=== PATIENT | female | born 2000 | race Caucasian/White ===

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

== ENCOUNTER → 2020-02-17 | Outpatient (CLI) | payer OTHER ==
--- NOTE | 2020-02-24 09:24 | REP ---
INDICATION: NAUSEA COMPARISON: None. TECHNIQUE: Real time Doppler interrogation of the celiac and superior mesenteric arteries using curved array transducer. FINDINGS: Ultrasound examination demonstrates normal arterial wave forms and velocities to the celiac axis and superior mesenteric artery on both inspiration and expiration without significant change to suggest celiac artery compression syndrome or median arcuate ligament syndrome. Visible angulation changes on inspiration and expiration to the celiac axis and superior mesenteric artery are noted but without associated velocity changes are of uncertain true significance. VELOCITY EVALUATION Aorta: 176 cm/sec. Celiac axis (inspiration) 126 cm/sec with angulation of 65 degrees Celiac axis (expiration) 186 cm/sec with angulation of 90 degrees Superior mesenteric artery (inspiration): 99 degree angulation Superior mesenteric artery (expiration): 120 degree angulation. IMPRESSION: Changes of both velocities and angulation to the celiac axis and superior mesenteric artery are within the indeterminate range for diagnosis of celiac artery compression syndrome or median arcuate ligament syndrome. <Electronically signed by Danial Cohn > 02/24/20 [id number]
== END ==
LOC: M RAD 09:07
PROVIDERS: ATTEND Internal Medicine Gastroenterology
DX: R11.0 Nausea (principal)

== ENCOUNTER → 2020-05-22 | Outpatient (CLI) | payer OTHER ==
[2020-05-22 15:45] LABS: HEMATOCRIT 40.4 % (36.0-47.0); HEMOGLOBIN 13.2 g/dl (12.0-15.5); MEAN CORPUSCULAR HEMOGLOBIN 28.6 pg (27.0-33.0); MEAN CORPUSCULAR HGB CONC 32.7 g/dl (32.0-36.5); MEAN CORPUSCULAR VOLUME 87.6 fl (80.0-96.0); PLATELET COUNT, AUTOMATED 200 10^3/uL (150-450); RED BLOOD COUNT 4.61 10^6/uL (4.00-5.40); WHITE BLOOD COUNT 5.4 10^3/uL (4.0-10.0)
[2020-05-22 16:20] LABS: ERYTHROCYTE SEDIMENTATION RATE 16 mm/hr (0-20)
[2020-05-22 16:22] LABS: C REACTIVE PROTEIN QUANTITATIV < 0.30 MG/DL (0.00-0.30); FERRITIN 37 NG/ML (8-252); IRON (FE) 78 UG/DL (50-170); PERCENT SATURATION 21.2 % (13.2-45.0); TOTAL IRON BINDING CAPACITY 368 UG/DL (250-450)
[2020-05-22 17:29] LABS: ATYPICAL LYMPH 7 % (0-5); BASOPHILS 1 % (0-1); LYMPHOCYTES 42 % (16-44); MONOCYTES 2 % (0-5); NEUTROPHILS 47 % (28-66); PLATELET ESTIMATE NORMAL (NORMAL)
== END ==
LOC: M LAB 15:21
PROVIDERS: ATTEND Internal Medicine Gastroenterology
DX: K90.0 Celiac disease (principal); K59.00 Constipation, unspecified

== ENCOUNTER → 2020-12-08 | Outpatient (CLI) | payer OTHER ==
[~2020-12-08] MED LIST changes: +FAMO20TA PO; +LEXA1TAB PO; +META28.32 PO; +POLY1POW38 PO; +SENN-80 PO
== END ==
LOC: M LABSMTC 09:19
PROVIDERS: ATTEND Anesthesiology
DX: Z01.812 Encounter for preprocedural laboratory examination (principal); Z20.822 Contact with and (suspected) exposure to COVID-19

== ENCOUNTER 2020-12-13 11:20 | Day surgery (SDC) | payer OTHER ==
[~2020-12-13] VITALS: Ht 162.6 cm; Wt 53.3 kg
[~2020-12-13 11:20] MED LIST changes: +LIDOCAINE 2% 100MG/5ML SDV (FOR ANES.) As Ordered ONE; +NS 1,000 ML IV ONE; +propofoL 200 MG/20 ML VIAL As Ordered ONE
--- OUTSIDE RECORDS SUMMARY | 2020-12-13 11:26 | CCD | Continuity of Care Document ---
Author Diamante Tidwell M.D. Organization Unknown Address [address], [address] [place] [address] Phone [phone] Care Team Providers Care Hop Grower Name Role Phone Trevin Garibay D.O. AUTM [phone] Jose De Jesus Montero M.D. AUTM [phone] Problems Description No Information Available Social History Type Date Description Comments Sex Unknown ETOH Use Denies alcohol use Tobacco Use Start: Unknown Non Smoker Allergies and adverse reactions Active Allergies Criticality Reaction | Severity Comments Date NKDA Unable to assess criticality 12/09/2018 Gluten Unable to assess criticality 11/21/2020 Lactose Unable to assess criticality 11/21/2020 Medications Active Medications SIG Qnty Indications Ordering Provide r Date Ondansetron 4mg Tablets Dispers Take One Tablet By Mouth Two To Three Times A Day For Nausea as Needed 30tabs Chaka Castellon M.D. 09/05/2020 Senna 8.6mg Tablets Take Two Tablets By Mouth Every Day AT Bedtime 60tabs K90.0 Chaka Castellon M.D. 05/22/2020 Dicyclomine HCL 20mg Tablets Take 1 Tablet By Mouth 2-3 Times Daily AT Least 15 Minutes Before Meals 90tabs Chaka Castellon M.D. 03/07/2020 Famotidine 20mg Tablets Take One Tablet By Mouth Every Day AT Bedtime (And If Tolerating Switch To Two Times A Day After 2 Weeks) 60tabs R11.0 Chaka Castellon M.D. 2019 Miralax 17GM/Scoop Powder 17 gram per dose, mixed with 8 oz water/fluid and to be taken 1 -2 times a day. ( can hold or decrease dose if having diarrhea) 238gm Chaka graham M.D. 10/27/2019 Lexapro 10mg Tablets 1t/d Unknown Promethazine HCL 25mg Tablets 1t/prn Unknown Immunizations Description No Information Available Vital Signs Date Vital Result Comment 11/21/2020 12:11pm BP Systolic 106 mmHg BP Diastolic 60 mmHg Height 64 inches 5'4" Weight 125.00 lb BMI (Body Mass Index) 21.5 kg/m2 [place] Body Weight 120 lb Weight 56.700 kg BSA (Body Surface Area) 1.60 m2 05/22/2020 2:05pm BP Systolic 112 mmHg BP Diastolic 60 mmHg Height 64 inches 5'4" Weight 157.00 lb BMI (Body Mass Index) 26.9 kg/m2 [place] Body Weight 120 lb Weight 71.215 kg Weight Percentile 86th Height Percentile 45 % BSA (Body Surface Area) 1.77 m2 Results Description No Information Available Procedures Date Code Description Status 08/23/2020 06081 Office/Outpatient Established Lo w MDM 20-29 Min Completed Medical Devices Description No Information Available Encounters Type Date Location Provider Dx Diagnosis Office Visit 08/23/2020 9:50a [facility] Chaka Castellon M.D. K90.0 Celiac disease K62.5 Hemorrhage of anus and rectu m R11.0 Nausea R10.10 Upper abdominal pain, unspec ified Assessments Date Code Description Provider 08/23/2020 K90.0 Celiac disease Chaka Guidry ala, M.D. 08/23/2020 K62.5 Hemorrhage of anus and rectum Miguel Ángel Castellon M.D. 08/23/2020 R11.0 Nausea Chaka Guidry ala, M.D. 08/23/2020 R10.10 Upper abdominal pain, unspecifie d Chaka Castellon M.D. Plan of Treatment No Information Available Functional Status Description No Information Available Mental Status Description No Information Available Referrals Description No Information Available
--- OUTSIDE RECORDS SUMMARY | 2020-12-13 11:26 | CCD | Continuity of Care Document ---
Author Author Diamante RUDD MD Organization Unknown Address [address] [place] [address] Phone [phone] Care Team Providers Care Cro Name Role Phone [facility] Behavioral Health AUTM [phone] [facility] AUTM Sahra Rios PA-C AUTM [phone] [facility] AUTM [phone] [facility] Gastroenterology AUTM [phone] [facility] AUTM Laverne Rudd MD AUTM [phone] Problems Active Problems Provider Date Acne CHAMP Campbell Onset: 11/01/2015 Adjustment disorder with anxious mood Georgie Groves M.D. On set: 08/18/2016 Hypermetropia Onset: Social History Type Date Description Comments Sex Unknown ETOH Use Denies alcohol use Tobacco Use Start: Unknown Patient has never smoked Recreational Drug Use Denies Drug Use Exercise Type/Frequency Exercises sporadically Tattoo/Piercing Pierced ears Tattoo/Piercing Pierced lower lip Seat Belt/Car Seat Always uses seat belt SEAN: 05/16/2018 Estimated Date of Delivery Based on Final SEAN Allergies, Adverse Reactions, Alerts Active Allergies Criticality Reaction | Severity Comments Date Gluten Unable to assess criticality Nausea and Vomiting, Urticaria, stomach spasms, mood changes 11/01/2015 Lactose (Intolerance) Unable to assess criticality Nausea and Vomit ing 11/01/2015 Lactose Unable to assess criticality 08/11/2013 Seasonal Unable to assess criticality 11/01/2015 Inactive Allergies NKDA Unable to assess criticality 11/01/2015 Medications Active Medications SIG Qnty Indications Ordering Provide r Date Lexapro 10mg Tablets 1 by mouth every day 30tabs F43.22 Ahsan Mendez MD 10/18/2020 Ondansetron 4mg Tablets Dispers take 1 tablet by mouth up to 3 times a day as needed for nausea/vomiting Unknown Dicyclomine HCL 20mg Tablets Take 1 Tablet By Mouth 2 3 Times Daily AT Least 15 Minutes Before Meals Unknown Promethazine HCL 25mg Suppository as needed 12units Unknown Famotidine 20mg Tablets Take One Tablet By Mouth Every Day AT Bedtime And If Tolerating Switch To Two T Unknown Senna 8.6mg Tablets Take Two Tablets By Mouth Every Day AT Bedtime Unknown Immunizations CPT Code Status Date Vaccine Lot # [id number] Given 03/31/2018 Tdap (Boostrix/Adacel) Vacci ne [id number] Given 11/02/2017 [facility] Influenza (>35 months) P .F. Vaccine [id number] 43876 Given 11/07/2016 [facility] Meningococcal Conjugate Vaccine (Menveo) [id number] 00110 Given 11/07/2016 [facility] Influenza (>35 months) P .F. Vaccine [id number] Given 12/03/2015 [facility] Influenza (>35 months) P .F. Vaccine [id number] 25577 Given 11/14/2014 Influenza (>35 months) P.F. Vaccine 31882 Given 12/13/2013 Influenza Virus Vaccine Split Virus Use For Individual 3Yr Older U-Flu Given 02/20/2012 Influenza,Unspecified 40026 Given 09/12/2011 Meningococcal (Menactra/Menv eo) Vaccine [id number] Given 09/12/2011 Tdap (Boostrix/[place]) [place] [address] Given 01/13/2011 Influenza Virus Vaccine Split Virus Use For Individual 3Yr Older Vital Signs Date Vital Result Comment 10/18/2020 1:53pm BP Systolic 110 mmHg BP Diastolic 70 mmHg Heart Rate 86 /min Body Temperature 95.9 F Respiratory Rate 16 /min O2 % BldC Oximetry 99 % Weight 133.12 lb Weight 60.386 kg Height 64 inches 5'4" BMI (Body Mass Index) 22.8 kg/m2 BSA (Body Surface Area) 1.65 m2 03/04/2019 10:20am BP Systolic 110 mmHg BP Diastolic 60 mmHg Heart Rate 110 /min Body Temperature 98.5 F Respiratory Rate 16 /min O2 % BldC Oximetry 99 % Weight 147.00 lb Weight 66.679 kg Weight Percentile 81st Height 64 inches 5'4" Height Percentile 46 % BMI (Body Mass Index) 25.2 kg/m2 Body Mass Index Percentile 82 % BSA (Body Surface Area) 1.72 m2 Results Test Acquired Date Facility Test Result H/L Range Note Sedimentation Rate 10/18/2020 [facility] Sed Rate 6 mm/hr 0 - 20 Sed Rate Reenter 6 Laboratory test finding 10/18/2020 [facility] TSH Highly Sensitive 0.34 uIU/mL Low 0.47 - 5.01 CRP (High Sensitivity) 0.60 mg/L Low 1.00 - 3.00 1 Laboratory test finding 10/18/2020 [facility] Consuelo Ifa Negative 2 Ra Quant <10 IU/mL 0 - 14 Laboratory test finding 10/13/2020 [facility] Lactic Acid (Lactate) 1.4 mmol/L 0.2 - 2.2 CBC W/Automated Diff 10/13/2020 [facility] CBC W/Automated Diff (SEE NOTE) 3 WBC 6.1 10^3/uL 4.2 - 11.0 RBC 4.50 10^6/uL 4.20 - 5.40 Hemoglobin 13.0 g/dL 12.0 - 16.0 Hematocrit 38.1 % 37.0 - 47.0 MCV 84.7 fL 81.0 - 101 MCH 28.9 pg 27.0 - 34.0 MCHC 34.1 g/dL 31.0 - 36.0 RDW 13.1 % 11.5 - 14.5 Platelets 193 10^3/uL 150 - 450 MPV 12.0 fL High 7.4 - 10.4 Neut 56.2 % 37.0 - 80.0 Lymph 34.3 % 25.0 - 40.0 [place] 6.4 % 3.0 - 8.0 Eos 2.4 % 0.0 - 7.0 Baso 0.5 % 0.0 - 2.5 %Ig 0.2 % High 0.0 - 0.0 %NRBC 0.0 % 0.0 - 0.0 #Neut 3.45 10^3/uL 2.00 - 6.90 #Lymph 2.10 10^3/uL 0.60 - 3.40 #[place] 0.39 10^3/uL 0.00 - 0.90 #Eos 0.15 10^3/uL 0.00 - 0.70 #Baso 0.03 10^3/uL 0.00 - 0.20 #Ig 0.01 10^3/uL 0.00 - 0.10 #NRBC 0.00 10^3/uL 0.00 - 0.00 Manual Diff NOT INDICATED RBC Morph NOT INDICATED Comprehensive Met[facility] 10/13/2020 [facility] Metabo (SEE NOTE) 4 Sodium 140 mEq/L 134 - 153 Potassium 3.8 mEq/L 3.6 - 5.0 Chloride 107 mEq/L 98 - 107 Co2 21 mEq/L Low 22 - 30 Glucose 99 mg/dL 70 - 99 BUN 17 mg/dL 7 - 21 Creatinine 0.7 mg/dL 0.7 - 1.5 BUN/Creat 24 8 - 27 Total Protein 6.7 g/dL 6.3 - 8.2 Albumin 4.6 g/dL 3.9 - 5.0 Globulin 2.1 GM/DL Low 2.4 - 3.2 A/G Ratio 2.2 High 0.8 - 2.0 Calcium 9.7 mg/dL 8.4 - 10.2 Total Bili <0.7 mg/dL 0.2 - 1.3 Alkaline Phos 83 U/L 38 - 126 Sgot/Ast 17 U/L 5 - 40 SGPT/Alt 14 U/L 7 - 56 Anion Gap 12.0 mmol/L 8.0 - 16.0 Age 20 yrs Non-Aa GFR >60 mL/min Afr Amer GFR >60 mL/min 5 Laboratory test finding 10/13/2020 [facility] l Lipase Serum 154 U/L High 13 - 60 HCG Urine Qual 10/13/2020 [facility] HCG Urine Qual NEGATIVE Normal: Negative HCG Urine QL Reenter NEGATIVE Normal: Negative 6 Urinalysis 10/13/2020 [facility] Urinalysis (SEE NOTE) 7 Source R Color yellow Normal: Yellow Clarity clear Normal: Clear Spec Pierre 1.015 1.001 - 1.030 pH 6 5 - 9 Glucose NORM Normal: Negative Bilirubin NEG Normal: Negative Ketone NEG Normal: Negative Protein NEG Normal: Negative Nitrite NEG Normal: Negative Blood NEG Normal: Negative Leuk Est NEG Normal: Negative Urobilinogen NOR less than 1.0 mg/dL Microscopic Not Indicate Urinalysis 10/06/2020 [facility] Urinalysis (SEE NOTE) 8, 9 Source R Color yellow Normal: Yellow Clarity hazy Normal: Clear Spec Pierre 1.020 1.001 - 1.030 pH 6 5 - 9 Glucose NORM Normal: Negative Bilirubin NEG Normal: Negative Ketone 15 Abnormal Normal: Negative Protein NEG Normal: Negative Nitrite NEG Normal: Negative Blood NEG Normal: Negative Leuk Est NEG Normal: Negative Urobilinogen NOR less than 1.0 mg/dL Microscopic Not Indicate Comprehensive Metabolic Panel 09/18/2020 [facility] Metabo (SEE NOTE) 10 Sodium 139 mEq/L 134 - 153 Potassium 4.1 mEq/L 3.6 - 5.0 Chloride 108 mEq/L High 98 - 107 Co2 21 mEq/L Low 22 - 30 Glucose 94 mg/dL 70 - 99 BUN 23 mg/dL High 7 - 21 Creatinine 0.8 mg/dL 0.7 - 1.5 BUN/Creat 29 High 8 - 27 Total Protein 6.7 g/dL 6.3 - 8.2 Albumin 4.6 g/dL 3.9 - 5.0 Globulin 2.1 GM/DL Low 2.4 - 3.2 A/G Ratio 2.2 High 0.8 - 2.0 Calcium 9.5 mg/dL 8.4 - 10.2 Total Bili <0.7 mg/dL 0.2 - 1.3 Alkaline Phos 88 U/L 38 - 126 Sgot/Ast 16 U/L 5 - 40 SGPT/Alt 12 U/L 7 - 56 Anion Gap 10.0 mmol/L 8.0 - 16.0 Age 20 yrs Non-Aa GFR >60 mL/min Afr Amer GFR >60 mL/min 11 Cuture Urine 09/18/2020 [facility] Culture Urine (SEE NOTE) 12 Laboratory test finding 09/18/2020 [facility] l Lipase Serum 17 U/L 13 - 60 Urinalysis 09/18/2020 [facility] Urinalysis (SEE NOTE) 13 Source R Color yellow Normal: Yellow Clarity hazy Normal: Clear Spec Pierre 1.010 1.001 - 1.030 pH 5 5 - 9 Glucose NORM Normal: Negative Bilirubin NEG Normal: Negative Ketone 15 Abnormal Normal: Negative Protein NEG Normal: Negative Nitrite NEG Normal: Negative Blood NEG Normal: Negative Leuk Est 25 Normal: Negative Urobilinogen NOR less than 1.0 mg/dL Microscopic See Below WBC 3 - 5 Normal: None Seen RBC 1 - 3 Normal: None Seen Epithelial MODERATE Abnormal Normal: None Seen Bacteria Trace Normal: None Seen Mucous Trace Normal: None Seen HCG Serum Qual 09/18/2020 [facility] HCG Serum Qual NEGATIVE Normal: Negative HCG Serum QL Reenter NEGATIVE Normal: Negative 14 Laboratory test finding 09/18/2020 [facility] l Lactic Acid (Lactate) 1.1 mmol/L 0.2 - 2.2 CBC W/Automated Diff 09/18/2020 [facility] CBC W/Automated Diff (SEE NOTE) 15 WBC 6.0 10^3/uL 4.2 - 11.0 RBC 4.54 10^6/uL 4.20 - 5.40 Hemoglobin 12.9 g/dL 12.0 - 16.0 Hematocrit 38.2 % 37.0 - 47.0 MCV 84.1 fL 81.0 - 101 MCH 28.4 pg 27.0 - 34.0 MCHC 33.8 g/dL 31.0 - 36.0 RDW 13.2 % 11.5 - 14.5 Platelets 225 10^3/uL 150 - 450 MPV 12.0 fL High 7.4 - 10.4 Neut 63.0 % 37.0 - 80.0 Lymph 27.8 % 25.0 - 40.0 [place] 6.8 % 3.0 - 8.0 Eos 1.0 % 0.0 - 7.0 Baso 1.2 % 0.0 - 2.5 %Ig 0.2 % High 0.0 - 0.0 %NRBC 0.0 % 0.0 - 0.0 #Neut 3.79 10^3/uL 2.00 - 6.90 #Lymph 1.67 10^3/uL 0.60 - 3.40 #[place] 0.41 10^3/uL 0.00 - 0.90 #Eos 0.06 10^3/uL 0.00 - 0.70 #Baso 0.07 10^3/uL 0.00 - 0.20 #Ig 0.01 10^3/uL 0.00 - 0.10 #NRBC 0.00 10^3/uL 0.00 - 0.00 Manual Diff NOT INDICATED RBC Morph NOT INDICATED Urinalysis 07/10/2020 [facility] Urinalysis (SEE NOTE) 16 Source Clean Catch Color yellow Normal: Yellow Clarity clear Normal: Clear Spec Pierre 1.010 1.001 - 1.030 pH 7 5 - 9 Glucose NORM Normal: Negative Bilirubin NEG Normal: Negative Ketone NEG Normal: Negative Protein NEG Normal: Negative Nitrite NEG Normal: Negative Blood NEG Normal: Negative Leuk Est 25 Normal: Negative Urobilinogen NOR less than 1.0 mg/dL Microscopic See Below WBC 1 - 3 Normal: None Seen RBC None Seen Normal: None Seen Epithelial FEW Normal: None Seen Bacteria 1+ SMALL Normal: None Seen Mucous Trace Normal: None Seen CBC W/Automated Diff 07/09/2020 [facility] CBC W/Automated Diff (SEE NOTE) 17 WBC 7.3 10^3/uL 4.2 - 11.0 RBC 4.63 10^6/uL 4.20 - 5.40 Hemoglobin 13.4 g/dL 12.0 - 16.0 Hematocrit 38.5 % 37.0 - 47.0 MCV 83.2 fL 81.0 - 101 MCH 28.9 pg 27.0 - 34.0 MCHC 34.8 g/dL 31.0 - 36.0 RDW 12.5 % 11.5 - 14.5 Platelets 216 10^3/uL 150 - 450 MPV 11.7 fL High 7.4 - 10.4 Neut 61.2 % 37.0 - 80.0 Lymph 30.2 % 25.0 - 40.0 [place] 6.3 % 3.0 - 8.0 Eos 1.4 % 0.0 - 7.0 Baso 0.8 % 0.0 - 2.5 %Ig 0.1 % High 0.0 - 0.0 %NRBC 0.0 % 0.0 - 0.0 #Neut 4.43 10^3/uL 2.00 - 6.90 #Lymph 2.19 10^3/uL 0.60 - 3.40 #[place] 0.46 10^3/uL 0.00 - 0.90 #Eos 0.10 10^3/uL 0.00 - 0.70 #Baso 0.06 10^3/uL 0.00 - 0.20 #Ig 0.01 10^3/uL 0.00 - 0.10 #NRBC 0.00 10^3/uL 0.00 - 0.00 Manual Diff NOT INDICATED RBC Morph NOT INDICATED HCG Serum Qual 07/09/2020 [facility] HCG Serum Qual NEGATIVE Normal: Negative HCG Serum QL Reenter NEGATIVE Normal: Negative 18 Laboratory test finding 07/09/2020 [facility] Lipase Serum 16 U/L 13 - 60 Comprehensive Metabolic Panel 07/09/2020 [facility] Comprehensive Metabo (SEE NOTE) 19 Sodium 140 mEq/L 134 - 153 Potassium 3.7 mEq/L 3.6 - 5.0 Chloride 107 mEq/L 98 - 107 Co2 21 mEq/L Low 22 - 30 Glucose 92 mg/dL 70 - 99 BUN 19 mg/dL 7 - 21 Creatinine 0.7 mg/dL 0.7 - 1.5 BUN/Creat 27 8 - 27 Total Protein 7.0 g/dL 6.3 - 8.2 Albumin 4.7 g/dL 3.9 - 5.0 Globulin 2.3 GM/DL Low 2.4 - 3.2 A/G Ratio 2.0 0.8 - 2.0 Calcium 10.0 mg/dL 8.4 - 10.2 Total Bili <0.7 mg/dL 0.2 - 1.3 Alkaline Phos 94 U/L 38 - 126 Sgot/Ast 17 U/L 5 - 40 SGPT/Alt 13 U/L 7 - 56 Anion Gap 12.0 mmol/L 8.0 - 16.0 Age 19 yrs Non-Aa GFR >60 mL/min Afr Amer GFR >60 mL/min 20 Total Iron Binding Capacit 05/22/2020 [facility] Iron (Fe) 78 g/dL Normal 50-170 Total Iron Binding Capacity 368 g/dL Normal 250-450 Percent Saturation 21.2 % Normal 13.2-45.0 Laboratory test finding 05/22/2020 [facility] Ferritin 37 NG/ML Normal 8-252 C Reactive Protein Quantitativ < 0.30 mg/dL Normal 0.00-0.30 CBC With Differential 05/22/2020 [facility] White Blood Count 5.4 10 Normal 4.0-10.0 Red Blood Count 4.61 10 Normal 4.00-5.40 Hemoglobin 13.2 g/dL Normal 12.0-15.5 Hematocrit 40.4 % Normal 36.0-47.0 Mean Corpuscular Volume 87.6 fl Normal 80.0-96.0 Mean Corpuscular Hemoglobin 28.6 pg Normal 27.0-33.0 Mean Corpuscular HGB Conc 32.7 g/dL Normal 32.0-36.5 Red Cell Distribution Width 11.9 % Normal 11.5-14.5 Platelet Count, Automated 200 10 Normal 150-450 Nucleated Red Blood Cell % 0.0 % Normal 0-0 Differential 05/22/2020 [facility] Neutrophils 47 % Normal 28-66 Bands 1 % Normal < 11 Lymphocytes 42 % Normal 16-44 Monocytes 2 % Normal 0-5 Basophils 1 % Normal 0-1 Atypical Lymph 7 % High 0-5 Laboratory test finding 05/22/2020 [facility] Platelet Estimate NORMAL Normal Normal Erythrocyte Sedimentation Rate 16 mm/hr Normal 0-20 HCG Urine Qual 05/12/2020 [facility] HCG Urine Qual NEGATIVE Normal: Negative HCG Urine QL Reenter NEGATIVE Normal: Negative 21 Urinalysis 05/12/2020 [facility] Urinalysis (SEE NOTE) 22 Source R Color yellow Normal: Yellow Clarity clear Normal: Clear Spec Pierre 1.020 1.001 - 1.030 pH 6 5 - 9 Glucose NORM Normal: Negative Bilirubin NEG Normal: Negative Ketone NEG Normal: Negative Protein NEG Normal: Negative Nitrite NEG Normal: Negative Blood NEG Normal: Negative Leuk Est NEG Normal: Negative Urobilinogen NOR less than 1.0 mg/dL Microscopic Not Indicate 1 CDC/AHS HS-CRP CUT-OFF: RELATIVE RISK: <1.0 mg/L Low 1.0 - 3.0 mg/L A verage >3.0 mg/L High Optimally, the average of HS-CRP results repeated two weeks apart should be used for risk assessment. 2 Negative <1:80 Borderline 1:80 Positive >1:80 ICAP nomenclature: AC-0 For more information about Hep-2 cell patterns use ANApatterns.org, the official website for the International Consensus on Antinuclear Antibody (CONSUELO) Patterns (ICAP). 3 COMPLETE BLOOD COUNT 4 COMPREHENSIVE METABOLIC PANE L 5 Male GFR Interprentation 20-49 yrs >60 mL/min Normal 50-59 yrs >56 mL/min Normal 60-69 yrs >49 mL/min Normal 70-79yrs >42 mL/min Normal 80 and above >35 mL/min Normal Female GFR Interpretation 20-39 yrs >60 mL/min Normal 40-49 yrs >58 mL/min Normal 50-59 yrs >51 mL/min Normal 60-69 yrs >45 mL/min Normal 70-79 yrs >39 mL/min Normal 80 and above >32 mL/min Normal 6 { KIT LOT # [id number] ) { KIT EXP DATE 02.08.22 ) { PROCEDURAL CONTROL VALID ) 7 URINALYSIS 8 SOURCE: Clean Catch 9 URINALYSIS 10 COMPREHENSIVE METABOLIC PANE L 11 Male GFR Interprentation 20-49 yrs >60 mL/min Normal 50-59 yrs >56 mL/min Normal 60-69 yrs >49 mL/min Normal 70-79yrs >42 mL/min Normal 80 and above >35 mL/min Normal Female GFR Interpretation 20-39 yrs >60 mL/min Normal 40-49 yrs >58 mL/min Normal 50-59 yrs >51 mL/min Normal 60-69 yrs >45 mL/min Normal 70-79 yrs >39 mL/min Normal 80 and above >32 mL/min Normal 12 _CULTURE URINE_ ^$[id number] ^^[id number] $$261561 ^^721911 $$[id number] $$446988 $$883297 $$935323 $$402950 $$205772 $$823554 $$626193 $$359644 $$649553 $$581028 $$439928 $$464522 $$860364 $$880285 $$890151 $$982969 $$974197 $$438190 $$485553 $$248295 $$945151 $$342274 ^^809744 $$602927 $$929800 $$[id number] -- Continued on next page -- Patient: CARON Harris Order: [id number] Page 2 Culture: CULTURE URINE Status: Final -- Continued on next page -- Patient: CARON Harris Order: [id number] Page 2 Culture: CULTURE URINE Status: Prelim $$[id number] $$[id number] REPORTED DATE/TIME: 09/21/2020 15:06 Culture: CULTURE URINE Status: Final Isolate 1 Escherichia coli Flag: A . . . . . . .1 2,000 Colonies/mL Cefazolin <=4 ug/mL Cefazolin with an STAN <=16 predicts susceptibility to the oral agents cefaclor, cefdinir, cefpodoxime, cefprozil, cefuroxime, cephalexin, and loracarbef when used for therapy of uncomplicated urinary tract infections due to E. coli, Klebsiella pneumoniae, and Proteus mirabilis. Previous result entered on 09/20/2020 04:15 ET Gram negative rods Urine Culture,Comprehensive: P1 Escherichia coli Flag: A Patient: CARON LEMUS R Order: [id number] Page 3 Culture: CULTURE URINE Status: Final ISOLATE 1 Escherichia coli Isolate 1 Antibiotic STAN Int Units ug/mL Amoxicillin/Clavulanic Acid S S . . . . . .20-8 Ampicillin S S . . . . . .28-1 Cefepime S S . . . . . .6644-9 Ceftriaxone S S . . . . . .141-2 Cefuroxime S S . . . . . .145-3 Ciprofloxacin S S . . . . . .185-9 Ertapenem S S . . . . . .53693-0 Gentamicin S S . . . . . .267-5 Imipenem S S . . . . . .279-0 Levofloxacin S S . . . . . .43409-0 Meropenem S S . . . . . .6652-2 Nitrofurantoin S S . . . . . .363-2 Piperacillin/Tazobactam S S . . . . . .412-7 Tetracycline S S . . . . . .496-0 Tobramycin S S . . . . . .508-2 Trimethoprim/Sulfa S S . . . . . .516-5 P1 Test performed by: [facility] #: [id number] [address] [place] [address] [id number] [facility] [id number] [employer] : Yeyo Goins MD NPI #: Fudger : 09/20/[id number].SENT REF 09/21/20.2108.XMT.SENT REF 13 URINALYSIS 14 { KIT LOT # [id number] ) { KIT EXP DATE 02.08.22 ) { PROCEDURAL CONTROL VALID ) 15 COMPLETE BLOOD COUNT 16 URINALYSIS 17 COMPLETE BLOOD COUNT 18 { KIT LOT # [id number] ) { KIT EXP DATE 12.09.21 ) { PROCEDURAL CONTROL VALID ) 19 COMPREHENSIVE METABOLIC PANE L 20 Male GFR Interprentation 20-49 yrs >60 mL/min Normal 50-59 yrs >56 mL/min Normal 60-69 yrs >49 mL/min Normal 70-79yrs >42 mL/min Normal 80 and above >35 mL/min Normal Female GFR Interpretation 20-39 yrs >60 mL/min Normal 40-49 yrs >58 mL/min Normal 50-59 yrs >51 mL/min Normal 60-69 yrs >45 mL/min Normal 70-79 yrs >39 mL/min Normal 80 and above >32 mL/min Normal 21 { KIT LOT # [id number] ) { KIT EXP DATE 11-08-21 ) { PROCEDURAL CONTROL VALID ) 22 URINALYSIS Procedures Description No Information Available Medical Devices Description No Information Available Encounters Description No Information Available Assessments Date Code Description Provider 10/18/2020 R10.9 Unspecified abdominal pain Laverne Rudd MD 10/18/2020 R21 Rash and other nonspecific skin eruption Laverne Rudd MD 10/18/2020 F43.22 Adjustment disorder with anxiety Laverne Rudd MD Plan of Treatment Future Appointment(s):* 11/20/2020 3:00 pm - Laverne Rudd MD at [facility] 06/02/2018 - Derek Yune M.D.* Z39.2 Encounter for routine follow-up * All * New Medication:* Mirena (52 MG) 20 mcg/24HR - intrauterine device for 5 yrs * Follow up:* f/u when IUD is available. Functional Status Description No Information Available Mental Status Description No Information Available Referrals Description No Information Available
--- OUTSIDE RECORDS SUMMARY | 2020-12-13 11:26 | CCD | Continuity of Care Document ---
Author Author Diamante RUDD MD Organization Unknown Address [address] [place] [address] Phone [phone] Care Team Providers Care Stock Dealer Name Role Phone [facility] Behavioral Health AUTM [phone] [address] [facility] AUTM Sahra Rios PA-C AUTM [phone] [facility] AUTM [phone] [facility] Gastroenterology AUTM [phone] [facility] AUTM Laverne Rudd MD AUTM [phone] Problems Active Problems Provider Date Acne CHAMP [...] CPT Code Status Date Vaccine Lot # [id number] Given 03/31/2018 Tdap (Boostrix/Adacel) Vacci ne [id number] 75196 Given 11/02/2017 [facility] Influenza (>35 months) P .F. Vaccine [id number] 98832 Given 11/07/2016 [facility] Meningococcal Conjugate Vaccine (Menveo) [id number] 70568 Given 11/07/2016 [facility] Influenza (>35 months) P .F. Vaccine [id number] 86597 Given 12/03/2015 [facility] Influenza (>35 months) P .F. Vaccine [id number] 72902 Given 11/14/2014 Influenza (>35 months) P.F. Vaccine 15665 Given 12/13/2013 Influenza Virus Vaccine Split Virus Use For Individual 3Yr Older U-Flu Given 02/20/2012 Influenza,Unspecified 10103 Given 09/12/2011 Meningococcal (Menactra/Menv eo) Vaccine 72052 Given 09/12/2011 Tdap (Boostrix/[place]) [place] [address] Given 01/13/2011 Influenza Virus Vaccine Split Virus [...] Date Facility Test Result H/L Range Note Laboratory test finding 10/18/2020 [facility] Consuelo Ifa <pending> Ra Quantitative <pending> Sedimentation Rate <pending> C-Reactive Protein <pending> TSH Highly Sensitive <pending> Laboratory test finding 10/13/2020 [facility] Lactic Acid (Lactate) 1.4 mmol/L 0.2 - 2.2 CBC W/Automated Diff 10/13/2020 [facility] CBC W/Automated Diff (SEE NOTE) 1 WBC 6.1 10^3/uL 4.2 - 11.0 RBC [...] 80.0 Lymph 34.3 % 25.0 - 40.0 [place] 6.4 % 3.0 - 8.0 Eos 2.4 % 0.0 - 7.0 Baso 0.5 % 0.0 - 2.5 %Ig 0.2 % High 0.0 - 0.0 %NRBC 0.0 % 0.0 - 0.0 #Neut 3.45 10^3/uL 2.00 - 6.90 #Lymph 2.10 10^3/uL 0.60 - 3.40 #[place] 0.39 10^3/uL 0.00 - 0.90 #Eos 0.15 10^3/uL 0.00 - 0.70 #Baso 0.03 10^3/uL 0.00 - 0.20 #Ig 0.01 10^3/uL 0.00 - 0.10 #NRBC 0.00 10^3/uL 0.00 - 0.00 Manual Diff NOT INDICATED RBC Morph NOT INDICATED Comprehensive [facility]abo (SEE NOTE) 2 Sodium 140 mEq/L 134 - 153 Potassium [...] >60 mL/min Afr Amer GFR >60 mL/min 3 Laboratory test finding 10/13/2020 [facility] l Lipase Serum 154 U/L High 13 - 60 HCG Urine Qual 10/13/2020 [facility] HCG Urine Qual NEGATIVE Normal: Negative HCG Urine QL Reenter NEGATIVE Normal: Negative 4 Urinalysis 10/13/2020 [facility] Urinalysis (SEE NOTE) 5 Source R Color yellow Normal: Yellow Clarity clear Normal: Clear Spec [place] 1.015 1.001 - 1.030 pH 6 5 - 9 Glucose NORM Normal: Negative Bilirubin NEG Normal: Negative Ketone NEG Normal: Negative Protein NEG Normal: Negative Nitrite NEG Normal: Negative Blood NEG Normal: Negative Leuk Est NEG Normal: Negative Urobilinogen NOR less than 1.0 mg/dL Microscopic Not Indicate Urinalysis 10/06/2020 [facility] Urinalysis (SEE NOTE) 6, 7 Source R Color yellow Normal: Yellow Clarity hazy Normal: Clear Spec [place] 1.020 1.001 - 1.030 pH 6 5 - 9 Glucose NORM Normal: Negative Bilirubin NEG Normal: Negative Ketone 15 Abnormal Normal: Negative Protein NEG Normal: Negative Nitrite NEG Normal: Negative Blood NEG Normal: Negative Leuk Est NEG Normal: Negative Urobilinogen NOR less than 1.0 mg/dL Microscopic Not Indicate Laboratory test finding 09/18/2020 [facility] l Lipase Serum 17 U/L 13 - 60 Cuture Urine 09/18/2020 [facility] Culture Urine (SEE NOTE) 8 Comprehensive Metabolic Panel 09/18/[facility] Comprehensive Metabo (SEE NOTE) 9 Sodium 139 mEq/L 134 - 153 Potassium [...] >60 mL/min Afr Amer GFR >60 mL/min 10 Urinalysis 09/18/2020 [facility] Urinalysis (SEE NOTE) 11 Source R Color yellow Normal: Yellow Clarity hazy Normal: Clear Spec [place] 1.010 1.001 - 1.030 pH 5 5 [...] Normal: None Seen HCG Serum Qual 09/18/2020 [facility] HCG Serum Qual NEGATIVE Normal: Negative HCG Serum QL Reenter NEGATIVE Normal: Negative 12 Laboratory test finding 09/18/2020 [facility] Lactic Acid (Lactate) 1.1 mmol/L 0.2 - 2.2 CBC W/Automated Diff 09/18/2020 [facility] CBC W/Automated Diff (SEE NOTE) 13 WBC 6.0 10^3/uL 4.2 - 11.0 RBC [...] 80.0 Lymph 27.8 % 25.0 - 40.0 [place] 6.8 % 3.0 - 8.0 Eos 1.0 % 0.0 - 7.0 Baso 1.2 % 0.0 - 2.5 %Ig 0.2 % High 0.0 - 0.0 %NRBC 0.0 % 0.0 - 0.0 #Neut 3.79 10^3/uL 2.00 - 6.90 #Lymph 1.67 10^3/uL 0.60 - 3.40 #[place] 0.41 10^3/uL 0.00 - 0.90 #Eos 0.06 10^3/uL 0.00 - 0.70 #Baso 0.07 10^3/uL 0.00 - 0.20 #Ig 0.01 10^3/uL 0.00 - 0.10 #NRBC 0.00 10^3/uL 0.00 - 0.00 Manual Diff NOT INDICATED RBC Morph NOT INDICATED Urinalysis 07/10/2020 [facility] Urinalysis (SEE NOTE) 14 Source Clean Catch Color yellow Normal: Yellow Clarity clear Normal: Clear Spec [place] 1.010 1.001 - 1.030 pH 7 5 [...] Normal: None Seen CBC W/Automated Diff 07/09/2020 [facility] CBC W/Automated Diff (SEE NOTE) 15 WBC 7.3 10^3/uL 4.2 - 11.0 RBC [...] 80.0 Lymph 30.2 % 25.0 - 40.0 [place] 6.3 % 3.0 - 8.0 Eos 1.4 % 0.0 - 7.0 Baso 0.8 % 0.0 - 2.5 %Ig 0.1 % High 0.0 - 0.0 %NRBC 0.0 % 0.0 - 0.0 #Neut 4.43 10^3/uL 2.00 - 6.90 #Lymph 2.19 10^3/uL 0.60 - 3.40 #[place] 0.46 10^3/uL 0.00 - 0.90 #Eos 0.10 10^3/uL 0.00 - 0.70 #Baso 0.06 10^3/uL 0.00 - 0.20 #Ig 0.01 10^3/uL 0.00 - 0.10 #NRBC 0.00 10^3/uL 0.00 - 0.00 Manual Diff NOT INDICATED RBC Morph NOT INDICATED HCG Serum Qual 07/09/2020 [facility] HCG Serum Qual NEGATIVE Normal: Negative HCG Serum QL Reenter NEGATIVE Normal: Negative 16 Laboratory test finding 07/09/2020 [facility] l Lipase Serum 16 U/L 13 - 60 Comprehensive Metabolic Panel 07/09/2020 [facility] Comprehensive Metabo (SEE NOTE) 17 Sodium 140 mEq/L 134 - 153 Potassium [...] >60 mL/min Afr Amer GFR >60 mL/min 18 Total Iron Binding Capacit 05/22/2020 [facility] Iron (Fe) 78 g/dL Normal 50-170 Total Iron Binding Capacity 368 g/dL Normal 250-450 Percent Saturation 21.2 % Normal 13.2-45.0 Laboratory test finding 05/22/2020 [facility] Ferritin 37 NG/ML Normal 8-252 C Reactive Protein Quantitativ < 0.30 mg/dL Normal 0.00-0.30 CBC With Differential 05/22/2020 [facility] White Blood Count 5.4 10 Normal 4.0-10.0 [...] % 0.0 % Normal 0-0 Differential 05/22/2020 [facility] Neutrophils 47 % Normal 28-66 Bands 1 % Normal < 11 Lymphocytes 42 % Normal 16-44 Monocytes 2 % Normal 0-5 Basophils 1 % Normal 0-1 Atypical Lymph 7 % High 0-5 Laboratory test finding 05/22/2020 [facility] Platelet Estimate NORMAL Normal Normal Erythrocyte Sedimentation Rate 16 mm/hr Normal 0-20 HCG Urine Qual 05/12/2020 [facility] HCG Urine Qual NEGATIVE Normal: Negative HCG Urine QL [place]enter NEGATIVE Normal: Negative 19 Urinalysis 05/12/2020 [facility] Urinalysis (SEE NOTE) 20 Source R Color yellow Normal: Yellow Clarity clear Normal: Clear Spec [place] 1.020 1.001 - 1.030 pH 6 5 - 9 Glucose NORM Normal: Negative Bilirubin NEG Normal: Negative Ketone NEG Normal: Negative Protein NEG Normal: Negative Nitrite NEG Normal: Negative Blood NEG Normal: Negative Leuk Est NEG Normal: Negative Urobilinogen NOR less than 1.0 mg/dL Microscopic Not Indicate 1 COMPLETE BLOOD COUNT 2 COMPREHENSIVE METABOLIC PANE L 3 Male GFR Interprentation 20-49 yrs >60 mL/min Normal 50-59 yrs >56 mL/min Normal 60-69 yrs >49 mL/min Normal 70-79yrs >42 mL/min Normal 80 and above >35 mL/min Normal Female GFR Interpretation 20-39 yrs >60 mL/min Normal 40-49 yrs >58 mL/min Normal 50-59 yrs >51 mL/min Normal 60-69 yrs >45 mL/min Normal 70-79 yrs >39 mL/min Normal 80 and above >32 mL/min Normal 4 { KIT LOT # [id number] ) { KIT EXP DATE 02.08.22 ) { PROCEDURAL CONTROL VALID ) 5 URINALYSIS 6 SOURCE: Clean Catch 7 URINALYSIS 8 _CULTURE URINE_ ^$[id number] ^^[id number] $$[id number] ^^[id number] $$[id number] $$156194 $$851961 $$054965 $$808466 $$520498 $$008921 $$935151 $$840721 $$206995 $$805375 $$486173 $$575982 $$802472 $$538949 $$287008 $$719532 $$201025 $$132037 $$846661 $$910432 $$664629 $$677688 ^^387671 $$209886 $$609698 $$267865 -- Continued on next page -- Patient: CARON LEMUS R Order: [id number] Page 2 Culture: CULTURE URINE Status: Final -- Continued on next page -- Patient: CARON LEMUS R Order: [id number] Page 2 Culture: CULTURE URINE Status: Prelim $$[id number] $$[id number] REPORTED DATE/TIME: 09/21/2020 15:06 Culture: CULTURE URINE [...] P1 Escherichia coli Flag: A Patient: CARON Harris Order: [id number] Page 3 Culture: CULTURE URINE Status: Final [...] S S . . . . . .63436-8 Gentamicin S S . . . . . .267-5 Imipenem S S . . . . . .279-0 Levofloxacin S S . . . . . .11820-7 Meropenem S S . . . . . .6652-2 Nitrofurantoin S S . . . . . .363-2 Piperacillin/Tazobactam S S . . . . . .412-7 Tetracycline S S . . . . . .496-0 Tobramycin S S . . . . . .508-2 Trimethoprim/Sulfa S S . . . . . .516-5 P1 Test performed by: [facility] TAISHA #: [id number] [address] [place] [address] [address] [id number] [facility] [id number] Key Ringer : Yeyo Goins MD NPI #: Network Program Manager : 09/20/[email or web address] REF 09/21/[email or web address].SENT REF 9 COMPREHENSIVE METABOLIC PANE L 10 Male GFR Interprentation 20-49 yrs >60 mL/min Normal 50-59 yrs >56 mL/min Normal 60-69 yrs >49 mL/min Normal 70-79yrs >42 mL/min Normal 80 and above >35 mL/min Normal Female GFR Interpretation 20-39 yrs >60 mL/min Normal 40-49 yrs >58 mL/min Normal 50-59 yrs >51 mL/min Normal 60-69 yrs >45 mL/min Normal 70-79 yrs >39 mL/min Normal 80 and above >32 mL/min Normal 11 URINALYSIS 12 { KIT LOT # [id number] ) { KIT EXP DATE 02.08.22 ) { PROCEDURAL CONTROL VALID ) 13 COMPLETE BLOOD COUNT 14 URINALYSIS 15 COMPLETE BLOOD COUNT 16 { KIT LOT # [id number] ) { KIT EXP DATE 12.09.21 ) { PROCEDURAL CONTROL VALID ) 17 COMPREHENSIVE METABOLIC PANE L 18 Male GFR Interprentation 20-49 yrs >60 mL/min Normal 50-59 yrs >56 mL/min Normal 60-69 yrs >49 mL/min Normal 70-79yrs >42 mL/min Normal 80 and above >35 mL/min Normal Female GFR Interpretation 20-39 yrs >60 mL/min Normal 40-49 yrs >58 mL/min Normal 50-59 yrs >51 mL/min Normal 60-69 yrs >45 mL/min Normal 70-79 yrs >39 mL/min Normal 80 and above >32 mL/min Normal 19 { KIT LOT # [id number] ) { KIT EXP DATE 11-08-21 ) { PROCEDURAL CONTROL VALID ) 20 URINALYSIS Procedures Description No Information Available Medical Devices Description No Information Available Encounters Description No Information Available Assessments Date Code Description Provider 10/18/2020 R10.9 Unspecified abdominal pain Laverne Rudd MD 10/18/2020 R21 Rash and other nonspecific skin eruption Laverne Rudd MD 10/18/2020 F43.22 Adjustment disorder with anxiety Laverne Rudd MD Plan of Treatment Future Appointment(s):* 11/20/2020 3:00 pm - Laverne Rudd MD at [facility] 10/18/2020 - Laverne Rudd MD* R10.9 Unspecified abdominal pain * R21 Rash and other nonspecific skin eruption * F43.22 Adjustment disorder with anxiety* New Medication:* Lexapro 10 mg - 1 by mouth every day * All * Follow up:* 1 month Functional Status Description No Information Available Mental Status Description No Information Available Referrals Description No Information Available
--- OUTSIDE RECORDS SUMMARY | 2020-12-13 11:26 | CCD | Continuity of Care Document ---
Author Diamante Tidwell M.D. Organization Unknown Address [address], [address] [place] [address] Phone [phone] Care Team Providers Care Public Address System Operator Name Role Phone Trevin Garibay D.O. AUTM [phone] Jose De Jesus Montero M.D. AUTM [phone] Problems Description No Information Available Social History [...] lb BMI (Body Mass Index) 21.5 kg/m2 Brogue Body Weight 120 lb Weight 56.700 kg BSA (Body Surface Area) 1.60 m2 05/22/2020 2:05pm BP Systolic 112 mmHg BP Diastolic 60 mmHg Height 64 inches 5'4" Weight 157.00 lb BMI (Body Mass Index) 26.9 kg/m2 Brogue Body Weight 120 lb Weight 71.215 kg Weight Percentile 86th Height Percentile 45 % BSA (Body Surface Area) 1.77 m2 Results Description No Information Available Procedures Date Code Description Status 08/23/2020 19800 Office/Outpatient Established Lo w MDM 20-29 Min Completed Medical Devices Description No Information Available Encounters Type Date Location Provider Dx Diagnosis Office Visit 08/23/2020 9:50a [facility] Gastroenterology [facility] Chaka Castellon M.D. K90.0 Celiac disease [...]
--- OUTSIDE RECORDS SUMMARY | 2020-12-13 11:26 | CCD | Continuity of Care Document ---
Author Author Diamante RUDD MD Organization Unknown Address [address] [place] [address] Phone [phone] Care Team Providers Care Engine Boss Name Role Phone [facility] Behavioral Health AUTM [phone] [facility] AUTM Fish, Citlalli Neto AUTM [phone] [facility] Gastroenterology AUTM [phone] [facility] AUTM Laverne Rudd MD AUTM [phone] [facility] Gastroenterology AUTM [phone] Problems Active Problems Provider Date CHAMP Ceja Onset: 11/01/2015 Adjustment disorder with anxious mood [...] Date of Delivery Based on Final SEAN Allergies and adverse reactions Active Allergies Criticality [...] 1 by mouth every day 30tabs F43.22 Laverne Rudd MD 10/18/2020 Ondansetron 4mg Tablets Dispers take [...] CPT Code Status Date Vaccine Lot # [id number] Given 03/31/2018 Tdap (Boostrix/Adacel) Vacci ne [id number] Given 11/02/2017 [facility] Influenza (>35 months) P .F. Vaccine [id number] 58981 Given 11/07/2016 [facility] Meningococcal Conjugate Vaccine (Menveo) [id number] 69121 Given 11/07/2016 [facility] Influenza (>35 months) P .F. Vaccine [id number] 89865 Given 12/03/2015 [facility] Influenza (>35 months) P .F. Vaccine [id number] 37763 Given 11/14/2014 Influenza (>35 months) P.F. Vaccine 63210 Given 12/13/2013 Influenza Virus Vaccine Split Virus Use For Individual 3Yr Older U-Flu Given 02/20/2012 Influenza,Unspecified 03776 Given 09/12/2011 Meningococcal (Menactra/Menv eo) Vaccine 65702 Given 09/12/2011 Tdap (Boostrix/[place] [address] Given 01/13/2011 Influenza Virus Vaccine Split Virus Use For Individual 3Yr Older Vital Signs Date Vital Result Comment 11/20/2020 3:19pm BP Systolic 110 mmHg BP Diastolic 70 mmHg Heart Rate 68 /min Body Temperature 97.5 F Respiratory Rate 16 /min O2 % BldC Oximetry 99 % Weight 125.00 lb Weight 56.700 kg Height 64 inches 5'4" BMI (Body Mass Index) 21.5 kg/m2 BSA (Body Surface Area) 1.60 m2 10/18/2020 1:53pm BP Systolic 110 mmHg BP Diastolic 70 mmHg Heart Rate 86 /min Body Temperature 95.9 F Respiratory Rate 16 /min O2 % BldC Oximetry 99 % Weight 133.12 lb Weight 60.386 kg Height 64 inches 5'4" BMI (Body Mass Index) 22.8 kg/m2 BSA (Body Surface Area) 1.65 m2 Results Test Acquired Date Facility Test Result H/L Range Note Sedimentation Rate 10/18/2020 [facility] Sed Rate 6 mm/hr 0 - 20 Sed Rate Reenter 6 Laboratory test finding 10/18/2020 [facility] TSH Highly Sensitive 0.34 uIU/mL Low 0.47 - 5.01 CRP (High Sensitivity) 0.60 mg/L Low 1.00 - 3.00 1 Laboratory test finding 10/18/2020 [facility] Consuelo Ifa Negative 2 Ra Quant <10 IU/mL 0 - 14 Laboratory test finding 10/13/2020 [facility] Lactic Acid (Lactate) 1.4 mmol/L 0.2 - 2.2 CBC W/Automated Diff 10/13/2020 [facility] CBC W/Automated Diff (SEE NOTE) 3 [...] 80.0 Lymph 34.3 % 25.0 - 40.0 [place] 6.4 % 3.0 - 8.0 Eos 2.4 % 0.0 - 7.0 Baso 0.5 % 0.0 - 2.5 %Ig 0.2 % High 0.0 - 0.0 %NRBC 0.0 % 0.0 - 0.0 #Neut 3.45 10^3/uL 2.00 - 6.90 #Lymph 2.10 10^3/uL 0.60 - 3.40 #[place] 0.39 10^3/uL 0.00 - 0.90 #Eos 0.15 10^3/uL 0.00 - 0.70 #Baso 0.03 10^3/uL 0.00 - 0.20 #Ig 0.01 10^3/uL 0.00 - 0.10 #NRBC 0.00 10^3/uL 0.00 - 0.00 Manual Diff NOT INDICATED RBC Morph NOT INDICATED Comprehensive Metabolic Panel 10/13/2020 [facility] Comprehensive Metabo (SEE NOTE) 4 Sodium 140 [...] >60 mL/min 5 Laboratory test finding 10/13/2020 [facility] Lipase Serum 154 U/L High 13 - 60 HCG Urine Qual 10/13/2020 [facility] HCG Urine Qual NEGATIVE Normal: Negative HCG Urine QL Reenter NEGATIVE Normal: Negative 6 Urinalysis 10/13/2020 [facility] Urinalysis (SEE NOTE) 7 Source R Color yellow Normal: Yellow Clarity clear Normal: Clear Spec [place] 1.015 1.001 - 1.030 pH 6 5 - 9 Glucose NORM Normal: Negative Bilirubin NEG Normal: Negative Ketone NEG Normal: Negative Protein NEG Normal: Negative Nitrite NEG Normal: Negative Blood NEG Normal: Negative Leuk Est NEG Normal: Negative Urobilinogen NOR less than 1.0 mg/dL Microscopic Not Indicate Urinalysis 10/06/2020 [facility] Urinalysis (SEE NOTE) 8, 9 Source R Color yellow Normal: Yellow Clarity hazy Normal: Clear Spec [place] 1.020 1.001 - 1.030 pH 6 5 - 9 Glucose NORM Normal: Negative Bilirubin NEG Normal: Negative Ketone 15 Abnormal Normal: Negative Protein NEG Normal: Negative Nitrite NEG Normal: Negative Blood NEG Normal: Negative Leuk Est NEG Normal: Negative Urobilinogen NOR less than 1.0 mg/dL Microscopic Not Indicate Urinalysis 09/18/2020 [facility] Urinalysis (SEE NOTE) 10 Source R Color yellow Normal: Yellow Clarity hazy Normal: Clear Spec [place] 1.010 1.001 - 1.030 pH 5 5 [...] None Seen Mucous Trace Normal: None Seen Cuture Urine 09/18/2020 [facility] Culture Urine (SEE NOTE) 11 Laboratory test finding 09/18/2020 [facility] l Lipase Serum 17 U/L 13 - 60 Comprehensive Metabolic Panel 09/18/2020 [facility] Comprehensive Metabo (SEE NOTE) 12 Sodium 139 mEq/L 134 - 153 Potassium [...] >60 mL/min Afr Amer GFR >60 mL/min 13 HCG Serum Qual 09/18/2020 [facility] HCG Serum Qual NEGATIVE Normal: Negative HCG Serum QL [place]enter NEGATIVE Normal: Negative 14 Laboratory test finding 09/18/2020 [facility] l Lactic Acid (Lactate) 1.1 mmol/L 0.2 - 2.2 CBC W/Automated Diff 09/18/2020 [facility] CBC W/Automated Diff (SEE NOTE) 15 [...] 80.0 Lymph 27.8 % 25.0 - 40.0 [place] 6.8 % 3.0 - 8.0 Eos 1.0 % 0.0 - 7.0 Baso 1.2 % 0.0 - 2.5 %Ig 0.2 % High 0.0 - 0.0 %NRBC 0.0 % 0.0 - 0.0 #Neut 3.79 10^3/uL 2.00 - 6.90 #Lymph 1.67 10^3/uL 0.60 - 3.40 #[place] 0.41 10^3/uL 0.00 - 0.90 #Eos 0.06 10^3/uL 0.00 - 0.70 #Baso 0.07 10^3/uL 0.00 - 0.20 #Ig 0.01 10^3/uL 0.00 - 0.10 #NRBC 0.00 10^3/uL 0.00 - 0.00 Manual Diff NOT INDICATED RBC Morph NOT INDICATED Urinalysis 07/10/2020 [facility] Urinalysis (SEE NOTE) 16 Source Clean Catch Color yellow Normal: Yellow Clarity clear Normal: Clear Spec [place] 1.010 1.001 - 1.030 pH 7 5 [...] Normal: None Seen CBC W/Automated Diff 07/09/2020 [facility] CBC W/Automated Diff (SEE NOTE) 17 [...] 80.0 Lymph 30.2 % 25.0 - 40.0 [place] 6.3 % 3.0 - 8.0 Eos 1.4 % 0.0 - 7.0 Baso 0.8 % 0.0 - 2.5 %Ig 0.1 % High 0.0 - 0.0 %NRBC 0.0 % 0.0 - 0.0 #Neut 4.43 10^3/uL 2.00 - 6.90 #Lymph 2.19 10^3/uL 0.60 - 3.40 #[place] 0.46 10^3/uL 0.00 - 0.90 #Eos 0.10 10^3/uL 0.00 - 0.70 #Baso 0.06 10^3/uL 0.00 - 0.20 #Ig 0.01 10^3/uL 0.00 - 0.10 #NRBC 0.00 10^3/uL 0.00 - 0.00 Manual Diff NOT INDICATED RBC Morph NOT INDICATED HCG Serum Qual 07/09/2020 [facility] HCG Serum Qual NEGATIVE Normal: Negative HCG Serum QL [place]enter NEGATIVE Normal: Negative 18 Laboratory test finding 07/09/2020 [facility] l Lipase Serum 16 U/L 13 - 60 Comprehensive Metabolic Panel 07/09/2020 [facility] Comprehensive Metabo (SEE NOTE) 19 Sodium [...] mL/min 20 Total Iron Binding Capacit 05/22/2020 [facility] Iron (Fe) 78 g/dL Normal 50-170 Total Iron Binding Capacity 368 g/dL Normal 250-450 Percent Saturation 21.2 % Normal 13.2-45.0 Laboratory test finding 05/22/2020 [facility] Ferritin 37 NG/ML Normal 8-252 C Reactive Protein Quantitativ < 0.30 mg/dL Normal 0.00-0.30 CBC With Differential 05/22/2020 [facility] White Blood Count 5.4 10 Normal [...] % 0.0 % Normal 0-0 Differential 05/22/2020 [facility] Neutrophils 47 % Normal 28-66 Bands 1 % Normal < 11 Lymphocytes 42 % Normal 16-44 Monocytes 2 % Normal 0-5 Basophils 1 % Normal 0-1 Atypical Lymph 7 % High 0-5 Laboratory test finding 05/22/2020 [facility] Platelet Estimate NORMAL Normal Normal Erythrocyte Sedimentation Rate 16 mm/hr Normal 0-20 1 CDC/S HS-CRP CUT-OFF: RELATIVE RISK: <1.0 mg/L Low [...] mL/min Normal 6 { KIT LOT # [id number] ) { KIT EXP DATE 12.31.22 ) { PROCEDURAL CONTROL VALID ) 7 URINALYSIS 8 SOURCE: Clean Catch 9 URINALYSIS 10 URINALYSIS 11 _CULTURE URINE_ ^$[id number] ^^[id number] $$[id number] ^^036432 $$149155 $$336476 $$175412 $$163248 $$459826 $$798628 $$763352 $$470301 $$236638 $$953678 $$970396 $$436132 $$067610 $$795449 $$252506 $$202395 $$769424 $$406070 $$579695 $$037010 $$426589 $$815825 $$410494 ^^114537 $$941044 $$426660 $$355572 -- Continued on next page -- Patient: CARON LEMUS R Order: [id number] Page 2 Culture: CULTURE URINE Status: Final -- Continued on next page -- Patient: CARON LEMUS R Order: [id number] Page 2 Culture: CULTURE URINE Status: Prelim $$[id number] $$[id number] REPORTED DATE/TIME: 09/21/2020 15:06 Culture: CULTURE URINE [...] coli Flag: A Patient: CARON Harris Order: [id number] Page 3 Culture: CULTURE URINE Status: Final [...] S S . . . . . .65702-2 Gentamicin S S . . . . . .267-5 Imipenem S S . . . . . .279-0 Levofloxacin S S . . . . . .11695-2 Meropenem S S . . . . . .6652-2 Nitrofurantoin S S . . . . . .363-2 Piperacillin/Tazobactam S S . . . . . .412-7 Tetracycline S S . . . . . .496-0 Tobramycin S S . . . . . .508-2 Trimethoprim/Sulfa S S . . . . . .516-5 P1 Test performed by: [facility] #: [id number] [id number] [facility] [address] [employer] Server : Yeyo Goins MD NPI #: Education Research Analyst : 09/20/20.0634.XMT.SENT REF 09/21/20.2108.XMT.SENT REF 12 COMPREHENSIVE METABOLIC PANE L 13 Male GFR Interprentation 20-49 yrs >60 mL/min Normal 50-59 yrs >56 mL/min Normal 60-69 yrs >49 mL/min Normal 70-79yrs >42 mL/min Normal 80 and above >35 mL/min Normal Female GFR Interpretation 20-39 yrs >60 mL/min Normal 40-49 yrs >58 mL/min Normal 50-59 yrs >51 mL/min Normal 60-69 yrs >45 mL/min Normal 70-79 yrs >39 mL/min Normal 80 and above >32 mL/min Normal 14 { KIT LOT # [id number] ) { KIT EXP DATE 02.08.22 ) { PROCEDURAL CONTROL VALID ) 15 COMPLETE BLOOD COUNT 16 URINALYSIS 17 COMPLETE BLOOD COUNT 18 { KIT LOT # [id number] ) { KIT EXP DATE 12.09.21 ) [...] Normal 80 and above >32 mL/min Normal Procedures Description No Information Available Medical Devices Description No Information Available Encounters Description No Information Available Assessments Date Code Description Provider 11/20/2020 F41.9 Anxiety disorder, unspecified An douglas Rudd MD 11/20/2020 F32.89 Other specified depressive episo barby Laverne Rudd MD 11/20/2020 R10.9 Unspecified abdominal pain Laverne Rudd MD 10/18/2020 R10.9 Unspecified abdominal pain Laverne Rudd MD 10/18/2020 R21 Rash and other nonspecific skin eruption Laverne Rudd MD 10/18/2020 F43.22 Adjustment disorder with anxiety Laverne Rudd MD Plan of Treatment Future Appointment(s):* 02/20/2021 2:00 pm - Laverne Rudd MD at [facility] Functional Status Description No Information Available Mental Status Description No Information Available Referrals Refer to Reason for Referral Status Appt Date 20-year-old female with hist ory of anxiety and depression. Please evaluate and treat. Thank you. Created [facility] Gastroenterology 20 year old f vahid with h/o IBS and celiac disease with chronic abdominal pain. She is interested in evaluation and also interested in testing for fructose intolerance and SIBO. Sent [address] [place] [address] [id number] [place] [address] [phone]
--- OUTSIDE RECORDS SUMMARY | 2020-12-13 11:26 | CCD | Continuity of Care Document ---
Author Author Diamante ELLSWORTH M.D. Organization Unknown Address [address] [place] [address] Phone [phone] Care Team Providers Care Hand Painter Name Role Phone [facility] Behavioral Health AUTM [phone] [facility] [address] [facility] AUTM Fish, Citlalli Neto AUTM [phone] [facility] Gastroenterology AUTM [phone] [facility] AUTM Laverne Rudd MD AUTM [phone] [facility] Gastroenterology AUTM [phone] [facility] AUTM [phone] Problems Active Problems Provider Date CHAMP Ceja [...] CPT Code Status Date Vaccine Lot # [id number] Given 11/20/2020 Influenza (>= 6 Months) P.F. Vaccine [id number] 86072 Given 03/31/2018 Tdap (Boostrix/Adacel) Vacci ne [id number] 98467 Given 11/02/2017 [facility] Influenza (>35 months) P .F. Vaccine [id number] 62441 Given 11/07/2016 [facility] Meningococcal Conjugate Vaccine (Menveo) [id number] 28251 Given 11/07/2016 [facility] Influenza (>35 months) P .F. Vaccine [id number] 15190 Given 12/03/2015 [facility] Influenza (>35 months) P .F. Vaccine [id number] 08374 Given 11/14/2014 Influenza (>35 months) P.F. Vaccine 51876 Given 12/13/2013 Influenza Virus Vaccine Split Virus Use For Individual 3Yr Older U-Flu Given 02/20/2012 Influenza,Unspecified 90353 Given 09/12/2011 Meningococcal (Menactra/Menv eo) Vaccine 33967 Given 09/12/2011 Tdap (Boostrix/[place]) [place] [address] Given 01/13/2011 Influenza Virus Vaccine Split Virus [...] Date Facility Test Result H/L Range Note Coronavirus 2019 Nasopharygeal 12/08/2020 [facility] Coronavirus 2019 Nasopharygeal ASSAY INFORMATIO <SEE NOTE> 1 Laboratory test finding 10/18/2020 [facility] Consuelo Ifa Negative 2 Ra Quant <10 IU/mL 0 - 14 Sedimentation Rate 10/18/2020 [facility] Sed Rate 6 mm/hr 0 - 20 Sed Rate Reenter 6 Laboratory test finding 10/18/2020 [facility] TSH Highly Sensitive 0.34 uIU/mL Low 0.47 - 5.01 CRP (High Sensitivity) 0.60 mg/L Low 1.00 - 3.00 3 Laboratory test finding 10/13/2020 [facility] Lactic Acid (Lactate) 1.4 mmol/L 0.2 - 2.2 CBC W/Automated Diff 10/13/2020 [facility] CBC W/Automated Diff (SEE NOTE) 4 WBC 6.1 10^3/uL 4.2 - 11.0 RBC [...] 80.0 Lymph 34.3 % 25.0 - 40.0 [place] 6.4 % 3.0 - 8.0 Eos 2.4 % 0.0 - 7.0 Baso 0.5 % 0.0 - 2.5 %Ig 0.2 % High 0.0 - 0.0 %NRBC 0.0 % 0.0 - 0.0 #Neut 3.45 10^3/uL 2.00 - 6.90 #Lymph 2.10 10^3/uL 0.60 - 3.40 #[place] 0.39 10^3/uL 0.00 - 0.90 #Eos 0.15 10^3/uL 0.00 - 0.70 #Baso 0.03 10^3/uL 0.00 - 0.20 #Ig 0.01 10^3/uL 0.00 - 0.10 #NRBC 0.00 10^3/uL 0.00 - 0.00 Manual Diff NOT INDICATED RBC Morph NOT INDICATED Comprehensive Metabolic Panel 10/13/2020 [facility] Comprehensive Metabo (SEE NOTE) 5 Sodium 140 mEq/L 134 - 153 Potassium [...] >60 mL/min Afr Amer GFR >60 mL/min 6 Laboratory test finding 10/13/2020 [facility] l Lipase Serum 154 U/L High 13 - 60 HCG Urine Qual 10/13/2020 [facility] HCG Urine Qual NEGATIVE Normal: Negative HCG Urine QL Reenter NEGATIVE Normal: Negative 7 Urinalysis 10/13/2020 [facility] Urinalysis (SEE NOTE) 8 Source R Color yellow Normal: Yellow Clarity clear Normal: Clear Spec [place] 1.015 1.001 - 1.030 pH 6 5 - 9 Glucose NORM Normal: Negative Bilirubin NEG Normal: Negative Ketone NEG Normal: Negative Protein NEG Normal: Negative Nitrite NEG Normal: Negative Blood NEG Normal: Negative Leuk Est NEG Normal: Negative Urobilinogen NOR less than 1.0 mg/dL Microscopic Not Indicate Urinalysis 10/06/2020 [facility] Urinalysis (SEE NOTE) 9, 10 Source R Color yellow Normal: Yellow Clarity hazy Normal: Clear Spec [place] 1.020 1.001 - 1.030 pH 6 5 - 9 Glucose NORM Normal: Negative Bilirubin NEG Normal: Negative Ketone 15 Abnormal Normal: Negative Protein NEG Normal: Negative Nitrite NEG Normal: Negative Blood NEG Normal: Negative Leuk Est NEG Normal: Negative Urobilinogen NOR less than 1.0 mg/dL Microscopic Not Indicate CBC W/Automated Diff 09/18/2020 [facility] CBC W/Automated Diff (SEE NOTE) 11 WBC 6.0 10^3/uL 4.2 - 11.0 RBC [...] 80.0 Lymph 27.8 % 25.0 - 40.0 [place] 6.8 % 3.0 - 8.0 Eos 1.0 % 0.0 - 7.0 Baso 1.2 % 0.0 - 2.5 %Ig 0.2 % High 0.0 - 0.0 %NRBC 0.0 % 0.0 - 0.0 #Neut 3.79 10^3/uL 2.00 - 6.90 #Lymph 1.67 10^3/uL 0.60 - 3.40 #[place] 0.41 10^3/uL 0.00 - 0.90 #Eos 0.06 10^3/uL 0.00 - 0.70 #Baso 0.07 10^3/uL 0.00 - 0.20 #Ig 0.01 10^3/uL 0.00 - 0.10 #NRBC 0.00 10^3/uL 0.00 - 0.00 Manual Diff NOT INDICATED RBC Morph NOT INDICATED Cuture Urine 09/18/2020 [facility] Culture Urine (SEE NOTE) 12 Laboratory test finding 09/18/2020 [facility] l Lipase Serum 17 U/L 13 - 60 Comprehensive Metabolic Panel 09/18/2020 [facility] Comprehensive Metabo (SEE NOTE) 13 Sodium 139 mEq/L 134 - 153 Potassium [...] >60 mL/min Afr Amer GFR >60 mL/min 14 Urinalysis 09/18/2020 [facility] Urinalysis (SEE NOTE) 15 Source R Color yellow Normal: Yellow Clarity hazy Normal: Clear Spec [place] 1.010 1.001 - 1.030 pH 5 5 [...] Normal: None Seen HCG Serum Qual 09/18/2020 [facility] HCG Serum Qual NEGATIVE Normal: Negative HCG Serum QL Reenter NEGATIVE Normal: Negative 16 Laboratory test finding 09/18/2020 [facility] l Lactic Acid (Lactate) 1.1 mmol/L 0.2 - 2.2 Urinalysis 07/10/2020 [facility] Urinalysis (SEE NOTE) 17 Source Clean Catch Color yellow Normal: Yellow Clarity clear Normal: Clear Spec [place] 1.010 1.001 - 1.030 pH 7 5 [...] Normal: None Seen CBC W/Automated Diff 07/09/2020 [facility] CBC W/Automated Diff (SEE NOTE) 18 WBC 7.3 10^3/uL 4.2 - 11.0 RBC [...] 80.0 Lymph 30.2 % 25.0 - 40.0 [place] 6.3 % 3.0 - 8.0 Eos 1.4 % 0.0 - 7.0 Baso 0.8 % 0.0 - 2.5 %Ig 0.1 % High 0.0 - 0.0 %NRBC 0.0 % 0.0 - 0.0 #Neut 4.43 10^3/uL 2.00 - 6.90 #Lymph 2.19 10^3/uL 0.60 - 3.40 #[place] 0.46 10^3/uL 0.00 - 0.90 #Eos 0.10 10^3/uL 0.00 - 0.70 #Baso 0.06 10^3/uL 0.00 - 0.20 #Ig 0.01 10^3/uL 0.00 - 0.10 #NRBC 0.00 10^3/uL 0.00 - 0.00 Manual Diff NOT INDICATED RBC Morph NOT INDICATED HCG Serum Qual 07/09/2020 [facility] HCG Serum Qual NEGATIVE Normal: Negative HCG Serum QL Reenter NEGATIVE Normal: Negative 19 Laboratory test finding 07/09/2020 [facility] Lipase Serum 16 U/L 13 - 60 Comprehensive Metabolic Panel 07/09/2020 [facility] Comprehensive Metabo (SEE NOTE) 20 Sodium 140 mEq/L 134 - 153 Potassium [...] >60 mL/min Afr Amer GFR >60 mL/min 21 1 ASSAY INFORMATION: Real Time RT-PCR NOTE: The COVID-19 assay has been cleared by the U.S. Food and Drug Administration under the Emergency Use Authorization (EUA). [facility] and [facility] are designated as high complexity laboratories by the Clinical Laboratory Improvement Amendments of 1988(CLIA) and are qualified to perform this test. Not Detected 2 Negative <1:80 Borderline 1:80 Positive >1:80 ICAP nomenclature: AC-0 For more information about Hep-2 cell patterns use ANApatterns.org, the official website for the International Consensus on Antinuclear Antibody (CONSUELO) Patterns (ICAP). 3 CDC/S HS-CRP CUT-OFF: RELATIVE RISK: <1.0 mg/L Low 1.0 - 3.0 mg/L A verage >3.0 mg/L High Optimally, the average of HS-CRP results repeated two weeks apart should be used for risk assessment. 4 COMPLETE BLOOD COUNT 5 COMPREHENSIVE METABOLIC PANE L 6 Male GFR Interprentation 20-49 yrs >60 mL/min Normal 50-59 yrs >56 mL/min Normal 60-69 yrs >49 mL/min Normal 70-79yrs >42 mL/min Normal 80 and above >35 mL/min Normal Female GFR Interpretation 20-39 yrs >60 mL/min Normal 40-49 yrs >58 mL/min Normal 50-59 yrs >51 mL/min Normal 60-69 yrs >45 mL/min Normal 70-79 yrs >39 mL/min Normal 80 and above >32 mL/min Normal 7 { KIT LOT # [id number] ) { KIT EXP DATE 02.08.22 ) { PROCEDURAL CONTROL VALID ) 8 URINALYSIS 9 SOURCE: Clean Catch 10 URINALYSIS 11 COMPLETE BLOOD COUNT 12 _CULTURE URINE_ ^$[id number] ^^872757 $$332159 ^^002291 $$057533 $$118700 $$318127 $$467524 $$863564 $$609381 $$254529 $$934985 $$795145 $$422865 $$232766 $$765242 $$996665 $$078391 $$355502 $$020580 $$906861 $$409465 $$307822 $$831317 $$196366 $$023972 $$023103 ^^140508 $$671529 $$400775 $$839934 -- Continued on next page -- Patient: CARON LEMUS R Order: [id number] Page 2 Culture: CULTURE URINE Status: Final -- Continued on next page -- Patient: CARON LEMUS R Order: [id number] Page 2 Culture: CULTURE URINE Status: Prelim $$[id number] $$[id number] REPORTED DATE/TIME: 09/21/2020 15:06 Culture: CULTURE URINE [...] Flag: A Patient: CARON LEMUS R Order: [id number] Page 3 Culture: CULTURE URINE Status: Final [...] S S . . . . . .49214-5 Gentamicin S S . . . . . .267-5 Imipenem S S . . . . . .279-0 Levofloxacin S S . . . . . .69918-6 Meropenem S S . . . . . .6652-2 Nitrofurantoin S S . . . . . .363-2 Piperacillin/Tazobactam S S . . . . . .412-7 Tetracycline S S . . . . . .496-0 Tobramycin S S . . . . . .508-2 Trimethoprim/Sulfa S S . . . . . .516-5 P1 Test performed by: [facility] #: [id number] [address] [place] [id number] [facility] [address] Pss Delivery Professional : Yeyo Goins MD NPI #: Youth Specialist : 09/20/20.0634.XMT.SENT REF 09/21/20.2108.XMT.SENT REF 13 COMPREHENSIVE METABOLIC PANE L 14 Male GFR Interprentation 20-49 yrs >60 mL/min Normal 50-59 yrs >56 mL/min Normal 60-69 yrs >49 mL/min Normal 70-79yrs >42 mL/min Normal 80 and above >35 mL/min Normal Female GFR Interpretation 20-39 yrs >60 mL/min Normal 40-49 yrs >58 mL/min Normal 50-59 yrs >51 mL/min Normal 60-69 yrs >45 mL/min Normal 70-79 yrs >39 mL/min Normal 80 and above >32 mL/min Normal 15 URINALYSIS 16 { KIT LOT # [id number] ) { KIT EXP DATE 02.08.22 ) { PROCEDURAL CONTROL VALID ) 17 URINALYSIS 18 COMPLETE BLOOD COUNT 19 { KIT LOT # [id number] ) { KIT EXP DATE 12.09.21 ) { PROCEDURAL CONTROL VALID ) 20 COMPREHENSIVE METABOLIC PANE L 21 Male GFR Interprentation 20-49 yrs >60 mL/min [...] 2:00 pm - Laverne Rudd MD at [facility] 06/02/2018 - Derek Yuen M.D.* Z39.2 Encounter for routine follow-up * All * New Medication:* Mirena (52 MG) 20 mcg/24HR - intrauterine device for 5 yrs * Follow up:* f/u when IUD is available. Functional Status Description No Information Available Mental Status Description No Information Available Referrals Refer to Reason for Referral Status Appt Date [facility] 20-year-old femal e with history of anxiety and depression. Please evaluate and treat. Thank you. Sent [address] [place] [address] [phone] [facility] Gastroenterology 20 year old f emale with h/o IBS and celiac disease with chronic abdominal pain. She is interested in evaluation and also interested in testing for fructose intolerance and SIBO. Sent [address] [facility] [id number] [place] [address] [phone]
--- OUTSIDE RECORDS SUMMARY | 2020-12-13 11:26 | CCD | Continuity of Care Document ---
Author Diamante Tidwell M.D. Organization Unknown Address [address] [facility], [address] [place] [address] Phone [phone] Care Team Providers Care Senior Accounts Payable Clerk Name Role Phone Trevin Garibay D.O. AUTM [phone] Jose De Jesus Montero M.D. AUTM [phone] Problems Description No Information Available Social History [...] lb BMI (Body Mass Index) 21.5 kg/m2 [place] Body Weight 120 lb Weight 56.700 kg BSA (Body Surface Area) 1.60 m2 05/22/2020 2:05pm BP Systolic 112 mmHg BP Diastolic 60 mmHg Height 64 inches 5'4" Weight 157.00 lb BMI (Body Mass Index) 26.9 kg/m2 [place] Body Weight 120 lb Weight 71.215 kg Weight Percentile 86th Height Percentile 45 % BSA (Body Surface Area) 1.77 m2 Results Description No Information Available Procedures Date Code Description Status 08/23/2020 39150 Office/Outpatient Established Lo w MDM 20-29 Min Completed Medical Devices Description No Information Available Encounters Type Date Location Provider Dx Diagnosis Office Visit 08/23/2020 9:50a [facility] Chaka Castellon M.D. K90.0 Celiac disease K62.5 [...]
--- OUTSIDE RECORDS SUMMARY | 2020-12-13 11:27 | CCD | Continuity of Care Document ---
Author Diamante Tidwell M.D. Organization Unknown Address [address] [facility], [address] [place] [address] Phone [phone] Care Team Providers Care B Operator Name Role Phone Trevin Garibay D.O. AUTM [phone] Jose De Jesus Montero M.D. AUTM [phone] Problems Description No Information Available Social History Type Date Description Comments Sex Unknown ETOH Use Denies alcohol use Tobacco Use Start: Unknown Non Smoker Allergies, Adverse Reactions, Alerts Description No Known Drug Allergies Medications Active Medications SIG Qnty Indications Ordering Provide r Date Ondansetron 4mg Tablets Dispers 1 tablet by mouth 2 to 3 times a day for nausea. ( take as needed only). 30tabs Chaka Castellon M.D. 09/05/2020 Iron (Ferrous Sulfate) 325(65Fe) mg Tablets one tablet daily after the meals. Saritha Castellon M.D. 05/22/2020 Senna 8.6mg Tablets Take Two Tablets By [...] having diarrhea) 238gm Chaka graham M.D. 10/27/2019 Zoloft 50mg Tablets 1tab po q d Unknown History Medications Dok 100mg Capsules Take One Capsule By Mouth Twice A Day Before Meal Increase To 3 Per Day If Persistant Constipation Hold/Decrease If Having Diarrhea 90caps Chaka carrero M.D. 05/02/2020 - 05/21/2020 Pantoprazole Sodium 20mg Tablets D R Take One Tablet By Mouth Every Morning Half Hour Before Breakfast (Taper Off If No Symptoms) 60tabs R11.0 Chaka Castellon M.D. 2020 - 05/21/2020 Immunizations Description No Information Available Vital Signs Date Vital Result Comment 05/22/2020 2:05pm BP Systolic 112 mmHg BP Diastolic 60 mmHg Height 64 inches 5'4" Weight 157.00 lb BMI (Body Mass Index) 26.9 kg/m2 [place] Body Weight 120 lb Weight 71.215 kg Weight Percentile 86th Height Percentile 45 % BSA (Body Surface Area) 1.77 m2 12/13/2019 9:30am BP Systolic 118 mmHg BP Diastolic 64 mmHg Height 64 inches 5'4" Weight 164.00 lb BMI (Body Mass Index) 28.1 kg/m2 [place] Body Weight 120 lb Weight 74.390 kg Weight Percentile 90th Height Percentile 46 % BSA (Body Surface Area) 1.80 m2 Results Test Acquired Date Facility Test Result H/L Range Note CBC With Differential 05/22/2020 [facility] Main Lab [address] [place] [address] [phone] White Blood Count 5.4 10 Normal 4.0-10.0 [...] Blood Cell % 0.0 % Normal 0-0 Total Iron Binding Capacit 05/22/2020 [facility] Main Lab [address] [place] [address] [phone] Iron (Fe) 78 g/dL Normal 50-170 Total Iron Binding Capacity 368 g/dL Normal 250-450 Percent Saturation 21.2 % Normal 13.2-45.0 Laboratory test finding 05/22/2020 [facility] Main Lab [address] [place] [address] [phone] Ferritin 37 NG/ML Normal 8-252 Erythrocyte Sedimentation Rate 16 mm/hr Normal 0-20 C Reactive Protein Quantitativ < 0.30 mg/dL Normal 0.00-0.30 Differential 05/22/2020 [facility] Main Lab [address] [place] [address] [phone] Neutrophils 47 % Normal 28-66 Bands 1 % Normal < 11 Lymphocytes 42 % Normal 16-44 Monocytes 2 % Normal 0-5 Basophils 1 % Normal 0-1 Atypical Lymph 7 % High 0-5 Laboratory test finding 05/22/2020 [facility] Main Lab [address] [place], [place] [address] [phone] Platelet Estimate NORMAL Normal Normal Procedures Date Code Description Status 08/23/2020 34564 Office/Outpatient Established Lo w MDM 20-29 Min Completed 05/22/2020 17681 Office/Outpatient Established Lo w MDM 20-29 Min Completed Medical Devices Description No Information Available Encounters Type Date Location Provider Dx Diagnosis Office Visit 08/23/2020 9:50a [facility] [place] Chaka Castellon M.D. K90.0 Celiac disease K62.5 Hemorrhage of anus and rectu m R11.0 Nausea R10.10 Upper abdominal pain, unspec ified Office Visit 05/22/2020 2:10p [facility] Chaka faustin M.D. K90.0 Celiac disease K59.00 Constipation, unspecified K62.5 Hemorrhage of anus and rectu m R10.30 Lower abdominal pain, unspec ified Assessments Date Code Description Provider 08/23/2020 K90.0 Celiac disease Chaka Guidry ala, M.D. 08/23/2020 K62.5 Hemorrhage of anus and rectum Miguel Ángel Castellon M.D. 08/23/2020 R11.0 Nausea Chaka Guidry ala, M.D. 08/23/2020 R10.10 Upper abdominal pain, unspecifie d Chaka Castellon M.D. 05/22/2020 K90.0 Celiac disease Chaka Guirdy ala, M.D. 05/22/2020 K59.00 Constipation, unspecified Puneet Castellon M.D. 05/22/2020 K62.5 Hemorrhage of anus and rectum Miguel Ángel Castellon M.D. 05/22/2020 R10.30 Lower abdominal pain, unspecifie d Chaka Castellon M.D. Plan of Treatment 08/23/2020 - Chaka Castellon M.D.* K90.0 Celiac disease * K62.5 Hemorrhage of anus and rectum * R11.0 Nausea * R10.10 Upper abdominal pain, unspecified * * Comments:* Impression: -- Chronic upper abdominal pain, with prior work up at GI clinic in [place] - suspected Celiac disease and IBS, on oscimin -- last EGD in [facility] inpatient -- normal EGD biopsies. currently continues to have intermittent pain, nausea with intake of non-gluten foods, s/p Food allergy testing- not diagnostic of any particular food allergy but patient now notes her symptoms are more with fruits -- Concern for disaccharide metabolic disorders -- Needs further evaluation.-- Constipation with intermittent bleeding from hemorrhoids. -- likely from IBS-C with hemorrhoids. * Recommendations:* -- Educated patient on prior test results and all questions answered. -- Patient also educated to follow the allergy and immunology recommendations on the dietary changes. -- Continue gluten free diet. -- Will continue on Dicyclomine as needed for spasms. Educated on the risk of constipation if taking high dose. -- Continue with Miralax and senna -- dose adjusted for constipation. -- In view of the symptoms with intake of fruits, will plan for further assessment for metabolic enzyme deficiency disorders. -- Return to GI clinic in 2-3 months after the above. -- Follow up with PMD for routine medical care and other age appropriate health maintenance.. Functional Status Description No Information Available Mental Status Description No Information Available Referrals Refer to Reason for Referral Status Appt Date Chaka Castellon M.D. NAUSEA, UPPER ABD PAIN, UNSPECIFIED Scheduled 05/22/2020 [facility] [address] [facility] [address], [place] [address] [phone]
--- OUTSIDE RECORDS SUMMARY | 2020-12-13 11:27 | CCD | Continuity of Care Document ---
Author Author Diamante ELLSWORTH M.D. Organization Unknown Address [address] [place] [address] Phone [phone] Care Team Providers Care Trucksmith Name Role Phone [facility] AUTM [phone] [facility] AUTM Sahra Rios PA-C AUTM [phone] Citlalli Dawn AUTM [phone] [facility] Gastroenterology AUTM [phone] [facility] AUTM Problems Active Problems Provider Date CHAMP Ceja [...] Provide r Date Ondansetron 4mg Tablets Dispers take 1 tablet by mouth up to 3 times a day as needed for nausea/vomiting Unknown Tablets 1 by fadumo th every day Unknown Protonix 40mg Tablets DR 1 by mouth every day Unknown Vitamin B6 50mg Tablets 1 by mouth three times a day, after every meal Unknown Immunizations CPT Code Status Date Vaccine Lot # [id number] Given 03/31/2018 Tdap (Boostrix/Adacel) Vacci ne [id number] 16829 Given 11/02/2017 [facility] Influenza (>35 months) P .F. Vaccine [id number] 29258 Given 11/07/2016 [facility] Meningococcal Conjugate Vaccine (Menveo) [id number] 75223 Given 11/07/2016 [facility] Influenza (>35 months) P .F. Vaccine [id number] 61781 Given 12/03/2015 [facility] Influenza (>35 months) P .F. Vaccine [id number] 40094 Given 11/14/2014 Influenza (>35 months) P.F. Vaccine 20085 Given 12/13/2013 Influenza Virus Vaccine Split Virus Use For Individual 3Yr Older U-Flu Given 02/20/2012 Influenza,Unspecified 29190 Given 09/12/2011 Meningococcal (Menactra/Menv eo) Vaccine 99480 Given 09/12/2011 Tdap (Boostrix/[place]) [place] [address] Given 01/13/2011 Influenza Virus Vaccine Split Virus Use For Individual 3Yr Older Vital Signs Date Vital Result Comment 03/04/2019 10:20am BP Systolic 110 mmHg BP Diastolic 60 mmHg Heart Rate 110 /min Body Temperature 98.5 F Respiratory Rate 16 /min O2 % BldC Oximetry 99 % Weight 147.00 lb Weight 66.679 kg Weight Percentile 81st Height 64 inches 5'4" Height Percentile 46 % BMI (Body Mass Index) 25.2 kg/m2 Body Mass Index Percentile 82 % BSA (Body Surface Area) 1.72 m2 01/27/2019 7:43am BP Systolic 100 mmHg BP Diastolic 62 mmHg Heart Rate 106 /min Body Temperature 98.0 F Respiratory Rate 16 /min O2 % BldC Oximetry 100 % Weight 149.38 lb Weight 67.757 kg Weight Percentile 83rd Height 64 inches 5'4" Height Percentile 46 % BMI (Body Mass Index) 25.6 kg/m2 Body Mass Index Percentile 84 % BSA (Body Surface Area) 1.73 m2 Results Test Acquired Date Facility Test Result H/L Range Note Urinalysis 10/06/2020 [facility] Urinalysis (SEE NOTE) 1, 2 Source R Color yellow Normal: Yellow Clarity hazy Normal: Clear Spec [place] 1.020 1.001 - 1.030 pH 6 5 - 9 Glucose NORM Normal: Negative Bilirubin NEG Normal: Negative Ketone 15 Abnormal Normal: Negative Protein NEG Normal: Negative Nitrite NEG Normal: Negative Blood NEG Normal: Negative Leuk Est NEG Normal: Negative Urobilinogen NOR less than 1.0 mg/dL Microscopic Not Indicate CBC W/Automated Diff 09/18/2020 [facility] CBC W/Automated Diff (SEE NOTE) 3 WBC 6.0 10^3/uL 4.2 - 11.0 RBC [...] 80.0 Lymph 27.8 % 25.0 - 40.0 [place] 6.8 % 3.0 - 8.0 Eos 1.0 % 0.0 - 7.0 Baso 1.2 % 0.0 - 2.5 %Ig 0.2 % High 0.0 - 0.0 %NRBC 0.0 % 0.0 - 0.0 #Neut 3.79 10^3/uL 2.00 - 6.90 #Lymph 1.67 10^3/uL 0.60 - 3.40 #[place] 0.41 10^3/uL 0.00 - 0.90 #Eos 0.06 10^3/uL 0.00 - 0.70 #Baso 0.07 10^3/uL 0.00 - 0.20 #Ig 0.01 10^3/uL 0.00 - 0.10 #NRBC 0.00 10^3/uL 0.00 - 0.00 Manual Diff NOT INDICATED RBC Morph NOT INDICATED Laboratory test finding 09/18/2020 [facility] Lactic Acid (Lactate) 1.1 mmol/L 0.2 - 2.2 HCG Serum Qual 09/18/2020 [facility] HCG Serum Qual NEGATIVE Normal: Negative HCG Serum QL [place] NEGATIVE Normal: Negative 4 Urinalysis 09/18/2020 [facility] Urinalysis (SEE NOTE) 5 Source R Color yellow Normal: Yellow Clarity hazy Normal: Clear Spec [place] 1.010 1.001 - 1.030 pH 5 5 [...] None Seen Mucous Trace Normal: None Seen Comprehensive Metabolic Panel 09/18/2020 [facility] Comprehensive Metabo (SEE NOTE) 6 Sodium 139 mEq/L 134 - 153 Potassium [...] >60 mL/min Afr Amer GFR >60 mL/min 7 Laboratory test finding 09/18/2020 [facility] Lipase Serum 17 U/L 13 - 60 Cuture Urine 09/18/2020 [facility] Culture Urine (SEE NOTE) 8 Urinalysis 07/10/2020 [facility] Urinalysis (SEE NOTE) 9 Source Clean Catch Color yellow Normal: Yellow Clarity clear Normal: Clear Spec [place] 1.010 1.001 - 1.030 pH 7 5 [...] Trace Normal: None Seen HCG Serum Qual 07/09/2020 [facility] HCG Serum Qual NEGATIVE Normal: Negative HCG Serum QL [place] NEGATIVE Normal: Negative 10 Comprehensive Metabolic Panel 07/09/2020 [facility] Comprehensive Metabo (SEE NOTE) 11 Sodium 140 mEq/L 134 - 153 Potassium [...] >60 mL/min Afr Amer GFR >60 mL/min 12 Laboratory test finding 07/09/2020 [facility] Lipase Serum 16 U/L 13 - 60 CBC W/Automated Diff 07/09/2020 [facility] CBC W/Automated Diff (SEE NOTE) 13 WBC 7.3 10^3/uL 4.2 - 11.0 RBC [...] 80.0 Lymph 30.2 % 25.0 - 40.0 [place] 6.3 % 3.0 - 8.0 Eos 1.4 % 0.0 - 7.0 Baso 0.8 % 0.0 - 2.5 %Ig 0.1 % High 0.0 - 0.0 %NRBC 0.0 % 0.0 - 0.0 #Neut 4.43 10^3/uL 2.00 - 6.90 #Lymph 2.19 10^3/uL 0.60 - 3.40 #[place] 0.46 10^3/uL 0.00 - 0.90 #Eos 0.10 10^3/uL 0.00 - 0.70 #Baso 0.06 10^3/uL 0.00 - 0.20 #Ig 0.01 10^3/uL 0.00 - 0.10 #NRBC 0.00 10^3/uL 0.00 - 0.00 Manual Diff NOT INDICATED RBC Morph NOT INDICATED Total Iron Binding Capacit 05/22/2020 [facility] Iron (Fe) 78 g/dL Normal 50-170 Total Iron Binding Capacity 368 g/dL Normal 250-450 Percent Saturation 21.2 % Normal 13.2-45.0 Laboratory test finding 05/22/2020 [facility] Ferritin 37 NG/ML Normal 8-252 C Reactive Protein Quantitativ < 0.30 mg/dL Normal 0.00-0.30 CBC With Differential 05/22/2020 [facility] White Blood Count 5.4 10 Normal 4.0-10.0 [...] % 0.0 % Normal 0-0 Differential 05/22/2020 [facility] Neutrophils 47 % Normal 28-66 Bands 1 % Normal < 11 Lymphocytes 42 % Normal 16-44 Monocytes 2 % Normal 0-5 Basophils 1 % Normal 0-1 Atypical Lymph 7 % High 0-5 Laboratory test finding 05/22/2020 [facility] Platelet Estimate NORMAL Normal Normal Erythrocyte Sedimentation Rate 16 mm/hr Normal 0-20 HCG Urine Qual 05/12/2020 [facility] HCG Urine Qual NEGATIVE Normal: Negative HCG Urine QL [place] NEGATIVE Normal: Negative 14 Urinalysis 05/12/2020 [facility] Urinalysis (SEE NOTE) 15 Source R Color yellow Normal: Yellow Clarity clear Normal: Clear Spec [place] 1.020 1.001 - 1.030 pH 6 5 - 9 Glucose NORM Normal: Negative Bilirubin NEG Normal: Negative Ketone NEG Normal: Negative Protein NEG Normal: Negative Nitrite NEG Normal: Negative Blood NEG Normal: Negative Leuk Est NEG Normal: Negative Urobilinogen NOR less than 1.0 mg/dL Microscopic Not Indicate 1 SOURCE: Clean Catch 2 URINALYSIS 3 COMPLETE BLOOD COUNT 4 { KIT LOT # [id number] ) { KIT EXP DATE 02.08.22 ) { PROCEDURAL CONTROL VALID ) 5 URINALYSIS 6 COMPREHENSIVE METABOLIC PANE L 7 Male GFR Interprentation 20-49 yrs >60 mL/min Normal 50-59 yrs >56 mL/min Normal 60-69 yrs >49 mL/min Normal 70-79yrs >42 mL/min Normal 80 and above >35 mL/min Normal Female GFR Interpretation 20-39 yrs >60 mL/min Normal 40-49 yrs >58 mL/min Normal 50-59 yrs >51 mL/min Normal 60-69 yrs >45 mL/min Normal 70-79 yrs >39 mL/min Normal 80 and above >32 mL/min Normal 8 _CULTURE URINE_ ^$[id number] ^^[id number] $$505775 ^^426280 $$466747 $$254918 $$068661 $$205943 $$740915 $$614540 $$647337 $$442667 $$124729 $$501527 $$753047 $$595138 $$871029 $$354872 $$073120 $$219552 $$322554 $$870209 $$139711 $$430955 $$644543 $$981910 $$156080 ^^747952 $$871335 $$389763 $$659721 -- Continued on next page -- Patient: CARON LEMUS R Order: [id number] Page 2 Culture: CULTURE URINE Status: Final -- Continued on next page -- Patient: CARON LEMUS R Order: [id number] Page 2 Culture: CULTURE URINE Status: Prelim $$[id number] $$[id number] REPORTED DATE/TIME: 09/21/2020 15:06 Culture: CULTURE URINE [...] coli Flag: A Patient: CARON Harris Order: [id number] Page 3 Culture: CULTURE URINE Status: Final [...] S S . . . . . .98419-0 Gentamicin S S . . . . . .267-5 Imipenem S S . . . . . .279-0 Levofloxacin S S . . . . . .82333-1 Meropenem S S . . . . . .6652-2 Nitrofurantoin S S . . . . . .363-2 Piperacillin/Tazobactam S S . . . . . .412-7 Tetracycline S S . . . . . .496-0 Tobramycin S S . . . . . .508-2 Trimethoprim/Sulfa S S . . . . . .516-5 P1 Test performed by: [facility] #: [id number] [address] [id number] [facility] [address] Cloud Subject Matter Expert : Yeyo Goins MD NPI #: Program Development Manager : 09/[email or web address] REF 09/21/[email or web address].SENT REF 9 URINALYSIS 10 { KIT LOT # [id number] ) { KIT EXP DATE 12.09.21 ) { PROCEDURAL CONTROL VALID ) 11 COMPREHENSIVE METABOLIC PANE L 12 Male GFR Interprentation 20-49 yrs >60 mL/min Normal 50-59 yrs >56 mL/min Normal 60-69 yrs >49 mL/min Normal 70-79yrs >42 mL/min Normal 80 and above >35 mL/min Normal Female GFR Interpretation 20-39 yrs >60 mL/min Normal 40-49 yrs >58 mL/min Normal 50-59 yrs >51 mL/min Normal 60-69 yrs >45 mL/min Normal 70-79 yrs >39 mL/min Normal 80 and above >32 mL/min Normal 13 COMPLETE BLOOD COUNT 14 { KIT LOT # [id number] ) { KIT EXP DATE 11-08-21 ) { PROCEDURAL CONTROL VALID ) 15 URINALYSIS Procedures Description No Information Available Medical Devices Description No Information Available Encounters Description No Information Available Assessments Description No Information Available Plan of Treatment 06/02/2018 - Derek Yuen M.D.* Z39.2 Encounter for routine follow-up * All * New Medication:* Mirena (52 MG) 20 mcg/24HR - intrauterine device for 5 yrs * Follow up:* f/u when IUD is available. Functional Status Description No Information Available Mental Status Description No Information Available Referrals Description No Information Available
--- OUTSIDE RECORDS SUMMARY | 2020-12-13 11:27 | CCD | Continuity of Care Document ---
Author Author Diamante ELLSWORTH M.D. Organization Unknown Address [address] [place] [address] Phone [phone] Care Team Providers Care Marketing Effectiveness Manager Name Role Phone [facility] Behavioral Health AUTM [phone] [facility] AUTM Sahra Rios PA-C AUTM [phone] Citlalli Dawn AUTM [phone] [facility] Gastroenterology AUTM [phone] [facility] AUTM [phone] Problems Active Problems Provider Date CHAMP Ceja [...] CPT Code Status Date Vaccine Lot # [id number] Given 03/31/2018 Tdap (Boostrix/Adacel) Vacci ne [id number] 30254 Given 11/02/2017 [facility] Influenza (>35 months) P .F. Vaccine [id number] 65059 Given 11/07/2016 [facility] Meningococcal Conjugate Vaccine (Menveo) [id number] 82747 Given 11/07/2016 [facility] Influenza (>35 months) P .F. Vaccine [id number] 25214 Given 12/03/2015 [facility] Influenza (>35 months) P .F. Vaccine [id number] 49971 Given 11/14/2014 Influenza (>35 months) P.F. Vaccine 84777 Given 12/13/2013 Influenza Virus Vaccine Split Virus Use For Individual 3Yr Older U-Flu Given 02/20/2012 Influenza,Unspecified 26765 Given 09/12/2011 Meningococcal (Menactra/Menv eo) Vaccine 45703 Given 09/12/2011 Tdap (Boostrix/[place]) [place] [address] Given 01/13/2011 Influenza Virus Vaccine Split Virus [...] Facility Test Result H/L Range Note CBC W/Automated Diff 10/13/2020 [facility] CBC W/Automated Diff (SEE NOTE) 1 [...] 80.0 Lymph 34.3 % 25.0 - 40.0 [place] 6.4 % 3.0 - 8.0 Eos 2.4 % 0.0 - 7.0 Baso 0.5 % 0.0 - 2.5 %Ig 0.2 % High 0.0 - 0.0 %NRBC 0.0 % 0.0 - 0.0 #Neut 3.45 10^3/uL 2.00 - 6.90 #Lymph 2.10 10^3/uL 0.60 - 3.40 #[place] 0.39 10^3/uL 0.00 - 0.90 #Eos 0.15 10^3/uL 0.00 - 0.70 #Baso 0.03 10^3/uL 0.00 - 0.20 #Ig 0.01 10^3/uL 0.00 - 0.10 #NRBC 0.00 10^3/uL 0.00 - 0.00 Manual Diff NOT INDICATED RBC Morph NOT INDICATED Comprehensive Metabolic Panel 10/13/2020 [facility] ospital Comprehensive Metabo (SEE NOTE) 2 Sodium 140 [...] >60 mL/min 3 Laboratory test finding 10/13/2020 [facility] Lipase Serum 154 U/L High 13 - 60 HCG Urine Qual 10/13/2020 [facility] HCG Urine Qual NEGATIVE Normal: Negative HCG Urine QL Reenter NEGATIVE Normal: Negative 4 Urinalysis 10/13/2020 [facility] Urinalysis (SEE NOTE) 5 Source R Color yellow Normal: Yellow Clarity clear Normal: Clear Spec [place] 1.015 1.001 - 1.030 pH 6 5 - 9 Glucose NORM Normal: Negative Bilirubin NEG Normal: Negative Ketone NEG Normal: Negative Protein NEG Normal: Negative Nitrite NEG Normal: Negative Blood NEG Normal: Negative Leuk Est NEG Normal: Negative Urobilinogen NOR less than 1.0 mg/dL Microscopic Not Indicate Laboratory test finding 10/13/2020 [facility] Lactic Acid (Lactate) 1.4 mmol/L 0.2 - 2.2 Urinalysis 10/06/2020 [facility] Urinalysis (SEE NOTE) 6, 7 Source R Color yellow Normal: Yellow Clarity hazy Normal: Clear Spec [place] 1.020 1.001 - 1.030 pH 6 5 - 9 Glucose NORM Normal: Negative Bilirubin NEG Normal: Negative Ketone 15 Abnormal Normal: Negative Protein NEG Normal: Negative Nitrite NEG Normal: Negative Blood NEG Normal: Negative Leuk Est NEG Normal: Negative Urobilinogen NOR less than 1.0 mg/dL Microscopic Not Indicate Cuture Urine 09/18/2020 [facility] Culture Urine (SEE NOTE) 8 Laboratory test finding 09/18/2020 [facility] Lipase Serum 17 U/L 13 - 60 Comprehensive Metabolic Panel 09/18/2020 [facility] Comprehensive Metabo (SEE NOTE) 9 Sodium 139 [...] Amer GFR >60 mL/min 10 Urinalysis 09/18/2020 [facility] Urinalysis (SEE NOTE) 11 Source R Color yellow Normal: Yellow Clarity hazy Normal: Clear Spec [place] 1.010 1.001 - 1.030 pH 5 5 [...] Normal: None Seen HCG Serum Qual 09/18/2020 [facility] HCG Serum Qual NEGATIVE Normal: Negative HCG Serum QL Reenter NEGATIVE Normal: Negative 12 Laboratory test finding 09/18/2020 [facility] Lactic Acid (Lactate) 1.1 mmol/L 0.2 - 2.2 CBC W/Automated Diff 09/18/2020 [facility] CBC W/Automated Diff (SEE NOTE) 13 [...] 80.0 Lymph 27.8 % 25.0 - 40.0 [place] 6.8 % 3.0 - 8.0 Eos 1.0 % 0.0 - 7.0 Baso 1.2 % 0.0 - 2.5 %Ig 0.2 % High 0.0 - 0.0 %NRBC 0.0 % 0.0 - 0.0 #Neut 3.79 10^3/uL 2.00 - 6.90 #Lymph 1.67 10^3/uL 0.60 - 3.40 #[place] 0.41 10^3/uL 0.00 - 0.90 #Eos 0.06 10^3/uL 0.00 - 0.70 #Baso 0.07 10^3/uL 0.00 - 0.20 #Ig 0.01 10^3/uL 0.00 - 0.10 #NRBC 0.00 10^3/uL 0.00 - 0.00 Manual Diff NOT INDICATED RBC Morph NOT INDICATED Urinalysis 07/10/2020 [facility] Urinalysis (SEE NOTE) 14 Source Clean Catch Color yellow Normal: Yellow Clarity clear Normal: Clear Spec [place] 1.010 1.001 - 1.030 pH 7 5 [...] Normal: None Seen CBC W/Automated Diff 07/09/2020 [facility] CBC W/Automated Diff (SEE NOTE) 15 [...] 80.0 Lymph 30.2 % 25.0 - 40.0 [place] 6.3 % 3.0 - 8.0 Eos 1.4 % 0.0 - 7.0 Baso 0.8 % 0.0 - 2.5 %Ig 0.1 % High 0.0 - 0.0 %NRBC 0.0 % 0.0 - 0.0 #Neut 4.43 10^3/uL 2.00 - 6.90 #Lymph 2.19 10^3/uL 0.60 - 3.40 #[place] 0.46 10^3/uL 0.00 - 0.90 #Eos 0.10 10^3/uL 0.00 - 0.70 #Baso 0.06 10^3/uL 0.00 - 0.20 #Ig 0.01 10^3/uL 0.00 - 0.10 #NRBC 0.00 10^3/uL 0.00 - 0.00 Manual Diff NOT INDICATED RBC Morph NOT INDICATED HCG Serum Qual 07/09/2020 [facility] HCG Serum Qual NEGATIVE Normal: Negative HCG Serum QL Reenter NEGATIVE Normal: Negative 16 Laboratory test finding 07/09/2020 [facility] l Lipase Serum 16 U/L 13 - 60 Comprehensive Metabolic Panel 07/09/2020 [facility] Comprehensive Metabo (SEE NOTE) 17 Sodium [...] mL/min 18 Total Iron Binding Capacit 05/22/2020 [facility] Iron (Fe) 78 g/dL Normal 50-170 Total Iron Binding Capacity 368 g/dL Normal 250-450 Percent Saturation 21.2 % Normal 13.2-45.0 Laboratory test finding 05/22/2020 [facility] Ferritin 37 NG/ML Normal 8-252 C Reactive Protein Quantitativ < 0.30 mg/dL Normal 0.00-0.30 CBC With Differential 05/22/2020 [facility] White Blood Count 5.4 10 Normal [...] % 0.0 % Normal 0-0 Differential 05/22/2020 [facility] Neutrophils 47 % Normal 28-66 Bands 1 % Normal < 11 Lymphocytes 42 % Normal 16-44 Monocytes 2 % Normal 0-5 Basophils 1 % Normal 0-1 Atypical Lymph 7 % High 0-5 Laboratory test finding 05/22/2020 [facility] Platelet Estimate NORMAL Normal Normal Erythrocyte Sedimentation Rate 16 mm/hr Normal 0-20 HCG Urine Qual 05/12/2020 [facility] HCG Urine Qual NEGATIVE Normal: Negative HCG Urine QL Reenter NEGATIVE Normal: Negative 19 Urinalysis 05/12/2020 [facility] Urinalysis (SEE NOTE) 20 Source R Color yellow Normal: Yellow Clarity clear Normal: Clear Spec [place] 1.020 1.001 - 1.030 pH 6 5 [...] mL/min Normal 4 { KIT LOT # [id number] ) { KIT EXP DATE 02.08.22 ) { PROCEDURAL CONTROL VALID ) 5 URINALYSIS 6 SOURCE: Clean Catch 7 URINALYSIS 8 _CULTURE URINE_ ^$[id number] ^^[id number] $$483150 ^^252089 $$741768 $$726955 $$325223 $$155988 $$952653 $$658064 $$586795 $$459312 $$896050 $$682788 $$911017 $$926550 $$181844 $$821813 $$816623 $$655236 $$453966 $$651124 $$149696 $$779546 $$909749 $$959646 $$385666 ^^680327 $$658301 $$105015 $$252006 -- Continued on next page -- Patient: CARON LEMUS R Order: [id number] Page 2 Culture: CULTURE URINE Status: Final -- Continued on next page -- Patient: CARON LEMUS R Order: [id number] Page 2 Culture: CULTURE URINE Status: Prelim $$[id number] $$[id number] REPORTED DATE/TIME: 09/21/2020 15:06 Culture: CULTURE URINE [...] Flag: A Patient: CARON LEMUS R Order: [id number] Page 3 Culture: CULTURE URINE Status: Final [...] S S . . . . . .51504-7 Gentamicin S S . . . . . .267-5 Imipenem S S . . . . . .279-0 Levofloxacin S S . . . . . .49120-5 Meropenem S S . . . . . .6652-2 Nitrofurantoin S S . . . . . .363-2 Piperacillin/Tazobactam S S . . . . . .412-7 Tetracycline S S . . . . . .496-0 Tobramycin S S . . . . . .508-2 Trimethoprim/Sulfa S S . . . . . .516-5 P1 Test performed by: [facility] #: [id number] [address] [place] [address] Avenue [id number] [facility] [address] Eyewear Consultant : Yeyo Goins MD NPI #: Customer Services Coordinator : 09/20/[email or web address].SENT REF 09/21/20.2108.XMT.SENT REF 9 COMPREHENSIVE [...] 11 URINALYSIS 12 { KIT LOT # [id number] ) { KIT EXP DATE 02.08.22 ) { PROCEDURAL CONTROL VALID ) 13 COMPLETE BLOOD COUNT 14 URINALYSIS 15 COMPLETE BLOOD COUNT 16 { KIT LOT # [id number] ) { KIT EXP DATE 12.09.21 ) [...] mL/min Normal 19 { KIT LOT # [id number] ) { KIT EXP DATE 11-08-21 ) [...]
--- OUTSIDE RECORDS SUMMARY | 2020-12-13 11:27 | CCD | Continuity of Care Document ---
Author Author Diamante ELLSWORTH M.D. Organization Unknown Address [address] [place] [address] Phone [phone] Care Team Providers Care Supervisor Glycerin Name Role Phone [facility] Behavioral Health AUTM [phone] [facility] [address] [facility] AUTM [phone] Sahra Rios PA-C AUTM [phone] Citlalli Dawn AUTM [phone] [facility] Gastroenterology AUTM [phone] [facility] AUTM [phone] Problems Active Problems Provider Date CHAMP Ceja [...] CPT Code Status Date Vaccine Lot # [id number] Given 03/31/2018 Tdap (Boostrix/Adacel) Vacci ne [id number] 23938 Given 11/02/2017 [facility] Influenza (>35 months) P .F. Vaccine [id number] 61587 Given 11/07/2016 [facility] Meningococcal Conjugate Vaccine (Menveo) [id number] 99165 Given 11/07/2016 [facility] Influenza (>35 months) P .F. Vaccine [id number] 31660 Given 12/03/2015 [facility] Influenza (>35 months) P .F. Vaccine [id number] 42359 Given 11/14/2014 Influenza (>35 months) P.F. Vaccine 68448 Given 12/13/2013 Influenza Virus Vaccine Split Virus Use For Individual 3Yr Older U-Flu Given 02/20/2012 Influenza,Unspecified 74514 Given 09/12/2011 Meningococcal (Menactra/Menv eo) Vaccine 50575 Given 09/12/2011 Tdap (Boostrix/[place]) [place] [address] Given 01/13/2011 Influenza Virus Vaccine Split Virus [...] H/L Range Note CBC W/Automated Diff 10/13/2020 [facility] CBC W/Automated Diff (SEE NOTE) 1 WBC [...] 80.0 Lymph 34.3 % 25.0 - 40.0 [place] 6.4 % 3.0 - 8.0 Eos 2.4 % 0.0 - 7.0 Baso 0.5 % 0.0 - 2.5 %Ig 0.2 % High 0.0 - 0.0 %NRBC 0.0 % 0.0 - 0.0 #Neut 3.45 10^3/uL 2.00 - 6.90 #Lymph 2.10 10^3/uL 0.60 - 3.40 #[place] 0.39 10^3/uL 0.00 - 0.90 #Eos 0.15 10^3/uL 0.00 - 0.70 #Baso 0.03 10^3/uL 0.00 - 0.20 #Ig 0.01 10^3/uL 0.00 - 0.10 #NRBC 0.00 10^3/uL 0.00 - 0.00 Manual Diff NOT INDICATED RBC Morph NOT INDICATED Comprehensive Metabolic Panel 10/13/2020 [facility] ospital Comprehensive Metabo (SEE NOTE) [...] >60 mL/min 3 Laboratory test finding 10/13/2020 [facility] Lipase Serum 154 U/L High 13 - 60 HCG Urine Qual 10/13/2020 [facility] HCG Urine Qual NEGATIVE Normal: Negative HCG Urine QL Reenter NEGATIVE Normal: Negative 4 Urinalysis 10/13/2020 [facility] Urinalysis (SEE NOTE) 5 Source R Color yellow Normal: Yellow Clarity clear Normal: Clear Spec [place] 1.015 1.001 - 1.030 pH 6 5 - 9 Glucose NORM Normal: Negative Bilirubin NEG Normal: Negative Ketone NEG Normal: Negative Protein NEG Normal: Negative Nitrite NEG Normal: Negative Blood NEG Normal: Negative Leuk Est NEG Normal: Negative Urobilinogen NOR less than 1.0 mg/dL Microscopic Not Indicate Laboratory test finding 10/13/2020 [facility] Lactic Acid (Lactate) 1.4 mmol/L 0.2 - 2.2 Urinalysis 10/06/2020 [facility] Urinalysis (SEE NOTE) 6, 7 Source R Color yellow Normal: Yellow Clarity hazy Normal: Clear Spec [place] 1.020 1.001 - 1.030 pH 6 5 - 9 Glucose NORM Normal: Negative Bilirubin NEG Normal: Negative Ketone 15 Abnormal Normal: Negative Protein NEG Normal: Negative Nitrite NEG Normal: Negative Blood NEG Normal: Negative Leuk Est NEG Normal: Negative Urobilinogen NOR less than 1.0 mg/dL Microscopic Not Indicate Cuture Urine 09/18/2020 [facility] Culture Urine (SEE NOTE) 8 Laboratory test finding 09/18/2020 [facility] Lipase Serum 17 U/L 13 - 60 Comprehensive Metabolic Panel 09/18/2020 [facility] Comprehensive Metabo (SEE NOTE) [...] Amer GFR >60 mL/min 10 Urinalysis 09/18/2020 [facility] Urinalysis (SEE NOTE) 11 Source R Color yellow Normal: Yellow Clarity hazy Normal: Clear Spec [place] 1.010 1.001 - 1.030 pH 5 5 [...] Normal: None Seen HCG Serum Qual 09/18/2020 [facility] HCG Serum Qual NEGATIVE Normal: Negative HCG Serum QL Reenter NEGATIVE Normal: Negative 12 Laboratory test finding 09/18/2020 [facility] Lactic Acid (Lactate) 1.1 mmol/L 0.2 - 2.2 CBC W/Automated Diff 09/18/2020 [facility] CBC W/Automated Diff (SEE NOTE) 13 [...] 80.0 Lymph 27.8 % 25.0 - 40.0 [place] 6.8 % 3.0 - 8.0 Eos 1.0 % 0.0 - 7.0 Baso 1.2 % 0.0 - 2.5 %Ig 0.2 % High 0.0 - 0.0 %NRBC 0.0 % 0.0 - 0.0 #Neut 3.79 10^3/uL 2.00 - 6.90 #Lymph 1.67 10^3/uL 0.60 - 3.40 #[place] 0.41 10^3/uL 0.00 - 0.90 #Eos 0.06 10^3/uL 0.00 - 0.70 #Baso 0.07 10^3/uL 0.00 - 0.20 #Ig 0.01 10^3/uL 0.00 - 0.10 #NRBC 0.00 10^3/uL 0.00 - 0.00 Manual Diff NOT INDICATED RBC Morph NOT INDICATED Urinalysis 07/10/2020 [facility] Urinalysis (SEE NOTE) 14 Source Clean Catch Color yellow Normal: Yellow Clarity clear Normal: Clear Spec [place] 1.010 1.001 - 1.030 pH 7 5 [...] Normal: None Seen CBC W/Automated Diff 07/09/2020 [facility] CBC W/Automated Diff (SEE NOTE) 15 [...] 80.0 Lymph 30.2 % 25.0 - 40.0 [place] 6.3 % 3.0 - 8.0 Eos 1.4 % 0.0 - 7.0 Baso 0.8 % 0.0 - 2.5 %Ig 0.1 % High 0.0 - 0.0 %NRBC 0.0 % 0.0 - 0.0 #Neut 4.43 10^3/uL 2.00 - 6.90 #Lymph 2.19 10^3/uL 0.60 - 3.40 #[place] 0.46 10^3/uL 0.00 - 0.90 #Eos 0.10 10^3/uL 0.00 - 0.70 #Baso 0.06 10^3/uL 0.00 - 0.20 #Ig 0.01 10^3/uL 0.00 - 0.10 #NRBC 0.00 10^3/uL 0.00 - 0.00 Manual Diff NOT INDICATED RBC Morph NOT INDICATED HCG Serum Qual 07/09/2020 [facility] HCG Serum Qual NEGATIVE Normal: Negative HCG Serum QL Reenter NEGATIVE Normal: Negative 16 Laboratory test finding 07/09/2020 [facility] l Lipase Serum 16 U/L 13 - 60 Comprehensive Metabolic Panel 07/09/2020 [facility] Comprehensive Metabo (SEE NOTE) [...] mL/min 18 Total Iron Binding Capacit 05/22/2020 [facility] Iron (Fe) 78 g/dL Normal 50-170 Total Iron Binding Capacity 368 g/dL Normal 250-450 Percent Saturation 21.2 % Normal 13.2-45.0 Laboratory test finding 05/22/2020 [facility] Ferritin 37 NG/ML Normal 8-252 C Reactive Protein Quantitativ < 0.30 mg/dL Normal 0.00-0.30 CBC With Differential 05/22/2020 [facility] White Blood Count 5.4 10 Normal [...] % 0.0 % Normal 0-0 Differential 05/22/2020 [facility] Neutrophils 47 % Normal 28-66 Bands 1 % Normal < 11 Lymphocytes 42 % Normal 16-44 Monocytes 2 % Normal 0-5 Basophils 1 % Normal 0-1 Atypical Lymph 7 % High 0-5 Laboratory test finding 05/22/2020 [facility] Platelet Estimate NORMAL Normal Normal Erythrocyte Sedimentation Rate 16 mm/hr Normal 0-20 HCG Urine Qual 05/12/2020 [facility] HCG Urine Qual NEGATIVE Normal: Negative HCG Urine QL Reenter NEGATIVE Normal: Negative 19 Urinalysis 05/12/2020 [facility] Urinalysis (SEE NOTE) 20 Source R Color yellow Normal: Yellow Clarity clear Normal: Clear Spec [place] 1.020 1.001 - 1.030 pH 6 5 [...] mL/min Normal 4 { KIT LOT # [id number] ) { KIT EXP DATE 02.08.22 ) { PROCEDURAL CONTROL VALID ) 5 URINALYSIS 6 SOURCE: Clean Catch 7 URINALYSIS 8 _CULTURE URINE_ ^$[id number] ^^[id number] $$035107 ^^073499 $$366342 $$580773 $$449503 $$789436 $$670089 $$787132 $$835808 $$544193 $$312488 $$125739 $$669178 $$443737 $$827144 $$279695 $$435563 $$502105 $$549213 $$758561 $$530682 $$008342 $$950622 $$894745 $$503027 ^^214773 $$516128 $$577038 $$491711 -- Continued on next page -- Patient: CARON LEMUS R Order: [id number] Page 2 Culture: CULTURE URINE Status: Final -- Continued on next page -- Patient: CARON LEMUS R Order: [id number] Page 2 Culture: CULTURE URINE Status: Prelim $$[id number] $$[id number] REPORTED DATE/TIME: 09/21/2020 15:06 Culture: CULTURE URINE [...] Flag: A Patient: CARON LEMUS R Order: [id number] Page 3 Culture: CULTURE URINE Status: Final [...] S S . . . . . .46933-5 Gentamicin S S . . . . . .267-5 Imipenem S S . . . . . .279-0 Levofloxacin S S . . . . . .81175-7 Meropenem S S . . . . . .6652-2 Nitrofurantoin S S . . . . . .363-2 Piperacillin/Tazobactam S S . . . . . .412-7 Tetracycline S S . . . . . .496-0 Tobramycin S S . . . . . .508-2 Trimethoprim/Sulfa S S . . . . . .516-5 P1 Test performed by: [facility] #: [id number] [address] [place] [address] [address] [id number] [facility] [id number] Tool Lathe Operator : Yeyo Goins MD NPI #: [place] : 09/[email or web address].SENT REF 09/21/20.2108.XMT.SENT REF 9 COMPREHENSIVE [...] 11 URINALYSIS 12 { KIT LOT # [id number] ) { KIT EXP DATE 02.08.22 ) { PROCEDURAL CONTROL VALID ) 13 COMPLETE BLOOD COUNT 14 URINALYSIS 15 COMPLETE BLOOD COUNT 16 { KIT LOT # [id number] ) { KIT EXP DATE 12.09.21 ) [...] mL/min Normal 19 { KIT LOT # [id number] ) { KIT EXP DATE 11-08-21 ) [...]
--- OUTSIDE RECORDS SUMMARY | 2020-12-13 11:29 | CCD ---
Author Author [facility] Organization [facility] Address Unknown Phone Unavailable Care Team Providers Care Core Cleaner Name Role Phone MIKHAIL MONTERO MD Unavailable Unavailable MIKHAIL MONTERO MD Unavailable Unavailable MIKHAIL MONTERO MD Unavailable Unavailable MIKHAIL MONTERO MD Unavailable Unavailable MIKHAIL MONTERO MD Unavailable Unavailable MIKHAIL MONTERO MD Unavailable Unavailable MIKHAIL MONTERO MD Unavailable Unavailable MIKHAIL MONTERO MD Unavailable Unavailable MIKHAIL MONTERO MD Unavailable Unavailable MIKHAIL MONTERO MD Unavailable Unavailable MIKHAIL MONTERO MD Unavailable Unavailable MIKHAIL MONTERO MD Unavailable Unavailable MIKHAIL MONTERO MD Unavailable Unavailable MIKHAIL MONTERO MD Unavailable Unavailable MIKHAIL MONTERO MD Unavailable Unavailable MIKHAIL MONTERO MD Unavailable Unavailable MIKHAIL MONTERO MD Unavailable Unavailable MIKHAIL MONTERO MD Unavailable Unavailable MIKHAIL MONTERO MD Unavailable Unavailable MIKHAIL MONTERO MD Unavailable Unavailable MIKHAIL MONTERO MD Unavailable Unavailable MIKHAIL MONTERO MD Unavailable Unavailable MIKHAIL MONTERO MD Unavailable Unavailable MIKHAIL MONTERO MD Unavailable Unavailable MIKHAIL MONTERO MD Unavailable Unavailable MIKHAIL MONTERO MD Unavailable Unavailable MIKHAIL MONTERO MD Unavailable Unavailable MONTERO, MIKHAIL MD Unavailable Unavailable MONTERO, MIKHAIL MD Unavailable Unavailable MONTERO, MIKHAIL MD Unavailable Unavailable MONTERO, MIKHAIL MD Unavailable Unavailable MONTERO, MIKHAIL MD Unavailable Unavailable MONTERO, MIKHAIL MD Unavailable Unavailable MONTERO, MIKHAIL MD Unavailable Unavailable MONTERO, MIKHAIL MD Unavailable Unavailable MONTERO, MIKHAIL MD Unavailable Unavailable MONTERO, MIKHAIL MD Unavailable Unavailable MONTERO, MIKHAIL MD Unavailable Unavailable MONTERO, MIKHAIL MD Unavailable Unavailable MONTERO, MIKHAIL MD Unavailable Unavailable MONTERO, MIKHAIL MD Unavailable Unavailable MONTERO, MIKHAIL MD Unavailable Unavailable MONTERO, MIKHAIL MD Unavailable Unavailable MONTERO, MIKHAIL MD Unavailable Unavailable MONTERO, MIKHAIL MD Unavailable Unavailable MONTERO, MIKHAIL MD Unavailable Unavailable MONTERO, MIKHAIL MD Unavailable Unavailable MONTERO, MIKHAIL MD Unavailable Unavailable MONTERO, MIKHAIL MD Unavailable Unavailable MONTERO, MIKHAIL MD Unavailable Unavailable MONTERO, MIKHAIL MD Unavailable Unavailable MONTERO, MIKHAIL MD Unavailable Unavailable MONTERO, MIKHAIL MD Unavailable Unavailable MONTERO, MIKHAIL MD Unavailable Unavailable MONTERO, MIKHAIL MD Unavailable Unavailable MONTERO, MIKHAIL MD Unavailable Unavailable MONTERO, MIKHAIL MD Unavailable Unavailable MONTERO, MIKHAIL MD Unavailable Unavailable MONTERO, MIKHAIL MD Unavailable Unavailable MONTERO, MIKHAIL MD Unavailable Unavailable MONTERO, MIKHAIL MD Unavailable Unavailable MONTERO, MIKHAIL MD Unavailable Unavailable MONTERO, MIKHAIL MD Unavailable Unavailable MONTERO, MIKHAIL MD Unavailable Unavailable MONTERO, MIKHAIL MD Unavailable Unavailable MONTERO, MIKHAIL MD Unavailable Unavailable MONTERO, MIKHAIL MD Unavailable Unavailable MONTERO, MIKHAIL MD Unavailable Unavailable MONTERO, MIKHAIL MD Unavailable Unavailable MONTERO, MIKHAIL MD Unavailable Unavailable Santosh Almonte MD Unavailable Unavailable Santosh Almonte MD Unavailable Unavailable Santosh Almonte MD Unavailable Unavailable Santosh Almonte MD Unavailable Unavailable Santosh Almonte MD Unavailable Unavailable Santosh Almonte MD Unavailable Unavailable Rios, M Sahra PA-C Unavailable Unavailable Rios, M Sahra PA-C Unavailable Unavailable Rios, M Sahra PA-C Unavailable Unavailable Rios, M Sahra PA-C Unavailable Unavailable Rios, M Sahra PA-C Unavailable Unavailable Rios, M Sahra PA-C Unavailable Unavailable Rios, M Sahra PA-C Unavailable Unavailable Rios, M Sahra PA-C Unavailable Unavailable Rios, M Sahra PA-C Unavailable Unavailable Rios, M Sahra PA-C Unavailable Unavailable Rios, M Sahra PA-C Unavailable Unavailable Rios, M Sahra PA-C Unavailable Unavailable Rios, M Sahra PA-C Unavailable Unavailable Rios, M Sahra PA-C Unavailable Unavailable Rios, M Sahra PA-C Unavailable Unavailable Rios, M Sahra PA-C Unavailable Unavailable Rios, M Sahra PA-C Unavailable Unavailable Rios, M Sahra PA-C Unavailable Unavailable Rios, M Sahra PA-C Unavailable Unavailable Rios, M Sahra PA-C Unavailable Unavailable Rios, M Sahra PA-C Unavailable Unavailable Rios, M Sahra PA-C Unavailable Unavailable Rios, M Sahra PA-C Unavailable Unavailable Rios, M Sahra PA-C Unavailable Unavailable Rios, M Sahra PA-C Unavailable Unavailable Rios, M Sahra PA-C Unavailable Unavailable Rios, M Sahra PA-C Unavailable Unavailable Rios, M Sahra PA-C Unavailable Unavailable Rios, M Sahra PA-C Unavailable Unavailable Rios, M Sahra PA-C Unavailable Unavailable Rios, M Sahra PA-C Unavailable Unavailable Rios, M Sahra PA-C Unavailable Unavailable Rios, M Sahra PA-C Unavailable Unavailable Rios, M Sahra PA-C Unavailable Unavailable Rios, M Sahra PA-C Unavailable Unavailable Rios, M Sahra PA-C Unavailable Unavailable Rios, M Sahra PA-C Unavailable Unavailable Rios, M Sahra PA-C Unavailable Unavailable AMADEO MEJIAS MD Unavailable Unavailable AMADEO MEJIAS MD Unavailable Unavailable AMADEO MEJIAS MD Unavailable Unavailable AMADEO MEJIAS MD Unavailable Unavailable AMADEO MEJIAS MD Unavailable Unavailable AMADEO MEJIAS MD Unavailable Unavailable AMADEO MEJIAS MD Unavailable Unavailable AMADEO MEJIAS MD Unavailable Unavailable AMADEO MEJIAS MD Unavailable Unavailable AMADEO MEJIAS MD Unavailable Unavailable AMADEO MEJIAS MD Unavailable Unavailable AMADEO MEJIAS MD Unavailable Unavailable AMADEO MEJIAS MD Unavailable Unavailable AMADEO MEJIAS MD Unavailable Unavailable AMADEO MEJIAS MD Unavailable Unavailable AMADEO MEJIAS MD Unavailable Unavailable AMADEO MEJIAS MD Unavailable Unavailable AMADEO MEJIAS MD Unavailable Unavailable AMADEO MEJIAS MD Unavailable Unavailable AMADEO MEJIAS MD Unavailable Unavailable AMADEO MEJIAS MD Unavailable Unavailable AMADEO MEJIAS MD Unavailable Unavailable AMADEO MEJIAS MD Unavailable Unavailable OPALOSTAMADEO DELGADO MD Unavailable Unavailable OPALOSTAMADEO DELGADO MD Unavailable Unavailable OPALOSTAMADEO DELGADO MD Unavailable Unavailable OPALOSTAMADEO DELGADO MD Unavailable Unavailable OPALOSTAMADEO DELGADO MD Unavailable Unavailable CHROSTAMADEO DELGADO MD Unavailable Unavailable CHROSTAMADEO DELGADO MD Unavailable Unavailable CHROSTAMADEO DELGADO MD Unavailable Unavailable CHROSTAMADEO DELGADO MD Unavailable Unavailable CHROSTAMADEO DELGADO MD Unavailable Unavailable CHROSTAMADEO DELGADO MD Unavailable Unavailable CHROSTAMADEO DELGADO MD Unavailable Unavailable CHROSTAMADEO DELGADO MD Unavailable Unavailable CHROSTAMADEO DELGADO MD Unavailable Unavailable CHROSTAMADEO DELGADO MD Unavailable Unavailable AMADEO MEJIAS MD Unavailable Unavailable MAJESTEVAN, R SUDHA DPM Unavailable Unavailable MAJESTEVAN R SUDHA DPM Unavailable Unavailable MAJAK, R SUDHA DPM Unavailable Unavailable MAJAK, R SUDHA DPM Unavailable Unavailable MAJAK, R SUDHA DPM Unavailable Unavailable MAJAK R SUDHA DPM Unavailable Unavailable MAJAK, R SUDHA DPM Unavailable Unavailable MAJAK, R SUDHA DPM Unavailable Unavailable MAJAK, R SUDHA DPM Unavailable Unavailable MAJAK, R SUDHA DPM Unavailable Unavailable MAJAK, R SUDHA DPM Unavailable Unavailable MAJAK, R SUDHA DPM Unavailable Unavailable MAJAK, R SUDHA DPM Unavailable Unavailable MAJAK, R SUDHA DPM Unavailable Unavailable MAJAK, R SUDHA DPM Unavailable Unavailable MAJAK, R SUDHA DPM Unavailable Unavailable MAJAK, R SUDHA DPM Unavailable Unavailable MAJAK, R SUDHA DPM Unavailable Unavailable MAJAK, R SUDHA DPM Unavailable Unavailable MAJAK, R SUDHA DPM Unavailable Unavailable MAJAK, R SUDHA DPM Unavailable Unavailable MAJAK, R SUDHA DPM Unavailable Unavailable MAJAK, R SUDHA DPM Unavailable Unavailable MAJAK, R SUDHA DPM Unavailable Unavailable MAJAK, R SUDHA DPM Unavailable Unavailable MAJAK, R SUDHA DPM Unavailable Unavailable MAJAK, R SUDHA DPM Unavailable Unavailable MAJAK, R SUDHA DPM Unavailable Unavailable MAJAK, R SUDHA DPM Unavailable Unavailable MAJAK, R SUDHA DPM Unavailable Unavailable AK, R SUDHA DPM Unavailable Unavailable Kunnumpurath, F Laverne MD Unavailable Unavailable Kunnumpurath, F Laverne MD Unavailable Unavailable Kunnumpurath, F Laverne MD Unavailable Unavailable Kunnumpurath, F Laverne MD Unavailable Unavailable Kunnumpurath, F Laverne MD Unavailable Unavailable Kunnumpurath, F Laverne MD Unavailable Unavailable Kunnumpurath, F Laverne MD Unavailable Unavailable Kunnumpurath, F Laverne MD Unavailable Unavailable Kunnumpurath, F Laverne MD Unavailable Unavailable Kunnumpurath, F Laverne MD Unavailable Unavailable Kunnumpurath, F Laverne MD Unavailable Unavailable Kunnumpurath, F Laverne MD Unavailable Unavailable Kunnumpurath, F Laverne MD Unavailable Unavailable Kunnumpurath, F Laverne MD Unavailable Unavailable Kunnumpurath, F Laverne MD Unavailable Unavailable Kunnumpurath, F Laverne MD Unavailable Unavailable Kunnumpurath, F Laverne MD Unavailable Unavailable Kunnumpurath, F Laverne MD Unavailable Unavailable Kunnumpurath, F Laverne MD Unavailable Unavailable Kunnumpurath, F Laverne MD Unavailable Unavailable Kunnumpurath, F Laverne MD Unavailable Unavailable Kunnumpurath, F Laverne MD Unavailable Unavailable Kunnumpurath, F Laverne MD Unavailable Unavailable Kunnumpurath, F Laverne MD Unavailable Unavailable Kunnumpurath, F Laverne MD Unavailable Unavailable Kunnumpurath, F Laverne MD Unavailable Unavailable Kunnumpurath, F Laverne MD Unavailable Unavailable Kunnumpurath, F Laverne MD Unavailable Unavailable Kunnumpurath, F Laverne MD Unavailable Unavailable Kunnumpurath, F Laverne MD Unavailable Unavailable Kunnumpurath, F Laverne MD Unavailable Unavailable Kunnumpurath, F Laverne MD Unavailable Unavailable Kunnumpurath, F Laverne MD Unavailable Unavailable Kunnumpurath, F Laverne MD Unavailable Unavailable Kunnumpurath, F Laverne MD Unavailable Unavailable Kunnumpurath, F Laverne MD Unavailable Unavailable Kunnumpurath, F Laverne MD Unavailable Unavailable Kunnumpurath, F Laverne MD Unavailable Unavailable Kunnumpurath, F Laverne MD Unavailable Unavailable Kunnumpurath, F Laverne MD Unavailable Unavailable Kunnumpurath, F Laverne MD Unavailable Unavailable Kunnumpurath, F Laverne MD Unavailable Unavailable Kunnumpurath, F Laverne MD Unavailable Unavailable Pita Rudd MD Unavailable Unavailable Pita Rudd MD Unavailable Unavailable iPta Rudd MD Unavailable Unavailable Naif PAZ MD Unavailable Unavailable Naif PAZ MD Unavailable Unavailable Naif PAZ MD Unavailable Unavailable Naif PAZ MD Unavailable Unavailable Naif PAZ MD Unavailable Unavailable Naif PAZ MD Unavailable Unavailable Naif PAZ MD Unavailable Unavailable Naif PAZ MD Unavailable Unavailable Naif PAZ MD Unavailable Unavailable aNif PAZ MD Unavailable Unavailable Naif PAZ MD Unavailable Unavailable Naif PAZ MD Unavailable Unavailable Naif PAZ MD Unavailable Unavailable Naif PAZ MD Unavailable Unavailable Naif PAZ MD Unavailable Unavailable Naif PAZ MD Unavailable Unavailable Naif PAZ MD Unavailable Unavailable Naif PAZ MD Unavailable Unavailable Naif PAZ MD Unavailable Unavailable Naif PAZ MD Unavailable Unavailable Naif PAZ MD Unavailable Unavailable Naif PAZ MD Unavailable Unavailable Naif PAZ MD Unavailable Unavailable Naif PAZ MD Unavailable Unavailable Naif PAZ MD Unavailable Unavailable Naif PAZ MD Unavailable Unavailable Naif PAZ MD Unavailable Unavailable Naif PAZ MD Unavailable Unavailable Naif PAZ MD Unavailable Unavailable Naif PAZ MD Unavailable Unavailable Naif PAZ MD Unavailable Unavailable Naif PAZ MD Unavailable Unavailable Naif PAZ MD Unavailable Unavailable Antwon WALSH MD Unavailable Unavailable Antwon WALSH MD Unavailable Unavailable Antwon WALSH MD Unavailable Unavailable Antwon WALSH MD Unavailable Unavailable Antwon WALSH MD Unavailable Unavailable Antwon WALSH MD Unavailable Unavailable Antwon WALSH MD Unavailable Unavailable Antwon WALSH MD Unavailable Unavailable Antwon WALSH MD Unavailable Unavailable Antwon WALSH MD Unavailable Unavailable KYMAntwon RADER GINGER MD Unavailable Unavailable KYMAntwon RADER GINGER MD Unavailable Unavailable KYMAntwon RADER GINGER MD Unavailable Unavailable KYMAntwon RADER GINGER MD Unavailable Unavailable KYMAntwon RADER GINGER MD Unavailable Unavailable KYMAntwon RADER GINGER MD Unavailable Unavailable KYMAntwon RADER GINGER MD Unavailable Unavailable KYMAntwon RADER GINGER MD Unavailable Unavailable KYMAntwon RADER GINGER MD Unavailable Unavailable KYM, L GINGER Unavailable Unavailable [facility] Unavailable Unavailable CHROSTOWSKIAMADEO MD Unavailable Unavailable CHROSTOWSKIAMADEO MD Unavailable Unavailable CHROSTOWSKIAMADEO MD Unavailable Unavailable CHROSTOWSKIJONAAMADEO MD Unavailable Unavailable CHROSTOWSKIJONAAMADEO MD Unavailable Unavailable CHROSTOWSKIJONAAMADEO MD Unavailable Unavailable CHROSTOWSKIAMADEO MD Unavailable Unavailable CHROSTOWSKIAMADEO MD Unavailable Unavailable CHROSTOWSKIAMADEO MD Unavailable Unavailable CHROSTOWSKIJONAAMADEO MD Unavailable Unavailable CHROSTOWSKIJONAAMADEO MD Unavailable Unavailable CHROSTOWSKIAMADEO MD Unavailable Unavailable CHROSTOWSKIAMADEO MD Unavailable Unavailable CHROSTOWSKIAMADEO MD Unavailable Unavailable CHROSTOWSKIAMADEO MD Unavailable Unavailable CHROSTOWSKIJONAAMADEO MD Unavailable Unavailable CHROSTOWSKIJONAAMADEO MD Unavailable Unavailable CHROSTOWSKIJONAAMADEO MD Unavailable Unavailable CHROSTOWSKIAMADEO MD Unavailable Unavailable CHROSTOWSKIAMADEO MD Unavailable Unavailable CHROSTOWSKIAMADEO MD Unavailable Unavailable CHROSTOWSKIJONAAMADEO MD Unavailable Unavailable CHROSTOWSKIJONAAMADEO MD Unavailable Unavailable CHROSTOWSKIJONAAMADEO MD Unavailable Unavailable CHROSTOWSKIAMADEO MD Unavailable Unavailable CHROSTOWSKIJONAAMADEO MD Unavailable Unavailable CHROSTOWSKIAMADEO MD Unavailable Unavailable CHROSTOWSKIJONAAMADEO MD Unavailable Unavailable CHROSTOWSKIJONAAMADEO MD Unavailable Unavailable CHROSTOWSKIJONAAMADEO MD Unavailable Unavailable CHROSTOWSKIJONAAMADEO MD Unavailable Unavailable CHROSTOWSKIJONAAMADEO MD Unavailable Unavailable CHROSTOWSKIJONAAMADEO MD Unavailable Unavailable CHROSTOWSKIJONAAMADEO MD Unavailable Unavailable CHROSTOWSKIJONAAMADEO MD Unavailable Unavailable CHROSTOWSKIJONAAMADEO MD Unavailable Unavailable CHROSTOWSKI AMADEO MD Unavailable Unavailable CHROSTOWSKIJONAAMADEO MD Unavailable Unavailable CHROSTOWSKIAMADEO MD Unavailable Unavailable RADHA ZAMORANO MD Unavailable Unavai lable LONA, RADHA MAGDELENE MANUELA BURR Unavailable Unavai lable LONA, RADHA MAGDELENE MANUELA BURR Unavailable Unavai lable LONA, RADHA MAGDELENE MANUELA BURR Unavailable Unavai lable LONA, RADHA MAGDELENE MANUELA Unavailable Unavai lable LONA, RADHA MAGDELENE MANUELA BURR Unavailable Unavai lable LONA, ARDHA MAGDELENE MANUELA BURR Unavailable Unavai lable LONA, RADHA MAGDELENE MANUELA BURR Unavailable Unavai lable LONA, RADHA MAGDELENE MANUELA BURR Unavailable Unavai lable LONA, RADHA MAGDELENE MANUELA BURR Unavailable Unavai lable LONA, RADHA MAGDELENE MANUELA BURR Unavailable Unavai lable LONA, RADHA MAGDELENE MANUELA Unavailable Unavai lable LONA, RADHA MAGDELENE MANUELA BURR Unavailable Unavai lable LONA, RADHA MAGDELENE MANUELA BURR Unavailable Unavai lable LONA, RADHA MAGDELENE MANUELA BURR Unavailable Unavai lable LONA, RADHA MAGDELENE MANUELA BURR Unavailable Unavai lable LONA, RADHA MAGDELENE MANUELA BURR Unavailable Unavai lable LONA, RADHA MAGDELENE MANUELA BURR Unavailable Unavai lable LONA, RADHA MAGDELENE MANUELA Unavailable Unavai lable LONA, RADHA MAGDELENE MANUELA BURR Unavailable Unavai lable LONA, RADHA MAGDELENE MANUELA BURR Unavailable Unavai lable LONA, RADHA MAGDELENE MANUELA BURR Unavailable Unavai lable LONA, RADHA MAGDELENE MANUELA BURR Unavailable Unavai lable LONA, RADHA MAGDELENE MANUELA BURR Unavailable Unavai lable LONA, RADHA MAGDELENE MANUELA BURR Unavailable Unavai lable Helen, R Sushila DO Unavailable Unavailable Birchenough, R Sushila DO Unavailable Unavailable Birchenough, R Sushila DO Unavailable Unavailable Birchenough, R Sushila DO Unavailable Unavailable Birchenough, R Sushila DO Unavailable Unavailable Birchenough, R Sushila DO Unavailable Unavailable Birchenough, R Sushila DO Unavailable Unavailable Birchenough, R Sushila DO Unavailable Unavailable Birchenough, R Sushila DO Unavailable Unavailable Birchenough, R Sushila DO Unavailable Unavailable Birchenough, R Sushila DO Unavailable Unavailable Birchenough, R Sushila DO Unavailable Unavailable Birchenough, R Sushila DO Unavailable Unavailable Birchenough, R Sushila DO Unavailable Unavailable Birchenough, R Sushila DO Unavailable Unavailable Birchenough, R Sushila DO Unavailable Unavailable Birchenough, R Sushila DO Unavailable Unavailable Birchenough, R Sushila DO Unavailable Unavailable Birchenough, R Sushila DO Unavailable Unavailable TURRIN, SHA Unavailable Unavailable TURRIN, SHA Unavailable Unavailable TURRIN, SHA Unavailable Unavailable TURRIN, SHA Unavailable Unavailable Rios, M Sahra PA-C Unavailable Unavailable Rios, M Sahra PA-C Unavailable Unavailable Rios, M Sahra PA-C Unavailable Unavailable Rios, M Sahra PA-C Unavailable Unavailable Rios, M Sahra PA-C Unavailable Unavailable Rios, M Sahra PA-C Unavailable Unavailable Rios, M Sahra PA-C Unavailable Unavailable Rios, M Sahra PA-C Unavailable Unavailable Rios, M Sahra PA-C Unavailable Unavailable Rios, M Sahra PA-C Unavailable Unavailable Rios, M Sahra PA-C Unavailable Unavailable Rios, M Sahra PA-C Unavailable Unavailable Rios, M Sahra PA-C Unavailable Unavailable Rios, M Sahra PA-C Unavailable Unavailable Rios, M Sahra PA-C Unavailable Unavailable Rios, M Sahra PA-C Unavailable Unavailable Rios, M Sahra PA-C Unavailable Unavailable Rios, M Sahra PA-C Unavailable Unavailable Rios, M Sahra PA-C Unavailable Unavailable Rios, M Sahra PA-C Unavailable Unavailable Rios, M Sahra PA-C Unavailable Unavailable Rios, M Sahra PA-C Unavailable Unavailable Rios, M Sahra PA-C Unavailable Unavailable Rios, M Sahra PA-C Unavailable Unavailable Rios, M Sahra PA-C Unavailable Unavailable Rios, M Sahra PA-C Unavailable Unavailable Rios, M Sahra PA-C Unavailable Unavailable Rios, M Sahra PA-C Unavailable Unavailable Rios, M Sahra PA-C Unavailable Unavailable Rios, M Sahra PA-C Unavailable Unavailable Rios, M Sahra PA-C Unavailable Unavailable Rios, M Sahra PA-C Unavailable Unavailable Rios, M Sahra PA-C Unavailable Unavailable Rios, Gennaro Hollise PA-C Unavailable Unavailable Rios, Gennaro Bocanegra PA-C Unavailable Unavailable Rios, Gennaro Bocanegra PA-C Unavailable Unavailable Rios, Gennaro Bocanegra PA-C Unavailable Unavailable Rios, Gennaro Bocanegra PA-C Unavailable Unavailable Re-disclosure Warning The records that you are about to access may contain information from federally-assisted alcohol or drug abuse programs. If such information is present, then the following federally mandated warning applies: This information has been disclosed to you from records protected by federal confidentiality rules (42 CFR part 2). The federal rules prohibit you from making any further disclosure of this information unless further disclosure is expressly permitted by the written consent of the person to whom it pertains or as otherwise permitted by 42 CFR part 2. A general authorization for the release of medical or other information is NOT sufficient for this purpose. The Federal rules restrict any use of the information to criminally investigate or prosecute any alcohol or drug abuse patient.The records that you are about to access may contain highly sensitive health information, the redisclosure of which is protected by Article 27-F of the [facility] Public Health law. If you continue you may have access to information: Regarding HIV / AIDS; Provided by facilities licensed or operated by the [facility] Office of Mental Health; or Provided by the [facility] Office for People With Developmental Disabilities. If such information is present, then the following [facility] mandated warning applies: This information has been disclosed to you from confidential records which are protected by state law. State law prohibits you from making any further disclosure of this information without the specific written consent of the person to whom it pertains, or as otherwise permitted by law. Any unauthorized further disclosure in violation of state law may result in a fine or long term sentence or both. A general authorization for the release of medical or other information is NOT sufficient authorization for further disc losure. Allergies and Adverse Reactions Type Description Substance Reaction Status Data Source(s ) No Known Drug Allergies No Known Drug Allergies [facility] Propensity to adverse reactions Environmental Allergies Environm ental Allergies [facility] Food allergy LACTOSE LACTOSE [facility] Food allergy GLUTEN GLUTEN abd pain [facility] Family History Family Member Name Family Member Gender Family Member Status Date o f Status Description Data Source(s) Unknown Condition [facility] Unknown Condition [facility] Unknown Condition [facility] Condition [facility] Unknown Condition [facility] Unknown Condition [facility] Unknown Condition [facility] Unknown Condition [facility] Unknown Condition [facility] Unknown Condition [facility] Unknown Condition [facility] Unknown Condition [facility] Condition [facility] Condition [facility] Condition [facility] Condition [facility] Condition [facility] Condition [facility] Condition [facility] Condition [facility] Condition [facility] Unknown Condition [facility] Unknown Condition [facility] Unknown [facility] Unknown [facility] Unknown Condition [facility] Unknown [facility] Unknown [facility] Unknown [facility] Unknown [facility] Unknown [facility] Unknown [facility] Unknown [facility] Unknown [facility] Unknown [facility] Unknown [facility] Unknown [facility] Unknown [facility] Unknown [facility] Unknown [facility] Unknown [facility] Unknown [facility] Unknown [facility] Unknown [facility] Unknown [facility] Unknown [facility] Unknown [facility] Unknown [facility] Unknown [facility] Unknown [facility] Unknown [facility] Unknown [facility] Unknown [facility] Unknown [facility] Unknown [facility] Unknown [facility] Unknown [facility] Unknown [facility] Unknown [facility] Unknown Condition [facility] Unknown Condition [facility] Unknown Condition [facility] Unknown Condition [facility] Unknown Condition [facility] Unknown Condition [facility] Unknown Condition [facility] Unknown Condition [facility] Unknown Condition [facility] Unknown Condition [facility] Unknown Condition [facility] Encounters Encounter Providers Location Date Indications Data Source(s ) Outpatient Attender: Laverne Rudd MDConsultant: MIKHAIL MONTERO MD 11/20/2020 02:52:00 PM EDT - 11/20/2020 02:52:00 PM EDT [facility] Outpatient Attender: Laverne Rudd MDConsultant: MIKHAIL MONTERO MD 10/18/2020 01:42:00 PM EDT - 10/18/2020 01:42:00 PM EDT [facility] Emergency Attender: GINGER WALSH MDConsultant: MIKHAIL Kapoor MD 10/13/2020 07:53:00 AM EDT - 10/13/2020 10:08:00 AM EDT [facility] Patient discharged. Emergency Attender: Santosh Almonte MDConsultant: MIKHAIL MONTERO MD 10/06/2020 01:34:00 AM EDT - 10/06/2020 04:03:00 AM EDT [facility] Patient discharged. Emergency Attender: SHA Peralta sultant: MIKHAIL MONTERO MDConsultant: Sahra Rios PA-C 09/18/2020 12:10:00 AM EDT - 09/18/2020 04:19:00 AM EDT [facility] Patient discharged. Outpatient Attender: CHAKA Puckett/Yaneth/Ang el/Reindl 08/23/2020 09:50:00 AM EDT [facility] ([facility] Outpatient Attender: [facility] 07/09/2020 10:5 6:00 PM EDT [facility] Emergency Attender: SHA Peraltasultant: Sahra hill PA-C 07/09/2020 10:41:00 PM EDT - 07/10/2020 12:24:00 AM EDT [facility] Patient discharged. Outpatient Attender: CHAKA Puckett/Yaneth/Ang el/Reindl 05/22/2020 02:10:00 PM EDT [facility] ([facility] Emergency Attender: Santosh Almonte MDConsultant: Sahra Akers 05/12/2020 10:06:00 PM EDT - 05/13/2020 01:35:00 AM EDT [facility] Patient discharged. Outpatient Attender: AMADEO MEJIAS MDConsultant: THO ZAMORANO MD 03/02/2020 10:43:00 AM EST - 03/02/2020 11:43:00 AM EST [facility] Outpatient Attender: AMADEO MEJIAS MD Main Office 03/02/2020 07:30:00 AM EST [facility] Outpatient Attender: Sushila Aler: Sahra In [facility] 12/13/2019 02:18:00 PM EST - 12/13/2019 02:49:00 PM EST [facility] Outpatient Attender: CHAKA Puckett/Yaneth/Ang el/Reindl 12/13/2019 08:40:00 AM EST [facility] ([facility]) Office Visit Attender: SUDHA MCKEON [facility] Office 02/2019 09:30:00 AM EDT [facility] ([facility] Outpatient Attender: Sushila Baird: Sahra In [facility]- 11/07/2019 11:07:00 AM EDT - 11/07/2019 12:11:00 PM EDT [facility] Outpatient Attender: SUDHA MCKEON [facility] Office 10/11 09:15:00 AM EDT [facility] ([facility] Outpatient Attender: CHAKA Puckett/Yaneth/Ang el/Reindl 10/27/2019 09:20:00 AM EDT [facility] ([facility] Outpatient Attender: Sushila Baird: Sahra In [facility] 09/13/2019 08:26:00 AM EDT - 09/13/2019 09:42:00 AM EDT [facility] Immunizations Vaccine Date Status Description Data Source(s) New in 2011. IIV4 11/20/2020 03:50:00 PM EDT completed [facility] ([facility]) COVID-19 VACCINE Moderna 06/13/2020 12:00:00 AM EDT completed [facility] Vaccine Series Complete: YESThis Data wa s Submitted to [facility] Via [employer]. COVID-19 VACCINE Moderna 05/16/2020 12:00:00 AM EDT [facility] Complete: NOThis Data was Submitted to [facility] Via [employer]. INFLUENZA VIRUS VACCINE QUADRIVALENT 2019- (6 MOS AN D UP) 11/05/2019 12:00:00 AM EDT completed [facility] Medications Medication Brand Name Start Date Product Form Dose Route Admi nistrative Instructions Pharmacy Instructions Status Indications Reaction Description Data Source(s) POLYETHYLENE GLYCOL 3350 [id number] MG / Pot assium Chloride 1480 MG / Sodium Bicarbonate 5720 MG / Sodium Chloride 22748 MG Powder for Oral Solution SODIUM CHLORIDE/NAHCO3/KCL/PEG 12/05/2020 12:00:00 AM EDT recon soln 4000 DRINK PER PREPROCEDURE INSTRUCTIONS DRINK PER PREPROCEDURE INSTRUCTIONS SOLD: 12/05/2020 [facility] 5 mg 12/04/2020 12:00:00 AM EDT tablet,delayed release (DR/EC) 4 TAKE 4 TABLETS TOGETHER PER BOWEL PREPARATION INSTRUCTIONS TAKE 4 TABLETS TOGETHER PER BOWEL PREPARATION INSTRUCTIONS SOLD: 12/05/2020 [facility] Ondansetron 4 MG Disintegrating Oral Tablet ONDANSETRON 12/03/2020 12:00:00 AM EDT tablet,disintegrating 30 TAKE ONE T ABLET BY MOUTH TWO TO THREE TIMES A DAY FOR NAUSEA NEEDED TAKE ONE TABLET BY MOUTH TWO TO THREE TI MES A DAY FOR NAUSEA NEEDED SOLD: 12/03/2020 [facility] 20 mg 11/30/2020 12:00:00 AM EDT tablet 90 TAKE 1 TABLET BY MOUTH 2-3 TIMES DAILY AT LEAST 15 MINUTES BEFORE MEALS TAKE 1 TABLET BY MOUTH 2-3 TIMES DAILY A T LEAST 15 MINUTES BEFORE MEALS SOLD: 12/03/2020 [facility] 8.6 mg 11/26/2020 12:00:00 AM EDT tablet 60 TAKE TWO TABLETS BY MOUTH EVERY DAY AT BEDTIME TAKE TWO TABLETS BY MOUTH EVERY DAY AT BEDTIME SOLD: [facility] Escitalopram 10 MG Oral Tablet ESCITALOPRAM OXALATE 11/21/2020 1 2:00:00 AM EDT tablet 30 TAKE 1 TABLET BY MOUTH EVERY DAY TAKE 1 T ABLET BY MOUTH EVERY DAY SOLD: 11/26/2020 [facility] Famotidine 20 MG Oral Tablet FAMOTIDINE 10/30/2020 12:00:00 AM EDT tab let 60 TAKE ONE TABLET BY MOUTH EVERY DAY AT BEDTIME (AND IF TOLERATING SWITCH TO TWO TIMES A DAY AFTER 2 WEEKS) TAKE ONE TABLET BY MOUTH EVERY DAY AT BE DTIME (AND IF TOLERATING SWITCH TO TWO TIMES A DAY AFTER 2 WEEKS) SOLD: 11/02/2020 [facility] Ondansetron 4 MG Disintegrating Oral Tablet ONDANSETRON 10/21/2020 12:00:00 AM EDT tablet,disintegrating 30 TAKE ONE T ABLET BY MOUTH TWO TO THREE TIMES A DAY FOR NAUSEA NEEDED TAKE ONE TABLET BY MOUTH TWO TO THREE TI MES A DAY FOR NAUSEA NEEDED SOLD: 10/21/2020 [facility] Ondansetron 4 MG Disintegrating Oral Tablet ONDANSETRON 10/21/2020 12:00:00 AM EDT tablet,disintegrating 30 TAKE ONE T ABLET BY MOUTH TWO TO THREE TIMES A DAY FOR NAUSEA NEEDED TAKE ONE TABLET BY MOUTH TWO TO THREE TI MES A DAY FOR NAUSEA NEEDED SOLD: 11/19/2020 [facility] Ondansetron 4 MG Disintegrating Oral Tablet ONDANSETRON 10/21/2020 12:00:00 AM EDT tablet,disintegrating 30 TAKE ONE T ABLET BY MOUTH TWO TO THREE TIMES A DAY FOR NAUSEA NEEDED TAKE ONE TABLET BY MOUTH TWO TO THREE TI MES A DAY FOR NAUSEA NEEDED SOLD: 11/05/2020 [facility] Escitalopram 10 MG Oral Tablet ESCITALOPRAM OXALATE 10/19/2020 1 2:00:00 AM EDT tablet 30 TAKE ONE TABLET BY MOUTH EVERY D AY - MAXIMUM DAILY DOSE = 1 TABLET TAKE ONE TABLET BY MOUTH EVERY DAY - MAXIMUM DAILY DOSE = 1 TABLET SOLD: 10/20/2020 [facility] Escitalopram 10 MG Oral Tablet [Lexapro] Lexapro 10/18/2020 12:00: 00 AM EDT ORAL active [facility] ([facility]) 25 mg 10/13/2020 12:00:00 AM EDT suppository 9 INSERT ONE SUPPOSITORY RECTALLY THREE TIMES A DAY NEEDED FOR NAUSEA AND VOMITING INSERT ONE SUPPOSITORY RECTALLY THREE TIMES A DAY NEEDED FOR NAUSEA AND VOMITING SOLD: 10/13/2020 [facility] 50 mg 09/21/2020 12:00:00 AM EDT tablet 90 TAKE ONE TABLET BY MOUTH EVERY DAY TAKE ONE TABLET BY MOUTH EVERY DAY SOLD: 09/22/2020 [facility] Ondansetron 4 MG Disintegrating Oral Tablet ONDANSETRON 09/05/2020 12:00:00 AM EDT tablet,disintegrating 30 TAKE ONE T ABLET BY MOUTH TWO TO THREE TIMES A DAY FOR NAUSEA NEEDED TAKE ONE TABLET BY MOUTH TWO TO THREE TI MES A DAY FOR NAUSEA NEEDED SOLD: 10/08/2020 [facility] Ondansetron 4 MG Disintegrating Oral Tablet Ondansetron 09/05/2020 12:00:00 AM EDT active [facility] ([facility], ) Ondansetron 4 MG Disintegrating Oral Tablet ONDANSETRON 09/05/2020 12:00:00 AM EDT tablet,disintegrating 30 TAKE ONE T ABLET BY MOUTH TWO TO THREE TIMES A DAY FOR NAUSEA NEEDED TAKE ONE TABLET BY MOUTH TWO TO THREE TI MES A DAY FOR NAUSEA NEEDED SOLD: 09/22/2020 [facility] Ondansetron 4 MG Disintegrating Oral Tablet ONDANSETRON 09/05/2020 12:00:00 AM EDT tablet,disintegrating 30 TAKE ONE T ABLET BY MOUTH TWO TO THREE TIMES A DAY FOR NAUSEA NEEDED TAKE ONE TABLET BY MOUTH TWO TO THREE TI MES A DAY FOR NAUSEA NEEDED SOLD: 2020 [facility] 20 mg 08/30/2020 12:00:00 AM EDT tablet 90 TAKE 1 TABLET BY MOUTH 2-3 TIMES DAILY AT LEAST 15 MINUTES BEFORE MEALS TAKE 1 TABLET BY MOUTH 2-3 TIMES DAILY A T LEAST 15 MINUTES BEFORE MEALS SOLD: 09/01/2020 [facility] 20 mg 08/30/2020 12:00:00 AM EDT tablet 90 TAKE 1 TABLET BY MOUTH 2-3 TIMES DAILY AT LEAST 15 MINUTES BEFORE MEALS TAKE 1 TABLET BY MOUTH 2-3 TIMES DAILY A T LEAST 15 MINUTES BEFORE MEALS SOLD: 11/02/2020 [facility] 20 mg 08/30/2020 12:00:00 AM EDT tablet 90 TAKE 1 TABLET BY MOUTH 2-3 TIMES DAILY AT LEAST 15 MINUTES BEFORE MEALS TAKE 1 TABLET BY MOUTH 2-3 TIMES DAILY A T LEAST 15 MINUTES BEFORE MEALS SOLD: 10/02/2020 [facility] 8.6 mg 08/23/2020 12:00:00 AM EDT tablet 60 TAKE TWO TABLETS BY MOUTH EVERY DAY AT BEDTIME TAKE TWO TABLETS BY MOUTH EVERY DAY AT BEDTIME SOLD: [facility] 8.6 mg 08/23/2020 12:00:00 AM EDT tablet 60 TAKE TWO TABLETS BY MOUTH EVERY DAY AT BEDTIME TAKE TWO TABLETS BY MOUTH EVERY DAY AT BEDTIME SOLD: [facility] 8.6 mg 08/23/2020 12:00:00 AM EDT tablet 60 TAKE TWO TABLETS BY MOUTH EVERY DAY AT BEDTIME TAKE TWO TABLETS BY MOUTH EVERY DAY AT BEDTIME SOLD: [facility] Famotidine 20 MG Oral Tablet FAMOTIDINE 06/26/2020 12:00:00 AM EDT tab let 60 TAKE ONE TABLET BY MOUTH EVERY DAY AT BEDTIME (AND IF TOLERATING SWITCH TO TWO TIMES A DAY AFTER 2 WEEKS) TAKE ONE TABLET BY MOUTH EVERY DAY AT BE DTIME (AND IF TOLERATING SWITCH TO TWO TIMES A DAY AFTER 2 WEEKS) SOLD: 08/11/2020 [facility] Famotidine 20 MG Oral Tablet FAMOTIDINE 06/26/2020 12:00:00 AM EDT tab let 60 TAKE ONE TABLET BY MOUTH EVERY DAY AT BEDTIME (AND IF TOLERATING SWITCH TO TWO TIMES A DAY AFTER 2 WEEKS) TAKE ONE TABLET BY MOUTH EVERY DAY AT BE DTIME (AND IF TOLERATING SWITCH TO TWO TIMES A DAY AFTER 2 WEEKS) SOLD: 07/02/2020 [facility] Famotidine 20 MG Oral Tablet FAMOTIDINE 06/26/2020 12:00:00 AM EDT tab let 60 TAKE ONE TABLET BY MOUTH EVERY DAY AT BEDTIME (AND IF TOLERATING SWITCH TO TWO TIMES A DAY AFTER 2 WEEKS) TAKE ONE TABLET BY MOUTH EVERY DAY AT BE DTIME (AND IF TOLERATING SWITCH TO TWO TIMES A DAY AFTER 2 WEEKS) SOLD: 09/22/2020 [facility] 20 mg 06/03/2020 12:00:00 AM EDT tablet 90 TAKE 1 TABLET BY MOUTH 2-3 TIMES DAILY AT LEAST 15 MINUTES BEFORE MEALS TAKE 1 TABLET BY MOUTH 2-3 TIMES DAILY A T LEAST 15 MINUTES BEFORE MEALS SOLD: 06/04/2020 [facility] 20 mg 06/03/2020 12:00:00 AM EDT tablet 90 TAKE 1 TABLET BY MOUTH 2-3 TIMES DAILY AT LEAST 15 MINUTES BEFORE MEALS TAKE 1 TABLET BY MOUTH 2-3 TIMES DAILY A T LEAST 15 MINUTES BEFORE MEALS SOLD: 08/02/2020 [facility] 20 mg 06/03/2020 12:00:00 AM EDT tablet 90 TAKE 1 TABLET BY MOUTH 2-3 TIMES DAILY AT LEAST 15 MINUTES BEFORE MEALS TAKE 1 TABLET BY MOUTH 2-3 TIMES DAILY A T LEAST 15 MINUTES BEFORE MEALS SOLD: 07/05/2020 [facility] sennosides, CORRECTION 8.6 MG Oral Tablet Senna 05/22/2020 12:00:00 AM EDT active [facility] ([facility], ) 8.6 mg 05/22/2020 12:00:00 AM EDT tablet 60 TAKE TWO TABLETS BY MOUTH EVERY DAY AT BEDTIME TAKE TWO TABLETS BY MOUTH EVERY DAY AT BEDTIME SOLD: [facility] 8.6 mg 05/22/2020 12:00:00 AM EDT tablet 60 TAKE TWO TABLETS BY MOUTH EVERY DAY AT BEDTIME TAKE TWO TABLETS BY MOUTH EVERY DAY AT BEDTIME SOLD: [facility] ferrous sulfate 325 MG Oral Tablet Iron (Ferrous Sulfate) 12:00:00 AM EDT active [facility] ([facility], ) 8.6 mg 05/22/2020 12:00:00 AM EDT tablet 60 TAKE TWO TABLETS BY MOUTH EVERY DAY AT BEDTIME TAKE TWO TABLETS BY MOUTH EVERY DAY AT BEDTIME SOLD: [facility] Docusate Sodium 100 MG Oral Capsule [DOK] Dok 05/02/2020 12:00:0 0 AM EDT completed [facility] ([facility], ) pantoprazole 20 MG Delayed Release Oral Tablet Pantoprazole Sodium 04/10/2020 12:00:00 AM EST completed [facility] ([facility], ) Flonase Sensimist Flonase Sensimist 04/06/2020 12:00:00 AM EST active [facility] ([facility]) 20 mg 03/21/2020 12:00:00 AM EST tablet 60 TAKE ONE TABLET BY MOUTH EVERY DAY AT BEDTIME (AND IF TOLERATING SWITCH TO TWO TIMES A DAY AFTER 2 WEEKS) TAKE ONE TABLET BY MOUTH EVERY DAY AT BEDTIME (AND IF TOLERATING SWITCH TO TWO TIMES A DAY AFTER 2 WEEKS) SOLD: 04/27/2020 [facility] Famotidine 20 MG Oral Tablet FAMOTIDINE 03/21/2020 12:00:00 AM EST tab let 60 TAKE ONE TABLET BY MOUTH EVERY DAY AT BEDTIME (AND IF TOLERATING SWITCH TO TWO TIMES A DAY AFTER 2 WEEKS) TAKE ONE TABLET BY MOUTH EVERY DAY AT BE DTIME (AND IF TOLERATING SWITCH TO TWO TIMES A DAY AFTER 2 WEEKS) SOLD: 03/27/2020 [facility] Famotidine 20 MG Oral Tablet FAMOTIDINE 03/21/2020 12:00:00 AM EST tab let 60 TAKE ONE TABLET BY MOUTH EVERY DAY AT BEDTIME (AND IF TOLERATING SWITCH TO TWO TIMES A DAY AFTER 2 WEEKS) TAKE ONE TABLET BY MOUTH EVERY DAY AT BE DTIME (AND IF TOLERATING SWITCH TO TWO TIMES A DAY AFTER 2 WEEKS) SOLD: 05/29/2020 [facility] 20 mg 03/07/2020 12:00:00 AM EST tablet 90 TAKE 1 TABLET BY MOUTH 2-3 TIMES DAILY AT LEAST 15 MINUTES BEFORE MEALS TAKE 1 TABLET BY MOUTH 2-3 TIMES DAILY A T LEAST 15 MINUTES BEFORE MEALS SOLD: 04/05/2020 [facility] 100 mg 03/07/2020 12:00:00 AM EST capsule 90 TAKE ONE CAPSULE BY MOUTH TWICE A DAY BEFORE MEAL INCREASE TO 3 PER DAY IF PERSISTANT CONSTIPATION HOLD/DECREASE IF HAVING DIARRHEA TAKE ONE CAPSULE BY MOUTH TWICE A DAY BE FORE MEAL INCREASE TO 3 PER DAY IF PERSISTANT CONSTIPATION HOLD/DECREASE IF HAVING DIARRHEA SOLD: 04/05/2020 [facility] 20 mg 03/07/2020 12:00:00 AM EST tablet 90 TAKE 1 TABLET BY MOUTH 2-3 TIMES DAILY AT LEAST 15 MINUTES BEFORE MEALS TAKE 1 TABLET BY MOUTH 2-3 TIMES DAILY A T LEAST 15 MINUTES BEFORE MEALS SOLD: 03/08/2020 [facility] 20 mg 03/07/2020 12:00:00 AM EST tablet 90 TAKE 1 TABLET BY MOUTH 2-3 TIMES DAILY AT LEAST 15 MINUTES BEFORE MEALS TAKE 1 TABLET BY MOUTH 2-3 TIMES DAILY A T LEAST 15 MINUTES BEFORE MEALS SOLD: 05/05/2020 [facility] 100 mg 03/07/2020 12:00:00 AM EST capsule 90 TAKE ONE CAPSULE BY MOUTH TWICE A DAY BEFORE MEAL INCREASE TO 3 PER DAY IF PERSISTANT CONSTIPATION HOLD/DECREASE IF HAVING DIARRHEA TAKE ONE CAPSULE BY MOUTH TWICE A DAY BE FORE MEAL INCREASE TO 3 PER DAY IF PERSISTANT CONSTIPATION HOLD/DECREASE IF HAVING DIARRHEA SOLD: 03/08/2020 [facility] Docusate Sodium 100 MG Oral Capsule [Colace] Colace 12:00:00 AM EST completed [facility] ([facility], ) Dicyclomine Hydrochloride 20 MG Oral Tablet Dicyclomine HCL 03/07/2020 12:00:00 AM EST active [facility] ([facility], ) pantoprazole 40 MG Delayed Release Oral Tablet PANTOPRAZOLE SODIUM 02/28/2020 12:00:00 AM EST tablet,delayed release (DR/EC) 60 T GEETA 1 TABLET BY MOUTH IN THE MORNING 1/2 HOUR BEFORE BREAKFAST TAKE 1 TABLET BY MOUTH IN THE MORNING 1/ 2 HOUR BEFORE BREAKFAST SOLD: 03/06/2020 [facility] pantoprazole 40 MG Delayed Release Oral Tablet Pantoprazole Sodium 02/26/2020 12:00:00 AM EST completed [facility] ([facility], ) 12 HR Hyoscyamine Sulfate 0.375 MG Extended Release Or al Tablet [Oscimin] Oscimin SR 02/24/2020 12:00:00 AM EST completed [facility] ([facility], ) 20 mg 12/14/2019 12:00:00 AM EST tablet 60 TAKE ONE TABLET BY MOUTH EVERY DAY AT BEDTIME (AND IF TOLERATING SWITCH TO TWO TIMES A DAY AFTER 2 WEEKS) TAKE ONE TABLET BY MOUTH EVERY DAY AT BEDTIME (AND IF TOLERATING SWITCH TO TWO TIMES A DAY AFTER 2 WEEKS) SOLD: 12/16/2019 [facility] 20 mg 12/14/2019 12:00:00 AM EST tablet,delayed release (DR/EC) 60 TAKE ONE TABLET BY MOUTH EVERY MORNING HALF HOUR BEFORE BREAKFAST (TAPER OFF IF NO SYMPTOMS) TAKE ONE TABLET BY MOUTH EVERY MORNING [facility] HOUR BEFORE BREAKFAST (TAPER OFF IF NO SYMPTOMS) SOLD: 12/16/2019 [facility] 20 mg 12/14/2019 12:00:00 AM EST tablet 60 TAKE ONE TABLET BY MOUTH EVERY DAY AT BEDTIME (AND IF TOLERATING SWITCH TO TWO TIMES A DAY AFTER 2 WEEKS) TAKE ONE TABLET BY MOUTH EVERY DAY AT BEDTIME (AND IF TOLERATING SWITCH TO TWO TIMES A DAY AFTER 2 WEEKS) SOLD: 01/18/2020 [facility] 20 mg 12/14/2019 12:00:00 AM EST tablet,delayed release (DR/EC) 60 TAKE ONE TABLET BY MOUTH EVERY MORNING HALF HOUR BEFORE BREAKFAST (TAPER OFF IF NO SYMPTOMS) TAKE ONE TABLET BY MOUTH EVERY MORNING [facility] HOUR BEFORE BREAKFAST (TAPER OFF IF NO SYMPTOMS) SOLD: 02/14/2020 [facility] 20 mg 12/14/2019 12:00:00 AM EST tablet 60 TAKE ONE TABLET BY MOUTH EVERY DAY AT BEDTIME (AND IF TOLERATING SWITCH TO TWO TIMES A DAY AFTER 2 WEEKS) TAKE ONE TABLET BY MOUTH EVERY DAY AT BEDTIME (AND IF TOLERATING SWITCH TO TWO TIMES A DAY AFTER 2 WEEKS) SOLD: 02/22/2020 [facility] pantoprazole 20 MG Delayed Release Oral Tablet Pantoprazole Sodium 12/13/2019 12:00:00 AM EST ORAL completed [facility] ([facility], ) Famotidine 20 MG Oral Tablet Famotidine 12/13/2019 12:00:00 AM EST active [facility] ([facility], ) 4 mg 11/17/2019 12:00:00 AM EDT tablet 30 TAKE ONE TABLET BY MOUTH ONCE TO TWICE A DAY BEFORE MEALS, ONLY TAKE WHEN HAVING NAUSEA TAKE ONE TABLET BY MOUTH ONCE TO TWICE A DAY BEFORE MEALS, ONLY TAKE WHEN HAVING NAUSEA SOLD: 05/29/2020 [facility] 4 mg 11/17/2019 12:00:00 AM EDT tablet 30 TAKE ONE TABLET BY MOUTH ONCE TO TWICE A DAY BEFORE MEALS, ONLY TAKE WHEN HAVING NAUSEA TAKE ONE TABLET BY MOUTH ONCE TO TWICE A DAY BEFORE MEALS, ONLY TAKE WHEN HAVING NAUSEA SOLD: 11/21/2019 [facility] Ondansetron 4 MG Oral Tablet Ondansetron HCL 11/16/2019 12:00:00 AM E DT ORAL active [facility] ([facility], ) Hydrocortisone 10 MG/ML / Neomycin 3.5 M G/ML / Polymyxin B 00666 UNT/ML Otic Solution Pnfnjelt-Vgldqmhke-ZL 11/02/2019 12:00:00 AM EDT active [facility] ([facility] 3.5-10,000-1 mg/mL-unit/mL-% 11/02/2019 12:00:00 AM EDT solu tion 10 APPLY 1 DROP TO BASE OF NAIL AFTER BETADINE SOAKS DIRECTED APPLY 1 DROP TO BASE OF NAIL AFTER BETADINE SOAKS DIRECTED SOLD: 11/03/2019 [facility] 40 mg 11/01/2019 12:00:00 AM EDT tablet,delayed release (DR/EC) 60 TAKE 1 TABLET BY MOUTH IN THE MORNING 1/2 HOUR BEFORE BREAKFAST TAKE 1 TABLET BY MOUTH IN THE MORNING 1/2 HOUR BEFORE BREAKFAST SOLD: 11/03/2019 [facility] pantoprazole 40 MG Delayed Release Oral Tablet PANTOPRAZOLE SODIUM 11/01/2019 12:00:00 AM EDT tablet,delayed release (DR/EC) 60 T GEETA 1 TABLET BY MOUTH IN THE MORNING 1/2 HOUR BEFORE BREAKFAST TAKE 1 TABLET BY MOUTH IN THE MORNING 1/ 2 HOUR BEFORE BREAKFAST SOLD: 01/01/2020 [facility] POLYETHYLENE GLYCOL 3350 142 MG/ML Oral Solution [Miralax] M iralax 10/27/2019 12:00:00 AM EDT active [facility] ([facility], ) 17 gram/dose 10/27/2019 12:00:00 AM EDT powder 238 MIX 1 SCOOP (17 GRAMS) WITH 8 OUNCES OF WATER/FLUID AND TO BE TAKEN 1 TO 2 TIMES DAILY - CAN HOLD OR DECREASE DOSE IF HAVING DIARRHEA MIX 1 SCOOP (17 GRAMS) WITH 8 OUNCES OF WATER/FLUID AND TO BE TAKEN 1 TO 2 TIMES DAILY - CAN HOLD OR DECREASE DOSE IF HAVING DIARRHEA SOLD: 10/28/2019 [facility] 50 mg 09/13/2019 12:00:00 AM EDT tablet 90 TAKE ONE TABLET BY MOUTH EVERY DAY TAKE ONE TABLET BY MOUTH EVERY DAY SOLD: 06/25/2020 [facility] 150-35 mcg/24 hr 09/13/2019 12:00:00 AM EDT patch weekly 3 APPLY ONE PATCH TO THE SKIN EVERY 7 DAYS FOR 3 WEEKS, THEN REMOVE FOR 1 WEEK APPLY ONE PATCH TO THE SKIN EVERY 7 DAYS FOR 3 WEEKS, THEN REMOVE FOR 1 WEEK SOLD: 12/02/2019 [facility] 150-35 mcg/24 hr 09/13/2019 12:00:00 AM EDT patch weekly 3 APPLY ONE PATCH TO THE SKIN EVERY 7 DAYS FOR 3 WEEKS, THEN REMOVE FOR 1 WEEK APPLY ONE PATCH TO THE SKIN EVERY 7 DAYS FOR 3 WEEKS, THEN REMOVE FOR 1 WEEK SOLD: 11/05/2019 [facility] 150-35 mcg/24 hr 09/13/2019 12:00:00 AM EDT patch weekly 3 APPLY ONE PATCH TO THE SKIN EVERY 7 DAYS FOR 3 WEEKS, THEN REMOVE FOR 1 WEEK APPLY ONE PATCH TO THE SKIN EVERY 7 DAYS FOR 3 WEEKS, THEN REMOVE FOR 1 WEEK SOLD: 01/01/2020 [facility] 50 mg 09/13/2019 12:00:00 AM EDT tablet 90 TAKE ONE TABLET BY MOUTH EVERY DAY TAKE ONE TABLET BY MOUTH EVERY DAY SOLD: 03/28/2020 [facility] 50 mg 09/13/2019 12:00:00 AM EDT tablet 90 TAKE ONE TABLET BY MOUTH EVERY DAY TAKE ONE TABLET BY MOUTH EVERY DAY SOLD: 12/16/2019 [facility] Ibuprofen 800 MG Oral Tablet Ibuprofen 2019 07:40:39 AM EDT 800 MG completed [facility] [place], CORRECTION 8.6 MG Oral Tablet Sennosides (Senna L ax) 8.6 mg Tablet Sennosides (Senna Lax) 8.6 mg Tablet 2019 07:40:39 AM EDT 8.6 MG [facility] Bisacodyl 10 MG Rectal Suppository Bisacodyl 2019 07:40:39 AM EDT 10 MG completed [facility]RE[facility] 8.6 MG Oral Tablet Sennosides (Senna L ax) 8.6 mg Tablet Sennosides (Senna Lax) 8.6 mg Tablet 2019 07:40:39 AM EDT 8.6 MG [facility] Bisacodyl 10 MG Rectal Suppository Bisacodyl 2019 07:40:39 AM EDT 10 MG [facility] Ibuprofen 800 MG Oral Tablet Ibuprofen 2019 07:40:39 AM EDT 800 MG [facility] 100 mg 2019 12:00:00 AM EDT capsule 60 TAKE ONE CAPSULE BY MOUTH TWICE A DAY TAKE ONE CAPSULE BY MOUTH TWICE A DAY SOLD: 11/10/2019 [facility] 500 mg 2019 12:00:00 AM EDT tablet 60 TAKE ONE TABLET BY MOUTH TWICE A DAY WITH MEALS TAKE ONE TABLET BY MOUTH TWICE A DAY WITH MEALS SOLD: 11/10/2019 [facility] 800 mg 2019 12:00:00 AM EDT tablet 60 TAKE ONE TABLET BY MOUTH THREE TIMES A DAY NEEDED FOR PAIN TAKE ONE TABLET BY MOUTH THREE TIMES A D AY NEEDED FOR PAIN SOLD: 11/17/2019 [facility] 800 mg 2019 12:00:00 AM EDT tablet 60 TAKE ONE TABLET BY MOUTH THREE TIMES A DAY NEEDED FOR PAIN TAKE ONE TABLET BY MOUTH THREE TIMES A D AY NEEDED FOR PAIN SOLD: 10/28/2019 [facility] 324 mg (65 mg iron) 2019 12:00:00 AM EDT tablet, delayed release (DR/EC) 60 TAKE ONE TABLET BY MOUTH TWICE A DAY TAKE ONE TA BLET BY MOUTH TWICE A DAY SOLD: 11/10/2019 [facility] Ondansetron 4 MG Oral Tablet [Zofran] Ondansetron Hcl (Zofran) 4 mg Tablet Ondansetron Hcl (Zofran) 4 mg Tablet 09/05/2019 12:11:28 PM EDT 4 MG completed [facility] Ondansetron 4 MG Oral Tablet [Zofran] Ondansetron Hcl (Zofran) 4 mg Tablet Ondansetron Hcl (Zofran) 4 mg Tablet 09/05/2019 12:11:28 PM EDT 4 MG completed [facility] Ascorbic Acid (Vitamin C) 08/11/2019 12:07:41 PM EDT 500 MG completed [facility] Ascorbic Acid (Vitamin C) 08/11/2019 12:07:41 PM EDT 500 MG completed [facility] Qnz58-Ga-Sl9-Tlw-Vcx-Lipc Oil ( Gummy) 400 mcg-35 mg -25 mg-5 mg Tablet,Chewable 08/11/2019 12:03:20 PM EDT 2 TAB c ompleted [facility] Nkx37-Um-Th0-Fqk-Hwk-Dpaw Oil ( Gummy) 400 mcg-35 mg -25 mg-5 mg Tablet,Chewable 08/11/2019 12:03:20 PM EDT 2 TAB c ompleted [facility] ferrous sulfate 325 MG Oral Tablet Janusz us Sulfate (Feosol) 325 mg (65 mg iron) tablet Ferrous Sulfate (Feosol) 325 mg (65 mg iron) tablet 08:40:25 PM EDT 325 MG completed [facility] ferrous sulfate 325 MG Oral Tablet Janusz us Sulfate (Feosol) 325 mg (65 mg iron) tablet Ferrous Sulfate (Feosol) 325 mg (65 mg iron) tablet 08:40:25 PM EDT 325 MG completed [facility] 325 mg (65 mg iron) 06/16/2019 12:00:00 AM EDT tablet 60 TAKE ONE TABLET BY MOUTH TWICE A DAY TAKE ONE TABLET BY MOUTH TWICE A DAY SOLD: 12/02/2019 [facility] 325 mg (65 mg iron) 06/16/2019 12:00:00 AM EDT tablet 60 TAKE ONE TABLET BY MOUTH TWICE A DAY TAKE ONE TABLET BY MOUTH TWICE A DAY SOLD: 10/28/2019 [facility] Insurance Providers Payer name Policy type / Coverage type Policy ID Covered alliance party ID Covered alliance party's relationship to sams Policy Sams Plan Information Medicaid [place] Medigap Part B [id number] Family Dependent [id number] HMOBLUE OPTION 2 [id number] 1 [id number] [facility] MEDICAID [id number] [facility] [id number] 18 [facility] Hmo Commercial .[id number] Self [facility] Communty Plan Medicaid [id number] .[id number] 0.564.0 Self [id number] [facility] Communty Plan Medicaid [id number] .[id number] 0.564.0 Self [id number] [facility] COMMUNTY PLAN [id number] 18 [id number] [facility] Communty Plan Medicaid [id number] .[id number] 0.564.0 Self [id number] [facility] Communty Plan Medicaid [id number] .[id number] 0.564.0 Self [id number] [facility] Communty Plan Medicaid [id number] 2.16.840.1.634816.3.227.99.51 0.564.0 Self [id number] [facility] COMMUNITY PLAN [id number] 18 [id number] [facility] Communty Plan Medicaid [id number] 2.16.840.1.478207.3.227.99.51 0.564.0 Self [id number] [facility] Communty Plan Medicaid [id number] 2.16.840.1.971775.3.227.99.51 0.564.0 Self [id number] [facility] Communty Plan Medicaid [id number] 2.16.840.1.692990.3.227.99.51 0.564.0 Self [id number] [facility] Communty Plan Medicaid [id number] 2.16.840.1.807216.3.227.99.51 0.564.0 Self [id number] [facility] Communty Plan Medicaid [id number] 2.16.840.1.000862.3.227.99.51 0.564.0 Self [id number] [facility] Communty Plan Medicaid [id number] 2.16.840.1.978503.3.227.99.51 0.564.0 Self [id number] [facility] Communty Plan Medicaid [id number] 2.16.840.1.080630.3.227.99.51 0.564.0 Self [id number] [facility] Communty Plan Medicaid [id number] 2.16.840.1.668145.3.227.99.51 0.564.0 Self [id number] [facility] Community Plan Medicaid [id number] 2.16.840.1.775003.3.2 27.99.510.564.0 Self [id number] [facility] Community Plan Medicaid [id number] 2.16.840.1.046500.3.2 27.99.510.564.0 Self [id number] [facility] Community Plan Medicaid [id number] 2.16.840.1.115440.3.2 27.99.510.564.0 Self [id number] [facility] Communty Plan Medicaid [id number] 2.16.840.1.240071.3.227.99.51 0.564.0 Self [id number] [facility] Communty Plan Medicaid [id number] 2.16.840.1.073215.3.227.99.51 0.564.0 Self [id number] [facility] COMMUNITY PLAN XIX [id number] 18 [id number] [facility] Communty Plan Medicaid [id number] 2.16.840.1.949709.3.227.99.51 0.564.0 Self [id number] [facility] Communty Plan Medicaid [id number] 2.16.840.1.782473.3.227.99.51 0.564.0 Self [id number] [facility] Communty Plan Medicaid [id number] 2.16840.1.343992.3.227.99.51 0.564.0 Self [id number] [facility] Communty Plan Medicaid [id number] Self [id number] [facility] Communty Plan Medicaid [id number] 2.16840.1.697706.3.227.99.51 0.564.0 Self [id number] [facility] Communty Plan Medicaid [id number] 2.16840.1.458044.3.227.99.51 0.564.0 Self [id number] [facility] Community Plan Medicaid [id number] 2.16840.1.715010.3.2 27.99.510.564.0 Self [id number] [facility] Community Plan Medicaid [id number] 2.16840.1.875170.3.2 27.99.510.564.0 Self [id number] [facility] AMERICHOICE HMO [id number] 18 [id number] [facility] Community Plan Medicaid [id number] 2.16840.1.311001.3.2 27.99.510.564.0 Self [id number] [facility] Community Plan Medicaid 1993 Self [facility] Communty Plan Medicaid [id number] 2.16840.1.713318.3.227.99.51 0.564.0 Self [id number] [facility] Communty Plan Medicaid [id number] 2.16.840.1.489441.3.227.99.51 0.564.0 Self [id number] [facility] Communty Plan Medicaid [id number] Self [id number] [facility] Communty Plan Medicaid [id number]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 07:56 10/13/20Irritable bowel syndrome (disorder). --07:55 10/13/20 Laina Martinez R.N.The following entry was modified by Laina Martinez R.N., 07:56 10/13/20MRSA Infection. --07:55 10/13/20 Laina Martinez R.N..ADDITIONAL SURGERIES:Colonoscopy.Endoscopy.Tooth extraction. --07:56 10/13/20 Laina Martinez R.N.HistoryPAST MEDICAL HX: Immunizations: up-to-date. Last normal menstrual period- Oct 07. Uses anintrauterine device.SOCIAL HX: Never smoker. No alcohol use or drug use. She was offered HIV testing but declined andhepatitis C testing but declined. She has not traveled outside the [place]Infectious disease exposure: The patient was not exposed to Coronavirus. 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 Patient taken to isolation room. (hx for mrsa was treated, has covid vaccine).SELF HARM ASSESSMENT: Self harm assessment was performed. The patient answered "no" to thequestion(s) "Have you recently felt down, depressed, or hopeless?" and "Do you have thoughts of harmingor killing yourself?".ABUSE ASSESSMENT: Abuse assessment. Abuse denied. No suspicion of abuse. No report of abuse.NUTRITIONAL RISK ASSESSMENT: The nutritional risk assessment revealed no deficiencies. 3 Clinical Report - Nurses [facility] Emergency Department [address] [place] [address] Phone #: ext- [phone] 10/13/2020 07:49 Patient: DIAMANTE REARDON Sex: F : 2000 Age: 20y FUNCTIONAL ASSESSMENT: Functional assessment: no impairments noted. LEARNING NEEDS ASSESSMENT: The learning needs assessment revealed no barriers. FALL RISK ASSESSMENT: Fall risk assessment completed. No risk factors identified. SKIN INTEGRITY ASSESSMENT: Skin integrity risk assessment completed. No skin integrity risk identified. --07:58 10/13/20 Laina Martinez R.N. Interventions Identification band on patient. To treatment room. --07:58 10/13/20 Laina Martinez R.N.PHYSICAL ASSESSMENTGENERAL / NEURO / PSYCH: Alert. Oriented X 4. Appears in no acute distress.HEENT: Mucous membranes are pink.RESPIRATORY: Respirations not labored. Breath sounds within normal limits.CVS: Normal sinus rhythm noted. Capillary refill less than 2 seconds.GI / : Abdomen soft. Abdominal tenderness in the upper abdomen. Bowel sounds within normallimits.SKIN: Skin is warm and d ry. --07:59 10/13/20 Laina Martinez R.N.NURSING PROGRESS NOTESPatient gowned. Reassurance given. Patient ID band checked for patient name and birthdate: patientconfirmed. Instructions provided to collect clean catch urine and patient verbalized understanding. Cleancatch urine collected; sample sent to lab for urinalysis. Specimen labeled in the presence of the patient.Two patient identifiers checked. Call light placed in reach. Side rails up x 2. Bed placed in lowestposition. Brakes of bed on. Patient ready for evaluation. --07:59 10/13/20 Laina Martinez R.N. 08:10/13/2020 Site #1 started via IV in the right antecubital space with an 20g angiocath, with aseptic technique and good blood return; one attempt. Saline lock flushed with 10 mL saline. --08:10/13/20 Laina Martinez R.N. 08:26 10/13/2020 Started bag #1 1000 mL IV Fluids IV NS; bolus of 1000 mL over 1 hour(s) via site #1 via IV pump. Allergies verified and confirmed 5 rights. IV patency established. IV site checked: no pain, redness, or swelling. IV flushed thoroughly pre- and post-medication administration. Information reviewed with patient including reason for taking this medication, signs of allergic reaction and precautions. Verbalizes understanding. --08:10/13/20 Laina Martinez R.N. 08:26 10/13/2020 Zofran (Ondansetron HCl) IVP 8 mg given over 2 minute(s) via site #1. Allergies verified and confirmed 5 rights. IV patency established. IV site checked: no pain, redness, or swelling. IV flushed thoroughly pre- and post-medication administration. IVP given by RN. Information reviewed with patient including reason for taking this medication, signs of allergic reaction and precautions. Verbalizes understanding. --08:10/13/20 Laina Martinez R.N. 4 Clinical Report - Nurses [facility] Emergency Department [address] [place] [address] Phone #: ext- [phone] 10/13/2020 07:49 Patient: DIAMANTE REARDON Sex: F : 2000 Age: 20y 08:27 10/13/2020 Ativan (LORazepam) IVP 1 mg given over 2 minute(s) via site #1. Allergies verified and confirmed 5 rights. IV patency established. IV site checked: no pain, redness, or swelling. IV flushed thoroughly pre- and post- medication administration. IVP given by RN. Information reviewed with patient including reason for taking this medication, signs of allergic reaction, precautions and sedative warning. Verbalizes understanding. --08:27 10/13/20 Laina Martinez R.N. 09:04 10/13/2020 IV Fluids IV NS via IV site #1 Discontinued: completed. Total amount infused: 1000 mL. --09:04 10/13/20 Mary Ellen Sims, VALARIE ( states she's feeling alittle better after meds but still has pain). --09:05 10/13/20 Mary Ellen Sims, VALARIE ( resting at present). --09:23 10/13/20 Laina Martinez R.N. 10:00 10/13/20. BP: 110/68. HR: 75. RR: 16. O2 saturation: 98%. --10:00 10/13/20 [place] video production specialist, Donna, ER Tech1.DISPOSITION / DISCHARGE 10:00 10/13/20. BP: 102/72. MAP: 82. HR: 75. RR: 16. O2 saturation: 98%. Temp: 98.1 F. Pain level now: 04/18. --10:02 10/13/20 [place] video production specialist, Donna, ER Tech1 Condition at departure: improved. No learning barriers present. Discharge instructions provided and reviewed with the patient. Reviewed medication(s) side effects, precautions, dosing and course information. Prescription(s) given to the patient and sent electronically to pharmacy. Patient verbalized understanding. Written instructions provided in Surinamese. The patient was discharged home and unaccompanied at time of discharge. She left ambulatory and via private vehicle. Patient driving. --10:08 10/13/20 Laina Martinez R.N. Departure time: 10:08 10/13/2020. --10:08 10/13/20 Laina Martinez R.N.Locked/Released at 10/13/2020 10:08 by Laina Martinez R.N. Name Value Range Interpretation Code Description Data Jailene rce(s) Supporting Document(s) ID Date Data Source [id number] 10/13/2020 07:53:00 AM EDT [facility] 1 Clinical Report - Physicians/Mid Levels [facility] Emergency Department [address] [place] [address] Phone #: ext- [phone] 10/13/2020 07:49 Patient: DIAMANTE REARDON Sex: F : 2000 Age: 20y Arrived- By private vehicle. Historian- patient. Disposition decision: 09:52 10/13/2020.HISTORY OF PRESENT ILLNESS Chief Complaint: ABDOMINAL PAIN. It is described as sharp. This started just prior to arrival and is still present. At its maximum, severity described as moderate. When seen in the E.D., severity described as moderate. The patient has had nausea, loss of appetite and vomiting. No diarrhea. ("feels like my stomach is sitting in a bowl of acid" vomiting started at midnight last night).). Similar symptoms previously. Recent medical care: Not recently seen/assessed.REVIEW OF SYSTEMSNo constipation, black stools, hematemesis, difficulty with urination or pain with urination. No urinaryfrequency, bloody stools, fever, headache or sore throat. No blurred vision, chest pain, difficulty breathing,cough or joint pain. No skin rash, chills or back pain. The patient has not had weight loss.PAST HISTORYSee nurses notes. Problems: Irritable bowel syndrome (disorder). Lactose Intolerance. Additional Surgeries: Colonoscopy. Endoscopy. Scopes. Scopes. Scopes upper and lower. Tooth extraction. Upper endoscopy. Medications: Dicyclomine HCl Oral. Famotidine Oral. Iron Oral. MiraLax Oral 1 packet, daily. Senna Oral. 2 Clinical Report - Physicians/[facility] Emergency Department [address] [place] [address] Phone #: ext- [phone] 10/13/2020 07:49 Patient: DIAMANTE REARDON Sex: F : 2000 Age: 20y Antidepressant. Bentyl Oral, last dose 10 pm (1/2 hr ago). Allergies: None.SOCIAL HISTORYNo drug use.ADDITIONAL NOTESThe nursing notes have been reviewed.PHYSICAL EXAMVital Signs: 10/13/2020 07:52 BP: 133/86. MAP: 101. HR: 90. RR: 18. O2 saturation: 100%. Temp: 96.9F. Pain level now: 9/10. Have been reviewed and appear to be correct. Blood pressure normal. Meanarterial pressure- high. Heart rate normal. Respiratory rate normal. Temperature normal. Oxygensaturation normal.Appearance: Alert. Oriented X3. No acute distress.Eyes: Pupils equal, round and reactive to light. Eyes normal inspection.ENT: Nose normal. Dry mucous membranes present.Neck: Normal inspection. Neck supple.CVS: Normal heart rate and rhythm. Heart sounds normal. Pulses normal.Respiratory: No respiratory distress. Painless inspiration. Breath sounds normal. Chest nontender.Abdomen: Soft. Moderate tenderness in the epigastric area. Bowel sounds normal.Back: Normal inspection. No CVA tenderness.Skin: Skin warm and dry. Normal skin color. No rash. Normal skin turgor.Extremities: Extremities exh ibit normal ROM. No lower extremity edema.Neuro: Oriented X 3. No motor deficit. No sensory deficit.LABS, X-RAYS, AND EKGLaboratory Tests: CBC w Diff: (RL: 10/13/2020 08:15) ( MsgRcvd 10/13/2020 08:28) Final results Test Result Flag Units (Reference) CBC W/AUTOMATED DIFF COMPLETE BLOOD COUNT WBC 6.1 10/uL (4.2 - 11.0) RBC 4.50 10/uL (4.20 - 5.40) HEMOGLOBIN 13.0 g/dL (12.0 - 16.0) HEMATOCRIT 38.1 % (37.0 - 47.0) MCV 84.7 fL (81.0 - 101) MCH 28.9 pg (27.0 - 34.0) MCHC 34.1 g/dL (31.0 - 36.0) RDW 13.1 % (11.5 - 14.5) PLATELETS 193 10/uL (150 - 450) MPV 12.0 H fL (7.4 - 10.4) NEUT 56.2 % (37.0 - 80.0) LYMPH 34.3 % (25.0 - 40.0) MONO 6.4 % (3.0 - 8.0) EOS 2.4 % (0.0 - 7.0) 3 Clinical Report - Physicians/Mid Levels [facility] Emergency Department [address] [place] [address] Phone #: ext- [phone] 10/13/2020 07:49 Patient: DIAMANTE REARDON Sex: F : 2000 Age: 20y BASO 0.5 % (0.0 - 2.5) %IG 0.2 H % (0.0 - 0.0) %NRBC 0.0 % (0.0 - 0.0) #NEUT 3.45 10/uL (2.00 - 6.90) #LYMPH 2.10 10/uL (0.60 - 3.40) #MONO 0.39 10/uL (0.00 - 0.90) #EOS 0.15 10/uL (0.00 - 0.70) #BASO 0.03 10/uL (0.00 - 0.20) #IG 0.01 10/uL (0.00 - 0.10) #NRBC 0.00 10/uL (0.00 - 0.00) MANUAL DIFF NOT INDICATED RBC MORPH NOT INDICATEDCMP: (RL: 10/13/2020 08:15) ( MsgRcvd 10/13/2020 08:55) Final results Test Result Flag Units (Reference) COMPREHENSIVE METABOLIC PANEL COMPREHENSIVE METABOLIC PANEL SODIUM 140 mEq/L (134 - 153) POTASSIUM 3.8 mEq/L (3.6 - 5.0) CHLORIDE 107 mEq/L (98 - 107) CO2 21 L MEQ/L (22 - 30) GLUCOSE 99 MG/DL (70 - 99) BUN 17 MG/DL (7 - 21) CREATININE 0.7 MG/DL (0.7 - 1.5) BUN/CREAT 24 (8 - 27) TOTAL PROTEIN 6.7 G/DL (6.3 - 8.2) ALBUMIN 4.6 G/DL (3.9 - 5.0) GLOBULIN 2.1 L GM/DL (2.4 - 3.2) A/G RATIO 2.2 H (0.8 - 2.0) CALCIUM 9.7 MG/DL (8.4 - 10.2) TOTAL BILI <0.7 MG/DL (0.2 - 1.3) ALKALINE PHOS 83 U/L (38 - 126) SGOT/AST 17 U/L (5 - 40) SGPT/ALT 14 U/L (7 - 56) ANION GAP 12.0 mmol/L (8.0 - 16.0) AGE 20 yrs NON-AA GFR >60 mL/min AFR AMER GFR >60 mL/min Male GFR Interprentation 20-49 yrs >60 mL/min [id number] yrs >56 mL/min Normal 60-69 yrs >49 mL/min Normal 70-79yrs>42 mL/min Normal 80 and above >35 mL/min Normal Female GFRInterpretation 20-39 yrs >60 mL/min Normal 40-49 yrs >58 mL/minNormal 50-59 yrs >51 mL/min Normal 60-69 yrs >45 mL/min Jrtzih73-88 yrs >39 mL/min Normal 80 and above >32 mL/min NormalLactic Acid: (RL: 10/13/2020 08:15) ( [facility] 10/13/2020 08:28) Final results Test Result Flag Units (Reference) LACTIC ACID 1.4 MMOL/L (0.2 - 2.2)Lipase: (RL: 10/13/2020 08:15) ( [facility] 10/13/2020 08:55) Final results Test Result Flag Units (Reference) LIPASE 154 H U/L (13 - 60)Urinalysis: (RL: 10/13/2020 08:02) ( [facility] 10/13/2020 08:55) Final results Test Result Flag Units (Reference) URINALYSIS 4 Clinical Report - Physicians/[facility] Emergency Department [address] [place] [address] Phone #: ext- [phone] 10/13/2020 07:49 Patient: DIAMANTE REARDON Sex: F : 2000 Age: 20y URINALYSIS SOURCE R COLOR yellow (NORMAL: Yello CLARITY clear (NORMAL: Clear SPEC GRAVITY 1.015 (1.001 - 1.030 pH 6 (5 - 9) GLUCOSE NORM (NORMAL: Negat BILIRUBIN NEG (NORMAL: Negat KETONE NEG (NORMAL: Negat PROTEIN NEG (NORMAL: Negat NITRITE NEG (NORMAL: Negat BLOOD NEG (NORMAL: Negat LEUK EST NEG (NORMAL: Negat UROBILINOGEN NOR (less than 1.0 MICROSCOPIC Not Indicate Beta-HCG, Qual Urine: (RL: 10/13/2020 08:02) ( MsgRcvd 10/13/2020 08:28) Final results Test Result Flag Units (Reference) HCG URINE QUAL NEGATIVE (NORMAL: NEGAT HCG URINE QL REENTER NEGATIVE (NORMAL: NEGAT { KIT LOT # [id number] ){ KIT EXP DATE 02.08.22 ){ PROCEDURAL CONTROL VALID ).PROGRESS AND PROCEDURESCourse of Care: pt is a 20 year old female who presents to the ED for evaluation of her chronic abdominalpain. she states that this is the same pain she has always had. on exam, her abdomen is soft. shedoes have epigastric pain. her labs were grossly nl. her lipase was on the higher side or normal. shewas given ivf, zofran and ativan. she felt better. she was discharged with a rx for phenergan supp. shewas encouraged to f/u with pcp and gi. pt voiced understanding of all instructions. Patient/family counseled. Disposition: Discharged. Condition: good and stable.CLINICAL IMPRESSION Acute gastritisINSTRUCTIONS Drink plenty of fluids. (Take all medications as previously instructed. I have sent a prescription for Phenergan suppositories to your pharmacy on file for nausea/vomiting. return if worse or any new symptoms. Please follow up with GI.). 5 Clinical Report - Physicians/Mid Levels [facility] Emergency Department [address] [place] [address] Phone #: ext- [phone] 10/13/2020 07:49 Patient: DIAMANTE REARDON Sex: F : 2000 Age: 20y Warnings: Further evaluation is necessary. GENERAL WARNINGS: Return or contact your physician immediately if your condition worsens or changes u nexpectedly, if not improving as expected, or if other problems arise. Your Current Medications: Your current home medications have been reviewed. CONTINUE TAKING THE FOLLOWING MEDICATIONS: Antidepressant*. Bentyl Oral : Last: 10 pm, 1/2 hr ago. Dicyclomine HCl Oral. Famotidine Oral. Iron Oral. MiraLax Oral : 1 packet daily. Senna Oral. Prescription Medications: promethazine 25 mg rectal suppository Insert 1 suppository three times a day -- prn nausea/vomiting. Dispense 9 suppository. Refills: 0. Substitution permitted. Pharmacy - [facility] - [address] [facility] ; [place], [place] [phone]. . Follow-up: Follow up with your doctor Thursday even if well. Call for an appointment. Reason for referral: evaluation. Summary of care provided to patient via paper. Understanding of the discharge instructions verbalized by patient.(Electronically signed by Ginger Walsh MD 10/13/2020 10:18) Name Value Range Interpretation Code Description Data Jailene rce(s) Supporting Document(s) ID Date Data Source [id number] 10/13/2020 08:15:00 AM EDT [facility] ([facility]) Name Value Range Interpretation Code Description Data Jailene rce(s) Supporting Document(s) Lipase [Enzymatic activity/volume] in Serum or Plasma 154 U/L 13-60 Above high normal MED[facility] ([facility]) ID Date Data Source [id number] 10/13/2020 08:15:00 AM EDT [facility] ([facility]) Name Value Range Interpretation Code Description Data Jailene rce(s) Supporting Document(s) Sodium 140 meq/L 134-153 [facility] ([facility]) Comprehensive Metabo Laboratory test result [facility] ([facility]) COMPREHENSIVE METABOLIC PANEL Potassium 3.8 meq/L 3.6-5.0 [facility] ([facility]) Co2 21 meq/L 22-30 Below low normal [facility] ([facility]) Chloride 107 meq/L 98-107 [facility] ([facility]) Glucose 99 mg/dL 70-99 [facility] ([facility]) BUN 17 mg/dL 7-21 [facility] ([facility]) Creatinine 0.7 mg/dL 0.7-1.5 [facility] ([facility]) BUN/Creat 24 8-27 [facility] ([facility]) Total Protein 6.7 g/dL 6.3-8.2 [facility] ([facility]) Albumin 4.6 g/dL 3.9-5.0 [facility] ([facility]) Globulin 2.1 GM/DL 2.4-3.2 Below low normal [facility] ( [facility]) Calcium 9.7 mg/dL 8.4-10.2 [facility] ([facility]) Total Bili Laboratory test result 0.2-1.3 ME DENT ([facility]) A/G Ratio 2.2 0.8-2.0 Above high normal [facility] ([facility]) Sgot/Ast 17 U/L 5-40 [facility] ([facility]) Alkaline Phos 83 U/L 38-126 [facility] ([facility]) Anion Gap 12.0 mmol/L 8.0-16.0 [facility] ([facility]) Age 20 yrs [facility] ([facility]) SGPT/Alt 14 U/L 7-56 [facility] ([facility]) Non-Aa GFR Laboratory test result [facility] ([facility]) Afr Amer GFR Laboratory test result [facility] ([facility]) Male GFR Interprentation 20-49 yrs >60 mL/min Normal 50-59 yrs >56 mL/min Normal 60-69 yrs >49 mL/min Normal 70-79yrs >42 mL/min Normal 80 and above >35 mL/min Normal Female GFR Interpretation 20-39 yrs >60 mL/min Normal 40-49 yrs >58 mL/min Normal 50-59 yrs >51 mL/min Normal 60-69 yrs >45 mL/min Normal 70-79 yrs >39 mL/min Normal 80 and above >32 mL/min Normal ID Date Data Source [id number] 10/13/2020 08:15:00 AM EDT [facility] ([facility]) Name Value Range Interpretation Code Description Data Jailene rce(s) Supporting Document(s) CBC W/Automated Diff Laboratory test result [facility] ([facility]) COMPLETE BLOOD COUNT WBC 6.1 10^3/uL 4.2-11.0 [facility] ([facility]) Hemoglobin 13.0 g/dL 12.0-16.0 [facility] ([facility]) RBC 4.50 10^6/uL 4.20-5.40 [facility] ([facility]) MCV 84.7 fL 81.0-101 [facility] ([facility]) MCH 28.9 pg 27.0-34.0 [facility] ([facility]) Hematocrit 38.1 % 37.0-47.0 [facility] ([facility]) MCHC 34.1 g/dL 31.0-36.0 [facility] ([facility]) RDW 13.1 % 11.5-14.5 [facility] ([facility]) Platelets 193 10^3/uL 150-450 [facility] ([facility]) Neut 56.2 % 37.0-80.0 [facility] ([facility]) MPV 12.0 fL 7.4-10.4 Above high normal [facility] ([facility]) Randolph 6.4 % 3.0-8.0 [facility] ([facility]) Eos 2.4 % 0.0-7.0 [facility] ([facility]) Lymph 34.3 % 25.0-40.0 [facility] ([facility]) Baso 0.5 % 0.0-2.5 [facility] ([facility]) %Ig 0.2 % 0.0-0.0 Above high normal [facility] ([facility]) #Neut 3.45 10^3/uL 2.00-6.90 [facility] ([facility]) %NRBC 0.0 % 0.0-0.0 [facility] ([facility]) #Randolph 0.39 10^3/uL 0.00-0.90 [facility] ([facility]) #Lymph 2.10 10^3/uL 0.60-3.40 [facility] ([facility]) #Ig 0.01 10^3/uL 0.00-0.10 [facility] ([facility]) #Eos 0.15 10^3/uL 0.00-0.70 [facility] ([facility]) #Baso 0.03 10^3/uL 0.00-0.20 [facility] ([facility]) #NRBC 0.00 10^3/uL 0.00-0.00 [facility] ([facility]) Manual Diff Laboratory test result M EDENT ([facility]) RBC Morph Laboratory test result [facility] ([facility]) ID Date Data Source [id number] 10/13/2020 08:15:00 AM EDT [facility] ([facility]) Name Value Range Interpretation Code Description Data Jailene rce(s) Supporting Document(s) Lactate [Mass/volume] in Serum or Plasma 1.4 mmol/L 0.2-2.2 [facility] ([facility]) ID Date Data Source [id number] 10/13/2020 08:55:00 AM EDT [facility] Name Value Range Interpretation Code Description Data Jailene rce(s) Supporting Document(s) Lipase [Enzymatic activity/volume] in Serum or Plasma 154 U/L 13 - 60 H [facility] ID Date Data Source [id number] 10/13/2020 08:55:00 AM EDT [facility] Name Value Range Interpretation Code Description Data Jailene rce(s) Supporting Document(s) COMPREHENSIVE METABOLIC PANEL [facility] COMPREHENSIVE METABOLIC PANEL Sodium [Moles/volume] in Serum or Plasma 140 mEq/L 134 - 153 [facility] Potassium [Moles/volume] in Serum or Plasma 3.8 mEq/L 3.6 - 5.0 [facility] Chloride [Moles/volume] in Serum or Plasma 107 mEq/L 98 - 107 [facility] Carbon dioxide, total [Moles/volume] in Serum or Plasma 21 MEQ/L 22 - 30 L [facility] Glucose [Mass/volume] in Serum or Plasma 99 MG/DL 70 - 99 [facility] BUN 17 MG/DL 7 - 21 [facility] Creatinine [Mass/volume] in Serum or Plasma 0.7 MG/DL 0.7 - 1.5 [facility] BUN/CREAT 24 8 - 27 [facility] Protein [Mass/volume] in Serum or Plasma 6.7 G/DL 6.3 - 8.2 [facility] Albumin [Mass/volume] in Serum or Plasma 4.6 G/DL 3.9 - 5.0 [facility] Globulin [Mass/volume] in Serum by calculation 2.1 GM/DL 2.4 - 3.2 L [facility] A/G RATIO 2.2 0.8 - 2.0 H [facility] Calcium [Mass/volume] in Serum or Plasma 9.7 MG/DL 8.4 - 10.2 [facility] Bilirubin.total [Mass/volume] in Serum or Plasma <0.7 MG/DL 0.2 - 1.3 [facility] Alkaline phosphatase [Enzymatic activity/volume] in Serum or Plasma 83 U/L 38 - 126 [facility] Aspartate aminotransferase [Enzymatic activity/volume] in Serum or Plasma 17 U/L 5 - 40 [facility] Alanine aminotransferase [Enzymatic activity/volume] in Seru m or Plasma 14 U/L 7 - 56 [facility] Anion gap 3 in Serum or Plasma 12.0 mmol/L 8.0 - 16.0 [facility] AGE 20 yrs [facility] NON-AA GFR >60 mL/min [facility] ital AFR AMER GFR >60 mL/min [facility] Ho spital Male GFR In terprentation 20-49 yrs >60 mL/min Normal 50-59 yrs >56 mL/min Normal 60-69 yrs >49 mL/min Normal 70-79yrs >42 mL/min Normal 80 and above >35 mL/min Normal Female GFR Interpretation 20-39 yrs >60 mL/min Normal 40-49 yrs >58 mL/min Normal 50-59 yrs >51 mL/min Normal 60-69 yrs >45 mL/min Normal 70-79 yrs >39 mL/min Normal 80 and above >32 mL/min Normal ID Date Data Source [id number] 10/13/2020 08:28:00 AM EDT [facility] Name Value Range Interpretation Code Description Data Jailene rce(s) Supporting Document(s) CBC W/AUTOMATED DIFF [facility] COMPLETE BLOOD COUNT Leukocytes [#/volume] in Blood by Automated count 6.1 10^3/uL 4.2 - 1 1.0 [facility] Erythrocytes [#/volume] in Blood by Automated count 4.50 10^6/uL 4. 20 - 5.40 [facility] Hemoglobin [Mass/volume] in Blood 13.0 g/dL 12.0 - 16.0 [facility] Hematocrit [Volume Fraction] of Blood by Automated count 38.1 % 3 7.0 - 47.0 [facility] Erythrocyte mean corpuscular volume [Entitic volume] by Auto mated count 84.7 fL 81.0 - 101 [facility] Erythrocyte mean corpuscular hemoglobin [Entitic mass] by Automated count 28.9 pg 27.0 - 34.0 [facility] Erythrocyte mean corpuscular hemoglobin concentration [Mass/volume] by Automated count 34.1 g/dL 31.0 - 36.0 [facility] Erythrocyte distribution width [Ratio] by Automated count 13.1 % 11.5 - 14.5 [facility] Platelets [#/volume] in Blood by Automated count 193 10^3/uL 150 - 45 0 [facility] Platelet mean volume [Entitic volume] in Blood by Automated count 12.0 fL 7.4 - 10.4 H [facility] Neutrophils/100 leukocytes in Blood by Automated count 56.2 % 37. 0 - 80.0 [facility] Lymphocytes/100 leukocytes in Blood by Manual count 34.3 % 25.0 - 40.0 [facility] Monocytes/100 leukocytes in Blood by Automated count 6.4 % 3.0 - 8.0 [facility] Eosinophils/100 leukocytes in Blood by Automated count 2.4 % 0.0 - 7.0 [facility] Basophils/100 leukocytes in Blood by Automated count 0.5 % 0.0 - 2.5 [facility] %IG 0.2 % 0.0 - 0.0 [facility] %NRBC 0.0 % 0.0 - 0.0 [facility] al Neutrophils [#/volume] in Blood by Automated count 3.45 10^3/uL 2.00 - 6.90 [facility] Lymphocytes [#/volume] in Blood by Automated count 2.10 10^3/uL 0.60 - 3.40 [facility] Monocytes [#/volume] in Blood by Automated count 0.39 10^3/uL 0.00 - 0.90 [facility] Eosinophils [#/volume] in Blood by Automated count 0.15 10^3/uL 0.00 - 0.70 [facility] Basophils [#/volume] in Blood by Automated count 0.03 10^3/uL 0.00 - 0.20 [facility] #IG 0.01 10^3/uL 0.00 - 0.10 [facility] ospital #NRBC 0.00 10^3/uL 0.00 - 0.00 [facility] ospital MANUAL DIFF NOT INDICATED [facility] RBC MORPH NOT INDICATED [facility] spital ID Date Data Source [id number] 10/13/2020 08:28:00 AM EDT [facility] Name Value Range Interpretation Code Description Data Jailene rce(s) Supporting Document(s) Lactate [Moles/volume] in Serum or Plasma 1.4 MMOL/L 0.2 - 2.2 [facility] ID Date Data Source [id number] 10/13/2020 08:02:00 AM EDT [facility] ([facility]) Name Value Range Interpretation Code Description Data Jailene rce(s) Supporting Document(s) Source Laboratory test result [facility] ([facility]) Urinalysis Laboratory test result [facility] ([facility]) URINALYSIS Clarity Laboratory test result [facility] ([facility]) Color Laboratory test result [facility] ([facility]) Spec [place] 1.015 1.001-1.030 [facility] ([facility]) pH 6 5-9 [facility] ([facility]) Glucose Laboratory test result [facility] ([facility]) Bilirubin Laboratory test result [facility] ([facility]) Ketone Laboratory test result [facility] ([facility]) Blood Laboratory test result [facility] ([facility] Protein Laboratory test result [facility] ([facility]) Nitrite Laboratory test result [facility] ([facility]) Urobilinogen Laboratory test result [facility] ([facility]) Leuk Est Laboratory test result [facility] ([facility]) Microscopic Laboratory test result M EDENT ([facility]) ID Date Data Source [id number] 10/13/2020 08:02:00 AM EDT [facility] ([facility]) Name Value Range Interpretation Code Description Data Jailene rce(s) Supporting Document(s) HCG Urine Qual Laboratory test result [facility] ([facility]) HCG Urine QL [place] Laboratory test result [facility] ([facility]) { KIT LOT # [id number] ) { KIT EXP DATE 02.08.22 ) { PROCEDURAL CONTROL VALID ) ID Date Data Source [id number] 10/13/2020 08:55:00 AM EDT [facility] Name Value Range Interpretation Code Description Data Jailene rce(s) Supporting Document(s) [facility] SOURCE R [facility] al COLOR yellow NORMAL: Yellow [facility] CLARITY clear NORMAL: Clear [facility] sp[facility] Specific gravity of Urine by Test strip 1.015 1.001 - 1.030 [facility] pH 6 5 - 9 [facility] al Glucose [Mass/volume] in Urine by Test strip NORM NORMAL: Negat [facility] Bilirubin.total [Presence] in Urine by Test strip NEG NORMAL: Negative [facility] Ketones [Presence] in Urine by Test strip NEG NORMAL: Negative [facility] Protein [Mass/volume] in Urine by Test strip NEG NORMAL: Negat [facility] Nitrite [Presence] in Urine by Test strip NEG NORMAL: Negative [facility] BLOOD NEG NORMAL: Negative [facility] LEUK EST NEG NORMAL: Negative [facility] Urobilinogen [Mass/volume] in Urine by Test strip NOR less jovita n 1.0 mg/dL [facility] MICROSCOPIC Not Indicate [facility] ID Date Data Source [id number] 10/13/2020 08:27:00 AM EDT [facility] Name Value Range Interpretation Code Description Data Jailene rce(s) Supporting Document(s) HCG URINE QUAL NEGATIVE NORMAL: NEGATIVE [facility] HCG URINE QL REENTER NEGATIVE NORMAL: NEGATIVE [facility] { KIT LOT # [id number] ){ KIT EXP DATE 02.08.22 ){ PROCEDURAL CONTROL VALID ) ID Date Data Source [id number] 10/06/2020 01:34:00 AM EDT [facility] 1 OrderSheet [facility] Emergency Department [address] [place] [address] Phone #: ext- [phone] 10/06/2020 01:33 Patient: DIAMANTE REARDON Sex: F : 2000 Age: 20yWEIGHT:70.7 kg (S) HEIGHT:64 inches (S) BMI:26.8ALLERGIES: NoneCHIEF COMPLAINT: abdominal painDIAGNOSIS: Abdominal painLAB ORDERSOrder Description Priority Entered Acknowledged InitialedUrinalysis (Clean STAT 01:55 10/06/2020 01:56 Rakesh,Catch) Santosh Almonte ; Ronit R.N.DIAGNOSTIC STUDY ORDERSOrder Description Priority Entered Acknowledged InitialedMEDICATION/IV/DRIP/FLUID ORDERSOrder Description Priority Entered Acknowledged InitialedGI Cocktail PO 50 01:55 10/06/2020 02:00 Rakesh,mL with Lidocaine Santosh Almonte ; Ronit R.N.ViscousMouth/Throat 10mL, Maalox Oral 30mL, Oral10 mLPepcid IVPB 20 02:26 10/06/2020 02:39 Rakesh,mg/50mL (NOW x1, Santosh Almonte ; Ronit R.N.Infuse over 30minutes.)Toradol 15 mg IVP 02:26 10/06/2020 02:37 Rakesh,X1 dose: 15 mg Santosh Almonte ; Ronit Wallace(NOW x1)GENERAL ORDERSOrder Description Priority Entered Acknowledged Initialed[Electronically signed by Ronit Cameron R.N. (04:02 10/06/2020)][Electronically signed by Santosh Almonte (06:46 10/06/2020)][Electronically locked by Ronit Cameron R.N. (04:02 10/06/2020)] Name Value Range Interpretation Code Description Data Jailene rce(s) Supporting Document(s) ID Date Data Source [id number] 10/06/2020 01:34:00 AM EDT [facility] 1 Medication Reconciliation Report [facility] Emergency Department [address] [place] [address] Phone #: ext- [phone] 10/06/2020 01:33 Patient: DIAMANTE REARDON Sex: F : 2000 Age: 20yWeight: 70.7 kgHeight/Length: 64 in.BMI: 26.8ALLERGIES: NoneThe patient's Home Medications are listed below:CONTINUE TAKING THE FOLLOWING MEDICATIONS: Antidepressant Bentyl Oral, last dose: 10 pm, 1/2 hr ago Dicyclomine HCl Oral Famotidine Oral Iron Oral MiraLax Oral 1 packet, daily Senna OralThe source(s) of the original Home Medication information:Not obtained.The following Medications were given to the patient in the Emergency Department:GI Cocktail [PO] PO 50 mL, administered: 02:00 10/06/2020Toradol [IVP] IVP 15 mg, administered: 02:37 1Pepcid [IVPB] IVPB bolus 0, then 20 mg 100 mL/hr, administered: 02:39 10/06/2020The following Medications were prescribed to the patient:None. Name Value Range Interpretation Code Description Data Jailene rce(s) Supporting Document(s) ID Date Data Source [id number] 10/06/2020 01:34:00 AM EDT [facility] 1 Medication Administration Record [facility] Emergency Department [address] [place] [address] Phone #: ext- [phone] 10/06/2020 01:33 Patient: DIAMANTE REARDON Sex: F : 2000 Age: 20yWeight: 70.7 kgHeight/Length: 64 inBMI: 26.8ALLERGIES: None Date/Time Medication Administered Medication OrderedGiven GI COCKTAIL [PO] (CALCIUM GI Cocktail PO 50 mL with02:00 10/06/2020 CARBONATE ANTACID) Lidocaine Viscous Mouth/ThroatRonit Cameron RDorysNDorys Dose: 50 mL Oral Suspension PO 10 mL, Maalox Oral 30 mL, Oral 10 mLStart PEPCID [IVPB] Pepcid IVPB 20 mg/50mL (NOW02:39 10/06/2020 Dose: 20 mg IVPB x1, Infuse over 30 minutes.)Ronit Cameron R.N. Rate: 100 mL/hr over 30 minute(s)---- Dispensed: 50 mL bagStop Site: #1 right AC03:02 1LofRonit gross R.N.Given TORADOL [IVP] (KETOROLAC Toradol 15 mg IVP X1 dose: 15 mg02:37 10/06/2020 TROMETHAMINE) (NOW x1)Ronit Cameron R.N. Dose: 15 mg IVP Site: #1 right AC Name Value Range Interpretation Code Description Data Jailene rce(s) Supporting Document(s) ID Date Data Source [id number] 10/06/2020 01:34:00 AM EDT [facility] 1 General Instructions [facility] Emergency Department [address] [place] [address] Phone #: ext- [phone] 10/06/2020 01:33 Patient: DIAMANTE REARDON Sex: F : 2000 Age: 20yChronic epigastric abdominal pain of unknown cause.INSTRUCTIONSWarnings: Further evaluation is necessary.GENERAL WARNINGS: Return or contact your physician immediately if your condition worsens orchanges unexpectedly, if not improving as expected, or if other problems arise.Your Current Medications: Your current home medications have been reviewed.CONTINUE TAKING THE FOLLOWING MEDICATIONS:Antidepressant*.Bentyl Oral : Last: 10 pm, 1/2 hr ago.Dicyclomine HCl Oral.Famotidine Oral.Iron Oral.MiraLax Oral : 1 packet daily.Senna Oral.Follow-up:Follow up with a skid wrapper.Understanding of the discharge instructions verbalized by patient.Follow-up with: Mikhail Montero MD, , , [address], [place], [facility], [facility] Follow up in two days if not better. Call for an appointment. Reason for referral: evaluation. ADDITIONAL INFORMATIONUnknown Causes of Abdominal Pain (Female) 2 General Instructions [facility] Emergency Department [address] [place] [address] Phone #: ext- [phone] 10/06/2020 01:33 Patient: DIAMANTE REARDON Sex: F : 2000 Age: 20yThe exact cause of your belly (abdominal) pain is not clear. This does not mean that this is somethingto worry about. Everyone likes to know the exact cause of the problem. But sometimes with bellypain, there is no clear-cut cause, and this could be a good thing. The good news is that yoursymptoms can be treated, and you will feel better.Your condition does not seem serious now. But sometimes the signs of a serious problem may takemore time to appear. For this r adelso, it is important for you to watch for any new symptoms,problems, or worsening of your condition.Over the next few days, the abdominal pain may come and go. Or it may be constant. Other commonsymptoms can include nausea and vomiting. Sometimes it can be difficult to tell if you feel nauseous.You may just feel bad and not connect that feeling to nausea. Constipation, diarrhea, and a fever maygo along with the pain.The pain may continue even if treated correctly over the following days. Depending on how things go,sometimes the cause can become clear and may need more or different treatment. Additio nalevaluations, medicines, or tests may also be needed.Home careYour healthcare provider may prescribe medicine for pain, symptoms, or an infection. Follow thehealthcare provider's instructions for taking these medicines. 3 General Instructions [facility] Emergency Department [address] [place] [address] Phone #: ext- [phone] 10/06/2020 01:33 [id number] Sex[facility] F : 2000 Age: 20yGeneral care Rest as much as you can until your next exam. No strenuous activities. Try to find positions that ease discomfort. A small pillow placed on the abdomen may help relieve pain. Something warm on your abdomen (such as a heating pad) may help, but be careful not to burn yourself.Diet Don't force yourself to eat, especially if having cramps, vomiting, or diarrhea. Water is important so you don't get dehydrated. Soup may also be good. Sports drinks may also help, especially if they are not too acidic. Don't drink sugary drinks as this can make things worse. Take liquids in small amounts. Don't guzzle them. Caffeine sometimes makes the pain and cramping worse. Don't take dairy products if you have vomiting or diarrhea. Don't eat large amounts at a time. Wait a few minutes between bites. Eat a diet low in fiber (called a low-residue diet). Foods allowed include refined breads, white rice, fruit and vegetable juices without pulp, tender meats. These foods will pass more easily through the intestine. Don't have whole-grain foods, whole fruits and vegetables, meats, seeds and nuts, fried or fatty foods, dairy, alcohol and spicy foods until your symptoms go away.Follow-up careFollow up with your healthcare provider, or as advised, if your pain does not begin to improve in thenext 24 hours.Call [phone] if any of these occur: Trouble breathing Confusion Fainting or loss of consciousness Rapid heart rate 4 General Instructions [facility] Emergency Department [address] [place] [address] Phone #: ext- [phone] 10/06/2020 01:33 -------- Patient: DIAMANTE REARDON Sex: F : 2000 Age: 20y SeizureWhen to seek medical adviceCall your healthcare provider right away if any of these occur: Pain gets worse or moves to the right lower abdomen New or worsening vomiting or diarrhea Swelling of the abdomen Unable to pass stool for more than 3 days Fever of 100.4F (38C) or higher, or as directed by your healthcare provider. Blood in vomit or bowel movements (dark red or black color) Yellow color of eyes and skin (jaundice) Weakness, dizziness Chest, arm, back, neck, or jaw pain Unexpected vaginal bleeding or missed period Can't keep down liquids or water and you are getting dehydrated [id number] [employer]. [address] [place] [address], [place] [address]. All rights reserved. This information is not intended as asubstitute for professional medical care. Always follow your healthcare professional's instructions. You have been given the following additional information: Abdominal Pain, Unknown Cause, (Female)(Electronically signed by Santosh Almonte 10/06/2020 06:46) Name Value Range Interpretation Code Description Data Jailene rce(s) Supporting Document(s) ID Date Data Source [id number] 10/06/2020 01:34:00 AM EDT [facility] 1 Clinical Report - Nurses [facility] Emergency Department [address] [place] [address] Phone #: ext- [phone] 10/06/2020 01:33 Patient: DIAMANTE REARDON Sex: F : 2000 Age: 20yTRIAGEArrived by private vehicle. Historian: patient.Chief Complaint: ABDOMINAL PAIN. --01:40 10/06/20 Ronit Cameron R.N.Arrived by private vehicle. Historian: patient. ( pt c/o stomach pain. 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 --01:44 10/06/20 Ronit Cameron R.N.01:42 10/06/20. BP: 107/76. MAP: 86. HR: 85. RR: 16. O2 saturation: 100%. Temp: 97.9 F. Pain levelnow: 09/18. --01:44 10/06/20 Ronit Cameron R.N.Weight: 70.7 kg stated. Height/Length: 64 inches Per Patient. BMI: 26.8. --01:38 10/06/20 Ronit Cameron R.N.MedicationsAntidepressant. Bentyl Oral, last dose 10 pm (1/2 hr ago). Dicyclomine HCl Oral. Famotidine Oral. Iron Oral. MiraLax Oral 1 packet, daily. Senna Oral. --01:39 10/06/20 Ronit Cameron R.N.AllergiesNone. --01:39 10/06/20 Ronit Cameron R.N.PROBLEMS:Contusion.Constipation.Dental Pain.Cellulitis Check.Chronic gastritis.Celiacs disease. 2 Clinical Report - Nurses [facility] Emergency Department [address] [place] [address] Phone #: ext- [phone] 10/06/2020 01:33 [id number] Sex[facility] F : 2000 Age: 20yGastroesophageal Reflux Disease.Depression.Environmental Allergies.Gastritis.Anxiety Reaction.Bronchitis.Abdominal Pain.Abscess.Acid reflux.Pharyngitis.OB History.Other Disease.Otitis Externa..Tinea Corporis.URI.UTI - Urinary Tract Infection.Sick Contact.Sinusitis.Strep Throat.Ingrown Toenail.Ibs.Muscle Strain, Upper Extremity.Lactose Intolerance. --01:40 10/06/20 Ronit Cameron R.N.The following entry was modified by Ronit Cameron R.N., 01:40 10/06/20Irritable bowel syndrome (disorder). --01:39 10/06/20 Ronit Cameron R.N.The following entry was modified by Ronit Cameron R.N., 01:40 10/06/20MRSA Infection. --01:39 10/06/20 Ronit Cameron R.N..ADDITIONAL SURGERIES:Colonoscopy.Endoscopy.Scopes upper and lower.Tooth extraction.Upper endoscopy. --01:40 10/06/20 Ronit Cameron R.N.HistorySOCIAL HX: Never smoker. No alcohol use or drug use. No recent travel. No known contact with a sickindividual. She was offered HIV testing but declined and hepatitis C testing but declined. She has nottraveled outside the [place]Infectious disease exposure: No infectious disease exposure. The patient was not exposed to Coronavirus.SELF HARM ASSESSMENT: Self harm assessment was performed. The patient answered "no" to the 3 Clinical Report - Nurses [facility] Emergency Department [address] [place] [address] Phone #: ext- [phone] 10/06/2020 01:33 Patient: DIAMANTE REARDON Sex: F : 2000 Age: 20y question(s) "Have you recently felt down, depressed, or hopeless?" and "Do you have thoughts of harming or killing yourself?". ABUSE ASSESSMENT: No report of abuse. NUTRITIONAL RISK ASSESSMENT: The nutritional risk assessment revealed no deficiencies. FUNCTIONAL ASSESSMENT: Functional assessment: no impairments noted. LEARNING NEEDS ASSESSMENT: The learning needs assessment revealed no barriers. FALL RISK ASSESSMENT: Fall risk assessment completed. No risk factors identified. SKIN INTEGRITY ASSESSMENT: Skin integrity risk assessment completed. No skin integrity risk identified. --01:44 10/06/20 Ronit Cameron R.N. [facility] HX: No significant family medical history. --02:22 10/06/20 Santosh Almonte.PHYSICAL ASSESSMENTGENERAL / NEURO / PSYCH: Alert. Oriented X 4. Appears in no acute distress.HEENT: Mucous membranes are pink.RESPIRATORY: Respirations not labored. Breath sounds within normal limits.CVS: Normal sinus rhythm noted. Capillary refill less than 2 seconds.GI / : The patient has had nausea. Bowel sounds within normal limits.SKIN: Skin is warm and dry. --01:44 10/06/20 Ronit Cameron R.N.NURSING PROGRESS NOTESThe plan of care for this patient has been created. Head of bed elevated. Reassurance given. Twopatient identifiers checked. Call light placed in reach. Side rails up x 1. Bed placed in lowest position.Brakes of bed on. Patient ready for evaluation- ED physician notified. --01:45 10/06/20 Ronit Cameron R.N. 02:00 10/06/2020 GI Cocktail (Calcium Carbonate Antacid) PO Oral Suspension 50 mL given. Allergies verified and confirmed 5 rights. Information reviewed with patient including reason for taking this medication, signs of allergic reaction and precautions. Verbalizes understanding. --02:00 10/06/20 Ronit Cameron R.N. Reassessment after medication administered. Pain still present but improving. She reports no complaints. --02:19 10/06/20 Ronit Cameron R.N. 02:37 10/06/2020 Site #1 started via IV in the right antecubital space with an 20g angiocath, with aseptic technique and good blood return; one attempt. Saline lock flushed with 10 mL saline. --02:37 10/06/20 Ronit Cameron R.N. 4 Clinical Report - Nurses [facility] Emergency Department [address] [place] [address] Phone #: ext- [phone] 10/06/2020 01:33 Patient: DIAMANTE REARDON Sex: F : 2000 Age: 20y 02:37 10/06/2020 Toradol (Ketorolac Tromethamine) IVP 15 mg given over 1 minute(s) via site #1. Allergies verified and confirmed 5 rights. IV patency established. IV site checked: no pain, redness, or swelling. IV flushed thoroughly pre- and post-medication administration. IVP given by RN. Information reviewed with patient including reason for taking this medication, signs of allergic reaction and precautions. Verbalizes understanding. --02:37 10/06/20 Ronit Cameron R.N. 02:39 10/06/2020 Started 20 mg of Pepcid IVPB in bag #1 50 mL; at 100 mL/hr over 30 minute(s) via site #1. via IV pump. Allergies verified and confirmed 5 rights. IV patency established. IV site checked: no pain, redness, or swelling. IV flushed thoroughly pre- and post- medication administration. Information reviewed with patient including reason for taking this medication, signs of allergic reaction and precautions. Verbalizes understanding. --02:39 10/06/20 Ronit Cameron R.N. 03:02 10/06/2020 Pepcid IVPB via IV site #1 Discontinued: bag #1 infused. Total amount infused: 50 mL. IV patency established. IV site checked: no pain, redness, or swelling. IV flushed thoroughly. --03:02 10/06/20 Ronit Cameron R.N.DISPOSITION / DISCHARGE No learning barriers present. Discharge instructions provided and reviewed with the patient. Reviewed diet. Patient verbalized understanding. Written instructions provided in Surinamese. The patient was discharged by the physician. She was discharged home. She left ambulatory and via private vehicle. Patient driving. --04:02 10/06/20 Ronit Cameron R.N. 04:01 10/06/20. BP: 108/55. MAP: 72. HR: 90. RR: 16. O2 saturation: 99%. Temp: 98.2 F. Pain level now: 03/21. --04:02 10/06/20 Ronit Cameron R.N.Locked/Released at 10/06/2020 04:02 by Ronit Cameron R.N. Name Value Range Interpretation Code Description Data Jailene rce(s) Supporting Document(s) ID Date Data Source [id number] 10/06/2020 01:34:00 AM EDT [facility] 1 Clinical Report - Physicians/Mid Levels [facility] Emergency Department [address] [place] [address] Phone #: ext- [phone] 10/06/2020 01:33 Patient: DIAMANTE REARDON Sex: Pita : 2000 Age: 20y Time Seen: 02:00 10/06/2020. Arrived- By private vehicle. Historian- patient.HISTORY OF PRESENT ILLNESS Chief Complaint: ABDOMINAL PAIN. This started last night 10 PM and is still present. It was gradual in onset and has been constant. It is described as sharp and stabbing. No radiation. It is described as located in the epigastric area and in the upper abdomen. At its maximum, severity described as moderate. When seen in the E.D., severity de scribed as moderate. Modifying factors- worsened by food. The patient has had nausea. No loss of appetite, vomiting or diarrhea. No additional abdominal pain. (Patient states certain foods upsets her stomach and causes her gastritis. pain does not radiate to back. 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 Similar symptoms previously. Patient has had similar symptoms many times. Recent medical care: Not recently seen/assessed.REVIEW OF SYSTEMSNo constipation, fever, headache, sore throat or chest pain. No skin rash, back pain, fever, weight loss orhematuria. No dizziness or diabetic symptoms. Denies current or . All othersystems reviewed and are negative.PAST HISTORYSee nurses notes. No history of peptic ulcer. No history of bowel obstruction. Problems: GERD. Irritable bowel syndrome (disorder). Celiacs disease. Environmental Allergies. Tinea Corporis. UTI - Urinary Tract Infection. Lactose Intolerance. Additional Surgeries: Colonoscopy. Endoscopy. Medications: Antidepressant. Bentyl Oral, last dose 10 pm (1/2 hr ago). 2 Clinical Report - Physicians/Mid Levels [facility] Emergency Department [address] [place] [address] Phone #: ext- [phone] 10/06/2020 01:33 Patient: DIAMANTE REARDON Sex: F : 2000 Age: 20y Dicyclomine HCl Oral. Famotidine Oral. Iron Oral. MiraLax Oral 1 packet, daily. Senna Oral. Allergies: None.SOCIAL HISTORYNever smoker. No alcohol use.FAMILY HISTORYNo significant family medical history.ADDITIONAL NOTESThe nursing notes have been reviewed.PHYSICAL EXAMVital Signs: 10/06/2020 01:42 BP: 107/76. MAP: 86. HR: 85. RR: 16. O2 saturation: 100%. Temp: 97.9 F.Pain level now: 8/10.Appearance: Alert. Oriented X3. No acute distress.Eyes: Pupils equal, round and reactive to light. Eyes normal inspection.ENT: Nose normal.Neck: Normal inspection.CVS: Normal heart rate. Heart sounds normal. Pulses normal.Respiratory: No respiratory distress. Breath sounds normal. Chest nontender.Abdomen: Soft. Mild tenderness in the upper abdomen. No organomegaly. (No RUQ tenderness).Back: Normal inspection.Skin: Skin warm. Normal skin color.Extremities: No lower extremity edema.Neuro: Oriented X 3. No motor deficit. No sensory deficit.LABS, X-RAYS, AND EKGLaboratory Tests: Urinalysis: (RL: 10/06/2020 02:02) ( MsgRcvd 10/06/2020 02:15) Final results Test Result Flag Units (Reference) URINALYSIS URINALYSIS SOURCE R COLOR yellow (NORMAL: Yello CLARITY hazy (NORMAL: Clear SPEC GRAVITY 1.020 (1.001 - 1.030 pH 6 (5 - 9) GLUCOSE NORM (NORMAL: Negat BILIRUBIN NEG (NORMAL: Negat KETONE 15 A (NORMAL: Negat 3 Clinical Report - Physicians/Mid Levels [facility] Emergency Department [address] [place] [address] Phone #: ext- [phone] 10/06/2020 01:33 Patient: DIAMANTE REARDON Sex: F : 2000 Age: 20y PROTEIN NEG (NORMAL: Negat NITRITE NEG (NORMAL: Negat BLOOD NEG (NORMAL: Negat LEUK EST NEG (NORMAL: Negat UROBILINOGEN NOR (less than 1.0 MICROSCOPIC Not Indicate.PROGRESS AND PROCEDURESCourse of Care: 03:16 10/06/20. Patient had no improvement with GI cocktail which she has taken in past.Labs reviewed from previous visits. No lower abdominal complaints. Old medical records ordered. Patient has had multiple ED visits. Disposition: Discharged. Condition: stable.CLINICAL IMPRESSION Chronic epigastric abdominal pain of unknown cause.INSTRUCTIONS Warnings: Further evaluation is necessary. GENERAL WARNINGS: Return or contact your physician immediately if your condition worsens or changes unexpectedly, if not improving as expected, or if other problems arise. Your Current Medications: Your current home medications have been reviewed. CONTINUE TAKING THE FOLLOWING MEDICATIONS: Antidepressant*. Bentyl Oral : Last: 10 pm, 1/2 hr ago. Dicyclomine HCl Oral. Famotidine Oral. Iron Oral. MiraLax Oral : 1 packet daily. Senna Oral. Follow-up: Follow up with a skid wrapper. Understanding of the discharge instructions verbalized by patient. Follow-up with: Mikhail Montero MD, , , [address], [place], [facility], [facility] Follow up in two days if not better. Call for an appointment. Reason for referral: evaluation. 4 Clinical Report - Physicians/Mid Levels [facility] Emergency Department [address] [place] [address] Phone #: ext- [phone] 10/06/2020 01:33 Patient: DIAMANTE REARDON Sex: F : 2000 Age: 20y(Electronically signed by Santosh Almonte 10/06/2020 06:46) Name Value Range Interpretation Code Description Data Jailene rce(s) Supporting Document(s) ID Date Data Source [id number] 10/06/2020 02:02:00 AM EDT [facility] ([facility]) Name Value Range Interpretation Code Description Data Jailene rce(s) Supporting Document(s) Source Laboratory test result [facility] ([facility]) SOURCE: Clean Catch Urinalysis Laboratory test result [facility] ([facility]) SOURCE: Clean Catch Color Laboratory test result [facility] ([facility]) SOURCE: Clean Catch pH 6 5-9 [facility] ([facility]) SOURCE: Clean Catch Spec [place] 1.020 1.001-1.030 [facility] ([facility]) SOURCE: Clean Catch Clarity Laboratory test result [facility] ([facility]) SOURCE: Clean Catch Glucose Laboratory test result [facility] ([facility]) SOURCE: Clean Catch Bilirubin Laboratory test result [facility] ([facility]) SOURCE: Clean Catch Ketone 15 Abnormal (applies to non-numeric res ults) [facility] ([facility]) SOURCE: Clean Catch Protein Laboratory test result [facility] ([facility]) SOURCE: Clean Catch Blood Laboratory test result [facility] ([facility]) SOURCE: Clean Catch Nitrite Laboratory test result [facility] ([facility]) SOURCE: Clean Catch Leuk Est Laboratory test result [facility] ([facility]) SOURCE: Clean Catch Urobilinogen Laboratory test result [facility] ([facility]) SOURCE: Clean Catch Microscopic Laboratory test result M [facility] ([facility]) SOURCE: Clean Catch ID Date Data Source [id number] 10/06/2020 02:15:00 AM EDT [facility] Name Value Range Interpretation Code Description Data Jailene rce(s) Supporting Document(s) URINALYSIS [facility] URINALYSIS SOURCE R [facility] COLOR yellow NORMAL: Yellow [facility] CLARITY hazy NORMAL: Clear [facility] Specific gravity of Urine by Test strip 1.020 1.001 - 1.030 [facility] pH 6 5 - 9 [facility] Glucose [Mass/volume] in Urine by Test strip NORM NORMAL: Negat juliette [facility] Bilirubin.total [Presence] in Urine by Test strip NEG NORMAL: Negative [facility] Ketones [Presence] in Urine by Test strip 15 NORMAL: Negative A [facility] Protein [Mass/volume] in Urine by Test strip NEG NORMAL: Negat juliette [facility] Nitrite [Presence] in Urine by Test strip NEG NORMAL: Negative [facility] BLOOD NEG NORMAL: Negative [facility] LEUK EST NEG NORMAL: Negative [facility] Urobilinogen [Mass/volume] in Urine by Test strip NOR less jovita n 1.0 mg/dL [facility] MICROSCOPIC Not Indicate [facility] ID Date Data Source [id number] 09/18/2020 12:10:00 AM EDT [facility] 1 OrderSheet [facility] Emergency Department [address] [place] [address] Phone #: ext- [phone] 09/18/2020 00:06 Patient: DIAMANTE REARDON Sex: F : 2000 Age: 20yWEIGHT:71.2 kg (S) HEIGHT:64 inches (S) BMI:27.0ALLERGIES: NoneCHIEF COMPLAINT: vomiting, abdominal pain, nauseaDIAGNOSIS: Gastroesophageal reflux disease, Irritable colon, GastritisLAB ORDERSOrder Description Priority Entered Acknowledged InitialedCBC w Diff STAT 02:49 09/18/2020 02:51 Aj Cameron Riccardo Stephanie R.NDorys Manzano;CMP STAT 02:49 09/18/2020 02:51 Aj Cameron Riccardo Stephanie R.NDorys Manzano;Lipase STAT 02:49 09/18/2020 02:51 Aj Cameron Riccardo Stephanie R.NDorys Manzano;Urinalysis (Clean STAT 02:49 09/18/2020 02:51 Rakesh,Catch) Turrin, Sha Ronit R.N. M.D.;Beta-HCG, Qual STAT 02:49 09/18/2020 02:51 Rakesh,Serum Turrin, Sha Ronit R.N. M.D.;Lactic Acid STAT 02:49 09/18/2020 02:51 Rakesh, Turrin, Sha Ronit R.N. M.D.;Culture, Urine STAT 03:41 09/18/2020 03:42 Rakesh,(Urine, Clean Turrin, Sha Ronit R.N.Catch) M.D.;DIAGNOSTIC STUDY ORDERSOrder Description Priority Entered Acknowledged InitialedMEDICATION/IV/DRIP/FLUID ORDERSOrder Description Priority Entered Acknowledged InitialedNS IV 1000 mL 02:50 09/18/2020 03:16 Rakesh,Bolus: : Bolus 1000 Turrin, Sha Ronit R.N.mL (X1) M.D.;Phenergan IV 25mg 02:50 09/18/2020 03:20 Rakesh, 2 OrderSheet [facility] Emergency Department [address] [place] [address] Phone #: ext- [phone] 09/18/2020 00:06 Patient: DIAMANTE REARDON Sex: F : 2000 Age: 20yin 50mL NS, give Turrin, Sha Ronit R.N.wide open: 25 mg M.D.;(NOW x1, HIGHALERTMEDICATION)Protonix IV Push 40 02:50 09/18/2020 03:17 Rakesh,mg (in 10 mL NS, Turrin, Sha Ronit R.N.administer over at M.D.;least 2 minutes,NOW x1)GENERAL ORDERSOrder Description Priority Entered Acknowledged InitialedNPO 02:49 09/18/2020 02:51 Rakesh, Turrin, Sha Ronit R.N. M.D.;Saline Lock 02:49 09/18/2020 02:51 Aj Cameron Riccardo Stephanie R.N. M.D.;[Electronically signed by Ronit Cameron R.N. (04:19 09/18/2020)][Electronically signed by Sha Rocha M.D. (04:32 09/18/2020)][Electronically locked by Ronit Cameron R.N. (04:19 09/18/2020)] Name Value Range Interpretation Code Description Data Jailene rce(s) Supporting Document(s) ID Date Data Source [id number] 09/18/2020 12:10:00 AM EDT [facility] 1 Medication Reconciliation Report [facility] Emergency Department [address] [place] [address] Phone #: ext- [phone] 09/18/2020 00:06 Patient: DIAMANTE REARDON Sex: F : 2000 Age: 20yWeight: 71.2 kgHeight/Length: 64 in.BMI: 27.0ALLERGIES: NoneThe patient's Home Medications are listed below:CONTINUE TAKING THE FOLLOWING MEDICATIONS: Antidepressant Bentyl Oral, last dose: 10 pm, 1/2 hr ago Dicyclomine HCl Oral Famotidine Oral Iron Oral MiraLax Oral 1 pa cket, daily Senna OralThe source(s) of the original Home Medication information:Not obtained.The following Medications were given to the patient in the Emergency Department:NS [IV] IV Fluids bolus 0, then 1000 mL/hr, administered: 03:16 1PROTONIX [IVP] IVP 40 mg, administered: 03:17 1Phenergan [IVPB] IVPB bolus 0, then 25 mg 200 mL/hr, administered: 03:20 08/10/2021The following Medications were prescribed to the patient:None. Name Value Range Interpretation Code Description Data Jailene rce(s) Supporting Document(s) ID Date Data Source [id number] 09/18/2020 12:10:00 AM EDT [facility] 1 Medication Administration Record [facility] Emergency Department [address] [place] [address] Phone #: ext- [phone] 09/18/2020 00:06 Patient: DIAMANTE REARDON Sex: F : 2000 Age: 20yWeight: 71.2 kgHeight/Length: 64 inBMI: 27ALLERGIES: None Date/Time Medication Administered Medication OrderedStart NS [IV] NS IV 1000 mL Bolus: : Bolus [id number] 09/18/2020 Dose: IV Fluids mL (X1)Ronit Cameron, R.N. Rate: 1000 mL/hr over 1 hour(s)---- Dispensed: 1000 mL bagStop Site: #1 right AC04:15 1LofRonit gross, R.N.Start PHENERGAN [IVPB] Phenergan IV 25mg in 50mL NS,03:20 09/18/2020 Dose: 25 mg IVPB give wide open: 25 mg (NOW x1,Ronit Cameron, R.N. Rate: 200 mL/hr over 15 minute(s) HIGH ALERT MEDICATION)---- Dispensed: 50 mL bagStop Site: #1 right AC03:54 1LRonit dean, R.N.Given PROTONIX [IVP] (PANTOPRAZOLE Protonix IV Push 40 mg (in 10 mL03:17 09/18/2020 SODIUM) NS, administer over at least 2Loft, Ronit, R.N. Dose: 40 mg IVP minutes, NOW x1) Site: #1 right AC Name Value Range Interpretation Code Description Data Jailene rce(s) Supporting Document(s) ID Date Data Source [id number] 09/18/2020 12:10:00 AM EDT [facility] 1 General Instructions [facility] Emergency Department [address] [place] [address] Phone #: ext- [phone] 09/18/2020 00:06 Patient: DIAMANTE REARDON Sex: F : 2000 Age: 20yGastroesophageal reflux disease. No esophagitis.Chronic gastritis. No alcoholic gastritis or hemorrhagic gastritis.Chronic irritable bowel syndrome with abdominal pain. No diarrhea.INSTRUCTIONSDrink plenty of fluids. Avoid alcohol and NSAIDS. NSAIDS include aspirin, ibuprofen (Advil) and naproxen(Aleve). Avoid fatty, fried/greasy, lactose-containing (such as milk, cheese and ice cream), salty and spicyfoods. No alcohol. Do not smoke.Warnings: Further evaluation is necessary in order to conduct further tests (GI MD). It is very important tofollow up with a healthcare provider.GENERAL WARNINGS: Return or contact your physician immediately if your condition worsens orchanges unexpectedly, if not improving as expected, or if other problems arise. SPECIFICALLY, return ifyou develop pain in the abdomen, pelvis, back or shoulder, fever, vomiting, the inability to keep fluidsdown, blood in vomitus, blood in diarrhea, fainting or lightheadedness.Your Current Medications: Your current home medications have been reviewed.CONTINUE TAKING THE FOLLOWING MEDICATIONS:Antidepressant*.Bentyl Oral : Last: 10 pm, 1/2 hr ago.Dicyclomine HCl Oral.Famotidine Oral.Iron Oral.MiraLax Oral : 1 packet daily.Senna Oral.Follow-up:Return to the emergency department as needed. Follow up with your healthcare provider in two dayseven if well. Call for an appointment. Reason for referral: evaluation and treatment. Summary of careprovided to patient via paper. Follow up with a gastroenterologi st in three days even if well. Call for anappointment. Reason for referral: evaluation and treatment. Summary of care provided to patient via paper.Understanding of the discharge instructions verbalized by patient. Expected course of illness, dischargeinstructions, activity level, diet, follow- up appointment and risks and benefits of treatment reviewed withpatient and understanding verbalized. Agrees to plan of care. 2 General Instructions [facility] Emergency Department [address] [place] [address] Phone #: ext- [phone] 09/18/2020 00:06 Patient: DIAMANTE REARDON Sex: F : 2000 Age: 20y ADDITIONAL INFORMATIONGastritis (Adult)Gastritis is inflammation and irritation of the stomach lining. You can have it for a short time (acute) chau long lasting (chronic). Infection with bacteria called H pylori most often causes gastritis. More thana third of people in the [place] have these bacteria in their bodies. In many cases, H pylori causes noproblems or symptoms. In some people, though, the infection irritates the stomach lining and causesgastritis. H. pylori may be diagnosed through blood, stool, or breath tests, we well as through biopsyduring an endoscopy. Other causes of stomach irritation include drinking alcohol, smoking or chewingtobacco, or taking pain-relieving medicines called NSAIDs (such as aspirin or ibuprofen). Certaindrugs (such as cocaine) and immune conditions can also cause gastritis.Symptoms of gastritis can include: Belly pain or bloating Feeling full quickly Loss of appetite Nausea or vomiting Vomiting blood or having black stools Feeling more tired than usual 3 General Instructions [facility] Emergency Department [address] [place] [address] Phone #: ext- [phone] 09/18/2020 00:06 [id number] Sex: F : 2000 Age: 20yAn inflamed and irritated stomach lining is more likely to develop a sore called an ulcer. To helpprevent this, gastritis should be treated.Home careIf needed, our healthcare provider may prescribe medicines. If you have H pylori infection, treating itwill likely relieve your symptoms. Other changes can help reduce stomach irritation and help it heal. If you have been prescribed medicines for H pylori infection, take them as directed. Take all of the medicine until it is finished or your healthcare provider tells you to stop, even if you feel better. Your healthcare provider may advise you not to take NSAIDs. If you take daily aspirin for your heart or other medical reasons, do not stop without talking to your healthcare provider first. Don't drink alcohol. Stop smoking. Smoking can irritate the stomach and delay healing. As much as possible, stay away from second hand smoke.Follow-up careFollow up with your healthcare provider, or as advised by our staff. You may need testing to check forinflammation or an ulcer.When to seek medical adviceCall your healthcare provider for any of the following: Stomach pain that gets worse or moves to the lower right belly (appendix area) Chest pain that appears or gets worse, or spreads to the back, neck, shoulder, or arm Frequent vomiting (can't keep down liquids) Blood in the stool or vomit (red or black in color) Feeling weak or dizzy Shortness of breath Unexplained weight loss Fever of 100.4F (38C) or higher, or as directed by your healthcare provider [id number] [employer]. [address] [place] [address], [place] [address]. All rights reserved. This information is not intended as asubstitute for professional medical care. Always follow your healthcare professional's instructions. 4 General Instructions [facility] Emergency Department [address] [place] [address] Phone #: ext- [phone] 09/18/2020 00:06 [id number] Sex: [facility] : 2000 Age: 20yGERD (Adult) The esophagus is a tube that carries food from the mouthto the stomach. A valve (the LES, lower esophageal sphincter) at the lower end of the esophagusprevents stomach acid from flowing upward. When this valve doesn't work properly, stomach contentsmay repeatedly flow back up (reflux) into the esophagus. This is called gastroesophageal refluxdisease (GERD). GERD can irritate the esophagus. It can cause problems with pain, swallowing orbreathing. In severe cases, GERD can cause recurrent pneumonia (from aspiration or breathing inparticles) or other serious problems.Symptoms of reflux include burning, pressure or sharp pain in the upper abdomen or mid to lowerchest. The pain can spread to the neck, back, or shoulder. There may be belching, an acid taste inthe back of the throat, chronic cough, or sore throat, or hoarseness. GERD symptoms often occurduring the day after a big meal. They can also occur at night when lying down.Home careLifestyle changes can help reduce symptoms. If needed, your healthcare provider may prescribemedicines. Symptoms often improve with treatment, but if treatment is stopped, the symptoms oftenreturn after a few months. So most persons with GERD will need to continue treatment or get 5 General Instructions [facility] Emergency Department [address] [place] [address] Phone #: ext- [phone] 09/18/2020 00:06 [id number] Sex: F : 2000 Age: 20ytreatment on and off.Lifestyle changes Limit or avoid fatty, fried, and spicy foods, as well as coffee, chocolate, mint, and foods with high acid content such as tomatoes and citrus fruit and juices (orange, grapefruit, lemon). Don't eat large meals, especially at night. Frequent, smaller meals are best. Don't lie down right after eating. And don't eat anything 3 hours before going to bed. Don't drink alcohol or smoke. As much as possible, stay away from second hand smoke. If you are overweight, losing weight will reduce symptoms. Don't wear tight clothing around your stomach area. If your symptoms occur during sleep, use a foam wedge to elevate your upper body (not just your head.) Or, place 4" blocks under the head of your bed. Or use 2 bed risers under your bedframe.MedicinesIf needed, medicines can help relieve the symptoms of GERD and prevent damage to the esophagus.Discuss a medicine plan with your healthcare provider. This may include one or more of the followingmedicines: Antacids to help neutralize the normal acids in your stomach. Acid blockers (Histamine or H2 blockers) to decrease acid production. Acid inhibitors (proton pump inhibitors PPIs) to decrease acid production in a different way than the blockers. They may work better, but can take a little longer to take effect.Take an antacid 30 to 60 minutes after eating and at bedtime, but not at the same time as an acidblocker.Try not to dylan e medicines such as ibuprofen and aspirin. If you are taking aspirin for your heart orother medical reasons, talk to your healthcare provider about stopping it.Follow-up careFollow up with your healthcare provider or as advised by our staff.When to seek medical adviceCall your healthcare provider if any of the following occur: Stomach pain gets worse or moves to the lower right abdomen (appendix area) 6 General Instructions [facility] Emergency Department [address] [place] [address] Phone #: ext- [phone] 09/18/2020 00:06 Patient: DIAMANTE REARDON Sex: F : 2000 Age: 20y Chest pain appears or gets worse, or spreads to the back, neck, shoulder, or arm An [id number] trial of medicine doesn't relieve your symptoms Weight loss that can't be explained Trouble or pain swallowing Frequent vomiting (can't keep down liquids) Blood in the stool or vomit (red or black in color) Feeling weak or dizzy Fever of 100.4F (38C) or higher, or as directed by your healthcare provider [phone] [employer]. [address] [place] [id number]. All rights reserved. This information is not intended as asubstitute for professional medical care. Always follow your healthcare professional's instructions.Irritable Bowel SyndromeIrritable bowel syndrome (IBS) is a disor elena of the intestines. It is not a disease, but a group ofsymptoms caused by changes in the way the intestines work including how they move, secrete,absorb, and transit pain sensations. It is fairly common, but the cause is not well understood. Thereare other conditions that cause IBS symptoms, so make sure to speak with your provider to makesure that further evaluation isn't needed.Symptoms of IBS include: Belly pain, discomfort, and cramping Diarrhea Constipation or dry, hard stools Mucous stool Bloating 7 General Instructions [facility] Emergency Department [address] [place] [address] Phone #: ext- [phone] 09/18/2020 00:06 Patient: DIAMANTE REARDON Sex: F : 2000 Age: 20y Feeling of incomplete bowel movementsIt usually results in one of 3 patterns of symptoms: Chronic belly pain and constipation Recurring episodes of diarrhea, with belly pain or discomfort Alternating diarrhea and constipationHome careThe goal of treatment is to control and relieve your symptoms, so you can lead a full and active life.There is no cure for IBS. But it can be managed.DietYour diet did not cause your IBS, but it can affect it. Diet and food choices may cause IBS symptomsin some people, but not everyone. No one diet works for everyone. Finding the best foods for youmay take trial and error. Keep a food log to help find what foods made your symptoms worse. Beloware some tips that may help you. Eat more slowly. Eat smaller amounts at a time, but more often. Remember, you can always eat more, but cannot eat less once you've eaten too much. In general, fiber is very helpful for both constipation and diarrhea. However, insoluble fiber can worsen bloating, cramping, and gas. Insoluble fiber can be found in wheat bran, certain vegetables, and whole-grains. Soluble fiber is in such foods as oat bran, barley, nuts, seeds, luna, lentils, peas, and some fruits and vegetables. Increase fiber slowly and choose a product that includes soluble fiber. It helps to keep a food diary and write down the symptoms you have with certain foods. Try lactose-free dairy products. many people are intolerant to lactose. Try cutting out foods that are high in fat and fatty meats. You can control bloating or passing excess gas. Be careful with "gassy" vegetables and fruits like beans, cabbage, broccoli, and cauliflower. Other foods called FODMAPs are a type of carbohydrate that can cause these symptoms and diarrhea. They are poorly digestible carbohydrates. Some FODMAP examples include honey, apples, pears, nectarines, zhong beans, and cabbage. Talk with your provider about how to choose low FODMAP foods if you are sensitive to them. Be careful with carbonated beverages and fruit juices. They can make your bloating and diarrhea worse. 8 General Instructions [facility] Emergency Department [address] [place] [address] Phone #: ext- [phone] 09/18/2020 00:06 Patient: DIAMANTE REARDON Sex: F : 2000 Age: 20y Caffeine, alcohol, and stimulants can make symptoms worse. These include coffee, tea, sodas, energy drinks, and chocolate. IBS diet guidelines can be confusing. Ask your provider for a referral to a registered dietitian. This professional can help you make sense of IBS diet suggestions.Lifestyle Look for factors that seem to worsen your symptoms. These include stress and emotions. Although stress does not cause IBS, it may trigger flare-ups. Counseling can help you learn to handle stress. So can self-help measures like exercise, yoga, and meditation. Depression can occur along with IBS. Your healthcare provider may prescribe antidepressant medicine. This may help with diarrhea, constipation, and cramping, as well as with symptoms of depression. Smoking doesn't cause IBS, but can make the symptoms worse.MedicinesYour healthcare provider may prescribe medicines. Take them as directed. For acute flare-ups ofyour illness, your provider may give you prescription medicines. Check with your healthcare provider before taking any medicines for diarrhea. Don't take anti-inflammatory medicines like ibuprofen or naproxen. Long-term medicines can be helpful for chronic symptoms If you have lost enough weight to make you need nutritional supplements, talk to your provider. This may point to another more serious condition.Follow-up careFollow up with your healthcare provider, or as advised.When to seek medical adviceCall your healthcare provider right away if any of these occur: Belly pain gets worse or does not improve after a bowel movement Constant belly pain moves to the right-lower belly You can't keep liquids down because of vomiting You have severe, persistent diarrhea 9 General Instructions [facility] Emergency Department [address] [place] [address] Phone #: [phone]- [phone] 09/18/2020 00:06 [id number] Sex: F : 2000 Age: 20y You have blood (red or black color) or mucus in your stool You have lost significant weight You feel very weak or dizzy, faint, or have extreme thirst You have a fever of 100.4F (38.0C) or higher, or as directed by your healthcare provider [phone] [employer]. [address] [place] [address], [place] [address]. All rights reserved. This information is not intended as asubstitute for professional medical care. Always follow your healthcare professional's instructions. You have been given the following additional information: Gastritis (Adult) GERD (Adult) Irritable Bowel Syndrome(Electronically signed by Sha Rocha M.D. 09/18/2020 04:32) Name Value Range Interpretation Code Description Data Jailene rce(s) Supporting Document(s) ID Date Data Source [id number] 09/18/2020 12:10:00 AM EDT [facility] 1 Clinical Report - Nurses [facility] Emergency Department [address] [place] [address] Phone #: ext- [phone] 09/18/2020 00:06 Patient: DIAMANTE REARDON Sex: F : 2000 Age: 20yTRIAGEArrived by private vehicle. Historian: patient.Acuity: LEVEL 3.Chief Complaint: ABDOMINAL PAIN and NAUSEA.This started just prior to arrival. ( pt c/o abd pain pt also c/o nausea onset x 2 hrs ago). She has hadnausea. 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 --01:35 09/18/20 Ronit Cameron R.N.01:26 09/18/20. BP: 111/81. MAP: 91. HR: 58. RR: 15. O2 saturation: 97%. Temp: 97.1 F. Pain level now:09/18. --01:35 09/18/20 Ronit Cameron R.N.Weight: 71.2 kg stated. Height/Length: 64 inches Per Patient. BMI: 27. --01:25 09/18/20 Ronit Cameron R.N.MedicationsAntidepressant. Bentyl Oral, last dose 10 pm (1/2 hr ago). Dicyclomine HCl Oral. Famotidine Oral. Iron Oral. MiraLax Oral 1 packet, daily. Senna Oral. --01:27 09/18/20 Ronit Cameron R.N.AllergiesNone. --01:09/18/20 Ronit Cameron R.N.PROBLEMS:Depression.Bronchitis.Abdominal Pain.Abscess.Acid reflux.Peptic Ulcer Disease.Pharyngitis.Otitis Externa.Tinea Corporis. 2 Clinical Report - Nurses [facility] Emergency Department [address] [place] [address] Phone #: ext- [phone] 09/18/2020 00:06 Patient: DIAMANTE REARDON Sex: F : 2000 Age: 20yURI.UTI - Urinary Tract Infection.Sinusitis.Strep Throat.Ibs.Muscle Strain, Upper Extremity.Lactose Intolerance. --01:09/18/20 Ronit Cameron R.N.The following entry was modified by Ronit Cameron R.N., 01:09/18/20Celiac Disease. --01:09/18/20 Ronit Cameron R.N.The following entry was modified by Ronit Cameron R.N., 01:09/18/20Irritable bowel syndrome (disorder). --01:09/18 Ronit Cameron R.N.The following entry was modified by Ronit Cameron R.N., 01:09/18/20MRSA Infection. --01:09/18/20 Ronit Cameron R.N..ADDITIONAL SURGERIES:Colonoscopy.Endoscopy.Scopes upper and lower.Upper endoscopy. --01:31 09/18/20 Ronit Cameron R.N.HistorySOCIAL HX: Never smoker. Alcohol use. Drug use. She was offered HIV testing but declined andhepatitis C testing but declined. She has not traveled outside the [place]Infectious disease exposure: No infectious disease exposure. The patient was not exposed to Coronavirus.Patient is a known carrier of MRSA.SELF HARM ASSESS MENT: Self harm assessment was performed. The patient answered "no" to thequestion(s) "Have you recently felt down, depressed, or hopeless?" and "Do you have thoughts of harmingor killing yourself?".NUTRITIONAL RISK ASSESSMENT: The nutritional risk assessment revealed no deficiencies.FUNCTIONAL ASSESSMENT: Functional assessment: no impairments noted.LEARNING NEEDS ASSESSMENT: The learning needs assessment revealed no barriers.FALL RISK ASSESSMENT: Fall risk assessment completed. No risk factors identified.SKIN INTEGRITY ASSESSMENT: Skin integrity risk assessment completed. No skin integrity riskidentified. --01:35 09/18/20 Ronit Cameron R.N.03:53 09/18/20. 3 Clinical Report - Nurses [facility] Emergency Department [address] [place] [address] Phone #: ext- [phone] 09/18/2020 00:06 [id number] Sex: F : 2000 Age: 20y ABUSE ASSESSMENT: No report of abuse. --04:18 09/18/20 Ronit Cameron R.N. Interventions Identification band on patient. --01:35 09/18/20 Ronit Cameron R.N.PHYSICAL ASSESSMENTAmbulatory to room.GENERAL / NEURO / PSYCH: Alert. Oriented X 4. Appears in no acute distress.HEENT: Mucous membranes are pink.RESPIRATORY: Respirations not labored. Breath sounds within normal l imits.CVS: Normal sinus rhythm noted. Capillary refill less than 2 seconds.GI / : Abdomen soft. Abdominal tenderness. Bowel sounds within normal limits.SKIN: Skin is warm and dry. --01:36 09/18/20 Ronit Cameron R.N. GENERAL / NEURO / PSYCH: Alert. Oriented X 4. Appears in no acute distress. HEENT: Mucous membranes are pink. RESPIRATORY: Respirations not labored. Breath sounds within normal limits. CVS: Normal sinus rhythm noted. Capillary refill less than 2 seconds. GI / : Bowel sounds within normal limits. SKIN: Skin is warm and dry. --04:14 09/18/20 Ronit Cameron R.N.NURSING PROGRESS NOTESThe plan of care for this patient has been created. Monitoring of patient in place. Patient gowned. Headof bed elevated. Reassurance given. Two patient identifiers checked. Call light placed in reach. Siderails up x 1. Bed placed in lowest position. Brakes of bed on. Patient ready for evaluation- ED physiciannotified. --01:36 09/18/20 Ronit Cameron R.N. Patient ID band checked for patient name and birthdate: patient confirmed. Blood samples drawn from the right hand with 23g butterfly by nurse per protocol ; labeled in presence of the patient and sent to lab: green, purple and yellow top. Patient ID band checked for patient name and birthdate: patient confirmed. Instructions provided to collect clean catch urine and patient verbalized understanding. Clean catch urine collected; sample sent to lab for urinalysis. Specimen labeled in the presence of the patient. --03:09 09/18/20 Ronit Cameron R.N. 03:10 09/18/2020 Site #1 started via IV in the right antecubital space with an 20g angiocath, with good blood return; one attempt. Saline lock flushed with 10 mL saline. --03:10 09/18/20 Ronit Cameron R.N. 03:16 09/18/2020 Started bag #1 1000 mL IV Fluids NS; at 1000 mL/hr over 1 hour(s) via site #1 via IV pump. Allergies verified and confirmed 5 rights. IV patency established. IV site checked: no pain, redness, or swelling. IV flushed thoroughly pre- and post-medication administration. Information reviewed with patient including reason for taking this medication and precautions. Verbalizes understanding. --03:16 09/18/20 Ronit Cameron R.N. 03:09/18/2020 PROTONIX (Pantoprazole Sodium) IVP 40 mg given over 2 minute(s) via site #1. 4 Clinical Report - Nurses [facility] Emergency Department [address] [place] [address] Phone #: ext- [phone] 09/18/2020 00:06 Patient: DIAMANTE REARDON Sex: F : 2000 Age: 20y Allergies verified and confirmed 5 rights. IV patency established. IV site checked: no pain, redness, or swelling. IV flushed thoroughly pre- and post- medication administration. Information reviewed with patient including reason for taking this medication, signs of allergic reaction and precautions. Verbalizes understanding. --03:09/18/20 Ronit Cameron R.N. 03:09/18/2020 Started 25 mg of Phenergan IVPB in bag #1 50 mL; at 200 mL/hr over 15 minute(s) via site #1. Allergies verified and confirmed 5 rights. IV patency established. IV site checked: no pain, redness, or swelling. IV flushed th oroughly pre- and post-medication administration. Information reviewed with patient including reason for taking this medication, signs of allergic reaction and precautions. Verbalizes understanding. --03:09/18/20 Ronit Cameron R.N. Rounding: Pain: assessed pain level. Position: states comfortable. Proximity of possessions / care items: call light within easy reach. Plug ins: assured IV pump plugged in; checked status of equipment in use; located all cords, tubes, and lines to prevent fall hazard. Set expectations: advised patient of rounding protocol timing and asked if they needed anything else at this time. The patient reports no complaints. Patient waiting for lab results. --03:23 09/18/20 Ronit Cameron R.N. Reassessment after medication administered. Nausea gone now. --03:36 09/18/20 Ronit Cameron R.N. 03:54 09/18/2020 Phenergan IVPB via IV site #1 Discontinued: bag #1 infused. Total amount infused: 50 mL. IV patency established. IV site checked: no pain, redness, or swelling. IV flushed thoroughly. --04:19 09/18/20 Ronit Cameron R.N. 04:15 09/18/2020 IV Fluids NS via IV site #1 Discontinued: bag #1 upon discharge. Total amount infused: 900 mL. IV patency established. IV site checked: no pain, redness, or swelling. IV flushed thoroughly. --04:15 09/18/20 Ronit Cameron R.N.DISPOSITION / DISCHARGE 04:15 09/18/2020 Site #1 removed upon discharge. Catheter intact. Pressure dressing and bandage applied. --04:15 09/18/20 Ronit Cameron R.N. Condition at departure: improved. No learning barriers present. Reviewed warnings. Reviewed diet. Written instructions provid ed in Surinamese. The patient was discharged by the physician. She was discharged home and accompanied by evp strategy. She left ambulatory and via private vehicle. 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 --04:17 09/18/20 Ronit Cameron R.N. 04:15 09/18/20. BP: 122/76. MAP: 91. HR: 62. RR: 15. O2 saturation: 99%. Temp: 97.1 F. Pain level now: 0. --04:17 09/18/20 Ronit Cameron R.N. Departure time: 04:18 09/18/2020. --04:18 09/18/20 Ronit Cameron R.N. 5 Clinical Report - Nurses [facility] Emergency Department [address] [place] [address] Phone #: ext- [phone] 09/18/2020 00:06 Patient: DIAMANTE REARDON Sex: F : 2000 Age: 20yLocked/Released at 09/18/2020 04:19 by Ronit Cameron R.N. Name Value Range Interpretation Code Description Data Jailene rce(s) Supporting Document(s) ID Date Data Source [id number] 09/18/2020 12:10:00 AM EDT [facility] 1 Clinical Report - Physicians/Mid Levels [facility] Emergency Department [address] [place] [address] Phone #: ext- [phone] 09/18/2020 00:06 Patient: DIAMANTE REARDON Sex: Pita : 2000 Age: 20y Time Seen: 02:17 09/18/2020; initial patient contact. Arrived- By private vehicle. Historian- patient. Disposition decision: 04:04 09/18/2020.HISTORY OF PRESENT ILLNESS Chief Complaint: VOMITING. ABDOMINAL PAIN and NAUSEA. No recent travel. She has had moderate nausea, vomiting. The vomiting has occurred only once and moderate, intermittent abdominal pain. The pain is described as located in the upper abdomen and epigastrium. No diarrhea, black stools, bloody stools, constipation or flank pain. No history of possible bad food exposure, known contact with a sick individual or change in routine. Has not recently been camping or on antibiotics. This started just prior to arrival and is now gone. It has been intermittent. The illness is described as moderate. (pt has Hx of IBS and chronic gastritis and is sensitive to different types of meals; pt has Arnoldo Hubbard MD in [place] and tries to follow diet established by him; but wang ate some tacos and it flared up her IBS). Similar symptoms previously. Patient has had similar symptoms many times, chronically. Recent medical care: Not recently seen/assessed.REVIEW OF SYSTEMSNo fever, muscle aches, difficulty with urination, dark urine or headache. No dizziness, sore throat, cough,chest pain or difficulty breathing. No excessive urination, skin rash, jaundice, back pain or faintingepisodes. No blurred vision. All other systems reviewed and are negative.PAST HISTORYSee nurses notes. Problems: Anxiety Reaction. Irritable bowel syndrome (disorder). Gastroesophageal Reflux Disease. Depression. Peptic Ulcer Disease. Pharyngitis. Additional Surgeries: Colonoscopy. Endoscopy. Scopes upper and lower. 2 Clinical Report - Physicians/Mid Levels [facility] Emergency Department [address] [place] [address] Phone #: ext- [phone] 09/18/2020 00:06 [id number] Sex: F : 2000 Age: 20y Upper endoscopy. Medications: Antidepressant. Bentyl Oral, last dose 10 pm ( 1/2 hr ago). Dicyclomine HCl Oral. Famotidine Oral. Iron Oral. MiraLax Oral 1 packet, daily. Senna Oral. Allergies: None.SOCIAL HISTORYNever smoker. Occasional alcohol use. No drug use.ADDITIONAL NOTESThe nursing notes have been reviewed with agreement regarding the chief complaint, HPI, ROS, PMH andpatient medications and allergies.PHYSICAL EXAMVital Signs: 09/18/2020 01:26 BP: 111/81. MAP: 91. HR: 58. RR: 15. O2 saturation: 97%. Temp: 97.1 F.Pain level now: 8/10. Have been reviewed. Oxygen saturation normal.Appearance: Alert. Oriented X3. No acute distress.Eyes: Pupils equal, round and reactive to light. Eyes normal inspection.ENT: Nose normal. Pharynx normal.Neck: Normal inspection. Neck supple.CVS: Normal heart rate and rhythm. Heart sounds normal. Pulses normal.Respiratory: No respiratory distress. Painless inspiration. Breath sounds normal.Abdomen: Soft. Mild tenderness in the epigastric area. No guarding or rebound tenderness. Bowelsounds normal. No organomegaly. No mass. Femoral pulses equal.Back: Normal inspection.Skin: Skin warm and dry. Normal skin color. No rash. Normal skin turgor.Extremities: Extremities exhibit normal ROM. No lower extremity edema.Neuro: Oriented X 3. No motor deficit. No sensory deficit.LABS, X-RAYS, AND EKGLaboratory Tests: Laboratory tests have been ordered, with results reviewed and considered in themedical decision making process. CBC w Diff: (RL: 09/18/2020 02:54) ( MsgRcvd 09/18/2020 03:23) Final results Test Result Flag Units (Reference) CBC W/AUTOMATED DIFF COMPLETE BLOOD COUNT WBC 6.0 10/uL (4.2 - 11.0) 3 Clinical Report - Physicians/Mid Levels [facility] Emergency Department [address] [place] [address] Phone #: ext- [phone] 09/18/2020 00:06 Patient: DIAMANTE REARDON Sex: F : 2000 Age: 20y RBC 4.54 10/uL (4.20 - 5.40) HEMOGLOBIN 12.9 g/dL (12.0 - 16.0) HEMATOCRIT 38.2 % (37.0 - 47.0) MCV 84.1 fL (81.0 - 101) MCH 28.4 pg (27.0 - 34.0) MCHC 33.8 g/dL (31.0 - 36.0) RDW 13.2 % (11.5 - 14.5) PLATELETS 225 10/uL (150 - 450) MPV 12.0 H fL (7.4 - 10.4) NEUT 63.0 % (37.0 - 80.0) LYMPH 27.8 % (25.0 - 40.0) MONO 6.8 % (3.0 - 8.0) EOS 1.0 % (0.0 - 7.0) BASO 1.2 % (0.0 - 2.5) %IG 0.2 H % (0.0 - 0.0) %NRBC 0.0 % (0.0 - 0.0) #NEUT 3.79 10/uL (2.00 - 6.90) #LYMPH 1.67 10/uL (0.60 - 3.40) #MONO 0.41 10/uL (0.00 - 0.90) #EOS 0.06 10/uL (0.00 - 0.70) #BASO 0.07 10/uL (0.00 - 0.20) #IG 0.01 10/uL (0.00 - 0.10) #NRBC 0.00 10/uL (0.00 - 0.00) MANUAL DIFF NOT INDICATED RBC MORPH NOT INDICATEDCMP: (RL: 09/18/2020 02:54) ( MsgRcvd 09/18/2020 03:42) Final results Test Result Flag Units (Reference) COMPREHENSIVE METABOLIC PANEL COMPREHENSIVE METABOLIC PANEL SODIUM 139 mEq/L (134 - 153) POTASSIUM 4.1 mEq/L (3.6 - 5.0) CHLORIDE 108 H mEq/L (98 - 107) CO2 21 L MEQ/L (22 - 30) GLUCOSE 94 MG/DL (70 - 99) BUN 23 H MG/DL (7 - 21) CREATININE 0.8 MG/DL (0.7 - 1.5) BUN/CREAT 29 H (8 - 27) TOTAL PROTEIN 6.7 G/DL (6.3 - 8.2) ALBUMIN 4.6 G/DL (3.9 - 5.0) GLOBULIN 2.1 L GM/DL (2.4 - 3.2) A/G RATIO 2.2 H (0.8 - 2.0) CALCIUM 9.5 MG/DL (8.4 - 10.2) TOTAL BILI <0.7 MG/DL (0.2 - 1.3) ALKALINE PHOS 88 U/L (38 - 126) SGOT/AST 16 U/L (5 - 40) SGPT/ALT 12 U/L (7 - 56) ANION GAP 10.0 mmol/L (8.0 - 16.0) AGE 20 yrs NON-AA GFR >60 mL/min AFR AMER GFR >60 mL/min Male GFR Interprentation 20-49 yrs >60 mL/min Bphgrz41-37 yrs >56 mL/min Normal 60-69 yrs >49 mL/min Normal 70-79yrs>42 mL/min Normal 80 and above >35 mL/min Normal Female GFRInterpretation 20-39 yrs >60 mL/min Normal 40-49 yrs >58 mL/minNormal 50-59 yrs >51 mL/min Normal 60-69 yrs >45 mL/min Ptqtmh30-37 yrs >39 mL/min Normal 80 and above >32 mL/min NormalLipase: (RL: 09/18/2020 02:54) ( MsgRcvd 09/18/2020 03:42) Final results 4 Clinical Report - Physicians/Mid Levels [facility] Emergency Department [address] [place] [address] Phone #: ext- [phone] 09/18/2020 00:06 Patient: DIAMANTE REARDON Sex: F : 2000 Age: 20y Test Result Flag Units (Reference) LIPASE 17 U/L (13 - 60) Urinalysis: (RL: 09/18/2020 02:54) ( MsgRcvd 09/18/2020 03:37) Final results Test Result Flag Units (Reference) URINALYSIS URINALYSIS SOURCE R COLOR yellow (NORMAL: Yello CLARITY hazy (NORMAL: Clear SPEC GRAVITY 1.010 (1.001 - 1.030 pH 5 (5 - 9) GLUCOSE NORM (NORMAL: Negat BILIRUBIN NEG (NORMAL: Negat KETONE 15 A (NORMAL: Negat PROTEIN NEG (NORMAL: Negat NITRITE NEG (NORMAL: Negat BLOOD NEG (NORMAL: Negat LEUK EST 25 (NORMAL: Negat UROBILINOGEN NOR (less than 1.0 MICROSCOPIC See Below WBC 3 - 5 (NORMAL: NONE RBC 1 - 3 (NORMAL: NONE EPITHELIAL MODERATE A (NORMAL: NONE BACTERIA Trace (NORMAL: NONE MUCOUS Trace (NORMAL: NONE Beta-HCG, Qual Serum: (RL: 09/18/2020 02:54) ( [facility] 09/18[facility] 03[facility]31) Final results Test Result Flag Units (Reference) HCG SERUM QUAL NEGATIVE (NORMAL: NEGAT HCG SERUM QL REENTER NEGATIVE (NORMAL: NEGAT { KIT LOT # [id number] ){ KIT EXP DATE 02.08.22 ){ PROCEDURAL CONTROL VALID ) Lactic Acid: (RL: 09/18/2020 02:54) ( [facility] 09/18/2020 03:26) Final results Test Result Flag Units (Reference) LACTIC ACID 1.1 MMOL/L (0.2 - 2.2).PROGRESS AND PROCEDURESCourse of Care: 04:03 09/18/20. workup all in and reviewed and basically nml; pt feeling markedly better,no pain, no N/V; will d/c w instructions, pt understands and agrees. Patient counseled in person regarding the patient's stable condition, test results, diagnosis and need for follow-up. Patient agrees with plan of care. Disposition: Condition: good and stable. Discharge decision based on the following: patient's condition is stable; patient's condition is improved; patient is ambulatory; patient is active; patient drinking fluids; patient eating; patient's pain is controlled; 5 Clinical Report - Physicians/Mid Levels [facility] Emergency Department [address] [place] [address] Phone #: ext- [phone] 09/18/2020 00:06 Patient: DIAMANTE REARDON [facility]#: [id number] Sex: F : 2000 Age: 20y patient's exam is improved; no abnormal test results; improving condition on multiple repeat evaluations; social support is good; transportation is available; follow-up is available; clinical impression is consistent with outpatient treatment.CLINICAL IMPRESSION Gastroesophageal reflux disease. No esophagitis. Chronic gastritis. No alcoholic gastritis or hemorrhagic gastritis. Chronic irritable bowel syndrome with abdominal pain. No diarrhea.INSTRUCTIONS Drink plenty of fluids. Avoid alcohol and NSAIDS. NSAIDS include aspirin, ibuprofen (Advil) and naproxen (Aleve). Avoid fatty, fried/greasy, lactose- containing (such as milk, cheese and ice cream), salty and spicy foods. No alcoh ol. Do not smoke. Warnings: Further evaluation is necessary in order to conduct further tests (GI MD). It is very important to follow up with a healthcare provider. GENERAL WARNINGS: Return or contact your physician immediately if your condition worsens or changes unexpectedly, if not improving as expected, or if other problems arise. SPECIFICALLY, return if you develop pain in the abdomen, pelvis, back or shoulder, fever, vomiting, the inability to keep fluids down, blood in vomitus, blood in diarrhea, fainting or lightheadedness. Your Current Medications: Your current home medications have been reviewed. CONTINUE TAKING THE FOLLOWING MEDICATIONS: Antidepressant*. Bentyl Oral : Last: 10 pm, 1/2 hr ago. Dicyclomine HCl Oral. Famotidine Oral. Iron Oral. MiraLax Oral : 1 packet daily. Senna Oral. Follow-up: Return to the emergency department as needed. Follow up with your healthcare provider in two days even if well. Call for an appointment. Reason for referral: evaluation and treatment. Summary of care provided to patient via paper. Follow up with a skid wrapper in three days even if well. Call for an appointment. Reason for referral: evaluation and treatment. Summary of care provided to patient via paper. Understanding of the discharge instructions verbalized by patient. Expected course of illness, discharge instructions, activity level, diet, follow-up appointment and risks and benefits of treatment reviewed with patient and understanding verbalized. Agrees to plan of care. 6 Clinical Report - Physicians/Mid Levels [facility] Emergency Department [address] [place] [address] Phone #: ext- [phone] 09/18/2020 00:06 Patient: DIAMANTE REARDON Sex: F : 2000 Age: 20y(Electronically signed by Sha Rocha M.D. 09/18/2020 04:32) Name Value Range Interpretation Code Description Data Jailene rce(s) Supporting Document(s) ID Date Data Source [id number] 09/18/2020 12:10:00 AM EDT [facility] Addenda for DIAMANTE REARDON VisitID: [id number] Date: 9:2308/01/2012 920 urine culture 2,000 gram negative rods no antibiotic(Electronically signed by Wojciech Brito RN - 09/20/2020 9:23) Name Value Range Interpretation Code Description Data Jailene rce(s) Supporting Document(s) ID Date Data Source [id number] 09/18/2020 02:54:00 AM EDT [facility] ([facility]) Name Value Range Interpretation Code Description Data Jailene rce(s) Supporting Document(s) Lactate [Mass/volume] in Serum or Plasma 1.1 mmol/L 0.2-2.2 [facility] ([facility]) ID Date Data Source [id number] 09/18/2020 02:54:00 AM EDT [facility] ([facility]) Name Value Range Interpretation Code Description Data Jailene rce(s) Supporting Document(s) HCG Serum QL [place] Laboratory test result [facility] ([facility]) { KIT LOT # [id number] ) { KIT EXP DATE 02.08.22 ) { PROCEDURAL CONTROL VALID ) HCG Serum Qual Laboratory test result [facility] ([facility]) ID Date Data Source [id number] 09/18/2020 02:54:00 AM EDT [facility] ([facility]) Name Value Range Interpretation Code Description Data Jailene rce(s) Supporting Document(s) Color Laboratory test result [facility] ([facility]) Urinalysis Laboratory test result [facility] ([facility]) URINALYSIS Source Laboratory test result [facility] ([facility]) Spec [place] 1.010 1.001-1.030 [facility] ([facility]) Clarity Laboratory test result [facility] ([facility]) pH 5 5-9 [facility] ([facility]) Glucose Laboratory test result [facility] ([facility]) Ketone 15 Abnormal (applies to non-numeric res ults) [facility] ([facility]) Bilirubin Laboratory test result [facility] ([facility]) Nitrite Laboratory test result [facility] ([facility]) Protein Laboratory test result [facility] ([facility]) Blood Laboratory test result [facility] ([facility]) Urobilinogen Laboratory test result [facility] ([facility]) Leuk Est 25 [facility] ([facility]) WBC Laboratory test result [facility] ([facility]) Microscopic Laboratory test result [facility] ([facility]) RBC Laboratory test result [facility]) Bacteria Laboratory test result [facility] ([facility]) Mucous Laboratory test result [facility] ([facility]) Epithelial Laboratory test result Abnormal (applies to non -numeric results) [facility] ([facility]) ID Date Data Source [id number] 09/18/2020 02:54:00 AM EDT [facility] ([facility]) Name Value Range Interpretation Code Description Data Jailene rce(s) Supporting Document(s) Potassium 4.1 meq/L 3.6-5.0 [facility] ([facility]) Sodium 139 meq/L 134-153 [facility] ([facility]) Comprehensive [employer]abo Laboratory test result [facility] ([facility]) COMPREHENSIVE METABOLIC PANEL Chloride 108 meq/L 98-107 Above high normal [facility] ([facility]) Glucose 94 mg/dL 70-99 [facility] ([facility]) BUN 23 mg/dL 7-21 Above high normal [facility] ([facility]) Co2 21 meq/L 22-30 Below low normal [facility] ([facility]) BUN/Creat 29 8-27 Above high normal [facility] ([facility]) Creatinine 0.8 mg/dL 0.7-1.5 [facility] ([facility]) Total Protein 6.7 g/dL 6.3-8.2 [facility] ([facility]) Albumin 4.6 g/dL 3.9-5.0 [facility] ([facility]) A/G Ratio 2.2 0.8-2.0 Above high normal [facility] ([facility]) Globulin 2.1 GM/DL 2.4-3.2 Below low normal [facility] ( [facility]) Total Bili Laboratory test result 0.2-1.3 [facility] ([facility]) Alkaline Phos 88 U/L 38-126 [facility] ([facility]) Calcium 9.5 mg/dL 8.4-10.2 [facility] ([facility]) SGPT/Alt 12 U/L 7-56 [facility] ([facility]) Sgot/Ast 16 U/L 5-40 [facility] ([facility]) Anion Gap 10.0 mmol/L 8.0-16.0 [facility] ([facility]) Non-Aa GFR Laboratory test result [facility] ([facility]) Afr Amer GFR Laboratory test result [facility] ([facility]) Male GFR Interprentation 20-49 yrs >60 mL/min Normal 50-59 yrs >56 mL/min Normal 60-69 yrs >49 mL/min Normal 70-79yrs >42 mL/min Normal 80 and above >35 mL/min Normal Female GFR Interpretation 20-39 yrs >60 mL/min Normal 40-49 yrs >58 mL/min Normal 50-59 yrs >51 mL/min Normal 60-69 yrs >45 mL/min Normal 70-79 yrs >39 mL/min Normal 80 and above >32 mL/min Normal Age 20 yrs [facility] ([facility]) ID Date Data Source [id number] 09/18/2020 02:54:00 AM EDT [facility] ([facility]) Name Value Range Interpretation Code Description Data Jailene rce(s) Supporting Document(s) Lipase [Enzymatic activity/volume] in Serum or Plasma 17 U/L 13-6 0 [facility] ([facility]) ID Date Data Source [id number] 09/18/2020 02:54:00 AM EDT [facility] ([facility]) Name Value Range Interpretation Code Description Data Jailene rce(s) Supporting Document(s) Culture Urine Laboratory test result [facility] ([facility]) <content>_CULTURE URINE_</content>
<content>^$647310</content>
<content>^^919185</content>
<content>$$746754</content>
<content>^^629532</content>
<content>$$ 237330</content>
<content>$$527355</content>
<content>$$769256</content>
<content>$$ 393763</content>
<content>$$065951</content>
<content>$$943059</content>
<content> $$616036</content>
<content>$$235078</content>
<content>$$560160</conten t>
<content>$$359179</content>
<content>$$760348</content>
<content> $$750227</content>
<content>$$561200</content>
<content>$$457611</content>
<content>$$16039 0</content>
<content>$$192668</content>
<content>$$850742</content>
<content>$$315055</content>
<content>$$907688</content>
<content>$$917262</content>
<content>$$ 057292</content>
<content>$$251005</content>
<content>$$929464</content>
<content> ^^877058</content>
<content>$$492521</content>
<content>$$160461</conten t>
<content>$$471517</content>
<content></content>
<content>-- Continued on next page --</content>
<content>Patient: CARON LEMUS R Order: [id number] Page 2</content>
<content>Culture: CULTURE URINE Status: Final</rosy nt>
<content> < /content>
<content></content>
<content></content>
<content>-- Continued on next page --</content>
<content>Patient: CARON LEMUS R Order: [id number] Page 2</content>
<content>Culture: CULTURE URINE Status: Prelim</content>
<content> < /content>
<content></content>
<content>$$933317</content>
<content>$ $932006</content>
<content></content>
<content>REPORTED DATE/TIME: 09/21/2020 15:06</content>
<content>Culture: CULTURE URINE Status: Final</content>
<content></content>
<content>Isolate 1 Escherichia coli Flag: A . . . . . . .1</content>
<content>2,000 Colonies/mL</content>
<content>Cefazolin <=4 ug/mL</content>
<content>Cefazolin with an STAN <=16 predicts susceptibility to the oral agents</content>
<content>cefaclor, cefdinir, cefpodoxime, cefprozil, cefuroxime, cephalexin,</content>
<content>and loracarbef when used for therapy of uncomplicated urinary tract</content>
<content>infections due to E. coli, Klebsiella pneumoniae, and Proteus</content>
<content>mirabilis.</content>
<content> Previous result entered on 09/20/2020 04:15 ET </content>
<content>Gram negative rods</content>
<content>Urine Culture,Comprehensive: P1</content>
<content>Escherichia coli Flag: A</content>
<content></content>
<content></content>
<content> Patient: CARON Harris Order: [id number] Page 3</content>
<content>Culture: CULTURE URINE Status: Final</content>
<content> < /content>
<content></content>
<content>ISOLATE 1 Escherichia coli</content>
<content></content>
<content>Isolate 1</content>
<content>Antibiotic STAN Int</content>
<content>Units ug/mL</content>
<content> < /content>
<content></content>
<content>Amoxicillin/Clavulanic Acid S S . . . . . .20-8</content>
<content>Ampicillin S S . . . . . .28-1</content>
<content>Cefepime S S . . . . . .6644-9</content>
<content>Ceftriaxone S S . . . . . .141-2</content>
<content>Cefuroxime S S . . . . . .145-3</content>
<content>Ciprofloxacin S S . . . . . .185-9</content>
<content>Ertapenem S S . . . . . .56270-5</content>
<content>Gentamicin S S . . . . . .267-5</content>
<content>Imipenem S S . . . . . .279-0</content>
<content>Levofloxacin S S . . . . . .14367-5</content>
<content>Meropenem S S . . . . . .6652-2</content>
<content>Nitrofurantoin S S . . . . . .363-2</content>
<content>Piperacillin/Tazobactam S S . . . . . .412-7</content>
<content>Tetracycline S S . . . . . .496-0</content>
<content>Tobramycin S S . . . . . .508-2</content>
<content>Trimethoprim/Sulfa S S . . . . . .516-5</content>
<content></content>
<content>P1 Test performed by: Yue PATEL #: [id number]</content>
<content>[address]</content>
<content>[id number]</content>
<content>[place] [id number]</content>
<content>Research Analyst : Yyeo Goins MD NPI #:</content>
<content>Carcass Splitter :</content>
<content>09/20/20.0634.XMT.SENT REF</content>
<content>09/21/20.2108.XMT.SENT REF</content>
<content></content>
<content></content> ID Date Data Source [id number] 09/18/2020 02:54:00 AM EDT [facility] ([facility]) Name Value Range Interpretation Code Description Data Jailene rce(s) Supporting Document(s) CBC W/Automated Diff Laboratory [facility] COMPLETE BLOOD COUNT WBC 6.0 10^3/uL 4.2-11.0 [facility] ([facility]) RBC 4.54 10^6/uL 4.20-5.40 [facility] ([facility]) Hematocrit 38.2 % 37.0-47.0 [facility] ([facility]) Hemoglobin 12.9 g/dL 12.0-16.0 [facility] ([facility]) MCH 28.4 pg 27.0-34.0 [facility] ([facility]) MCV 84.1 fL 81.0-101 [facility] ([facility]) Platelets 225 10^3/uL 150-450 [facility] ([facility]) RDW 13.2 % 11.5-14.5 [facility] ([facility]) MCHC 33.8 g/dL 31.0-36.0 [facility] ([facility]) Lymph 27.8 % 25.0-40.0 [facility] ([facility]) MPV 12.0 fL 7.4-10.4 Above high normal [facility] ([facility]) Neut 63.0 % 37.0-80.0 [facility] ([facility]) Eos 1.0 % 0.0-7.0 [facility] ([facility]) Baso 1.2 % 0.0-2.5 [facility] ([facility]) Randolph 6.8 % 3.0-8.0 [facility] ([facility]) %Ig 0.2 % 0.0-0.0 Above high normal [facility] ([facility]) #Neut 3.79 10^3/uL 2.00-6.90 [facility] ([facility]) %NRBC 0.0 % 0.0-0.0 [facility] ([facility]) #Eos 0.06 10^3/uL 0.00-0.70 [facility] ([facility]) #Lymph 1.67 10^3/uL 0.60-3.40 [facility] ([facility]) #Randolph 0.41 10^3/uL 0.00-0.90 [facility] ([facility]) #NRBC 0.00 10^3/uL 0.00-0.00 [facility] ([facility]) #Ig 0.01 10^3/uL 0.00-0.10 [facility] ([facility]) #Baso 0.07 10^3/uL 0.00-0.20 [facility] ([facility]) Manual Diff Laboratory test result [facility] ([facility]) RBC Morph Laboratory test result [facility] ([facility]) ID Date Data Source [id number] 09/21/2020 09:08:00 PM EDT [facility] Name Value Range Interpretation Code Description Data Jailene rce(s) Supporting Document(s) CULTURE URINE [facility] _CULTURE URINE_$$[id number]$$580888$$351793$$590840$$606155$$759137$$741356$$621423$$046254$$ 072812$$108100$$674808$$958959$$250830$$340336$$849814$$489235$$168940$$411536$$ 291109$$945928$$063310$$591097$$524741$$367756$$224787$$042225 -- Continued on next page --Patient: BUSKEY DIAMANTE R Order: [id number] Page 2Culture: CULTURE URINE Status: Final ==== -- Continued on next page --Patient: BUSKEY DIAMANTE R Order: [id number] Page 2Culture: CULTURE URINE Status: Prelim =====$$[id number]$$[id number] DATE/TIME: 09/21/2020 15:06Culture: CULTURE URINE Status: FinalIsolate 1 Escherichia coli Flag: A . . . . . . .12,000 Colonies/mLCefazolin <=4 ug/mLCefazolin with an STAN <=16 predicts susceptibility to the oral agentscefaclor, cefdinir, cefpodoxime, cefprozil, cefuroxime, cephalexin,and loracarbef when used for therapy of uncomplicated urinary tractinfections due to E. coli, Klebsiella pneumoniae, and Proteusmirabilis. Previous result entered on 09/20/2020 04:15 ET Gram negative rodsUrine Culture,Comprehensive: [id number] coli Flag: APatient: CARON Harris Order: [id number] Page 3Culture: CULTURE URINE Status: Final ISOLATE 1 Escherichia coli Isolate 1Antibiotic STAN IntUnits ug/mL Amoxicillin/Cla vulanic Acid S S . . . . . .20-8Ampicillin S S . . . . . .28-1Cefepime S S . . . . . .6644-9Ceftriaxone S S . . . . . .141- 2Cefuroxime S S . . . . . .145-3Ciprofloxacin S S . . . . . .185-9Ertapenem S S . . . . . .14934-9Ztktztwymp S S . . . . . .267-5Imipenem S S . . . . . .279-0Levofloxacin S S . . . . . .78251-2Kfdhrybuc S S . . . . . .6652- 2Nitrofurantoin S S . . . . . .363-2Piperacillin/Tazobactam S S . . . . . .412-7Tetracycline S S . . . . . .496-0Tobramycin S S . . . . . .508-2Trimethoprim/Sulfa S S . . . . . .516-5P1 Test performed by: [facility] #: [id number] [address] [place] [id number] [facility] [id number] Director : Yeyo Goins MD NPI #:Carcass Splitter : 09/20/20.0634.XMT.SENT REF 09/21/20.2108.XMT.SENT REF ID Date Data Source [id number] 09/18/2020 03:42:00 AM EDT [facility] Name Value Range Interpretation Code Description Data Jailene rce(s) Supporting Document(s) Lipase [Enzymatic activity/volume] in Serum or Plasma 17 U/L 13 - 60 [facility] ID Date Data Source [id number] 09/18/2020 03:42:00 AM EDT [facility] Name Value Range Interpretation Code Description Data Jailene rce(s) Supporting Document(s) COMPREHENSIVE METABOLIC PANEL [facility] COMPREHENSIVE METABOLIC PANEL Sodium [Moles/volume] in Serum or Plasma 139 mEq/L 134 - 153 [facility] Potassium [Moles/volume] in Serum or Plasma 4.1 mEq/L 3.6 - 5.0 [facility] Chloride [Moles/volume] in Serum or Plasma 108 mEq/L 98 - 107 H [facility] Carbon dioxide, total [Moles/volume] in Serum or Plasma 21 MEQ/L 22 - 30 L [facility] Glucose [Mass/volume] in Serum or Plasma 94 MG/DL 70 - 99 [facility] BUN 23 MG/DL 7 - 21 H [facility] Creatinine [Mass/volume] in Serum or Plasma 0.8 MG/DL 0.7 - 1.5 [facility] BUN/CREAT 29 8 - 27 H [facility] Protein [Mass/volume] in Serum or Plasma 6.7 G/DL 6.3 - 8.2 [facility] Albumin [Mass/volume] in Serum or Plasma 4.6 G/DL 3.9 - 5.0 [facility] Globulin [Mass/volume] in Serum by calculation 2.1 GM/DL 2.4 - 3.2 L [facility] A/G RATIO 2.2 0.8 - 2.0 H [facility] al Calcium [Mass/volume] in Serum or Plasma 9.5 MG/DL 8.4 - 10.2 [facility] Bilirubin.total [Mass/volume] in Serum or Plasma <0.7 MG/DL 0.2 - 1.3 [facility] Alkaline phosphatase [Enzymatic activity/volume] in Serum or Plasma 88 U/L 38 - 126 [facility] Aspartate aminotransferase [Enzymatic activity/volume] in Serum or Plasma 16 U/L 5 - 40 [facility] Alanine aminotransferase [Enzymatic activity/volume] in Seru m or Plasma 12 U/L 7 - 56 [facility] Anion gap 3 in Serum or Plasma 10.0 mmol/L 8.0 - 16.0 [facility] AGE 20 yrs [facility] al NON-AA GFR >60 mL/min [facility] ital AFR AMER GFR >60 mL/min [facility] Male GFR In terprentation 20-49 yrs >60 mL/min Normal 50-59 yrs >56 mL/min Normal 60-69 yrs >49 mL/min Normal 70-79yrs >42 mL/min Normal 80 and above >35 mL/min Normal Female GFR Interpretation 20-39 yrs >60 mL/min Normal 40-49 yrs >58 mL/min Normal 50-59 yrs >51 mL/min Normal 60-69 yrs >45 mL/min Normal 70-79 yrs >39 mL/min Normal 80 and above >32 mL/min Normal ID Date Data Source [id number] 09/18/2020 03:37:00 AM EDT [facility] Name Value Range Interpretation Code Description Data Jailene rce(s) Supporting Document(s) [facility] COL[facility] yellow NORMAL: Yellow [facility] CLARITY hazy NORMAL: Clear [facility] Specific gravity of Urine by Test strip 1.010 1.001 - 1.030 [facility] pH 5 5 - 9 [facility] Glucose [Mass/volume] in Urine by Test strip NORM NORMAL: Negat [facility] Bilirubin.total [Presence] in Urine by Test strip NEG NORMAL: Negative [facility] Ketones [Presence] in Urine by Test strip 15 NORMAL: Negative [facility] Protein [Mass/volume] in Urine by Test strip NEG NORMAL: Negat [facility] Nitrite [Presence] in Urine by Test strip NEG NORMAL: Negative [facility] BLOOD NEG NORMAL: Negative [facility] [place]UK EST 25 NORMAL: Negative [facility] Urobilinogen [Mass/volume] in Urine by Test strip NOR less jovita n 1.0 mg/dL [facility] MICROSCOPIC See Below [facility] ital WBC 3 - 5 NORMAL: NONE SEEN [facility] Erythrocytes [#/volume] in Urine by Test strip 1 - 3 NORMAL: NON E SEEN [facility] EPITHELIAL MODERATE NORMAL: NONE SEEN [facility] Bacteria [Presence] in Urine sediment by Light microscopy Tr juan r NORMAL: NONE SEEN [facility] Mucus [Presence] in Urine sediment by Light microscopy Trace NORMAL: NONE SEEN [facility] ID Date Data Source [id number] 09/18/2020 03:30:00 AM EDT [facility] Name Value Range Interpretation Code Description Data Jailene rce(s) Supporting Document(s) HCG SERUM QUAL NEGATIVE NORMAL: NEGATIVE [facility] HCG SERUM QL REENTER NEGATIVE NORMAL: NEGATIVE [facility] { KIT LOT # [id number] ){ KIT EXP DATE 02.08.22 ){ PROCEDURAL CONTROL VALID ) ID Date Data Source [id number] 09/18/2020 03:26:00 AM EDT [facility] Name Value Range Interpretation Code Description Data Jailene rce(s) Supporting Document(s) Lactate [Moles/volume] in Serum or Plasma 1.1 MMOL/L 0.2 - 2.2 [facility] ID Date Data Source [id number] 09/18/2020 03:23:00 AM EDT [facility] Name Value Range Interpretation Code Description Data Ajilene rce(s) Supporting Document(s) CBC W/AUTOMATED DIFF [facility] COMPLETE BLOOD COUNT Leukocytes [#/volume] in Blood by Automated count 6.0 10^3/uL 4.2 - 1 1.0 [facility] Erythrocytes [#/volume] in Blood by Automated count 4.54 10^6/uL 4. 20 - 5.40 [facility] Hemoglobin [Mass/volume] in Blood 12.9 g/dL 12.0 - 16.0 [facility] Hematocrit [Volume Fraction] of Blood by Automated count 38.2 % 3 7.0 - 47.0 [facility] Erythrocyte mean corpuscular volume [Entitic volume] by Auto mated count 84.1 fL 81.0 - 101 [facility] Erythrocyte mean corpuscular hemoglobin [Entitic mass] by Automated count 28.4 pg 27.0 - 34.0 [facility] Erythrocyte mean corpuscular hemoglobin concentration [Mass/volume] by Automated count 33.8 g/dL 31.0 - 36.0 [facility] Erythrocyte distribution width [Ratio] by Automated count 13.2 % 11.5 - 14.5 [facility] Platelets [#/volume] in Blood by Automated count 225 10^3/uL 150 - 45 0 [facility] Platelet mean volume [Entitic volume] in Blood by Automated count 12.0 fL 7.4 - 10.4 H [facility] Neutrophils/100 leukocytes in Blood by Automated count 63.0 % 37. 0 - 80.0 [facility] Lymphocytes/100 leukocytes in Blood by Manual count 27.8 % 25.0 - 40.0 [facility] Monocytes/100 leukocytes in Blood by Automated count 6.8 % 3.0 - 8.0 [facility] Eosinophils/100 leukocytes in Blood by Automated count 1.0 % 0.0 - 7.0 [facility] Basophils/100 leukocytes in Blood by Automated count 1.2 % 0.0 - 2.5 [facility] %IG 0.2 % 0.0 - 0.0 [facility] % 0.0 - 0.0 [facility] Neutrophils [#/volume] in Blood by Automated count 3.79 10^3/uL 2.00 - 6.90 [facility] Lymphocytes [#/volume] in Blood by Automated count 1.67 10^3/uL 0.60 - 3.40 [facility] Monocytes [#/volume] in Blood by Automated count 0.41 10^3/uL 0.00 - 0.90 [facility] Eosinophils [#/volume] in Blood by Automated count 0.06 10^3/uL 0.00 - 0.70 [facility] Basophils [#/volume] in Blood by Automated count 0.07 10^3/uL 0.00 - 0.20 [facility] #IG 0.01 10^3/uL 0.00 - 0.10 [facility] #NRBC 0.00 10^3/uL 0.00 - 0.00 [facility] MANUAL DIFF NOT INDICATED [facility] RBC MORPH NOT INDICATED [facility] ID Date Data Source [id number] 07/09/2020 10:41:00 PM EDT [facility] 1 OrderSheet [facility] Emergency Department [address] [place] [address] Phone #: ext- [phone] 07/09/2020 22:34 [id number] Sex[facility] 2000 Age: 19yWEIGHT:71.6 kg HEIGHT:64 inches BMI:27.1ALLERGIES: NoneCHIEF COMPLAINT: vomiting, nausea, abdominal painDIAGNOSIS: Gastroesophageal reflux disease, Irritable colon, GastritisLAB ORDERSOrder Description Priority Entered Acknowledged InitialedCBC w Diff STAT 22:51 07/09/2020 23:00 Aj Allen Riccardo Katelyn M.D.;CMP STAT 22:51 07/09/2020 23:00 Aj Allen Riccardo Katelyn M.D.;Lipase STAT 22:51 07/09/2020 23:00 Aj Allen Riccardo Katelyn M.D.;Urinalysis (Clean STAT 22:51 07/09/2020 Ack'd: 23:12 00:15 07/10/2020atc h) Sha Rocha Katelyn Beyer, Katelyn M.D.;Beta-HCG, Qual STAT 22:51 07/09/2020 23:00 Alejandro,Serum Sha Rocha M.D.;Lactic Acid STAT 22:51 07/09/2020 Initialed: 23:00 Rosa M Allen Riccardo Cancelled: Physician Order 00:17 M.D.; 07/10/2020 Sha Rocha M.D.DIAGNOSTIC STUDY ORDERSOrder Description Priority Entered Acknowledged InitialedMEDICATION/IV/DRIP/FLUID ORDERSOrder Description Priority Entered Acknowledged InitialedNS IV 1000 mL 22:52 07/09/2020 23:11 Alejandro,Bolus: : Bolus 1000 Sha RochanmL (X1) M.D.;Protonix IV Push 40 22:52 07/09/2020 23:11 Alejandro,mg (in 10 mL NS, Sha Rochanadminister over at M.D.;least 2 minutes, 2 OrderSheet [facility] Emergency Department [address] [place] [address] Phone #: ext- [phone] 07/09/2020 22:34 Patient: DIAMANTE REARDON Sex: F : 2000 Age: 19yNOW x1)Pepcid IVPB 20 22:52 07/09/2020 23:11 Alejandro,mg/50mL (NOW x1, Turkimberly Shado HartmannnInfuse over 30 M.D.;minutes.)Phenergan IV 25mg 22:52 07/09/2020 23:12 Alejandro,in 50mL NS, give Sha Rochawide open: 25 mg M.DDorys;(NOW x1, HIGHALERTMEDICATION)GENERAL ORDERSOrder Description Priority Entered Acknowledged InitialedNPO 22:51 07/09/2020 22:52 Aj Allen Riccardo Katelyn M.D.;Saline Lock 22:51 07/09/2020 23:00 Aj Allen Riccardo Katelyn M.D.;[Electronically signed by Rosa M Allen (00:24 07/10/2020)][Electronically signed by Sha Rocha M.D. (00:40 07/10/2020)][Electronically locked by Rosa M Allen (00:24 07/10/2020)] Name Value Range Interpretation Code Description Data Jailene rce(s) Supporting Document(s) ID Date Data Source [id number] 07/09/2020 10:41:00 PM EDT [facility] 1 Medication Reconciliation Report [facility] Emergency Department [address] [place] [address] Phone #: ext- [phone] 07/09/2020 22:34 Patient: DIAMANTE REARDON Sex: F : 2000 Age: 19yWeight: 71.6 kgHeight/Length: 64 in.BMI: 27.1ALLERGIES: NoneThe patient's Home Medications are listed below:CONTINUE TAKING THE FOLLOWING MEDICATIONS: Antidepressant Bentyl Oral, 1/2 hr ago Dicyclomine HCl Oral Famotidine Oral Iron Oral MiraLax Oral 1 packet, every other day, took tonight. It has about a week since taking it Pantoprazole Sodium Oral Senna OralThe source(s) of the original Home Medication information:Not obtained.The following Medications were given to the patient in the Emergency Department:IV NS IV Fluids bolus 1000 mL over 1 hour(s), administered: 23:11 1PROTONIX [IVP] IVP 40 mg, administered: 23:1Pepcid [IVPB] IVPB bolus 0, then 20 mg 100 mL/hr, administered: 23:11 1Phenergan [IVPB] IVPB bolus 0, then 25 mg 1000 mL/hr, administered: 23:12 07/09/2020 2 Medication Reconciliation Report [facility] Emergency Department [address] [place] [address] Phone #: ext- [phone] 07/09/2020 22:34 -- Patient: DIAMANTE REARDON Sex: F : 2000 Age: 19yThe following Medications were prescribed to the patient:None. Name Value Range Interpretation Code Description Data Jailene rce(s) Supporting Document(s) ID Date Data Source [id number] 07/09/2020 10:41:00 PM EDT [facility] 1 Medication Administration Record [facility] Emergency Department [address] [place] [address] Phone #: ext- [phone] 07/09/2020 22:34 Patient: DIAMANTE REARDON Sex: F : 2000 Age: 19yWeight: 71.6 kgHeight/Length: 64 inBMI: 27.1ALLERGIES: None Date/Time Medication Administered Medication OrderedStart IV NS NS IV 1000 mL Bolus: : Bolus [id number]:07/09/2020 Dose: IV Fluids mL (X1)Rosa M Allen, Bolus: 1000 mL over 1 hour(s)---- Dispensed: 1000 mL bagStop Site: #1 left AC00:24 1BRosa M crump,Given PROTONIX [IVP] (PANTOPRAZOLE Protonix IV Push 40 mg (in 10 mL23:11 07/09/2020 SODIUM) NS, administer over at least 2BRosa M crump, Dose: 40 mg IVP minutes, NOW x1) Site: #1 left ACStart PEPCID [IVPB] Pepcid IVPB 20 mg/50mL (NOW23:11 07/09/2020 Dose: 20 mg IVPB x1, Infuse over 30 minutes.)Rosa M Allen, Rate: 100 mL/hr over 30 minute(s)---- Dispensed: 50 mL bagStop Site: #1 left AC23:45 07/09/2020Rosa M crump,Start PHENERGAN [IVPB] Phenergan IV 25mg in 50mL NS,23:12 07/09/2020 Dose: 25 mg IVPB give wide open: 25 mg (NOW x1,Rosa M Allen, Rate: 1000 mL/hr over 5 minute(s) HIGH ALERT MEDICATION)---- Dispensed: 50 mL bagStop Site: #1 left AC23:17 07/09/2020Rosa M crump, Name Value Range Interpretation Code Description Data Jailene rce(s) Supporting Document(s) ID Date Data Source [id number] 07/09/2020 10:41:00 PM EDT [facility] 1 General Instructions [facility] Emergency Department [address] [place] [address] Phone #: ext- [phone] 07/09/2020 22:34 [id number] Sex: F : 2000 Age: 19yGastroesophageal reflux disease. No esophagitis.Chronic gastritis. No alcoholic gastritis or hemorrhagic gastritis.Chronic irritable bowel syndrome with abdominal pain and vomiting. No diarrhea.INSTRUCTIONSDrink plenty of fluids. Avoid alcohol and NSAIDS. NSAIDS include aspirin, ibuprofen (Advil) and naproxen(Aleve). Avoid fatty, fried/greasy, lactose-containing (such as milk, cheese and ice cream), salty and spicyfoods.Warnings: Further evaluation is necessary. It is very important to follow up with a healthcare provider.GENERAL WARNINGS: Return or contact your physician immediately if your condition worsens orchanges unexpectedly, if not improving as expected, or if other problems arise. SPECIFICALLY, return ifyou develop pain in the abdomen, pelvis, back or shoulder, fever, vomiting, the inability to keep fluidsdown, blood in vomitus, blood in diarrhea, fainting or lightheadedness.Your Current Medications: Your current home medications have been reviewed.CONTINUE TAKING THE FOLLOWING MEDICATIONS:Antidepressant*.Bentyl Oral : 1/2 hr ago.Dicyclomine HCl Oral.Famotidine Oral.Iron Oral.MiraLax Oral : 1 packet, every other day, took tonight. It has about a week since taking it.Pantoprazole Sodium Oral.Senna Oral.Follow-up:Return to the emergency department as needed. Follow up with your healthcare provider in two dayseven if well. Call for an appointment. Reason for referral: evaluation and treatment. Summary of careprovided to patient via paper. Follow up with a skid wrapper in two days even if well. Call for anappointment. Reason for referral: evaluation and treatment. Summary of care provided to patient via paper.Understanding of the discharge instructions verbalized by patient. Expected course of illness, dischargeinstructions, activity level, diet, follow- up appointment and risks and benefits of treatment reviewed withpatient and understanding verbalized. Agrees to plan of care. 2 General Instructions [facility] Emergency Department [address] [place] [address] Phone #: ext- [phone] 07/09/2020 22:34 Patient: DIAMANTE REARDON Sex: F : 2000 Age: 19y ADDITIONAL INFORMATIONGastritis (Adult)Gastritis is inflammation and irritation of the stomach lining. You can have it for a short time (acute) chau long lasting (chronic). Infection with bacteria called H pylori most often causes gastritis. More thana third of people in the have these bacteria in their bodies. In many cases, H pylori causes noproblems or symptoms. In some people, though, the infection irritates the stomach lining and causesgastritis. H. pylori may be diagnosed through blood, stool, or breath tests, we well as through biopsyduring an endoscopy. Other causes of stomach irritation include drinking alcohol, smoking or chewingtobacco, or taking pain-relieving medicines called NSAIDs (such as aspirin or ibuprofen). Certaindrugs (such as cocaine) and immune conditions can also cause gastritis.Symptoms of gastritis can include: Belly pain or bloating Feeling full quickly Loss of appetite Nausea or vomiting Vomiting blood or having black stools Feeling more tired than usual 3 General Instructions [facility] Emergency Department [address] [place] [address] Phone #: [phone] ooe- [phone] 07/09/2020 22:34 - Patient: DIAMANTE REARDON Sex: F : 2000 Age: 19yAn inflamed and irritated stomach lining is more likely to develop a sore called an ulcer. To helpprevent this, gastritis should be treated.Home careIf needed, our healthcare provider may prescribe medicines. If you have H pylori infection, treating itwill likely relieve your symptoms. Other changes can help reduce stomach irritation and help it heal. If you have been prescribed medicines for H pylori infection, take them as directed. Take all of the medicine until it is finished or your healthcare provider tells you to stop, even if you feel better. Your healthcare provider may advise you not to take NSAIDs. If you take daily aspirin for your heart or other medical reasons, do not stop without talking to your healthcare provider first. Don't drink alcohol. Stop smoking. Smoking can irritate the stomach and delay healing. As much as possible, stay away from second hand smoke.Follow-up careFollow up with your healthcare provider, or as advised by our staff. You may need testing to check forinflammation or an ulcer.When to seek medical adviceCall your healthcare provider for any of the following: Stomach pain that gets worse or moves to the lower right belly (appendix area) Chest pain that appears or gets worse, or spreads to the back, neck, shoulder, or arm Frequent vomiting (can't keep down liquids) Blood in the stool or vomit (red or black in color) Feeling weak or dizzy Shortness of breath Unexplained weight loss Fever of 100.4F (38C) or higher, or as directed by your healthcare provider [phone] [employer]. [address] [place] [address]. All rights reserved. This information is not intended as asubstitute for professional medical care. Always follow your healthcare professional's instructions. 4 General Instructions [facility] Emergency Department [address] [place] [address] Phone #: ext- [phone] 07/09/2020 22:34 [id number] Sex: F : 2000 Age: 19yIrritable Bowel SyndromeIrritable bowel syndrome (IBS) is a disorder of the intestines. It is not a disease, but a group ofsymptoms caused by changes in the way the intestines work including how they move, secrete,absorb, and transit pain sensations. It is fairly common, but the cause is not well understood. Thereare other conditions that cause IBS symptoms, so make sure to speak with your provider to makesure that further evaluation isn't needed.Symptoms of IBS include: Belly pain, discomfort, and cramping Diarrhea Constipation or dry, hard stools Mucous stool Bloating Feeling of incomplete bowel movementsIt usually results in one of 3 patterns of symptoms: Chronic belly pain and constipation Recurring episodes of diarrhea, with belly pain or discomfort Alternating diarrhea and constipationHome careThe goal of treatment is to control and relieve your symptoms, so you can lead a full and active life.There is no cure for IBS. But it can be managed.DietYour diet did not cause your IBS, but it can affect it. Diet and food choices may cause IBS symptoms 5 General Instructions [facility] Emergency Department [address] [place] [address] Phone #: ext- [phone] 07/09/2020 22:34 Patient: DIAMANTE REARDON Sex: F : 2000 Age: 19yin some people, but not everyone. No one diet works for everyone. Finding the best foods for youmay take trial and error. Keep a food log to help find what foods made your symptoms worse. Beloware some tips that may help you. Eat more slowly. Eat smaller amounts at a time, but more often. Remember, you can always eat more, but cannot eat less once you've eaten too much. In general, fiber is very helpful for both constipation and diarrhea. However, insoluble fiber can worsen bloating, cramping, and gas. Insoluble fiber can be found in wheat bran, certain vegetables, and whole-grains. Soluble fiber is in such foods as oat bran, barley, nuts, seeds, luna, lentils, peas, and some fruits and vegetables. Increase fiber slowly and choose a product that includes soluble fiber. It helps to keep a food diary and write down the symptoms you have with certain foods. Try lactose-free dairy products. many people are intolerant to lactose. Try cutting out foods that are high in fat and fatty meats. You can control bloating or passing excess gas. Be careful with "gassy" vegetables and fruits like beans, cabbage, broccoli, and cauliflower. Other foods called FODMAPs are a type of carbohydrate that can cause these symptoms and diarrhea. They are poorly digestible carbohydrates. Some FODMAP examples include honey, apples, pears, nectarines, zhong beans, and cabbage. Talk with your provider about how to choose low FODMAP foods if you are sensitive to them. Be careful with carbonated beverages and fruit juices. They can make your bloating and diarrhea worse. Caffeine, alcohol, and stimulants can make symptoms worse. These include coffee, tea, sodas, energy drinks, and chocolate. IBS diet guidelines can be confusing. Ask your provider for a referral to a registered dietitian. This professional can help you make sense of IBS diet suggestions.Lifestyle Look for factors that seem to worsen your symptoms. These include stress and emotions. Although stress does not cause IBS, it may trigger flare-ups. Counseling can help you learn to handle stress. So can self-help measures like exercise, yoga, and meditation. Depression can occur along with IBS. Your healthcare provider may prescribe antidepressant medicine. This may help with diarrhea, constipation, and cramping, as well as with symptoms of depression. Smoking doesn't cause IBS, but can make the symptoms worse. 6 General Instructions [facility] Emergency Department [address] [place] [address] Phone #: ext- [phone] 07/09/2020 22:34 Patient: DIAMANTE REARDON Sex: F : 2000 Age: 19yMedicinesYour healthcare provider may prescribe medicines. Take them as directed. For acute flare-ups ofyour illness, your provider may give you prescription medicines. Check with your healthcare provider before taking any medicines for diarrhea. Don't take anti- inflammatory medicines like ibuprofen or naproxen. Long-term medicines can be helpful for chronic symptoms If you have lost enough weight to make you need nutritional supplements, talk to your provider. This may point to an other more serious condition.Follow-up careFollow up with your healthcare provider, or as advised.When to seek medical adviceCall your healthcare provider right away if any of these occur: Belly pain gets worse or does not improve after a bowel movement Constant belly pain moves to the right- lower belly You can't keep liquids down because of vomiting You have severe, persistent diarrhea You have blood (red or black color) or mucus in your stool You have lost significant weight You feel very weak or dizzy, faint, or have extreme thirst You have a fever of 100.4F (38.0C) or higher, or as directed by your healthcare provider [employer]. [address] [place] [address]. All rights reserved. This information is not intended as asubstitute for professional medical care. Always follow your healthcare professional's instructions.GERD (Adult) 7 General Instructions [facility] Emergency Department [address] [place] [address] Phone #: ext- [phone] 07/09/2020 22:34 [id number] Sex: F : 2000 Age: 19y The esophagus is a tube that carries food from the mouthto the stomach. A valve (the LES, lower esophageal sphincter) at the lower end of the esophagusprevents stomach acid from flowing upward. When this valve doesn't work properly, stomach contentsmay repeatedly flow back up (reflux) into the esophagus. This is called gastroesophageal refluxdisease (GERD). GERD can irritate the esophagus. It can cause problems with pain, swallowing orbreathing. In severe cases, GERD can cause recurrent pneumonia (from aspiration or breathing inparticles) or other serious problems.Symptoms of reflux include burning, pressure or sharp pain in the upper abdomen or mid to lowerchest. The pain can spread to the neck, back, or shoulder. There may be belching, an acid t aste inthe back of the throat, chronic cough, or sore throat, or hoarseness. GERD symptoms often occurduring the day after a big meal. They can also occur at night when lying down.Home careLifestyle changes can help reduce symptoms. If needed, your healthcare provider may prescribemedicines. Symptoms often improve with treatment, but if treatment is stopped, the symptoms oftenreturn after a few months. So most persons with GERD will need to continue treatment or gettreatment on and off.Lifestyle changes 8 General Instructions [facility] Emergency Department [address] [place] [address] Phone #: ext- [phone] 07/09/2020 22:34 Patient: DIAMANTE REARDON Sex: F : 2000 Age: 19y Limit or avoid fatty, fried, and spicy foods, as well as coffee, chocolate, mint, and foods with high acid content such as tomatoes and citrus fruit and juices (orange, grapefruit, lemon). Don't eat large meals, especially at night. Frequent, smaller meals are best. Don't lie down right after eating. And don't eat anything 3 hours before going to bed. Don't drink alcohol or smoke. As much as possible, stay away from second hand smoke. If you are overweight, losing weight will reduce symptoms. Don't wear tight clothing around your stomach area. If your symptoms occur during sleep, use a foam wedge to elevate your upper body (not just your head.) Or, place 4" blocks under the head of your bed. Or use 2 bed risers under your bedframe.MedicinesIf needed, medicines can help relieve the symptoms of GERD and prevent damage to the esophagus.Discuss a medicine plan with your healthcare provider. This may include one or more of the followingmedicines: Antacids to help neutralize the normal acids in your stomach. Acid blockers (Histamine or H2 blockers) to decrease acid production. Acid inhibitors (proton pump inhibitors PPIs) to decrease acid production in a different way than the blockers. They may work better, but can take a little longer to take effect.Take an antacid 30 to 60 minutes after eating and at bedtime, but not at the same time as an acidblocker.Try not to take medicines such as ibuprofen and aspirin. If you are taking aspirin for your heart orother medical reasons, talk to your healthcare provider about stopping it.Follow-up careFollow up with your healthcare provider or as advised by our staff.When to seek medical adviceCall your healthcare provider if any of the following occur: Stomach pain gets worse or moves to the lower right abdomen (appendix area) Chest pain appears or gets worse, or spreads to the back, neck, shoulder, or arm An [id number] trial of medicine doesn't relieve your symptoms 9 General Instructions [facility] Emergency Department [address] [place] [address] Phone #: [phone]- [phone] 07/09/2020 22:34 Patient: DIAMANTE REARDON Sex: F : 2000 Age: 19y Weight loss that can't be explained Trouble or pain swallowing Frequent vomiting (can't keep down liquids) Blood in the stool or vomit (red or black in color) Feeling weak or dizzy Fever of 100.4F (38C) or higher, or as directed by your healthcare provider [phone] [employer]. [address] [place] [address]. All rights reserved. This information is not intended as asubstitute for professional medical care. Always follow your healthcare professional's instructions. You have been given the following additional information: Gastritis (Adult) Irritable Bowel Syndrome GERD (Adult)(Electronically signed by Sha Rocha M.D. 07/10/2020 00:40) Name Value Range Interpretation Code Description Data Jailene rce(s) Supporting Document(s) ID Date Data Source [id number] 07/09/2020 10:41:00 PM EDT [facility] 1 Clinical Report - Nurses [facility] Emergency Department [address] [place] [address] Phone #: ext- [phone] 07/09/2020 22:34 Patient: DIAMANTE REARDON Sex: F : 2000 Age: 19yTRIAGEArrived by private vehicle. Historian: patient. Accompanied by family.Acuity: LEVEL 3.Chief Complaint: ABDOMINAL PAIN and NAUSEA.Alert. No acute distress.This started just prior to arrival. 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 SEPSIS SCREEN NEGATIVE. No suspected or confirmedsigns of infection present. --22:38 07/09/20 Kristen Allen2:35 07/09/20. BP: 154/83. HR: 100. RR: 19. O2 saturation: 99%. Temp: 97.7 F. Pain level now 8/10.--22:38 07/09/20 Rosa M Allen( Patient states she has had several panic attacks lately and believes they have made her stomach moresensitive.). --22:39 07/09/20 Rosa M Allen.Weight: 71.6 kg. Height/Length: 64 inches. BMI: 27.1. --22:34 07/09/20 Rosa M Allen.MedicationsAntidepressant. Bentyl Oral (1/2 hr ago). Famotidine Oral. Iron Oral. MiraLax Oral 1 packet (every other day, took tonight. It has about a week since taking it). --22:41 07/09/20Rosa M Allen Senna Oral. --22:41 07/09/20 Rosa M Allen Pantoprazole Sodium Oral. --22:42 07/09/20 Rosa M Allen Dicyclomine HCl Oral. --22:42 07/09/20 Rosa M Allen.AllergiesNone. --22:41 07/09/20 Rosa M Allen.PROBLEMS:Dental Pain.Contusion. 2 Clinical Report - Nurses [facility] Emergency Department [address] [place] [address] Phone #: ext- [phone] 07/09/2020 22:34 Patient: DIAMANTE REARDON [facility]#: [id number] Sex: F : 2000 Age: 19yDepression.Chronic gastritis.Constipation.Environmental Allergies.Gastritis.Gastroesophageal Reflux Disease.Anxiety Reaction.Bronchitis.Abdominal Pain.Abscess.Acid reflux.Pelvic Pain.Peptic Ulcer Disease.Pharyngitis.OB History.Other Disease..Otitis Externa.Tinea Corporis.URI.UTI - Urinary Tract Infection.Sick Contact.Sinusitis.Strep Throat.Ingrown Toenail.IBS.Muscle Strain, Upper Extremity.Lactose Intolerance. --22:43 07/09/20 Stephanie Allen following entry was modified by Rosa M Allen, 22:43 07/09/20Celiac Disease. --22:43 07/09/20 Stephanie Allen following entry was modified by Rosa M Allen, 22:43 07/09/20Irritable bowel syndrome (disorder). --22:42 07/09/20 Stephanie Allen following entry was modified by Rosa M Allen, 22:43 07/09/20MRSA Infection. --22:42 07/09/20 Rosa M Allen.ADDITIONAL SURGERIES:Colonoscopy.Endoscopy.Scopes upper and lower.Tooth extraction.Upper endoscopy. --22:43 07/09/20 Rosa M Allen.History 3 Clinical Report - Nurses [facility] Emergency Department [address] [place] [address] Phone #: ext- [phone] 07/09/2020 22:34 Patient: DIAMANTE REARDON [facility]#: [id number] Sex: F : 2000 Age: 19y PAST MEDICAL HX: Last normal menstrual period was 2 weeks ago. SOCIAL HX: Never smoker. No alcohol use or drug use. She was offered HIV testing but declined. Patient education was provided. She was offered hepatitis C testing but declined. Patient education was provided. She has not traveled outside the [place] Infectious disease exposure: No infectious disease exposure. The patient was not exposed to Coronavirus. Patient is a known carrier of MRSA. Patient is not a known carrier of tuberculosis, hepatitis, HIV, VRE or CRE. SELF HARM ASSESSMENT: Self harm assessment was performed. The patient answered "no" to the question(s) "Have you recently felt down, depressed, or hopeless?" and "Do you have thoughts of harming or killing yourself?". ABUSE ASSESSMENT: Abuse assessment. The patient had positive responses to the question(s) "Do you feel safe in your home?" and "Are you afraid to go home?". Abuse denied. No suspicion of abuse. No report of abuse. NUTRITIONAL RISK ASSESSMENT: The nutritional risk assessment revealed no deficiencies. FUNCTIONAL ASSESSMENT: Functional as sessment: no impairments noted. LEARNING NEEDS ASSESSMENT: The learning needs assessment revealed no barriers. FALL RISK ASSESSMENT: Fall risk assessment completed. No risk factors identified. SKIN INTEGRITY ASSESSMENT: Skin integrity risk assessment completed. No skin integrity risk identified. --22:38 07/09/20 Rosa M Allen. Interventions Identification band on patient. --22:38 07/09/20 Rosa M Allen.PHYSICAL ASSESSMENTAmbulatory to room.GENERAL / NEURO / PSYCH: Alert. Oriented X 4. Appears in no acute distress.HEENT: Mucous membranes are pink.RESPIRATORY: Respirations not labored. Breath sounds within normal limits.CVS: Normal sinus rhythm noted. Capillary refill less than 2 seconds.GI / : Abdomen soft. Abdominal tenderness in the upper abdomen. Bowel sounds within normallimits. Normal genitalia. Stool color normal. Stool heme negative. (POC test reference range: negative).SKIN: Skin is warm and dry. --22:38 07/09/20 Rosa M Allen.NURSING PROGRESS NOTESPatient gowned. Reassurance given. Two patient identifiers checked. Call light placed in reach. Siderails up x 2. Bed placed in lowest position. Brakes of bed on. Patient ready for evaluation. --22: Rosa M Allen 4 Clinical Report - Nurses [facility] Emergency Department [address] [place] [address] Phone #: ext- [phone] 07/09/2020 22:34 Patient: DIAMANTE REARDON Sex: F : 2000 Age: 19y23:10 07/09/2020 Site #1 started via IV in the left antecubital space with an 20g angiocath, with aseptictechnique and good blood return; one attempt. Blood drawn: rainbow set. Saline lock flushed with saline.--23:10 07/09/20 rKisten Allen3:11 07/09/2020 Started bag #1 1000 mL IV Fluids IV NS; bolus of 1000 mL over 1 hour(s) via site #1 viaIV pump. Allergies verified and confirmed 5 rights. IV patency established. IV site checked: no pain,redness, or swelling. IV flushed thoroughly pre- and post-medication administration. Information reviewedwith patient including reason for taking this medication, signs of allergic reaction and precautions.Verbalizes understanding. --23:11 07/09/20 Kristen Allen3:11 07/09/2020 PROTONIX (Pantoprazole Sodium) IVP 40 mg given over 3 minute(s) via site #1.Allergies verified and confirmed 5 rights. IV patency established. IV site checked: no pain, redness, orswelling. IV flushed thoroughly pre- and post-medication administration. IVP given by RN. Informationreviewed with patient including reason for taking this medication, signs of allergic reaction and precautions.Verbalizes understanding. --23:11 07/09/20 Kristen Allen3:11 07/09/2020 Started 20 mg of Pepcid IVPB in bag #1 50 mL; at 100 mL/hr over 30 minute(s) via site#1. via IV pump. Allergies verified and confirmed 5 rights. IV patency established. IV site checked: no pain,redness, or swelling. IV flushed thoroughly pre- and post-medication administration. Information reviewedwith patient including reason for taking this medication, signs of allergic reaction and precautions.Verbalizes understanding. --23:11 07/09/20 Kristen Allen3:12 07/09/2020 Started 25 mg of Phenergan IVPB in bag #1 50 mL; at 1000 mL/hr over 5 minute(s) viasite #1. via IV pump. Allergies verified and confirmed 5 rights. IV patency established. IV site checked: nopain, redness, or swelling. IV flushed thoroughly pre- and post-medication administration. Informationreviewed with patient including reason for taking this medication, signs of allergic reaction and precautions.Verbalizes understanding. --23:12 07/09/20 Mary Kate AllennReassurance given.Rounding: Pain: assessed pain level. Position: states comfortable. Personal care / toileting: denies toiletingneeds. Proximity of possessions / care items: call light within easy reach. Plug ins: assured IV pumpplugged in; checked status of equipment in use; located all cords, tubes, and lines to prevent fall hazard.--23:32 07/09/20 Kristen Allen3:17 07/09/2020 Phenergan IVPB via IV site #1 Discontinued: completed. Total amount infused: 50 mL.IV patency established. IV site checked: no pain, redness, or swelling. IV flushed thoroughly. --23: Rosa M Allen( Patient encouraged to provide urine. States she is unable to void.). --23:42 07/09/20 Kristen Allen3:45 07/09/2020 Pepcid IVPB via IV site #1 Discontinued: completed. Total amount infused: 50 mL. IVpatency established. IV site checked: no pain, redness, or swelling. IV flushed thoroughly. --00:07/10/20 5 Clinical Report - Nurses [facility] Emergency Department [address] [place] [address] Phone #: ext- [phone] 07/09/2020 22:34 [id number] Sex: [facility] 2000 Age: 19y Rosa M Allen 00:07/10/2020 IV Fluids IV NS via IV site #1 Discontinued: bag #1 completed. Total amount infused: 1000 mL. IV patency established. IV site checked: no pain, redness, or swelling. IV flushed thoroughly. --00:24 07/10/20 Rosa M Allen.DISPOSITION / DISCHARGE 00:23 07/10/2020 Site #1 removed upon discharge. Catheter intact. Bandaid applied. --00:07/10/20 Rosa M Allen C ondition at departure: improved. No learning barriers present. Discharge instructions provided and reviewed with the patient. Reviewed warnings. Treatments reviewed. Patient verbalized understanding. Written instructions provided in Surinamese. The patient was discharged by the physician. She was discharged home and accompanied by family. She left ambulatory and via private vehicle. Family member driving. --00:07/10/20 Rosa M Allen 00:23 07/10/20. BP: 126/72. HR: 68. RR: 15. O2 saturation: 99%. Temp: 97.9 F. Pain level now 2/10. --00:07/10/20 Rosa M Allen Departure time: 00:24 07/10/2020. --00:07/10/20 Rosa M Allen.Locked/Released at 07/10/2020 00:24 by Rosa M Allen Name Value Range Interpretation Code Description Data Jailene rce(s) Supporting Document(s) ID Date Data Source [id number] 07/09/2020 10:41:00 PM EDT [facility] 1 Clinical Report - Physicians/Mid Levels [facility] Emergency Department [address] [place] [address] Phone #: ext- [phone] 07/09/2020 22:34 Patient: DIAMANTE REARDON Sex: F : 2000 Age: 19y Time Seen: 22:45 07/09/2020; initial patient contact. Arrived- By private vehicle. Historian- patient. Disposition decision: 00:17 07/10/2020.HISTORY OF PRESENT ILLNESS Chief Complaint: VOMITING. ABDOMINAL PAIN and NAUSEA. No recent travel. She has had severe nausea, moderate vomiting. The vomiting has occurred several times and moderate, intermittent abdominal pain. The pain is described as located in the upper abdomen and epigastrium and a ssociated with nausea and vomiting. No diarrhea, black stools, bloody stools, constipation or flank pain. No known contact with a sick individual or change in routine. Has not recently been camping or on antibiotics. Possible bad food exposure at home (pizza w heavy sauce). This started just prior to arrival and is still present. The illness is described as severe. Similar symptoms previously. Patient has had similar symptoms many times, chronically. As bad from previously. ( pt has Hx of chronic recurrent gastritis IBS, and needs to test her food per her GI to see if she reacts to them). Recent medical care: Not recently seen/assessed.REVIEW OF SYSTEMSNo fever, muscle aches, difficulty with urination, dark urine or headache. No dizziness, sore throat, cough,chest pain or difficulty breathing. No excessive urination, skin rash, jaundice, back pain or faintingepisodes. No blurred vision. All other systems reviewed and are negative.PAST HISTORYSee nurses notes. Problems: Celiac Disease. Lactose In tolerance. Irritable bowel syndrome (disorder). Depression. Chronic gastritis. Constipation. Gastroesophageal Reflux Disease. Anxiety Reaction. Pelvic Pain. Additional Surgeries: Colonoscopy. Endoscopy. 2 Clinical Report - Physicians/Mid Levels [facility] Emergency Department [address] [place] [address] Phone #: ext- [phone] 07/09/2020 22:34 [id number] Sex[facility] F : 2000 Age: 19y Tooth extraction. Medications: Dicyclomine HCl Oral. Pantoprazole Sodium Oral. Senna Oral. Antidepressant. Bentyl Oral (1/2 hr ago). Famotidine Oral. Iron Oral. MiraLax Oral 1 packet (every other day, took tonight. It has about a week since taking it). Allergies: None.SOCIAL HISTORYNever smoker. No alcohol use or drug use.ADDITIONAL NOTESThe nursing notes have been reviewed with agreement regarding the chief complaint, HPI, ROS, PMH andpatient medications and allergies.PHYSICAL EXAMVital Signs: 07/09/2020 22:35 BP: 154/83. MAP: 106. HR: 100. RR: 19. O2 saturation: 99%. Temp: 97.7F. Have been reviewed. Oxygen saturation normal.Appearance: Alert. Oriented X3. Anxious. Appears to be in pain. Patient in moderate distress.Distress appears due to pain and anxiety.Eyes: Pupils equal, round and reactive to light. Eyes normal inspection.ENT: Nose normal. Pharynx normal. The mucous membranes are not dry.Neck: Normal inspection. Neck supple.CVS: Normal heart rate and rhythm. Heart sounds normal. Pulses normal.Respiratory: No respiratory distress. Painless inspiration. Breath sounds normal.Abdomen: Soft. Moderate tenderness in the upper abdomen and epigastric area. No guarding orrebound tenderness. Bowel sounds normal. No organomegaly. No mass. Femoral pulses equal.Back: Normal inspection. No CVA tenderness.Skin: Skin warm and dry. Normal skin color. No rash. Normal skin turgor.Extremities: Extremities exhibit normal ROM. No lower extremity edema.Neuro: Oriented X 3. No motor deficit. No sensory deficit.LABS, X-RAYS, AND EKGLaboratory Tests: Laboratory tests have been ordered, with results reviewed and considered in themedical decision making process. CBC w Diff: (RL: 07/09/2020 22:56) ( MsgRcvd 07/09/2020 23:06) Final results Test Result Flag Units (Reference) CBC W/AUTOMATED DIFF 3 Clinical Report - Physicians/Mid Levels [facility] Emergency Department [address] [place] [address] Phone #: ext- [phone] 07/09/2020 22:34 Patient: DIAMANTE REARDON Sex: F : 2000 Age: 19y COMPLETE BLOOD COUNT WBC 7.3 10/uL (4.2 - 11.0) RBC 4.63 10/uL (4.20 - 5.40) HEMOGLOBIN 13.4 g/dL (12.0 - 16.0) HEMATOCRIT 38.5 % (37.0 - 47.0) MCV 83.2 fL (81.0 - 101) MCH 28.9 pg (27.0 - 34.0) MCHC 34.8 g/dL (31.0 - 36.0) RDW 12.5 % (11.5 - 14.5) PLATELETS 216 10/uL (150 - 450) MPV 11.7 H fL (7.4 - 10.4) NEUT 61.2 % (37.0 - 80.0) LYMPH 30.2 % (25.0 - 40.0) MONO 6.3 % (3.0 - 8.0) EOS 1.4 % (0.0 - 7.0) BASO 0.8 % (0.0 - 2.5) %IG 0.1 H % (0.0 - 0.0) %NRBC 0.0 % (0.0 - 0.0) #NEUT 4.43 10/uL (2.00 - 6.90) #LYMPH 2.19 10/uL (0.60 - 3.40) #MONO 0.46 10/uL (0.00 - 0.90) #EOS 0.10 10/uL (0.00 - 0.70) #BASO 0.06 10/uL (0.00 - 0.20) #IG 0.01 10/uL (0.00 - 0.10) #NRBC 0.00 10/uL (0.00 - 0.00) MANUAL DIFF NOT INDICATED RBC MORPH NOT INDICATEDCMP: (RL: 07/09/2020 22:56) ( MsgRcvd 07/09/2020 23:33) Final results Test Result Flag Units (Reference) COMPREHENSIVE METABOLIC PANEL COMPREHENSIVE METABOLIC PANEL SODIUM 140 mEq/L (134 - 153) POTASSIUM 3.7 mEq/L (3.6 - 5.0) CHLORIDE 107 mEq/L (98 - 107) CO2 21 L MEQ/L (22 - 30) GLUCOSE 92 MG/DL (70 - 99) BUN 19 MG/DL (7 - 21) CREATININE 0.7 MG/DL (0.7 - 1.5) BUN/CREAT 27 (8 - 27) TOTAL PROTEIN 7.0 G/DL (6.3 - 8.2) ALBUMIN 4.7 G/DL (3.9 - 5.0) GLOBULIN 2.3 L GM/DL (2.4 - 3.2) A/G RATIO 2.0 (0.8 - 2.0) CALCIUM 10.0 MG/DL (8.4 - 10.2) TOTAL BILI <0.7 MG/DL (0.2 - 1.3) ALKALINE PHOS 94 U/L (38 - 126) SGOT/AST 17 U/L (5 - 40) SGPT/ALT 13 U/L (7 - 56) ANION GAP 12.0 mmol/L (8.0 - 16.0) AGE 19 yrs NON- AA GFR >60 mL/min AFR AMER GFR >60 mL/min Male GFR Interprentation 20-49 yrs >60 mL/min Dpivfj31-51 yrs >56 mL/min Normal 60- 69 yrs >49 mL/min Normal 70-79yrs>42 mL/min Normal 80 and above >35 mL/min Normal Female GFRInterpretation 20-39 yrs >60 mL/min Normal 40-49 yrs >58 mL/minNormal 50-59 yrs >51 mL/min Normal 60-69 yrs >45 mL/min Jsgjtu14-59 yrs >39 mL/min Normal 80 and above >32 mL/min Normal 4 Clinical Report - Physicians/Mid Levels [facility] Emergency Department [address] [place] [address] Phone #: ext- [phone] 07/09/2020 22:34 [id number] Sex: [facility] : 2000 Age: 19y Lipase: (RL: 07/09/2020 22:56) ( [facility] 07/09/[facility] 23:32) Final results Test Result Flag Units (Reference) LIPASE 16 U/L (13 - 60) Urinalysis: (RL: 07/10/2020 00:04) ( [facility] 07/10[facility] 00[facility]37[facility] Final results Test Result Flag Units (Reference) URINALYSIS URINALYSIS SOURCE Clean Catch COLOR yellow (NORMAL: [place] CLARITY clear (NORMAL: Clear SPEC GRAVITY 1.010 (1.001 - 1.030 pH 7 (5 - 9) GLUCOSE NORM (NORMAL: Negat BILIRUBIN NEG (NORMAL: Negat KETONE NEG (NORMAL: Negat PROTEIN NEG (NORMAL: Negat NITRITE NEG (NORMAL: Negat BLOOD NEG (NORMAL: Negat LEUK EST 25 (NORMAL: Negat UROBILINOGEN NOR (less than 1.0 MICROSCOPIC See Below WBC 1 - 3 (NORMAL: NONE RBC None Seen (NORMAL: NONE EPITHELIAL FEW (NORMAL: NONE BACTERIA 1+ SMALL (NORMAL: NONE MUCOUS Trace (NORMAL: NONE Beta-HCG, Qual Serum: (RL: 07/09/2020 22:56) ( MsgRcvd 07/09/2020 23:22) Final results Test Result Flag Units (Reference) HCG SERUM QUAL NEGATIVE (NORMAL: NEGAT HCG SERUM QL REENTER NEGATIVE (NORMAL: NEGAT { KIT LOT # [id number] ){ KIT EXP DATE 12.09.21 ){ PROCEDURAL CONTROL VALID ) Lactic Acid: (RL: 07/09/2020 22:56) ( MsgRcvd 07/10/2020 00:17) Canceled.PROGRESS AND PROCEDURESCourse of Care: 00:12 07/10/20. workup all in and reviewed and nml; pt is now asymptomatic, abdomensoft, no pain; pt needs to watch what she eats; d/c instructions given, pt understands and agrees; she willf/u w her GI MD in [place]. Patient counseled in person regarding the patient's stable condition, test results, diag nosis and need for follow-up. Patient agrees with plan of care. Disposition: Condition: good and stable. 5 Clinical Report - Physicians/Mid Levels [facility] Emergency Department [address] [place] [address] Phone #: ext- [phone] 07/09/2020 22:34 Patient: DIAMANTE REARDON [facility]#: [id number] Sex: F : 2000 Age: 19y Discharge decision based on the following: patient's condition is stable; patient's condition is improved; patient is ambulatory; patient is active; patient drinking fluids; patient eating; patient's pain is controlled; patient's exam is improved; no abnormal test results; improving condition on multiple repeat evaluations; social support is good; transportation is available; follow-up is available; clinical impression is consistent with outpatient treatment.CLINICAL IMPRESSION Gastroesophageal reflux disease. No esophagitis. Chronic gastritis. No alcoholic gastritis or hemorrhagic gastritis. Chronic irritable bowel syndrome with abdominal pain and vomiting. No diarrhea.INSTRUCTIONS Drink plenty of fluids. Avoid alcohol and NSAIDS. NSAIDS include aspirin, ibuprofen (Advil) and naproxen (Aleve). Avoid fatty, fried/greasy, lactose-containing (such as milk, cheese and ice cream), salty and spicy foods. Warnings: Further evaluation is necessary. It is very important to follow up with a healthcare provider. GENERAL WARNINGS: Return or contact your physician immediately if your condition worsens or changes unexpectedly, if not improving as expected, or if other problems arise. SPECIFICALLY, return if you develop pain in the abdomen, pelvis, back or shoulder, fever, vomiting, the inability to keep fluids down, blood in vomitus, blood in diarrhea, fainting or lightheadedness. Your Current Medications: Your current home medications have been reviewed. CONTINUE TAKING THE FOLLOWING MEDICATIONS: Antidepressant*. Bentyl Oral : 1/2 hr ago. Dicyclomine HCl Oral. Famotidine Oral. Iron Oral. MiraLax Oral : 1 packet, every other day, took tonight. It has about a week since taking it. Pantoprazole Sodium Oral. Senna Oral. Follow-up: Return to the emergency department as needed. Follow up with your healthcare provider in two days even if well. Call for an appointment. Reason for referral: evaluation and treatment. Summary of care provided to patient via paper. Follow up with a skid wrapper in two days even if well. Call for an appointment. Reason for referral: evaluation and treatment. Summary of care provided to patient via paper. Understanding of the discharge instructions verbalized by patient. Expected course of illness, discharge 6 Clinical Report - Physicians/Mid Levels [facility] Emergency Department [address] [place] [address] Phone #: ext- [phone] 07/09/2020 22:34 Patient: DIAMANTE REARDON [facility]#: [id number] Sex: F : 2000 Age: 19y instructions, activity level, diet, follow-up appointment and risks and benefits of treatment reviewed with patient and understanding verbalized. Agrees to plan of care.(Electronically signed by Sha Rocha M.D. 07/10/2020 00:40) Name Value Range Interpretation Code Description Data Jailene rce(s) Supporting Document(s) ID Date Data Source [id number] 07/10/2020 12:04:00 AM EDT [facility] ([facility]) Name Value Range Interpretation Code Description Data Jailene rce(s) Supporting Document(s) Urinalysis Laboratory test result [facility] ([facility]) URINALYSIS Source Laboratory test result [facility] ([facility]) Color Laboratory test result [facility] ([facility]) Clarity Laboratory test result [facility] ([facility]) Spec [place] 1.010 1.001-1.030 [facility] ([facility]) pH 7 5-9 [facility] ([facility]) Glucose Laboratory test result [facility] ([facility]) Ketone Laboratory test result [facility] ([facility]) Bilirubin Laboratory test result [facility] ([facility]) Protein Laboratory test result [facility] ([facility]) Nitrite Laboratory test result [facility] ([facility]) Leuk Est 25 [facility] ([facility]) Blood Laboratory test result [facility] ([facility]) Urobilinogen Laboratory test result [facility] ([facility]) Microscopic Laboratory test result M [facility] ([facility]) WBC Laboratory test result [facility] ([facility]) RBC Laboratory test result [facility] ([facility]) Epithelial Laboratory test result [facility] ([facility]) Bacteria Laboratory test result [facility] ([facility]) Mucous Laboratory test result [facility] ([facility]) ID Date Data Source [id number] 07/10/2020 12:33:00 AM EDT [facility] Name Value Range Interpretation Code Description Data Jailene rce(s) Supporting Document(s) URINALYSIS [facility] URINALYSIS SOURCE Clean Catch [facility] COLOR yellow NORMAL: Yellow [facility] CLARITY clear NORMAL: Clear [facility] Specific gravity of Urine by Test strip 1.010 1.001 - 1.030 [facility] pH 7 5 - 9 [facility] Glucose [Mass/volume] in Urine by Test strip NORM NORMAL: Negat [facility] Bilirubin.total [Presence] in Urine by Test strip NEG NORMAL: Negative [facility] Ketones [Presence] in Urine by Test strip NEG NORMAL: Negative [facility] Protein [Mass/volume] in Urine by Test strip NEG NORMAL: Negat [facility] Nitrite [Presence] in Urine by Test strip NEG NORMAL: Negative [facility] BLOOD NEG NORMAL: Negative [facility] Leukocyte esterase [Presence] in Urine by Test strip 25 GINGER L: Negative [facility] Urobilinogen [Mass/volume] in Urine by Test strip NOR less jovita n 1.0 mg/dL [facility] MICROSCOPIC See Below [facility] ital WBC 1 - 3 NORMAL: NONE SEEN [facility] Erythrocytes [#/volume] in Urine by Test strip None Seen NORMAL: NON E SEEN [facility] EPITHELIAL FEW NORMAL: NONE SEEN [place] Health Bacteria [Presence] in Urine sediment by Light microscopy 1+ SMALL NORMAL: NONE SEEN [facility] Mucus [Presence] in Urine sediment by Light microscopy Trace NORMAL: NONE SEEN [facility] ID Date Data Source [id number] 07/09/2020 10:56:00 PM EDT [facility] ([facility]) Name Value Range Interpretation Code Description Data Jailene rce(s) Supporting Document(s) Potassium 3.7 meq/L 3.6-5.0 [facility] ([facility]) Sodium 140 meq/L 134-153 [facility] ([facility]) Comprehensive Metabo Laboratory test result [facility] ([facility]) COMPREHENSIVE METABOLIC PANEL Co2 21 meq/L 22-30 Below low normal [facility] ([facility]) Chloride 107 meq/L 98-107 [facility] ([facility]) BUN 19 mg/dL 7-21 [facility] ([facility]) Creatinine 0.7 mg/dL 0.7-1.5 [facility] ([facility]) Glucose 92 mg/dL 70-99 [facility] ([facility]) Albumin 4.7 g/dL 3.9-5.0 [facility] ([facility]) Total Protein 7.0 g/dL 6.3-8.2 [facility] ([facility]) BUN/Creat 27 8-27 [facility] ([facility]) Calcium 10.0 mg/dL 8.4-10.2 [facility] ([facility]) A/G Ratio 2.0 0.8-2.0 [facility] ([facility]) Globulin 2.3 GM/DL 2.4-3.2 Below low normal [facility] ( [facility]) Total Bili Laboratory test result 0.2-1.3 ME [facility] ([facility]) Alkaline Phos 94 U/L 38-126 [facility] ([facility]) Sgot/Ast 17 U/L 5-40 [facility] ([facility]) Age 19 yrs [facility] ([facility]) SGPT/Alt 13 U/L 7-56 [facility] ([facility]) Anion Gap 12.0 mmol/L 8.0-16.0 [facility] ([facility]) Afr Amer GFR Laboratory test result [facility] ([facility]) Male GFR Interprentation 20-49 yrs >60 mL/min Normal 50-59 yrs >56 mL/min Normal 60-69 yrs >49 mL/min Normal 70-79yrs >42 mL/min Normal 80 and above >35 mL/min Normal Female GFR Interpretation 20-39 yrs >60 mL/min Normal 40-49 yrs >58 mL/min Normal 50-59 yrs >51 mL/min Normal 60-69 yrs >45 mL/min Normal 70-79 yrs >39 mL/min Normal 80 and above >32 mL/min Normal Non-Aa GFR Laboratory test result [facility] ([facility]) ID Date Data Source [id number] 07/09/2020 10:56:00 PM EDT [facility] ([facility]) Name Value Range Interpretation Code Description Data Jailene rce(s) Supporting Document(s) Lipase [Enzymatic activity/volume] in Serum or Plasma 16 U/L 13-6 0 [facility] ([facility]) ID Date Data Source [id number] 07/09/2020 10:56:00 PM EDT [facility] ([facility]) Name Value Range Interpretation Code Description Data Jailene rce(s) Supporting Document(s) HCG Serum Qual Laboratory test result [facility] ([facility]) HCG Serum QL Reenter Laboratory test result [facility] ([facility]) { KIT LOT # [id number] ) { KIT EXP DATE 12.09.21 ) { PROCEDURAL CONTROL VALID ) ID Date Data Source [id number] 07/09/2020 10:56:00 PM EDT [facility] ([facility]) Name Value Range Interpretation Code Description Data Jailene rce(s) Supporting Document(s) CBC W/Automated Diff Laboratory test result [facility] ([facility]) COMPLETE BLOOD COUNT WBC 7.3 10^3/uL 4.2-11.0 [facility] ([facility]) Hemoglobin 13.4 g/dL 12.0-16.0 [facility] ([facility]) RBC 4.63 10^6/uL 4.20-5.40 [facility] ([facility]) MCH 28.9 pg 27.0-34.0 [facility] ([facility]) MCV 83.2 fL 81.0-101 [facility] ([facility]) Hematocrit 38.5 % 37.0-47.0 [facility] ([facility]) MCHC 34.8 g/dL 31.0-36.0 [facility] ([facility]) RDW 12.5 % 11.5-14.5 [facility] ([facility]) Platelets 216 10^3/uL 150-450 [facility] ([facility]) Neut 61.2 % 37.0-80.0 [facility] ([facility]) MPV 11.7 fL 7.4-10.4 Above high normal [facility] ([facility]) Eos 1.4 % 0.0-7.0 [facility] ([facility]) Randolph 6.3 % 3.0-8.0 [facility] ([facility]) Lymph 30.2 % 25.0-40.0 [facility] ([facility]) Baso 0.8 % 0.0-2.5 [facility] ([facility]) %Ig 0.1 % 0.0-0.0 Above high normal [facility] ([facility]) #Neut 4.43 10^3/uL 2.00-6.90 [facility] ([facility]) #Lymph 2.19 10^3/uL 0.60-3.40 [facility] ([facility]) %NRBC 0.0 % 0.0-0.0 [facility] ([facility]) #Eos 0.10 10^3/uL 0.00-0.70 [facility] ([facility]) #Randolph 0.46 10^3/uL 0.00-0.90 [facility] ([facility]) #Baso 0.06 10^3/uL 0.00-0.20 [facility] ([facility]) Manual Diff Laboratory test result M [facility] ([facility]) #Ig 0.01 10^3/uL 0.00-0.10 [facility] ([facility]) #NRBC 0.00 10^3/uL 0.00-0.00 [facility] ([facility]) RBC Morph Laboratory test result [facility] ([facility]) ID Date Data Source [id number] 07/09/2020 11:33:00 PM EDT [facility] Name Value Range Interpretation Code Description Data Jailene rce(s) Supporting Document(s) COMPREHENSIVE METABOLIC PANEL [facility] COMPREHENSIVE METABOLIC PANEL Sodium [Moles/volume] in Serum or Plasma 140 mEq/L 134 - 153 [facility] Potassium [Moles/volume] in Serum or Plasma 3.7 mEq/L 3.6 - 5.0 [facility] Chloride [Moles/volume] in Serum or Plasma 107 mEq/L 98 - 107 [facility] Carbon dioxide, total [Moles/volume] in Serum or Plasma 21 MEQ/L 22 - 30 L [facility] Glucose [Mass/volume] in Serum or Plasma 92 MG/DL 70 - 99 [facility] BUN 19 MG/DL 7 - 21 [facility] Creatinine [Mass/volume] in Serum or Plasma 0.7 MG/DL 0.7 - 1.5 [facility] BUN/CREAT 27 8 - 27 [facility] Protein [Mass/volume] in Serum or Plasma 7.0 G/DL 6.3 - 8.2 [facility] Albumin [Mass/volume] in Serum or Plasma 4.7 G/DL 3.9 - 5.0 [facility] Globulin [Mass/volume] in Serum by calculation 2.3 GM/DL 2.4 - 3.2 L [facility] A/G RATIO 2.0 0.8 - 2.0 [facility] Calcium [Mass/volume] in Serum or Plasma 10.0 MG/DL 8.4 - 10.2 [facility] Bilirubin.total [Mass/volume] in Serum or Plasma <0.7 MG/DL 0.2 - 1.3 [facility] Alkaline phosphatase [Enzymatic activity/volume] in Serum or Plasma 94 U/L 38 - 126 [facility] Aspartate aminotransferase [Enzymatic activity/volume] in Serum or Plasma 17 U/L 5 - 40 [facility] Alanine aminotransferase [Enzymatic activity/volume] in Seru m or Plasma 13 U/L 7 - 56 [facility] Anion gap 3 in Serum or Plasma 12.0 mmol/L 8.0 - 16.0 [facility] AGE 19 yrs [facility] NON-AA GFR >60 mL/min [facility] ital AFR AMER GFR >60 mL/min [facility] spital Male GFR In terprentation 20-49 yrs >60 mL/min Normal 50-59 yrs >56 mL/min Normal 60-69 yrs >49 mL/min Normal 70-79yrs >42 mL/min Normal 80 and above >35 mL/min Normal Female GFR Interpretation 20-39 yrs >60 mL/min Normal 40-49 yrs >58 mL/min Normal 50-59 yrs >51 mL/min Normal 60-69 yrs >45 mL/min Normal 70-79 yrs >39 mL/min Normal 80 and above >32 mL/min Normal ID Date Data Source [id number] 07/09/2020 11:32:00 PM EDT [facility] Name Value Range Interpretation Code Description Data Jailene rce(s) Supporting Document(s) Lipase [Enzymatic activity/volume] in Serum or Plasma 16 U/L 13 - 60 [facility] ID Date Data Source [id number] 07/09/2020 11:22:00 PM EDT [facility] Name Value Range Interpretation Code Description Data Jailene rce(s) Supporting Document(s) HCG SERUM QUAL NEGATIVE NORMAL: NEGATIVE [facility] HCG SERUM QL REENTER NEGATIVE NORMAL: NEGATIVE [facility] { KIT LOT # [id number] ){ KIT EXP DATE 12.09.21 ){ PROCEDURAL CONTROL VALID ) ID Date Data Source [id number] 07/09/2020 11:06:00 PM EDT [facility] Name Value Range Interpretation Code Description Data Jailene rce(s) Supporting Document(s) CBC W/AUTOMATED DIFF [facility] COMPLETE BLOOD COUNT Leukocytes [#/volume] in Blood by Automated count 7.3 10^3/uL 4.2 - 1 1.0 [facility] Erythrocytes [#/volume] in Blood by Automated count 4.63 10^6/uL 4. 20 - 5.40 [facility] Hemoglobin [Mass/volume] in Blood 13.4 g/dL 12.0 - 16.0 [facility] Hematocrit [Volume Fraction] of Blood by Automated count 38.5 % 3 7.0 - 47.0 [facility] Erythrocyte mean corpuscular volume [Entitic volume] by Auto mated count 83.2 fL 81.0 - 101 [facility] Erythrocyte mean corpuscular hemoglobin [Entitic mass] by Automated count 28.9 pg 27.0 - 34.0 [facility] Erythrocyte mean corpuscular hemoglobin concentration [Mass/volume] by Automated count 34.8 g/dL 31.0 - 36.0 [facility] Erythrocyte distribution width [Ratio] by Automated count 12.5 % 11.5 - 14.5 [facility] Platelets [#/volume] in Blood by Automated count 216 10^3/uL 150 - 45 0 [facility] Platelet mean volume [Entitic volume] in Blood by Automated count 11.7 fL 7.4 - 10.4 H [facility] Neutrophils/100 leukocytes in Blood by Automated count 61.2 % 37. 0 - 80.0 [facility] Lymphocytes/100 leukocytes in Blood by Manual count 30.2 % 25.0 - 40.0 [facility] Monocytes/100 leukocytes in Blood by Automated count 6.3 % 3.0 - 8.0 [facility] Eosinophils/100 leukocytes in Blood by Automated count 1.4 % 0.0 - 7.0 [facility] Basophils/100 leukocytes in Blood by Automated count 0.8 % 0.0 - 2.5 [facility] %IG 0.1 % 0.0 - 0.0 [facility] %NRBC 0.0 % 0.0 - 0.0 [facility] al Neutrophils [#/volume] in Blood by Automated count 4.43 10^3/uL 2.00 - 6.90 [facility] Lymphocytes [#/volume] in Blood by Automated count 2.19 10^3/uL 0.60 - 3.40 [facility] Monocytes [#/volume] in Blood by Automated count 0.46 10^3/uL 0.00 - 0.90 [facility] Eosinophils [#/volume] in Blood by Automated count 0.10 10^3/uL 0.00 - 0.70 [facility] Basophils [#/volume] in Blood by Automated count 0.06 10^3/uL 0.00 - 0.20 [facility] #IG 0.01 10^3/uL 0.00 - 0.10 [facility] ospital #NRBC 0.00 10^3/uL 0.00 - 0.00 [facility] ospital MANUAL DIFF NOT INDICATED [facility] RBC MORPH NOT INDICATED [facility] spital ID Date Data Source [id number] 05/22/2020 03:26:00 PM EDT [facility] ([facility]) Name Value Range Interpretation Code Description Data Jailene rce(s) Supporting Document(s) Platelets [#/volume] in Blood by Estimate Laboratory test result Normal (applies to non-numeric results) [facility] ([facility]) Erythrocyte sedimentation rate by Westergren method 16 mm/hr 0-20 Normal (applies to non-numeric results) [facility] ([facility]) ID Date Data Source [id number] 05/22/2020 03:26:00 PM EDT [facility] ([facility]) Name Value Range Interpretation Code Description Data Jailene rce(s) Supporting Document(s) Bands 1 % Normal (applies to non-numeric resul ts) [facility] ([facility]) Neutrophils 47 % 28-66 Normal (applies to non-numeric resu lts) [facility] ([facility]) Lymphocytes 42 % 16-44 Normal (applies to non-numeric resu lts) [facility] ([facility]) Monocytes 2 % 0-5 Normal (applies to non-numeric resul ts) [facility] ([facility]) Basophils 1 % 0-1 Normal (applies to non-numeric resul ts) [facility] ([facility]) Atypical Lymph 7 % 0-5 Above high normal [facility] ([facility]) ID Date Data Source [id number] 05/22/2020 03:26:00 PM EDT [facility] ([facility]) Name Value Range Interpretation Code Description Data Jailene rce(s) Supporting Document(s) Red Blood Count 4.61 10 4.00-5.40 Normal (applies to non-numeric results) [facility] White Blood Count 5.4 10 4.0-10.0 Normal (applies to non-numeri c results) [facility]) Mean Corpuscular Volume 87.6 fl 80.0-96.0 Normal ( applies to non-numeric results) [facility] ([facility]) Hemoglobin 13.2 g/dL 12.0-15.5 Normal (applies to non-numeric resul ts) [facility]) Hematocrit 40.4 % 36.0-47.0 Normal (applies to non-numeric resul ts) [facility]) Mean Corpuscular Hemoglobin 28.6 pg 27.0-33.0 Norm al (applies to non-numeric results) [facility] ([facility]) Red Cell Distribution Width 11.9 % 11.5-14.5 Norm al (applies to non-numeric results) [facility] ([facility]) Mean Corpuscular HGB Conc 32.7 g/dL 32.0-36.5 Normal (applies to non-numeric results) [facility] ([facility]) Platelet Count, Automated 200 10 150-450 Normal (applies to non-numeric results) [facility] ([facility]) Nucleated Red Blood Cell % 0.0 % 0-0 Normal (applies to n on-numeric results) [facility] ([facility]) ID Date Data Source [id number] 05/22/2020 03:26:00 PM EDT [facility]) Name Value Range Interpretation Code Description Data Jailene rce(s) Supporting Document(s) Ferritin [Mass/volume] in Serum or Plasma 37 ng/mL 8-252 Normal (applies to non- numeric results) [facility] ([facility]) C reactive protein [Mass/volume] in Serum or Plasma by High sensitivity method Laboratory test result 0.00-0.30 Normal (applies to non-numeric results) [facility] ([facility]) ID Date Data Source [id number] 05/22/2020 03:26:00 PM EDT [facility] Name Value Range Interpretation Code Description Data Jailene rce(s) Supporting Document(s) Total Iron Binding Capacity 368 ug/dL 250-450 Norm al (applies to non-numeric results) [facility] ([facility]) Iron (Fe) 78 ug/dL 50-170 Normal (applies to non-numeric resul ts) [facility] ([facility]) Percent Saturation 21.2 % 13.2-45.0 Normal (applies to non-numer ic results) [facility] ([facility]) ID Date Data Source [id number] 05/22/2020 03:26:00 PM EDT [facility] Name Value Range Interpretation Code Description Data Jailene rce(s) Supporting Document(s) Platelets [#/volume] in Blood by Estimate Laboratory test result Normal (applies to non-numeric results) [facility] ([facility] angela ) ID Date Data Source [id number] 05/22/2020 03:26:00 PM EDT [facility] Name Value Range Interpretation Code Description Data Jailene rce(s) Supporting Document(s) Neutrophils 47 % 28-66 Normal (applies to non-numeric resu lts) [facility] ([facility]) Lymphocytes 42 % 16-44 Normal (applies to non-numeric resu lts) [facility] ([facility]) Bands 1 % Normal (applies to non-numeric resul ts) [facility] ([facility]) Basophils 1 % 0-1 Normal (applies to non-numeric resul ts) [facility] ([facility]) Monocytes 2 % 0-5 Normal (applies to non-numeric resul ts) [facility] ([facility]) Atypical Lymph 7 % 0-5 Above high normal [facility] ([facility]) ID Date Data Source [id number] 05/22/2020 03:26:00 PM EDT [facility] ([facility]) Name Value Range Interpretation Code Description Data Jailene rce(s) Supporting Document(s) Erythrocyte sedimentation rate by Westergren method 16 mm/hr 0-20 Normal (applies to non-numeric results) [facility]) C reactive protein [Mass/volume] in Serum or Plasma by High sensitivity method Laboratory test result 0.00-0.30 Normal (applies to non-numeric results) [facility] ([facility]) Ferritin [Mass/volume] in Serum or Plasma 37 ng/mL 8-252 Normal (applies to non- numeric results) [facility] ([facility]) ID Date Data Source [id number] 05/22/2020 03:26:00 PM EDT [facility] ([facility]) Name Value Range Interpretation Code Description Data Jailene rce(s) Supporting Document(s) Iron (Fe) 78 ug/dL 50-170 Normal (applies to non-numeric resul ts) [facility] ([facility]) Percent Saturation 21.2 % 13.2-45.0 Normal (applies to non-numer ic results) [facility] ([facility]) Total Iron Binding Capacity 368 ug/dL 250-450 Norm al (applies to non-numeric results) [facility] ([facility]) ID Date Data Source [id number] 05/22/2020 03:26:00 PM EDT [facility] Name Value Range Interpretation Code Description Data Jailene rce(s) Supporting Document(s) White Blood Count 5.4 10 4.0-10.0 Normal (applies to non-numeri c results) [facility] ([facility]) Red Blood Count 4.61 10 4.00-5.40 Normal (applies to non-numeric results) [facility] ([facility]) Mean Corpuscular Volume 87.6 fl 80.0-96.0 Normal ( applies to non-numeric results) [facility]) Hematocrit 40.4 % 36.0-47.0 Normal (applies to non-numeric resul ts) [facility]) Hemoglobin 13.2 g/dL 12.0-15.5 Normal (applies to non-numeric resul ts) [facility]) Mean Corpuscular Hemoglobin 28.6 pg 27.0-33.0 Norm al (applies to non-numeric results) [facility] ([facility]) Mean Corpuscular HGB Conc 32.7 g/dL 32.0-36.5 Normal (applies to non-numeric results) [facility] ([facility]) Red Cell Distribution Width 11.9 % 11.5-14.5 Norm al (applies to non-numeric results) [facility] ([facility]) Platelet Count, Automated 200 10 150-450 Normal (applies to non-numeric results) [facility]) Nucleated Red Blood Cell % 0.0 % 0-0 Normal (applies to n on-numeric results) [facility]) ID Date Data Source [id number] 05/16/2020 10:13:00 [place] [address] PHONE: [phone] FAX: [phone] Name .................. : CARON Harris Acct Number.................. : [id number] ROOM. ................. : [facility] MR Number ................... : [id number] Stay type ............. : E/R Discharge Date......... ... : 05/13/20 Admit Date ......... : 05/12/20 Admit Phys .................... : KALPANA Akers Date of ....... : 2000 Family Phys ................... : [employer] Phone .................. : [phone] Age ................................ : 19 Film# .................. .:[id number] Sex ................................. : F Unsigned transcriptions are preliminary reports and do not represent a medical or legal document ABDOMEN 1 VIEW [id number] COMPLETE:05/13/20 00:53 RLB [id number] Reason(s): Abdominal Pain ABDOMINAL: SINGLE VIEW CLINICAL HISTORY: Abdominal pain. FINDINGS: There is a prominent loop of small bowel noted in the upper abdomen. Findings are nonspecific. Recommend repeat imaging. There is still a moderate amount of stool noted within the ascending colon. Recommend correlation with constipation. There is an IUD device noted within the pelvis which may be displaced. Recommend [employer] consultation and pelvic imaging may be performed for further evaluation. IMPRESSION: Prominent appearing small bowel loop noted in the left upper quadrant. Constipation. IUD noted within the uterus. Recommend [employer] consultation for correct positioning. Electronically Reviewed and Signed By Trevin Victor MD , 05/16/20 10:13, [facility] Transcribe Initials: DZ , Transcribe Date: 05/13/20 11:04, Dictation Date: Copy for: ELIESER HOLLISE Gennaro via fax Copy for: EMERGENCY DEPT via modem Copy for: 710 MED REC DISCHARGED Page 1 of 1 Name Value Range Interpretation Code Description Data Jailene rce(s) Supporting Document(s) ID Date Data Source [id number] 05/12/2020 10:06:00 PM EDT [facility] 1 OrderSheet [facility] Emergency Department [address] [place] [address] Phone #: ext- [phone] 05/12/2020 22:05 Patient: DIAMANTE REARDON Sex: F : 2000 Age: 19yWEIGHT:72.5 kg (S)ALLERGIES: NoneCHIEF COMPLAINT: abdominal painDIAGNOSIS: Abdominal pain, Irritable colonLAB ORDERSOrder Description Priority Entered Acknowledged InitialedUrinalysis (Clean STAT 22:40 05/12/2020 Ack'd: 22:50 22:54 AlejandroCatch) Santosh Almonte ; Rosa M Alleneta-HCG, Qual STAT 22:40 05/12/2020 Ack'd: 22:50 22:54 Alejandro,Urine Santosh Almonte ; Rosa M AllenIAGNOSTIC STUDY ORDERSOrder Description Priority Entered Acknowledged InitialedAbdomen 1 View STAT 23:13 05/12/2020 Ack'd: 23:14 00:30 05/13/2020 Santosh Almonte ; Rosa M Allen Katelyn Reason for Study: Abdominal PainUS PELVIC STAT 23:40 05/12/2020 Ack'd: 23:48 00:29 1COMPLETE W TV Santosh Almonte ; Rosa M Allen KatelynIF NEEDED(Oxygen?(No))(IV?(No)) Reason for Study: pelvic painMEDICATION/IV/DRIP/FLUID ORDERSOrder Description Priority Entered Acknowledged Initia ledAcetaminophen PO 22:40 05/12/2020 Ack'd: 22:50 22:52 Alejandro,650 mg (NOW x1) Santosh Almonte ; Rosa M AllennToradol IM 30 mg 23:13 05/12/2020 Ack'd: 23:14 23:17 Alejandro,(NOW x1) Santosh Almonte ; Rosa M AllennMorphine IM 4 mg 00:00 05/13/2020 Ack'd: 00:02 00:07 Alejandro,(NOW x1, HIGH Santosh Almonte ; Rosa M Allen 2 OrderSheet [facility] Emergency Department [address] [place] [address] Phone #: ext- [phone] 05/12/2020 22:05 Patient: DIAMANTE REARDON Sex: F : 2000 Age: 19yMEDICATION)Phenergan IM 25 00:00 05/13/2020 Ack'd: 00:02 00:07 Alejandro,mg (NOW x1, HIGH Santosh Almonte ; Rosa M AllenMEDICATION)GENERAL ORDERSOrder Description Priority Entered Acknowledged Initialed[Electronically signed by Rosa M Allen (01:35 2020)][Electronically signed by Santosh Almonte (06:48 05/13/2020)][Electronically locked by Rosa M Allen (01:35 05/13/2020)] Name Value Range Interpretation Code Description Data Jailene rce(s) Supporting Document(s) ID Date Data Source [id number] 05/12/2020 10:06:00 PM EDT [facility] 1 Medication Reconciliation Report [facility] Emergency Department [address] [place] [address] Phone #: ext- [phone] 05/12/2020 22:05 Patient: DIAMANTE REARDON Sex: F : 2000 Age: 19yWeight: 72.5 kgHeight/Length: 64 in.BMI: 27.5ALLERGIES: NoneThe patient's Home Medications are listed below:THE FOLLOWING MEDICATIONS NEED TO BE RECONCILED: Antidepressant Bentyl Oral, 1/2 hr ago Famotidine Oral Iron Oral MiraLax Oral 1 packet, every other day, took tonight. It has about a week since taking itThe source(s) of the original Home Medication information:Not obtained.The following Medications were given to the patient in the Emergency Department:Acetaminophen [PO] PO 650 mg, administered: 22:52 05/12/2020Toradol [IM] IM 30 mg, administered: 23:17 05/12/2020Morphine [IM] IM 4 mg, administered: 00:07 1Phenergan [IM] IM 25 mg, administered: 00:07 05/13/2020The following Medications were prescribed to the patient:None. Name Value Range Interpretation Code Description Data Jailene rce(s) Supporting Document(s) ID Date Data Source [id number] 05/12/2020 10:06:00 PM EDT [facility] 1 Medication Administration Record [facility] Emergency Department [address] [place] [address] Phone #: ext- [phone] 05/12/2020 22:05 Patient: DIAMANTE REARDON ct#: [id number] Sex: F : 2000 Age: 19yWeight: 72.5 kgHeight/Length: 64 inBMI: 27.5ALLERGIES: None Date/Time Medication Administered Medication OrderedGiven ACETAMINOPHEN [PO] Acetaminophen PO 650 mg (NOW22:52 05/12/2020 Dose: 650 mg PO x1)Rosa M Allen,Given TORADOL [IM] (KETOROLAC Toradol IM 30 mg (NOW x1)23:17 05/12/2020 TROMETHAMINE)Rosa M Allen, Dose: 30 mg IMGiven MORPHINE [IM] Morphine IM 4 mg (NOW x1, HIGH00:07 05/13/2020 Dose: 4 mg IM ALERT MEDICATION)Rosa M Allen,Given PHENERGAN [IM] (PROMETHAZINE Phenergan IM 25 mg (NOW x1,00:07 05/13/2020 HCL) HIGH ALERT MEDICATION)Rosa M Allen, Dose: 25 mg IM Name Value Range Interpretation Code Description Data Jailene rce(s) Supporting Document(s) ID Date Data Source [id number] 05/12/2020 10:06:00 PM EDT [facility] 1 General Instructions [facility] Emergency Department [address] [place] [address] Phone #: [phone]- [phone] 05/12/2020 22:05 Patient: DIAMANTE REARDON Sex: F : 2000 Age: 19yAcute suprapubic abdominal pain.Acute irritable bowel syndrome with abdominal pain. No diarrhea.INSTRUCTIONSWarnings: GENERAL WARNINGS: Return or contact your physician immediately if your conditionworsens or changes unexpectedly, if not improving as expected, or if other problems arise.Un derstanding of the discharge instructions verbalized by patient.Follow-up with: Chaka Paz MD, Gastroenterology, [id number], [facility],[address], [address], [place], [address] Follow up in two days if not well. Call for an appointment. ADDITIONAL INFORMATIONUnknown Causes of Abdominal Pain (Female) 2 General Instructions [facility] Emergency Department [address] [place] [address] Phone #: ext- [phone] 05/12/2020 22:05 Patient: DIAMANTE REARDON Sex: F : 2000 Age: 19yThe exact cause of your belly (abdominal) pain is not clear. This does not mean that this is somethingto worry about. Everyone likes to know the exact cause of the problem. But sometimes with bellypain, there is no clear-cut cause, and this could be a good thing. The good news is that yoursymptoms can be treated, and you will feel better.Your condition does not seem serious now. But sometimes the signs of a serious problem may takemore time to appear. For this reason, it is important for you to watch for any new symptoms,problems, or worsening of your condition.Over the next few days, the abdominal pain may come and go. Or it may be constant. Other commonsymptoms can include nausea and vomiting. Sometimes it can be difficult to tell if you feel nauseous.You may just feel bad and not connect that feeling to nausea. Constipation, diarrhea, and a fever maygo along with the pain.The pain may continue even if treated correctly over the following days. Depending on how things go,sometimes the cause can become clear and may need more or different treatment. Additionalevaluations, medicines, or tests may also be needed.Home careYour healthcare provider may prescribe medicine for pain, symptoms, or an infection. Follow thehealthcare provider's instructions for taking these medicines. 3 General Instructions [facility] Emergency Department [address] [place] [address] Phone #: ext- [phone] 04/2020 22:05 [id number] Sex[facility] F : 2000 Age: 19yGeneral care Rest as much as you can until your next exam. No strenuous activities. Try to find positions that ease discomfort. A small pillow placed on the abdomen may help relieve pain. Something warm on your abdomen (such as a heating pad) may help, but be careful not to burn yourself.Diet Don't force yourself to eat, especially if having cramps, vomiting, or diarrhea. Water is important so you don't get dehydrated. Soup may also be good. Sports drinks may also help, especially if they are not too acidic. Don't drink sugary drinks as this can make things worse. Take liquids in small amounts. Don't guzzle them. Caffeine sometimes makes the pain and cramping worse. Don't take dairy products if you have vomiting or diarrhea. Don't eat large amounts at a time. Wait a few minutes between bites. Eat a diet low in fiber (called a low-residue diet). Foods allowed include refined breads, white rice, fruit and vegetable juices without pulp, tender meats. These foods will pass more easily through the intestine. Don't have whole-grain foods, whole fruits and vegetables, meats, seeds and nuts, fried or fatty foods, dairy, alcohol and spicy foods until your symptoms go away.Follow-up careFollow up with your healthcare provider, or as advised, if your pain does not begin to improve in thenext 24 hours.Call [phone] if any of these occur: Trouble breathing Confusion Fainting or loss of consciousness Rapid heart rate 4 General Instructions [facility] Emergency Department [address] [place] [address] Phone #: ext- [phone] 05/12/2020 22:05 Patient: DIAMANTE REARDON Sex: F : 2000 Age: 19y SeizureWhen to seek medical adviceCall your healthcare provider right away if any of these occur: Pain gets worse or moves to the right lower abdomen New or worsening vomiting or diarrhea Swelling of the abdomen Unable to pass stool for more than 3 days Fever of 100.4F (38C) or higher, or as directed by your healthcare provider. Blood in vomit or bowel movements (dark red or black color) Yellow color of eyes and skin (jaundice) Weakness, dizziness Chest, arm, back, neck, or jaw pain Unexpected vaginal bleeding or missed period Can't keep down liquids or water and you are getting dehydrated [id number] [employer]. [address] [place] [address]. All rights reserved. This information is not intended as asubstitute for professional medical care. Always follow your healthcare professional's instructions.Irritable Bowel SyndromeIrritable bowel syndrome (IBS) is a disorder of the intestines. It is not a disease, but a group ofsymptoms caused by changes in the way the intestines work including how they move, secrete,absorb, and transit pain sensations. It is fairly common, but the cause is not well understood. Thereare other conditions that cause IBS symptoms, so make sure to speak with your provider to makesure that further evaluation isn't needed. 5 General Instructions [facility] Emergency Department [address] [place] [address] Phone #: ext- [phone] 05/12/2020 22:05 Patient: DIAMANTE REARDON Sex: F : 2000 Age: 19ySymptoms of IBS include: Belly pain, discomfort, and cramping Diarrhea Constipation or dry, hard stools Mucous stool Bloating Feeling of incomplete bowel movementsIt usually results in one of 3 patterns of symptoms: Chronic belly pain and constipation Recurring episodes of diarrhea, with belly pain or discomfort Alternating diarrhea and constipationHome careThe goal of treatment is to control and relieve your symptoms, so you can lead a full and active life.There is no cure for IBS. But it can be managed.DietYour diet did not cause your IBS, but it can affect it. Diet and food choices may cause IBS symptomsin some people, but not everyone. No one diet works for everyone. Finding the best foods for youmay take trial and e rror. Keep a food log to help find what foods made your symptoms worse. Beloware some tips that may help you. Eat more slowly. Eat smaller amounts at a time, but more often. Remember, you can always eat more, but cannot eat less once you've eaten too much. In general, fiber is very helpful for both constipation and diarrhea. However, insoluble fiber can worsen bloating, cramping, and gas. Insoluble fiber can be found in wheat bran, certain vegetables, and whole-grains. Soluble fiber is in such foods as oat bran, barley, nuts, seeds, luna, lentils, peas, and some fruits and vegetables. Increase fiber slowly and choose a product that includes soluble fiber. It helps to keep a food diary and write down the symptoms you have with certain foods. Try lactose-free dairy products. many people are intolerant to lactose. Try cutting out foods that are high in fat and fatty meats. 6 General Instructions [facility] Emergency Department [address] [place] [address] Phone #: ext- [phone] 05/12/2020 22:05 Patient: DIAMANTE REARDON Sex: F : 2000 Age: 19y You can control bloating or passing excess gas. Be careful with "gassy" vegetables and fruits like beans, cabbage, broccoli, and cauliflower. Other foods called FODMAPs are a type of carbohydrate that can cause these symptoms and diarrhea. They are poorly digestible carbohydrates. Some FODMAP examples include honey, apples, pears, nectarines, zhong beans, and cabbage. Talk with your provider about how to choose low FODMAP foods if you are sensitive to them. Be careful with carbonated beverages and fruit juices. They can make your bloating and diarrhea worse. Caffeine, alcohol, and stimulants can make symptoms worse. These include coffee, tea, sodas, energy drinks, and chocolate. IBS diet guidelines can be confusing. Ask your provider for a r eferral to a registered dietitian. This professional can help you make sense of IBS diet suggestions.Lifestyle Look for factors that seem to worsen your symptoms. These include stress and emotions. Although stress does not cause IBS, it may trigger flare-ups. Counseling can help you learn to handle stress. So can self-help measures like exercise, yoga, and meditation. Depression can occur along with IBS. Your healthcare provider may prescribe antidepressant medicine. This may help with diarrhea, constipation, and cramping, as well as with symptoms of depression. Smoking doesn't cause IBS, but can make the symptoms worse.MedicinesYour healthcare provider may prescribe medicines. Take them as directed. For acute flare-ups ofyour illness, your provider may give you prescription medicines. Check with your healthcare provider before taking any medicines for diarrhea. Don't take anti- inflammatory medicines like ibuprofen or naproxen. Long-term medicines can be helpful for chronic symptoms If you have lost enough weight to make you need nutritional supplements, talk to your provider. This may point to another more serious condition.Follow-up careFollow up with your healthcare provider, or as advised. 7 General Instructions [facility] Emergency Department [address] [place] [address] Phone #: ext- [phone] 05/12/2020 22:05 Patient: DIAMANTE REARDON Sex: F : 2000 Age: 19yWhen to seek medical adviceCall your healthcare provider right away if any of these occur: Belly pain gets worse or does not improve after a bowel movement Constant belly pain moves to the right- lower belly You can't keep liquids down because of vomiting You have severe, persistent diarrhea You have blood (red or black color) or mucus in your stool You have lost significant weight You feel very weak or dizzy, faint, or have extreme thirst You have a fever of 100.4F (38.0C) or higher, or as directed by your healthcare provider [id number] [employer]. [address] [place] [address], [place] [address]. All rights reserved. This information is not intended as asubstitute for professional medical care. Always follow your healthcare professional's instructions. You have been given the following additional information: Abdominal Pain, Unknown Cause, (Female) Irritable Bowel Syndrome(Electronically signed by Santosh Almonte 05/13/2020 06:48) Name Value Range Interpretation Code Description Data Jailene rce(s) Supporting Document(s) ID Date Data Source [id number] 05/12/2020 10:06:00 PM EDT [facility] 1 Clinical Report - Nurses [facility] Emergency Department [address] [place] [address] Phone #: ext- [phone] 05/12/2020 22:05 Patient: DIAMANTE REARDON Sex: F : 2000 Age: 19yTRIAGEArrived by private vehicle. Historian: patient. Accompanied by family.Triage time: 22:05 05/12/2020.Chief Complaint: ABDOMINAL PAIN and NAUSEA.Onset. (4 hours ago). ( Had a small formed BM just prior to coming here). Last oral intake by patient wasdinner (Pork burger, Mac n cheese and water, pain started after). --22:08 05/12/20 Dede Bright R.N.Acuity: LEVEL 3. --22:16 05/12/20 Dede Bright R.N.22:14 05/12/20. BP: 138/89. MAP: 105. HR: 69. RR: 18. O2 saturation: 98%. Temp: 98 F. Additionalcomments: constant low abd cramps at 7/10, waves up to /10. --22:16 05/12/20 Dede Bright R.N.01:34 05/13/20. Pain level now 11/18. --01:35 05/13/20 Rosa M Allen.Weight: 72.5 kg stated. Height/Length: 64 inches Per Patient. BMI: 27.5. --22:05 05/12/20 Dede Bright R.N.MedicationsAntidepressant. Iron Oral. --22:08 05/12/20 Dede Bright R.N. Famotidine Oral. --22:09 05/12/20 Dede Bright R.N. Bentyl Oral (1/2 hr ago). --22:09 05/12/20 Dede Bright R.N. MiraLax Oral 1 packet (every other day, took tonight. It has about a week since taking it). --22:10 05/12/20Dede Bright R.N.AllergiesNone. --22:08 05/12/20 Dede Bright R.N.PROBLEMS:Depression.Constipation.Celiac Disease.Acid reflux.UTI - Urinary Tract Infection.IBS.Lactose Intolerance. --22:11 05/12/20 Dede Bright R.N.The following entry was modified by Dede Bright R.N., 22:11 05/12/20 2 Clinical Report - Nurses [facility] [place] [address] Phone #: ext- [phone] 05/12/2020 22:05 Patient: DIAMANTE REARDON [facility]#: [id number] Sex: F : 2000 Age: 19y Celiac Disease. --22:10 05/12/20 Dede Bright R.N. The following entry was modified by Dede Bright R.N., 22:11 05/12/20 MRSA Infection. --22:10 05/12/20 Dede Bright R.N.. History SOCIAL HX: Never smoker. No alcohol use or drug use. She was offered HIV testing but declined and hepatitis C testing but declined. She has not traveled outside the [place] Infectious disease exposure: No infectious disease exposure. SELF HARM ASSESSMENT: Self harm assessment was performed. The patient answered "no" to the question(s) "Do you have thoughts of harming or killing yourself?" and "Have you recently had thoughts about harming or killing others?". ABUSE ASSESSMENT: No report of abuse. FALL RISK ASSESSMENT: Fall risk assessment completed. Risk factors identified include severe pain. Fall interventions initiated. Bed in low position. Brakes on. Call light in reach of patient. --22:12 05/12/20 Dede Bright R.N. PAST MEDICAL HX: Last normal menstrual period was 3 weeks ago. 2. Para 2. Uses an intrauterine device. --22:16 05/12/20 Dede Bright R.N. PAST MEDICAL HX: ( Sees [facility] in [place]. Has appointment for later in May, to see about further testing and results from nut threader.). --22:18 05/12/20 Dede Bright R.N. FAMILY HX: No significant family medical history. --22:45 05/12/20 Santosh Almonte.PHYSICAL ASSESSMENTAmbulatory to room.GENERAL / NEURO / PSYCH: Alert. Oriented X 4.HEENT: Mucous membranes are pink.RESPIRATORY: Respirations not labored.CVS: Capillary refill less than 2 seconds.GI / : ( denies symptoms).SKIN: Skin is warm and dry. --22:16 05/12/20 Dede Bright R.N.NURSING PROGRESS NOTESPatient gowned. Head of bed elevated. Reassurance given. Call light placed in reach. Bed placed inlowest position. Brakes of bed on. --22:16 05/12/20 Dede Bright R.N. 22:52 05/12/2020 Acetaminophen PO 650 mg given. Allergies verified and confirmed 5 rights. Information reviewed with patient including reason for taking this medication, signs of allergic reaction and precautions. Verbalizes understanding. --22:52 05/12/20 Rosa M Allen 3 Clinical Report - Nurses [facility] Emergency Department [address] [place] [address] Phone #: ext- [phone] 05/12/2020 22:05 Patient: DIAMANTE REARDON Sex: F : 2000 Age: 19y Reassurance given. Rounding: Pain: assessed pain level. Personal care / toileting: denies toileting needs. Proximity of possessions / care items: call light within easy reach. (Patient crying). --23:10 05/12/20 Rosa M Allen 23:17 05/12/2020 Toradol (Ketorolac Tromethamine) IM 30 mg given. Given in the right deltoid. Allergies verified and confirmed 5 rights. Information reviewed with patient including reason for taking this medication, signs of allergic reaction and precautions. Verbalizes understanding. --23:17 05/12/20 Rosa M Allen 00:07 05/13/2020 Morphine IM 4 mg given. Given in the right anterior lateral thigh. Allergies verified and confirmed 5 rights. Information reviewed with patient including reason for taking this medication, signs of allergic reaction, precautions and sedative warning. Verbalizes understanding. --00:07 05/13/20 Rosa M Allen 00:07 05/13/2020 Phenergan (Promethazine HCl) IM 25 mg given. Given in the left anterior lateral thigh. Allergies verified and confirmed 5 rights. Information reviewed with patient including reason for taking this medication, signs of allergic reaction, precautions and sedative warning. Verbalizes understanding. --00:07 05/13/20 Rosa M Allen Reassurance given. Rounding: Pain: assessed pain level. Position: states comfortable. Personal care / toileting: denies toileting needs. Proximity of possessions / care items: call light within easy reach. Plug ins: assured IV pump plugged in; checked status of equipment in use; located all cords, tubes, and lines to prevent fall hazard. --00:08 05/13/20 Rosa M Allen Patient transported to sonogram by wheelchair with neurodiagnostic technician. --00:11 05/13/20 Dede Bright R.N. Patient returned from sonogram by wheelchair with mask and tech. --00:41 05/13/20 Rosa M Allen.DISPOSITION / DISCHARGE Condition at departure: improved. No learning barriers present. Discharge instructions provided and reviewed with the patient and parent. Reviewed warnings. Treatments reviewed. Reviewed referrals. Patient verbalized understanding. Written instructions provided in Surinamese. The patient was discharged by the physician. She was discharged home and accompanied by parent. She left ambulatory and via private vehicle. Parent driving. --01:34 05/13/20 Rosa M Allen 01:33 05/13/20. BP: 108/59. HR: 56. RR: 16. O2 saturation: 99%. Temp: 98.2 F. Pain level now 05/19. --01:34 05/13/20 Rosa M Allen Departure time: 01:34 05/13/2020. --01:34 05/13/20 Rosa M Allen. 4 Clinical Report - Nurses [facility] Emergency Department [address] [place] [address] Phone #: ext- [phone] 05/12/2020 22:05 Patient: DIAMANTE REARDON Sex: F : 2000 Age: 19yLocked/Released at 05/13/2020 01:35 by Rosa M Allen Name Value Range Interpretation Code Description Data Jailene rce(s) Supporting Document(s) ID Date Data Source [id number] 05/12/2020 10:06:00 PM EDT [facility] 1 Clinical Report - Physicians/Mid Levels [facility] Emergency Department [address] [place] [address] Phone #: ext- [phone] 05/12/2020 22:05 Patient: DIAMANTE REARDON Sex: F : 2000 Age: 19y Time Seen: 22:32 05/12/2020. Arrived- By private vehicle. Historian- patient.HISTORY OF PRESENT ILLNESS Chief Complaint: ABDOMINAL PAIN. This started 5 hours ago and is still present (persistent). It was gradual in onset and has been constant. It is described as cramping. It is described as located in the right side of the back, right pelvis, left pelvis and left side of the back and in the pelvic area. It is described as radiating to the low back. At its maximum, severity described as moderate. When seen in the E.D., severity described as moderate. Modifying factors. Not relieved by anything. No nausea, loss of appetite, vomiting or diarrhea. No additional abdominal pain. (Patient has history of IBS and reports cramping in lower pelvis. She denies any vaginal bleeding and is due for her menses in 9 days. No vomiting. Took her dic yclomine for her IBS). Similar symptoms previously. Patient has had similar symptoms several times.REVIEW OF SYSTEMSThe patient has had constipation, back pain and abdominal pain. No black stools, hematemesis, difficultywith urination or urination or pain with urination. No fever, headache, sore throat, chest pain or difficultybreathing. No joint pain, fever, muscle aches, nausea or hematuria. No irregular periods or dizziness.Denies current . Last bowel movement- today. All other systems reviewed and are negative.PAST HISTORYSee nurses notes. Problems: Gastroesophageal Reflux Disease. Depression. Acid reflux. UTI - Urinary Tract Infection. Additional Surgeries: Colonoscopy. Endoscopy. Tooth extraction. Medications: MiraLax Oral 1 packet (every other day, took tonight. It has about a week since taking it). Bentyl Oral (1/2 hr ago). Famotidine Oral. Antidepressant. 2 Clinical Report - Physicians/Mid Levels [facility] Emergency Department [address] [place] [address] Phone #: ext- [phone] 05/12/2020 22:05 Patient: DIAMANTE REARDON Sex: F : 2000 Age: 19y Iron Oral. Allergies: None.SOCIAL HISTORYNever smoker. No alcohol use.FAMILY HISTORYNo significant family medical history.ADDITIONAL NOTESThe nursing notes have been reviewed.PHYSICAL EXAMVital Signs: 05/12/2020 22:14 BP: 138/89. MAP: 105. HR: 69. RR: 18. O2 saturation: 98%. Temp: 98 F.Appearance: Alert. Oriented X3. Appears to be in pain. Patient in moderate dis tress.Eyes: Pupils equal, round and reactive to light. Eyes normal inspection.ENT: Nose normal. Pharynx normal.Neck: Normal inspection. Neck supple.CVS: Normal heart rate and rhythm. Heart sounds normal. Pulses normal.Respiratory: No respiratory distress. Chest nontender.Abdomen: Soft. Tenderness in the suprapubic area. Bowel sounds normal. No organomegaly. Nomass. No mass present.Back: Normal inspection.Skin: Skin warm and dry. No pallor. Normal skin color. No rash.Extremities: Extremities exhibit normal ROM. No lower extremity edema.Neuro: Oriented X 3. No motor deficit. No sensory deficit.LABS, X-RAYS, AND EKGKUB: No acute disease. Increased stool present. Gas pattern normal. The X-rays were independentlyviewed by me.Laboratory Tests: US PELVIC COMPLETE W TV IF NEEDED: (RL: 05/13/2020 00:16) ( MsgRcvd 05/13/2020 01:35) Final results Test Result Flag Units (Reference) US PELVIC COMPLETE [place] [address] ---------NAME--------- NUMBER SEX AGE ADMIT DISC. XRAY# F/C TYPE CARON Harris [id number] F 19 05/12/20 05/13/20 [id number] X6B E/R DATE OF : 2000 M/R# [id number] #: [id number] TR-05 LOCATION: EMERGENCY DEPT TRANSCRIBED: 05/13/20 1:34 IF US PELVIC COMPLETE W TV IF [id number] COMPLETED:05/13/20 37 ADB 7832 Jina son for Exam: PELVIC PAIN -- PHYSICIAN: KALPANA Akers -- 3 Clinical Report - Physicians/Mid Levels [facility] Emergency Department [address] [place] [address] Phone #: ext- [phone] 05/12/2020 22:05 Patient: DIAMANTE REARDON Sex: F : 2000 Age: 19y -- R A D I O L O G Y R E P O R T -- PATIENT HISTORY: -- US Pelvic -- Pelvic Pain ULTRASOUND PELVIS TRANSABDOMINAL -- -- COMPARISON: None -- HISTORY: US Pelvic Pelvic Pain -- -- TECHNIQUE: -- Ultrasound images through the pelvis obtained via transabdominal approach. -- -- FINDINGS: -- An IUD is seen within the uterus, appears appropriately positioned. Left ovary is unremarkable. There is a 2.0 cm right ovarian cyst. Doppler flow is detected in the ovaries bilaterally. No free fluid. -- -- IMPRESSIONS: -- IUD within the uterus. -- A 2.0 cm right ovarian cyst. -- -- Electronically Signed By: Ovidio Busch M.D. , Radiologist Date/Time: 05/13/20 01:.0135.ADB.to EMERGENCY via modemUS PELVIC COMPLETE W TV IF NEEDED: (RL: 05/12/2020 23:40) ( Mscvd 05/13/2020 00:37) CanceledUS PELVIC COMPLETE W TV IF NEEDEDReason(s): pelvic painTRANSPORTATION: WC IV? IV?(No) O2? Oxygen?(No) RooAbdomen 1 View: (RL: 05/12/2020 23:13) ( MsgRcvd 05/13/2020 00:53) In ProgressABDOMEN 1 VIEWReason(s): Abdominal PainTRANSPORTATION: S IV? Room: ED [id number]: (RL: 05/12/2020 22:50) ( MsgRcvd 05/12/2020 23:08) Final results Test Result Flag Units (Reference) URINALYSIS URINALYSIS SOURCE R COLOR yellow (NORMAL: Yello CLARITY clear (NORMAL: Clear SPEC GRAVITY 1.020 (1.001 - 1.030 pH 6 (5 - 9) GLUCOSE NORM (NORMAL: Negat 4 Clinical Report - Physicians/Mid Levels [facility] Emergency Department [address] [place] [address] Phone #: ext- [phone] 05/12/2020 22:05 Patient: DIAMANTE REARDON Sex: F : 2000 Age: 19y BILIRUBIN NEG (NORMAL: Negat KETONE NEG (NORMAL: Negat PROTEIN NEG (NORMAL: Negat NITRITE NEG (NORMAL: Negat BLOOD NEG (NORMAL: Negat LEUK EST NEG (NORMAL: Negat UROBILINOGEN NOR (less than 1.0 MICROSCOPIC Not Indicate Beta-HCG, Qual Urine: (RL: 05/12/2020 22:50) ( MsgRcvd 05/12/2020 23:07) Final results Test Result Flag Units (Reference) HCG URINE QUAL NEGATIVE (NORMAL: NEGAT HCG URINE QL REENTER NEGATIVE (NORMAL: NEGAT { KIT LOT # [id number] ){ KIT EXP DATE 11-08-21 ){ PROCEDURAL CONTROL VALID ).PROGRESS AND PROCEDURESCourse of Care: 22:46 05/12/20. Mother had ectopic in past and was concerned about possiblepregnancy. IUD placed approximately 8 months ago. 01:20 05/13/20. Patient resting more comfortably after Morphine. Earlier the patient was tearful and in pain. Concern was for possible ruptured ovarian cyst vs torsion 01:29 05/13/20. Ultrasound shows no acute process. only small right ovarian cyst noted. non-surgical abdomen on re- evaluation. Disposition: Discharged. Condition: stable.CLINICAL IMPRESSION Acute suprapubic abdominal pain. Acute irritable bowel syndrome with abdominal pain. No diarrhea.INSTRUCTIONS Warnings: GENERAL WARNINGS: Return or contact your physician immediately if your condition worsens or changes unexpectedly, if not improving as expected, or if other problems arise. Understanding of the discharge instructions verbalized by patient. Follow-up with: Chaka Paz MD, Gastroenterology, [id number], [facility], [address], [address], [place], [address] 5 Clinical Report - Physicians/Mid Levels [facility] Emergency Department [address] [place] [address] Phone #: ext- [phone] 05/12/2020 22:05 Patient: DIAMANTE REARDON Sex: F : 2000 Age: 19y Follow up in two days if not well. Call for an appointment.(Electronically signed by Santosh Almonte 05/13/2020 06:48) Name Value Range Interpretation Code Description Data Jailene rce(s) Supporting Document(s) ID Date Data Source [id number] 05/13/2020 01:34:00 [place] [address] ---------NAME--------- NUMBER SEX AGE ADMIT DISC. XRAY# F/C TYPE CARON Harris [id number] F 19 05/12/20 05/13/20 [id number] X6B E/R DATE OF : 2000 M/R# [id number] #: [id number] TR-05 LOCATION: EMERGENCY DEPT TRANSCRIBED: 05/13/20 1:34 IF US PELVIC COMPLETE W TV IF [id number] COMPLETED:05/13/20 37 ADB 7836 Reason for Exam: PELVIC PAIN PHYSICIAN: KALPANA GARZA C======== R A D I O L O G Y R E P O R T =PATIENT HISTORY:US PelvicPelvic PainULTRASOUND PELVIS TRANSABDOMINALCOMPARISON: NoneHISTORY: US Pelvic Pelvic PainTECHNIQUE:Ultrasound images through the pelvis obtained via transabdominal approach.FINDINGS:An IUD is seen within the uterus, appears appropriately positioned. Left ovaryis unremarkable. There is a 2.0 cm right ovarian cyst. Doppler flow is detectedin the ovaries bilaterally. No free fluid.IMPRESSIONS:IUD within the uterus.A 2.0 cm right ovarian cyst.Electronically Signed By:Ovidio Busch M.D. , RadiologistDate/Time: 05/13/20 01:34 05/13/20.0135.ADB.to EMERGENCY via modem Name Value Range Interpretation Code Description Data Jailene rce(s) Supporting Document(s) ID Date Data Source [id number] 05/12/2020 10:50:00 PM EDT [facility] ([facility]) Name Value Range Interpretation Code Description Data Jailene rce(s) Supporting Document(s) Source Laboratory test result [facility] ([facility]) Urinalysis Laboratory test result [facility] ([facility]) URINALYSIS Color Laboratory test result [facility] ([facility]) Clarity Laboratory test result [facility] ([facility]) Spec [place] 1.020 1.001-1.030 [facility] ([facility]) pH 6 5-9 [facility] ([facility]) Glucose Laboratory test result [facility] ([facility]) Bilirubin Laboratory test result [facility] ([facility]) Ketone Laboratory test result [facility] ([facility]) Protein Laboratory test result [facility] ([facility]) Blood Laboratory test result [facility] ([facility] Nitrite Laboratory test result [facility] ([facility]) Urobilinogen Laboratory test result [facility] ([facility]) Leuk Est Laboratory test result [facility] ([facility]) Microscopic Laboratory test result M [facility] ([facility]) ID Date Data Source [id number] 05/12/2020 10:50:00 PM EDT [facility] ([facility]) Name Value Range Interpretation Code Description Data Jailene rce(s) Supporting Document(s) HCG Urine Qual Laboratory test result [facility] ([facility]) HCG Urine QL [place]enter Laboratory test result [facility] ([facility]) { KIT LOT # [id number] ) { KIT EXP DATE 11-08-21 ) { PROCEDURAL CONTROL VALID ) ID Date Data Source [id number] 05/12/2020 11:08:00 PM EDT [facility] Name Value Range Interpretation Code Description Data Jailene rce(s) Supporting Document(s) URINALYSIS [facility] COL[facility] yellow NORMAL: Yellow [facility] CLARITY clear NORMAL: Clear [facility] Specific gravity of Urine by Test strip 1.020 1.001 - 1.030 [facility] pH 6 5 - 9 [facility] Glucose [Mass/volume] in Urine by Test strip NORM NORMAL: Negat [facility] Bilirubin.total [Presence] in Urine by Test strip NEG NORMAL: Negative [facility] Ketones [Presence] in Urine by Test strip NEG NORMAL: Negative [facility] Protein [Mass/volume] in Urine by Test strip NEG NORMAL: Negat [facility] Nitrite [Presence] in Urine by Test strip NEG NORMAL: Negative [facility] BLOOD NEG NORMAL: Negative [facility] Leukocyte esterase [Presence] in Urine by Test strip NEG GINGER L: Negative [facility] Urobilinogen [Mass/volume] in Urine by Test strip NOR less jovita n 1.0 mg/dL [facility] MICROSCOPIC Not Indicate [facility] ID Date Data Source [id number] 05/12/2020 11:06:00 PM EDT [facility] Name Value Range Interpretation Code Description Data Jailene rce(s) Supporting Document(s) HCG URINE QUAL NEGATIVE NORMAL: NEGATIVE [facility] HCG URINE QL REENTER NEGATIVE NORMAL: NEGATIVE [facility] { KIT LOT # [id number] ){ KIT EXP DATE 11-08-21 ){ PROCEDURAL CONTROL VALID ) ID Date Data Source [id number] 03/12/2020 12:00:00 AM EST [facility] Name Value Range Interpretation Code Description Data Jailene rce(s) Supporting Document(s) SARS-CoV2 Rapid Antigen Negative [facility] This [facility] and reported by [facility]. ID Date Data Source [id number] 03/26/2020 12:26:00 PM EST [facility] Name Value Range Interpretation Code Description Data Jailene rce(s) Supporting Document(s) CARMINE RED DYE [facility] _CARMINE RED DYE RAST_ SEE SEPAR ATE REFERENCE LAB REPORT ID Date Data Source [id number] 03/26/2020 12:26:00 PM EST [facility] Name Value Range Interpretation Code Description Data Jailene rce(s) Supporting Document(s) BROCCOLI RAST [facility] _BROCCOLI RAST_ SEE SEPARATE REF ERENCE LAB REPORT ID Date Data Source [id number] 03/26/2020 12:25:00 PM EST [facility] Name Value Range Interpretation Code Description Data Jailene rce(s) Supporting Document(s) GRAPEFRUIT RAST [facility] _GRAPEFRUIT RAST_ SEE SEPARATE R EFERENCE LAB REPORT ID Date Data Source [id number] 03/26/2020 12:25:00 PM [facility] Name Value Range Interpretation Code Description Data Jailene rce(s) Supporting Document(s) [facility] _LEMON RAST_ SEE SEPARATE REFERE NCE LAB REPORT ID Date Data Source [id number] 03/26/2020 12:25:00 PM EST [facility] Name Value Range Interpretation Code Description Data Jailene rce(s) Supporting Document(s) PAPRIKA/SWEET PEPPER RAST [facility] _PAPRIKA/SWEET PEPPER RAST_ SEE SEPARATE REFERENCE LAB REPORT ID Date Data Source [id number] 03/02/2020 10:53:00 AM EST [facility] ([facility]) Name Value Range Interpretation Code Description Data Jailene rce(s) Supporting Document(s) [place] IgE Ab [Units/volume] in Serum Laboratory test result [facility] ([facility]) [place] IgE Ab [Units/volume] in Serum Laboratory test result [facility] ([facility]) Potato IgE Ab [Units/volume] in Serum Laboratory test result [facility] ([facility]) ID Date Data Source [id number] 03/02/2020 10:53:00 AM EST [facility] ([facility]) Name Value Range Interpretation Code Description Data Jailene rce(s) Supporting Document(s) Immunoglobulin G, Qn,Serum 762 mg/dL 719-1475 [facility] ([facility]) Immunoglobulins (A E Laboratory test result [facility] ([facility]) Test(s) [id number] [place] were developed and had performance characteristics determined by [employer]. These tests have not been cleared or approved by the U.S. Food and Drug Administration. The FDA has determined that such clearance or approval is not necessary. These tests are used for clinical purposes. These should not be regarded as investigational or for research. Immunoglobulin A, Qn,Serum 83 mg/dL 87-352 Below low normal [facility] ([facility]) Immunoglobulin M, Qn,Serum 139 mg/dL 58-230 [facility] ([facility]) Immunoglobulin E, Total 15 IU/ml 6-495 M [facility] ([facility]) ID Date Data Source [id number] 03/02/2020 10:53:00 AM EST [facility] ([facility]) Name Value Range Interpretation Code Description Data Jailene rce(s) Supporting Document(s) [place] IgE Ab [Units/volume] in Serum Laboratory test result [facility] ([facility]) [place] IgE Ab [Units/volume] in Serum Laboratory test result [facility] ([facility]) Potato IgE Ab [Units/volume] in Serum Laboratory test result [facility] ([facility]) ID Date Data Source [id number] 03/02/2020 10:53:00 AM EST [facility] ([facility] Name Value Range Interpretation Code Description Data Jailene rce(s) Supporting Document(s) Laboratory test finding (navigational concept) Laboratory test result [facility] ([facility]) Test(s) [id number] [place] were developed and had performance characteristics determined by [employer]. These tests have not been cleared or approved by the U.S. Food and Drug Administration. The FDA has determined that such clearance or approval is not necessary. These tests are used for clinical purposes. These should not be regarded as investigational or for research. Laboratory test finding (navigational concept) 83 mg/dL 87-352 Below low normal [facility] ([facility]) Laboratory test finding (navigational concept) 762 mg/dL 719-1475 [facility] ([facility]) Laboratory test finding (navigational concept) 139 mg/dL 58-230 [facility] ([facility]) Laboratory test finding (navigational concept) 15 IU/ml 6-495 [facility] ([facility]) ID Date Data Source [id number] 03/05/2020 08:45:00 AM [facility] Name Value Range Interpretation Code Description Data Jailene rce(s) Supporting Document(s) Potato IgE Ab [Units/volume] in Serum <0.10 kU/L Class 0 [facility] ID Date Data Source [id number] 03/05/2020 08:45:00 AM [facility] Name Value Range Interpretation Code Description Data Jailene rce(s) Supporting Document(s) Tomato IgE Ab [Units/volume] in Serum <0.10 kU/L Class 0 [facility] Levels of Specific IgE Class Description of Class ----- < 0.10 0 Negative 0.10 - 0.31 0/I Equivocal/Low 0.32 - 0.55 I Low 0.56 - 1.40 II Moderate 1.41 - 3.90 III High 3.91 - 19.00 IV Very High 19.01 - 100.00 V Very High >100.00 Very High ID Date Data Source [id number] 03/05/2020 08:45:00 AM [facility] Name Value Range Interpretation Code Description Data Jailene rce(s) Supporting Document(s) [place] IgE Ab [Units/volume] in Serum <0.10 kU/L Class 0 [facility] ID Date Data Source [id number] 03/05/2020 08:45:00 AM [facility] Name Value Range Interpretation Code Description Data Jailene rce(s) Supporting Document(s) [place] IgE Ab [Units/volume] in Serum <0.10 kU/L Class 0 [facility] ID Date Data Source [id number] 03/05/2020 08:45:00 AM [facility] Name Value Range Interpretation Code Description Data Jailene rce(s) Supporting Document(s) [place] IgE Ab [Units/volume] in Serum <0.10 kU/L Class 0 [facility] ID Date Data Source [id number] 03/05/2020 08:44:00 AM [facility] Name Value Range Interpretation Code Description Data Jailene rce(s) Supporting Document(s) IMMUNOGLOBULINS (A E G M) [facility] Test(s) [id number] [place] developed and had [facility]. These tests have not been cleared or approved by the U.S.Food and Drug Administration. The FDA has determined that suchclearance or approval is not necessary. These tests are used forclinical purposes. These should not be regarded as investigationalor for research. IgG [Mass/volume] in Serum or Plasma 762 mg/dL 719-1475 [facility] IgA [Mass/volume] in Serum or Plasma 83 mg/dL 87-352 L [facility] IgM [Mass/volume] in Serum or Plasma 139 mg/dL 58-230 [facility] IgE [Units/volume] in Serum or Plasma 15 IU/mL 6-495 [facility] ID Date Data Source [id number] 12/13/2019 02:19:00 PM [facility] Patient Name: DIAMANTE REARDON OB: 2000 Sex: F Pt Unit #: [id number] Location:[facility] Provider: Visit Date/Time: 12/13/19 Primary Insurance: [facility] Secondary Insurance: Self Pay Intake Vital Signs 12/13/19 14:22 Current Height 5 ft 4 in Current Weight 162 lb 8 oz Weight Measurement Method Standing Scale BMI 27.8 BP 110/60 Blood Pressure Location Lt brachial Position Sitting Respiration 18 Pulse 98 Pulse Strength Normal Pulse Source Pulse Oximeter Temp 98.5 F Temp Source Oral Pulse Oximetry (%) 99 Oxygen Delivery Method room air Intake Visit Reasons: IUD Check Nurse Note: Diamante presents to the clinic today for an IUD check. She had the Paragard IUD placed on 11/07/2019. She reports that she is also doing the Xulane patch to help control the bleeding. Shenotes that even with the patch she is bleeding for 2 weeks. She starts bleeding when she starts her 3rd patch and then straight through until she put the new one on. She denies any pain. She has not felt for the IUD string. She also denies any pain or discomfort with intercourse. No questions or concerns at this time. Accompanied by: Self / Same as Patient Is patient in pain?: No Allergies gluten Allergy (Intermediate, Verified 09/06/19 07:21) GI Upset lactose Allergy (Intermediate, Verified 09/06/19 07:21) GI Upset SEASONAL ALLERGIES Allergy (Mild, Verified 09/06/19 07:21) Other, not listed Is last menstrual period known: Yes Last menstrual period: 12/06/19 Post menopausal: No Patient : No Vision Wearing glasses?: No Fall Risk History of falls: No Ambulatory Aid:: None Gait/Transferring:: Normal PHQ-2/9 Over the last 2 weeks, how often have you been bothered by any of the following problems? 1. Little interest or pleasure in doing things: not at all 2. Feeling down, depressed, or hopeless: not at all Total score: 0 HIV Testing Offer - ages 13- 64 Requirement for HIV testing offer been met?: Patient reports testing done at PCP Office [facility] Annual Questionnaire Are you currently in recovery for alcohol or substance use?: No Coronavirus Screening Screening Have you traveled outside of [facility] or [facility] in the last 14 days.: No Has patient experienced coronavirus symptoms: No [facility] Medical History (Updated 12/13/19 @ 14:56 by Sushila Cervantes DO) Celiac disease GERD (gastroesophageal reflux disease) History of delivery IBS (irritable bowel syndrome) Lactose intolerance Umbilical cord short in labor and delivery, delivered Surgical History Hx of colonoscopy Hx of endoscopy [place] teeth removed Family History Grandmother D eceased Breast cancer Diabetes Diabetes 1.5, managed as type 2 COPD (chronic obstructive pulmonary disease) Heart disease Thyroid activity decreased Mother Hypertension Social History Does the Patient have a Healthcare Proxy: No Does Patient have a DNR?: No Does Patient have a Living Will?: No Does the Patient have a MOLST?: No Advance Directives on File or in chart?: Yes adopted: No caregiver/support person: Yes foster care: No household members: significant other housing: house marital status: single lives independently: Yes number of children: 1 number of grandchildren: 0 highest education level completed: high school graduate service: No fdc: No current occupational status: employed current occupation: [employer] current occupational exposures/hazards: No pets and animals: Yes pets and animals: cat(s), dog(s) and other leisure activities: other Hx Recent Travel (where): No sexually active: Yes do you think of yourself as: bisexual current gender identity: female current diet type/program: gluten free and lactose free well-balanced diet: daily caffeine: Yes Type: carbonated beverages high- fat food intake: 0-1 times daily daily servings fruits/ve-4 daily servings of milk/calcium: 0-1 eating out: 1-3 times/week reads food labels: usually or always during the past year weight has: remained stable frequency: daily duration: 15-30 minutes/day Smoking Status: Former smoker passive smoking exposure: No second hand exposure: No alcohol intake: never substance use type: does not use counseling given: No seatbelt use: always helmet use: Yes drive intox or ride w/ intox contract driver: No working smoke detector in home: Yes fire extinguisher in home: Yes carbon monox detector in home: Yes firearms in home: No do you feel safe at home: Yes victim of physical abuse: No victim of emotional abuse: No victim of sexual abuse: No additional social history: yes 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 She had the Paragard IUD placed on 11/07/2019. She reports that she is also doing the Xulane patch to help control the bleeding. She notes that even with the patch she is bleeding for 2 weeks. She starts bleeding when she starts her 3rd patch and then straight through until she put the new one on. She denies any pain. She has not felt for the IUD string. She also denies any pain or discomfort with intercourse. No questions or concerns at this time. Review of Systems Const Reports system reviewed and no add itional complaints, except as documented and Denies headache(s) Eyes Denies loss of vision ENT Denies headache(s) Card Denies chest pain, Denies syncope, Denies leg edema, Denies lightheadedness, Denies palpitations andDenies dyspnea Resp Denies chest congestion, Denies cough and Denies dyspnea GI Denies abdominal pain, Denies bloating, Denies change in bowel habits and Denies heartburn Genitourinary: Denies abnormal menses, genital lesions, nipple discharge, dyspareunia, dysmenorrhea,pelvic pain, flank pain, urinary urgency, vaginal discharge or vaginal odor Musc Reports system reviewed and no additional complaints, except as documented Skin/Breast Denies breast swelling, Denies breast skin changes, Denies breast pain, Denies breast mass, Denies change in pigmentation, Denies nipple discharge and Denies sores Neuro Denies syncope, Denies headache(s) and Denies loss of vision Psych Denies anxiety and Denies depression Endo Reports system reviewed and no additional complaints, except as documented and Denies palpitations Luciano/Lymph Denies easy bruising and Denies lymphadenopathy Aller/Immun Reports system reviewed and no additional complaints, except as documented Exam Const General: cooperative, healthy appearing, comfortable, no acute distress, well developed and well groomed Orientation: alert, awake and oriented x3 GI Inspection: Yes normal to inspection and No abdominal distension Palpation: soft and no hepatosplenomegaly External Female Exam: normal external appearance, normal appearance of the urethra, no tenderness externally, no external swelling and no lesions Urethra: normal appearance of the urethra Speculum Exam - Vagina: normal appearance of the vagina, normal vaginal discharge, no lesions, vaginal bleeding, no masses and nontender Speculum Exam - Cervix: normal appearance of the cervix, nontender and other (IUD string in place) Bimanual Exam- Vagina Uterus: normal bimanual exam, normal palpation, uterine mobility normal, uterine shape normal, No tender and non-tender Bimanual Exam- Adnexa, other: no masses, normal and non-tender Pelvic Support: normal OB/External Speculum: vaginal bleeding Speculum Exam: vaginal bleeding Skin Rashes: no rashes Wounds: no wounds Hair: normal Neuro Cognition: normal cognition Speech: speech normal Extrem General: normal to inspection Psych Mental Status: mental status grossly normal Speech and Movement: speech and movement normal Affect: normal affect Attitude: cooperative Assessment Plan Assessment Plan (1) Encounter for management of intrauterine contraceptive device (IUD): Code(s): Z30.431 - Encounter for routine checking of intrauterine contraceptive device Qualifiers: IUD management: routine checking Qualified Code(s): Z30.431 - Encounter for routine checking of intrauterine contraceptive device Plan - Sushila Cervantes, DO: Paragard in place, string appropriate length. Counseled about irregular bleeding pattern, has only been on Xulane along with Paragard less than 2 months may decrease after a few months after she getsout of the immediate post period. Discussed if it doesnt improve may need to change to pillsto stop bleeding or switch to different IUD. (2) Contraceptive management: Status: Acute Comment: Discussed I would not feel comfortable sterilizing her at age 19. Discussed other long-acting reversible contraception that would benefit her and and give her rate contraception and manage her symptoms. Using patch and will do paragard at today's visit for good back up c ontraception and Patch to manage flow of menses. Code(s): Z30.9 - Encounter for contraceptive management, unspecified SNOMED Code(s): 919626071 Category: Medical Qualifiers: Contraceptive type: transdermal patch Contraceptive encounter type: surveillance QualifiedCode(s): Z30.45 - Encounter for surveillance of transdermal patch hormonal contraceptive device <Electronically signed by Sushila Cervantes DO> 12/13/19 3401 Name Value Range Interpretation Code Description Data Jailene rce(s) Supporting Document(s) ID Date Data Source [id number] 11/29/2019 10:06:00 AM EDT [facility] ([facility]) Name Value Range Interpretation Code Description Data Jailene rce(s) Supporting Document(s) IgA Serum (part of Subclasses) 79 mg/dL 87-352 Below low normal [facility] ([facility]) Igasub3 6.2 mg/dL 13.4-97.9 Below low normal [facility] ( [facility]) Igasub2 56.9 mg/dL 73.2-301.2 Below low normal [facility] ( [facility]) ID Date Data Source [id number] 11/29/2019 10:06:00 AM EDT [facility] ([facility]) Name Value Range Interpretation Code Description Data Jailene rce(s) Supporting Document(s) Tissue transglutaminase IgA Ab [Units/volume] in Serum Labor atory test result 0-3 Normal (applies to non-numeric results) [facility] ([facility]) Negative 0 - 3 Weak Positive 4 - 10 Positive >10 . Tissue Transglutaminase (tTG) has been identified as the endomysial antigen. Studies have demonstr- ated that endomysial IgA antibodies have over 99% specificity for gluten sensitive enteropathy. Performed at: RN - [facility] [address] [id number] [place]: Susan Orona MD, Phone: [phone] Performed at: - [facility] [address] [id number] [place] Splitter: Maranda Harris MD, Phone: [phone] ID Date Data Source [id number] 11/29/2019 10:06:00 AM EDT [facility] ([facility]) Name Value Range Interpretation Code Description Data Jailene rce(s) Supporting Document(s) Unitsigg For Gliadin Igg 2 units 0-19 Normal (applies to non -numeric results) [facility] ([facility]) Negative 0 - 19 Weak Positive 20 - 30 Moderate to Strong Positive >30 Unitsiga For Gliadin Iga 3 units 0-19 Normal (applies to non -numeric results) [facility] ([facility]) Negative 0 - 19 Weak Positive 20 - 30 Moderate to Strong Positive >30 ID Date Data Source [id number] 11/29/2019 10:06:00 AM EDT [facility] ([facility]) Name Value Range Interpretation Code Description Data Jailene rce(s) Supporting Document(s) Helicobacter pylori IgG Ab [Presence] in Serum or Plas ma by Immunoassay Laboratory test result Normal (applies to non-numeric results) [facility] ([facility]) SERUM SAMPLES OBTAINED TOO EARLY DURING INFECTION MAY NOT CONTAIN DETECTABLE ANTIBODIES. IF H. PYLORI INFECTION IS SUSPECTED WITH A "NEGATIVE" SERUM RESULT, A FOLLOW UP SPECIMEN IS RECOMMENDED IN 2-7 WEEKS. ID Date Data Source [id number] 11/29/2019 10:06:00 AM EDT [facility] ([facility]) Name Value Range Interpretation Code Description Data Jailene rce(s) Supporting Document(s) Ast/Sgot 24 U/L 7-37 Normal (applies to non-numeric resul ts) [facility] ([facility]) Alt/SGPT 33 U/L 12-78 Normal (applies to non-numeric resul ts) [facility] ([facility]) Alkaline Phosphatase 93 U/L 45-117 Normal (applies to non-num leonor results) [facility] ([facility]) Bilirubin,Direct Laboratory test result 0.0-0.2 Normal ( applies to non-numeric results) [facility] ([facility]) Bilirubin,Total 0.3 mg/dL 0.2-1.0 Normal (applies to non-numeric results) [facility] ([facility]) Albumin 3.5 GM/DL 3.2-5.2 Normal (applies to non-numeric resul ts) [facility]) Total Protein 6.7 GM/DL 6.4-8.2 Normal (applies to non-numeric re sults) [facility]) Albumin/Globulin Ratio 1.1 1.2-2.2 Below low normal [facility] ([facility]) ID Date Data Source [id number] 11/29/2019 10:06:00 AM EDT [facility] ([facility]) Name Value Range Interpretation Code Description Data Jailene rce(s) Supporting Document(s) Helicobacter pylori IgG Ab [Units/volume] in Serum by Immunoassay Laboratory test result Normal (applies to non-numeric results) [facility] ([facility]) SERUM SAMPLES OBTAINED TOO EARLY DURING INFECTION MAY NOT CONTAIN DETECTABLE ANTIBODIES. IF H. PYLORI INFECTION IS SUSPECTED WITH A "NEGATIVE" SERUM RESULT, A FOLLOW UP SPECIMEN IS RECOMMENDED IN 2-7 WEEKS. ID Date Data Source [id number] 11/29/2019 [facility]:06[facility] Name Value Range Interpretation Code Description Data Jailene rce(s) Supporting Document(s) IgA Serum (part of Subclasses) 79 mg/dL 87-352 Below low normal [facility] ([facility]) Igasub3 6.2 mg/dL 13.4-97.9 Below low normal [facility] ( [facility]) Igasub2 56.9 mg/dL 73.2-301.2 Below low normal [facility] ( [facility]) ID Date Data Source [id number] 11/29/2019 10:06[facility] Name Value Range Interpretation Code Description Data Jailene rce(s) Supporting Document(s) Tissue transglutaminase IgA Ab [Units/volume] in Serum Labor atory test result 0-3 Normal (applies to non-numeric results) [facility]) Negative 0 - 3 Weak Positive 4 - 10 Positive >10 . Tissue Transglutaminase (tTG) has been identified as the endomysial antigen. Studies have demonstr- ated that endomysial IgA antibodies have over 99% specificity for gluten sensitive enteropathy. Performed at: - [facility] [id number] [place]: Susan Orona MD, Phone: [phone] Performed at: - [facility] [address] [id number] [place] Splitter: Maranda Harris MD, Phone: [phone] ID Date Data Source [id number] 11/29/2019 10:06:00 AM EDT [facility] ([facility]) Name Value Range Interpretation Code Description Data Jailene rce(s) Supporting Document(s) Unitsiga For Gliadin Iga 3 units 0-19 Normal (applies to non -numeric results) [facility] ([facility]) Negative 0 - 19 Weak Positive 20 - 30 Moderate to Strong Positive >30 Unitsigg For Gliadin Igg 2 units 0-19 Normal (applies to non -numeric results) [facility] ([facility]) Negative 0 - 19 Weak Positive 20 - 30 Moderate to Strong Positive >30 ID Date Data Source [id number] 11/29/2019 10:06:00 AM EDT [facility] ([facility]) Name Value Range Interpretation Code Description Data Jailene rce(s) Supporting Document(s) Alt/SGPT 33 U/L 12-78 Normal (applies to non-numeric resul ts) [facility] ([facility]) Ast/Sgot 24 U/L 7-37 Normal (applies to non-numeric resul ts) [facility] ([facility]) Alkaline Phosphatase 93 U/L 45-117 Normal (applies to non-num leonor results) [facility] ([facility]) Bilirubin,Total 0.3 mg/dL 0.2-1.0 Normal (applies to non-numeric results) [facility] ([facility]) Total Protein 6.7 GM/DL 6.4-8.2 Normal (applies to non-numeric re sults) [facility] ([facility]) Albumin 3.5 GM/DL 3.2-5.2 Normal (applies to non-numeric resul ts) [facility] ([facility]) Bilirubin,Direct Laboratory test result 0.0-0.2 Normal ( applies to non-numeric results) [facility] ([facility]) Albumin/Globulin Ratio 1.1 1.2-2.2 Below low normal [facility] ([facility]) ID Date Data Source [id number] 11/08/2019 03:21:00 PM EDT [facility] ([facility]) Name Value Range Interpretation Code Description Data Jailene rce(s) Supporting Document(s) Laboratory test finding (navigational concept) Laboratory test result [facility] ([facility], ) Ultrasound Abdomen Limited Laboratory test result [facility] ([facility], ) ID Date Data Source [id number] 11/07/2019 11:24:00 AM EDT [facility] Patient Name: DIAMANTE REARDON OB: 2000 Sex: F Pt Unit #: [id number] Location:[facility] Provider: Visit Date/Time: 11/07/19 Primary Insurance: Self Pay Secondary Insurance: Intake Vital Signs 11/07/19 11:25 Current Height 5 ft 4 in Current Weight 167 lb Weight Measurement Method Standing Scale BMI 28.6 Intake Visit Reasons: visit (obstetrics) Nurse Note: visit. Patient had a on 09/05/19 with a vaginal extension/ laceration. She denies any vaginal pain or bleeding. Her LMP was 2 weeks ago. She is unsure of the exact date.She is not breast feeding. She reports that the baby is sleeping good. She denies any pain. Sheis currently on the Xualne patch for contraception and is asking about the Copper IUD as well. She was given Zoloft 50 mg QD for PPD. She feels that this is helping. [place] screening resulted a score of 3. She is not feeling as sad. She denies any questions or concerns at this time. In office urine HCG was obtained and negative. Paragard IUD [id number], LOT: [id number], EXP: MAY 2025. GTIN [id number], S/N [id number] [employer] [place], [place]. Accompanied by: Self / Same as Patient Is patient in pain?: No Allergies gluten Allergy (Intermediate, Verified 09/06/19 07:21) GI Upset lactose Allergy (Intermediate, Verified 09/06/19 07:21) GI Upset SEASONAL ALLERGIES Allergy (Mild, Verified 09/06/19 07:21) Other, not listed Is last menstrual period known: Yes Last menstrual period: 10/24/19 Post menopausal: No Patient : No Vision Wearing glasses?: No Fall Risk History of falls: No Ambulatory Aid:: None Gait/Transferring:: Normal Medications:: No High Risk Medications PHQ-2/9 Over the last 2 weeks, how often have you been bothered by any of the following problems? 1. Little interest or pleasure in doing things: not at all 2. Feeling down, depressed, or hopeless: not at all Total score: 0 HIV Testing Offer - ages 13-64 Requirement for HIV testing offer been met?: Patient reports testing done at PCP Office [facility] Annual Questionnaire Are you currently in recovery for alcohol or substance use?: No Coronavirus Screening Screening Have you traveled outside of [facility] or [facility] in the last 14 days.: No Has patient experienced coronavirus symptoms: No PFSH Medical History (Updated 11/07/19 @ 13:08 by Sushila Cervantes DO) Celiac disease GERD (gastroesophageal reflux disease) History of delivery IBS (irritable bowel syndrome) Lactose intolerance Umbilical cord short in labor and delivery, delivered Surgical History Hx of colonoscopy Hx of endoscopy [place] teeth removed Family History Grandmother Breast cancer Diabetes Diabetes 1.5, managed as type 2 COPD (chronic obstructive pulmonary disease) Heart disease Thyroid activity decreased Mother Hypertension Social History Does the Patient have a Healthcare Proxy: No Does Patient have a DNR?: No Does Patient have a Living Will?: No Does the Patient have a MOLST?: No Advance Directives on File or in chart?: Yes adopted: No caregiver/support person: Yes foster care: No household members: significant other housing: house marital status: single lives independently: Yes number of children: 1 number of grandchildren: 0 highest education level completed: high school graduate service: No fdc: No current occupational status: employed current occupation: [employer] current occupational exposures/hazards: No pets and animals: Yes pets and animals: cat(s), dog(s) and other leisure activities: other Hx Recent Travel (where): No sexually active: Yes do you think of yourself as: bisexual current gender identity: female current diet type/program: gluten free and lactose free well-balanced diet: daily caffeine: Yes Type: carbonated beverages high-fat food intake: 0-1 times daily daily servings fruits/ve-4 daily servings of milk/calcium: 0-1 eating out: 1-3 times/week reads food labels: usually or always during the past year weight has: remained stable frequency: daily duration: 15-3 0 minutes/day Smoking Status: Former smoker passive smoking exposure: No second hand exposure: No alcohol intake: never substance use type: does not use counseling given: No seatbelt use: always helmet use: Yes drive intox or ride w/ intox contract driver: No working smoke detector in home: Yes fire extinguisher in home: Yes carbon monox detector in home: Yes firearms in home: No do you feel safe at home: Yes victim of physical abuse: No victim of emotional abuse: No victim of sexual abuse: No additional social history: yes 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 donor Female Reproductive History Menstrual Age of Menarche: 13 Duration of menses: 6-7 days Date of last menstrual period: 10/24/19 control method: none Total pregnancies: 2 Ab induced: 0 Ab spontaneous: 0 Ectopics: 0 HPI HPI (1) Routine Follow-Up: (2) Contraceptive management: (3) Encounter for insertion of ParaGard IUD: Symptoms Thyroid symptoms: Denies palpitations Control Last menstrual period: 10/24/19 Is last menstrual period known: Yes Last menstrual period: 10/24/19 : 2 History History 2 Number of Living Children 1 Hx # Term Pregnancies 2 Hx # Pregnancies 0 Hx Total # of Abortions (Spontaneous Elective) Ectopic pregnancies 0 Past Pregnancies Del. Date EGA/weeks Route # Outcome Route Wgt Sex Labor lgth Anesthesia Del Loc 04/20/18 36 Spontaneous Vaginal 1 live - vaginal 5 lb 8.5 oz FEMALE 16 Epidural Yes [facility] 09/05/19 40 Spontaneous Vaginal 1 live - full term vaginal 7 lb 6 oz MALE [facility] Visit SEAN Calculator Estimated Delivery Date Method Current WG Current Estimate 09/02/19 Ultrasound #1 49w 3d Other Estimates 09/08/19 LMP (Certain) 48w 4d Expected Delivery Route/Plan Vaginal Specific Issues/Plans CELIAC DISEASE *DELIVERY AT 36 WKS [facility] * HX CHRONIC UTI * BROTHER HAS AUTISM * HX MRSA * FLU VACCINE AT [facility] * SEEN [facility] 03/09/2019 WILL DO REPEAT LABS TSH/FREE T4 IN 4 WKS. * HX SHORT CORD LAST CHILD* * TDAP GIVEN J 06/16/19 LT DELTOID* OB Visit Log Initial Weight: 148 lb Date EGA Weight BP ALB GLU FuHt Pres FHR F/M CTX Dil Eff Sta 01/24/19 8w 3d 152 lb (+4 lb) 111/ 59 0 Unstable absent absent 0 0 02/21/19 12w 3d 147 lb 6 oz (-10 oz) 104 [facility] 10 Unstable 156 absent ab sent 03/21/19 16w 3d 151 lb 4 oz (+3 lb 4 oz) [facility] 152 absent absent 04/19/19 20w 4d 157 lb 2 oz (+9 lb 2 oz) 98[facility] Un[facility] 142 active absent 04/28/19 21w 6d 157 lb 6 oz (+9 lb 6 oz) 108/05/12/19 23w 6d 162 lb 4 oz (+14 lb 4 oz) 104 [facility] 05/19/19 24w 6d 165 lb (+17 lb) 118/74 [facility] 06/09/19 27w 6d 170 lb 4 oz (+22 lb 4 oz) 110/52 [facility] 06/16/19 28w 6d 171 lb 2 oz (+23 lb 2 oz) 116/71 29 Unstable 146 active absen t 06/20/19 29w 3d 172 lb 6 oz (+24 lb 6 oz) 126/61 [facility] 06/24/19 30w 1d 170 lb (+22 lb) 170 lb (+22 lb) 170 lb (+22 lb) 175 lb 2 oz (+27 lb 2 oz) 175 lb 2 oz (+27 lb 2 oz) 116/67 1 40 155 140 06/27/19 30w 3d 176 lb (+28 lb) 110/70 UTO UTO 30 Cephalic 140 active oc casional 07/05/19 31w 4d 179 lb (+31 lb) 128/58 07/12/19 32w 4d 178 lb 2 oz (+30 lb 2 oz) 104/62 UTO UTO 33 Cephalic 156 active occasional 07/19/19 33w 4d 180 lb 8 oz (+32 lb 8 oz) 114/60 07/26/19 34w 4d 182 lb (+34 lb) 112/68 uto uto 34 Cephalic 152 active occasional 0 20 -4 08/02/19 35w 4d 182 lb 6 oz (+34 lb 6 oz) 120/70 neg neg 36 Cephalic 145 active occasional 1-FT 40 -3 08/09/19 36w 4d 183 lb 2 oz (+35 lb 2 oz) 110/60 UTO UTO 33 Cephalic 128 active occasional 1 40 -2 08/11/19 36w 6d 183 lb (+35 lb) 183 lb (+35 lb) 101/63 140 08/16/19 37w 4d 183 lb 4 oz (+35 lb 4 oz) 104/70 neg neg 37 Cephalic 145 active absent 08/23/19 38w 4d 189 lb 4 oz (+41 lb 4 oz) 122/68 neg neg 37 Cephalic 142 active occasional 08/30/19 39w 4d 190 lb (+42 lb) 122/64 38 Cephalic 146 active occasional 1 60 -2 09/05/19 40w 3d 188 lb 4 oz (+40 lb 4 oz) 106/82 UTO UTO 39 Cephalic 125 active frequent 3 70 -2 09/05/19 40w 5d 188 lb (+40 lb) 188 lb (+40 lb) 188 lb (+40 lb) 124/83 124/74 124/87 105/63 117/61 107/62 112/71 127/74 112/71 125/62 117/74 117/74 108/55 110/64 110/64 130 125 3 70 11/07/19 49w 3d 167 lb (+19 lb) Notes Visit Date: 11/07/19 No visit notes to display Visit Date: 09/05/19 No visit notes to display Visit Date: 09/05/19 Patient having contractions while examined today. Reported contractions last night that did not get worse. 3 soft and 70 anterior. Feels like early labor. Will send to labor and delivery for possible AROM and augmentation. Has some bleeding last night with bloody strings of mucous. Sushila Cervantes DO Visit Date: 08/30/19 Reports some contractions nothing consistent. Reports that she is surprised she lasted this long as she has a last time. No bleeding, no loss of fluid. Sushila Cervantes DO Visit Date: 08/23/19 Has some pelvic pressure, denies bleeding or leaking of fluid. She reports good movement. Sushila Cervantes DO Visit Date: 08/16/19 OB Check. 37.4 weeks. Patient is on Keflex 500mg BID for a UTI. She reports that the babyis active and moving good. She has no nausea, vomiting, bleeding, discharge or loss of fluids. She had her 38 week US today before this visit. She has no questions or concerns at this time. Taking Keflex like she should, drinking a lot of water, does not have any more back pain. 1. GBS culture: 08/02/2019: Negative. Faustino Toussaint MD Visit Date: 08/11/19 No visit notes to display Visit Date: 08/09/19 OB check at 36.4 weeks, GBS on 08/02/19 was negative, vaginal consent signed already. States baby is moving well. Is experiencing more vaginal and rectal pressure, having inconsistent contractions, denies any vaginal bleeding or loss of mucous plug. No concerns today. 1. History of delivery, last . Received Mica this up to 36 weeks. GBS negative. Faustino Toussaint MD Visit Date: 08/02/19 OB check at 35.4 weeks. Pt due for GBS today and [place] injection. Pt states a few days ago she was seeing spots while going sitting on the toilet urinating. Pt also states yesterday she got dizzy while laying down putting her feet up due to swelling, was laying on left side. States after that she also had a slight headache. Denies blurred vision or RUQ pain. BP was good 120/70. Denies bleeding or leaking of fluids. States baby is moving well. [place] injection given in right arm, [facility]#:[id number], lot#: [id number], exp: 07/2021, pt tolerated well. No other questions or concerns. 1. Mica given today. 2. OB sono scheduled for 2 weeks. 3. No dizziness and spots in visual field now, no headache. BP stable. Faustino Toussaint MD Visit Date: 07/26/19 Ob Check 34.4 weeks. Some contractions at times but are not regular. No discharge or bleeding.Baby is moving well. Pt is also here for a mica shot 275 mg, Lot#[id number],exp-07/2021,VTC# [id number].given in her left arm. tolerated it well. she will be back in one week for another shot. no other questions or concerns. Pelvic exam: Speculum: Small milky mucoid discharge, no blood in vault. Cervix: Long and closed, vertex floating. 1. History of delivery at 36 weeks 4 days, on [place] IM to 36 weeks. Received 1 doseof Mica today, last dose next week. 2. Advised to drink a lot of fluids/water. Faustino Toussaint MD Visit Date: 07/19/19 Nurse visit for mica at 33 weeks Sushila Cervantes DO Visit Date: 07/12/19 C/O cntx on/off, was in Maternity 2wks ago for cntx. Told she was long and closed. On [place] wk. 1. To come to Maternity if cntx increase in frequency and intensity. Faustino Toussaint MD Visit Date: 07/05/19 No visit notes to display Visit Date: 06/27/19 Patient evaluated overnight in MAt for contractions. H/o 36 wk on mica, aspirin. Got a dose of procardia, abx for potential UTI. Negative FFN. GBS pending. Patient looks comfortable today. Got mica injection. Reports contractions are still present but infreqent. Urine culture from Mat vist <25k, taking macrobid to completion. Sushila Cervantes DO Visit Date: 06/24/19 No visit notes to display Visit Date: 06/20/19 No visit notes to display Visit Date: 06/16/19 No complaints. Labs: 06/10/2019: GCT: 100WNL. CBC: H/H11.1/32.2, RBC indicesWNL, NPV552w. 1. Received Tdap today. 2. To get Mica tomorrow. Patient is to call pharmacy for delivery of [place], and then cometo office tomorrow for injection. Faustino Toussaint MD Visit Date: 06/09/19 No visit notes to display Visit Date: 05/19/19 OB at 24.6 weeks. Pt denies any contractions, denies leaking of fluids or bleeding. States baby is moving well. Pt has no complaints. Pt received [place] injection in left arm, [facility] #: [id number], lot #: [id number], exp: 07/2021. Pt tolerated well. RTC 1 week for [place]. Appt cards given to pt for next [place] injection and next OB visit, advised to call the office if date/times donot work for her schedule. No cntx or vag bleeding. 1. RTO 1wk for Mica. Raquel Corona Visit Date: 05/12/19 Ob Patient here for a mica injection only. 23.6 weeks. no contractions. no discharge or bleeding. baby is moving well. mica injection#4. Patient will call the pharmacy and ask when they are sending more. [facility]#[id number], lot# [id number],exp# 07/2021. given in her right arm patient tolerated it well. no further issues. Tamara Mcdermott Visit Date: 04/28/19 No visit notes to display Visit Date: 04/19/19 Report occasional tightening of belly. Will call for mica today they could get autoinjectors. She has thyroid tests already ordered through endocrine. She is to get Anatomy US today at 10:30. Sushila Cervantes DO Visit Date: 03/21/19 Reports mild cramping. Denies bleeding or loss of fluid. Does reports a history of delivery at 36 +2 wga. Does not know etiology. Discussed mica injections vs vaginal progesterone and data on each that may be helpful to prevent PTD and risk is low. Did also discuss baby aspirin for prevention of delivery with newer data. Sushila Cervantes DO Visit Date: 02/21/19 Patient is a 18 y/o here today for routine OB care. She is 12.3 weeks she was given info on Cystic and Downs today. She is having some sharp upper abdominal pain with certain movements. Sheis going to see Sanitation Inspector in [place] Dr. Dawn for low THS levels today. No contractions or leaking of fluids and states she feels an occasional flutter. Christy Pearce Visit Date: 01/24/19 No visit notes to display Questionnaire [place] Depression In the past 7 days: 1. I have been able to laugh and see the funny side of things: As much as I always could 2. I have looked forward with enjoyment to things: As much as I always could 3. I have blamed myself unnecessarily when things went wrong: No, never 4. I have been anxious or worried for no good reason: Hardly ever 5. I have felt scared or panicky for no very good reason: No, not at all 6. Things have been getting on top of me: No, I have been coping as well as ever 7. I have been so unhappy that I have had difficulty sleeping: No, not at all 8. I have felt sad or miserable: Not very often 9. I have been so unhappy that I have been crying: Only occasionally 10. The thought of harming myself has occurred to me: Never Scoring: EPDS Score:: 3 Review of Systems Const Denies body aches, Denies chills, Denies excessive sweating, Denies headache(s) and Denies weakness Eyes Denies loss of vision ENT Denies headache(s) Card Denies chest pain, Denies syncope, Denies palpitations and Denies dyspnea Resp Denies chest congestion, Denies cough and Denies dyspnea GI Denies abdominal pain, Denies bloating, Denies change in bowel habits and Denies cramping Genitourinary: Denies pelvic pain, flank pain, urinary incontinence, vaginal discharge or vaginal odor Skin/Breast Denies breast skin changes, Denies breast pain and Denies lesions Neuro Denies behavioral changes, Denies syncope, Denies headache(s), Denies loss of vision and Denies weakness Psych Denies anxiety, Denies behavioral changes and Denies depression Endo Denies excessive sweating and Denies palpitations Exam Const General: cooperative, healthy appearing and comfortable Nutritional Appearance: obese Orientation: alert, awake and oriented x3 Chest Chest: normal inspection of the chest Breast/Axilla Inspection: normal inspection of the breasts Resp Effort Inspection: normal respiratory effort and able to speak in complete sentences GI Inspection: Yes normal to inspection Palpation: soft, no masses and nontender External Female Exam: normal external appearance, normal appearance of the urethra, no tenderness externally and no external swelling Urethra: normal appearance of the urethra Speculum Exam - Vagina: normal appearance of the vagina, normal vaginal discharge and No vaginal bleeding Speculum Exam - Cervix: normal appear ance of the cervix and closed Bimanual Exam- Vagina Uterus: normal bimanual exam, normal palpation, uterine size normal (involuting well), consistency normal, uterine mobility normal and non-tender Bimanual Exam- Adnexa, other: no masses OB/External Speculum: No vaginal bleeding Speculum Exam: no vaginal bleeding Skin Lesions: no lesions Rashes: no rashes Neuro General: patient alert, patient awake, patient oriented x3, gait normal and moves all extremities Extrem General: normal to inspection Psych Appearance: grossly normal and well kempt Speech and Movement: speech and movement normal Office Procedures IUD Insertion Diagnosis: desires contraception Informed consent given: Yes Consent signed: Yes Patient tolerated procedure: well Procedure note: A bimanual exam was performed to determine the position of the uterus. The speculumwas placed. The vagina and cervix was sterilized in the usual manner and sterile technique was maintained throughout the course of the procedure. A single toothed tenaculum was applied to the anterior lip of the cervix and gentle traction applied to straighten and stabilize it. The depth of the uterus was sounded to be of 9cm. With gentle traction on the tenaculum, the Paragard IUD was inserted to the appropriate depth and deposited by the device. The string was cut to an estimated 3cm length. Bleeding was minimal. The patie nt tolerated the procedure well. Followup: The patient tolerated the procedure well without complications. Standard post-procedure care is explained and return precautions are given. Results test test NEGATIVE Last Edit by Zeny Jack on 11/07/19 11:55 Assessment Plan Assessment Plan (1) Routine Follow-Up: Code(s): Z39.2 - Encounter for routine follow-up Plan - Sushila Cervantes DO: depression symptoms improved on 50 mg of Zoloft. Will continue for now. Xulan e for contraception which she will continue to use and then Paragard placed today. test negative. Return for string check in 4 weeks and annual in 1 year. (2) Contraceptive management: Status: Acute Comment: Discussed I would not feel comfortable sterilizing her at age 19. Discussed other long-acting reversible contraception that would benefit her and and give her rate contraception and manage her symptoms. Using patch and will do paragard at today's visit for good back up contraception and Patch to manage flow of menses. Code(s): Z30.9 - Encounter for contraceptive management, unspecified SNOMED Code(s): 105300549 Category: Medical Qualifiers: Contraceptive type: transdermal patch Orders: Orders: URINE HCG Today (3) Encounter for insertion of ParaGard IUD: Status: Acute Code(s): Z30.430 - Encounter for insertion of intrauterine contraceptive device SNOMED Code(s): 910272889 C ategory: Medical Electronically Signed By: <Electronically signed by Sushila Cervantes DO> Date/Time Signed: 11/07/19 1311 Name Value Range Interpretation Code Description Data Jailene rce(s) Supporting Document(s) Procedure Social History Code Duration Value Status Description Data Source(s ) Smoking 04/06/2020 12:00:00 AM EST Patient has never smoked co mpleted Patient has never smoked [facility] ([facility] ) Vital Signs ID Date Data Source UNK Name Value Range Interpretation Code Description Data Source(s) Body height 64 [in_i] 64 [in_i] [facility] ([facility]) 5'4" Systolic blood pressure 106 mm[Hg] 106 mm[Hg[facility] Diastolic blood pressure 60 mm[Hg] 60 mm[Hg] [facility] ([facility]) Body weight 125.00 [lb_av] 125.00 [lb_av] [facility] ([facility]) [place] body weight 120 [lb_av] 120 [lb_av] [facility] ([facility]) Body weight 56.700 kg 56.700 kg [facility] ([facility]) Body surface area Derived from formula 1.60 m2 1.60 m2 [facility] ([facility]) Body mass index (BMI) [Ratio] 21.5 kg/m2 21.5 k g/m2 [facility] ([facility]) Systolic blood pressure 110 mm[Hg] 110 mm[Hg] [facility] Heart rate 68 /min 68 /min [facility] ([facility]) Diastolic blood pressure 70 mm[Hg] 70 mm[Hg] [facility] ([facility]) Body temperature 97.5 [degF] 97.5 [degF] [facility] ([facility]) Respiratory rate 16 /min 16 /min [facility] ( [facility]) Body weight 56.700 kg 56.700 kg [facility] ([facility]) Body height 64 [in_i] 64 [in_i] [facility] ([facility]) 5'4" Body mass index (BMI) [Ratio] 21.5 kg/m2 21.5 k g/m2 [facility] ([facility]) Body surface area Derived from formula 1.60 m2 1.60 m2 [facility] ([facility]) Oxygen saturation in Arterial blood by Pulse oximetry 99 % 99 % [facility] ([facility]) Body weight 125.00 [lb_av] 125.00 [lb_av] [facility] ([facility]) Respiratory rate 16 /min 16 /min [facility] ( [facility]) Body weight 60.386 kg 60.386 kg [facility] ([facility]) Body height 64 [in_i] 64 [in_i] [facility] ([facility]) 5'4" Oxygen saturation in Arterial blood by Pulse oximetry 99 % 99 % [facility] ([facility]) Body mass index (BMI) [Ratio] 22.8 kg/m2 22.8 k g/m2 [facility] ([facility]) Systolic blood pressure 110 mm[Hg] 110 mm[Hg] [facility] Diastolic blood pressure 70 mm[Hg] 70 mm[Hg] [facility] ([facility]) Heart rate 86 /min 86 /min [facility] ([facility]) Body temperature 95.9 [degF] 95.9 [degF] [facility] ([facility]) Body weight 133.12 [lb_av] 133.12 [lb_av] [facility] Body surface area Derived from formula 1.65 m2 1.65 m2 [facility] ([facility]) Body height 64 [in_i] 64 [in_i] [facility] ([facility], ) 5'4" Body weight 157.00 [lb_av] 157.00 [lb_av] [facility] Body mass index (BMI) [Ratio] 26.9 kg/m2 26.9 k g/m2 [facility] ([facility], ) [place] body weight 120 [lb_av] 120 [lb_av] [facility] ([facility], ) Body weight 157.00 [lb_av] 157.00 [lb_av] [facility] Systolic blood pressure 112 mm[Hg] 112 mm[Hg] [facility] Body weight 71.215 kg 71.215 kg [facility] ([facility], ) Diastolic blood pressure 60 mm[Hg] 60 mm[Hg] [facility] ([facility], ) Body height [Percentile] 45 % 45 % [facility] ([facility], ) Body height 64 [in_i] 64 [in_i] [facility] ([facility]) 5'4" Body surface area Derived from formula 1.77 m2 1.77 m2 [facility] ([facility]) Body mass index (BMI) [Ratio] 26.9 kg/m2 26.9 k g/m2 [facility] [place] body weight 120 [lb_av] 120 [lb_av] [facility] ([facility]) Body weight 71.215 kg 71.215 [facility] Body height [Percentile] 45 % 45 % [facility] ([facility]) Body surface area Derived from formula 1.77 m2 1.77 m2 [facility] ([facility]) Body height 65 [in_i] 65 [in_i] [facility] ([facility] 5'5" Heart rate 56 /min 56 /min [facility] ([facility]) Respiratory rate 18 /min 18 /min [facility] ( [facility]) Systolic blood pressure 107 mm[Hg] 107 mm[Hg] M [facility] ([facility]) Diastolic blood pressure 74 mm[Hg] 74 mm[Hg] [facility] ([facility]) Body weight 160.00 [lb_av] 160.00 [lb_av] [facility] ([facility]) Body mass index (BMI) [Ratio] 26.6 kg/m2 26.6 k g/m2 [facility] ([facility]) Body weight 157.00 [lb_av] 157.00 [lb_av] [facility] ([facility]) Body height 65 [in_i] 65 [in_i] [facility] ([facility] 5'5" Heart rate 94 /min 94 /min [facility] ([facility] Respiratory rate 18 /min 18 /min [facility] ( [facility]) Systolic blood pressure 111 mm[Hg] 111 mm[Hg] M [facility] ([facility]) Diastolic blood pressure 81 mm[Hg] 81 mm[Hg] [facility] ([facility]) Body mass index (BMI) [Ratio] 26.1 kg/m2 26.1 k g/m2 [facility] Body height 64 [in_i] 64 [in_i] [facility] ([facility]) 5'4" Body weight 164.00 [lb_av] 164.00 [lb_av] [facility] ([facility]) Body mass index (BMI) [Ratio] 28.1 kg/m2 28.1 k g/m2 [facility] ([facility]) [place] body weight 120 [lb_av] 120 [lb_av] [facility] ([facility]) Body weight 74.390 kg 74.390 [facility] Body height [Percentile] 46 % 46 % [facility] ([facility]) Body surface area Derived from formula 1.80 m2 1.80 m2 [facility] ([facility]) Body height 64 [in_i] 64 [in_i] [facility] ([facility]) 5'4" Body weight 164.00 [lb_av] 164.00 [lb_av] [facility] ([facility]) Body mass index (BMI) [Ratio] 28.1 kg/m2 28.1 k g/m2 [facility] ([facility]) [place] body weight 120 [lb_av] 120 [lb_av] [facility] ([facility]) Body weight 74.390 kg 74.390 [facility] Systolic blood pressure 118 mm[Hg] 118 mm[Hg] M [facility] ([facility]) Body height [Percentile] 46 % 46 % [facility] ([facility]) Body surface area Derived from formula 1.80 m2 1.80 m2 [facility] ([facility]) Diastolic blood pressure 64 mm[Hg] 64 mm[Hg] [facility] ([facility]) Body height 64 [in_i] 64 [in_i] [facility] 5'[facility]" Body weight 164.00 [lb_av] 164.00 [lb_av] [facility] ([facility] Systolic blood pressure 96 mm[Hg] 96 mm[Hg] M [facility] ([facility] Diastolic blood pressure 60 mm[Hg] 60 mm[Hg] [facility] ([facility] Heart rate 59 /min 59 /min [facility] ([facility] Body mass index (BMI) [Ratio] 28.1 kg/m2 28.1 k g/m2 [facility] ([facility] Systolic blood pressure 114 mm[Hg] 114 mm[Hg] [facility] ([facility]) Diastolic blood pressure 60 mm[Hg] 60 mm[Hg] [facility] ([facility]) Body height 64 [in_i] 64 [in_i] [facility] ([facility]) 5'4" Body weight 165.00 [lb_av] 165.00 [lb_av] [facility] ([facility]) Body mass index (BMI) [Ratio] 28.3 kg/m2 28.3 k g/m2 [facility] ([facility]) Body weight 74.844 kg 74.844 kg [facility] ([facility]) [place] body weight 120 [lb_av] 120 [lb_av] [facility] ([facility]) Body height [Percentile] 46 % 46 % [facility] ([facility])
[2020-12-13] MEDS ORDERED: propofoL 200 MG/20 ML VIAL As Ordered ONE (13:50)
--- NOTE | 2020-12-13 14:19 | ROOR ---
Patient Name: Diamante Peres Procedure Date: 12/13/2020 1:21 PM Date of : 2000 Age: 20 Room: [facility] Gender: Female Note Status: Finalized Procedure: Upper GI endoscopy Indications: Dyspepsia Providers: Chaka Castellon MD Referring MD: MIKHAIL ELLSWORTH MD Requesting Provider: Medicines: Monitored Anesthesia Care Complications: No immediate complications. Procedure: Pre-Anesthesia Assessment: - Prior to the procedure, a History and Physical was performed, and patient medications and allergies were reviewed. The patient is competent. The risks and benefits of the procedure and the sedation options and risks were discussed with the patient. All questions were answered and informed consent was obtained. Patient identification and proposed procedure were verified by the physician, the nurse and the anesthesiologist in the procedure room. Mental Status Examination: normal. Airway Examination: normal oropharyngeal airway and neck mobility. Respiratory Examination: clear to auscultation. CV Examination: normal. Prophylactic Antibiotics: The patient does not require prophylactic antibiotics. Prior Anticoagulants: The patient has taken no previous anticoagulant or antiplatelet agents. ASA Grade Assessment: II - A patient with mild systemic disease. After reviewing the risks and benefits, the patient was deemed in satisfactory condition to undergo the procedure. The anesthesia plan was to use monitored anesthesia care (MAC). Immediately prior to administration of medications, the patient was re-assessed for adequacy to receive sedatives. The heart rate, respiratory rate, oxygen saturations, blood pressure, adequacy of pulmonary ventilation, and response to care were monitored throughout the procedure. The physical status of the patient was re-assessed after the procedure. The Endoscope was introduced through the mouth, and advanced to the second part of duodenum. The upper GI endoscopy was accomplished without difficulty. The patient tolerated the procedure well. Findings: The examined esophagus was normal. The Z-line was regular and was found at the gastroesophageal junction. Scattered severe inflammation characterized by congestion (edema), erosions, friability and aphthous ulcerations was found in the gastric body and in the gastric antrum. Biopsies were taken with a cold forceps for histology. Biopsies were taken with a cold forceps for Helicobacter pylori testing. Verification of patient identification for the specimen was done by the physician and nurse using the patient's name, date and medical record number. Estimated blood loss was minimal. The duodenal bulb, second portion of the duodenum, third portion of the duodenum and fourth portion of the duodenum were normal. Biopsies for histology were taken with a cold forceps for evaluation of celiac disease. Impression: - Normal esophagus. - Z-line regular, at the gastroesophageal junction. - Gastritis. Biopsied. - Normal duodenal bulb, second portion of the duodenum, third portion of the duodenum and fourth portion of the duodenum. Biopsied. Recommendation: - Patient has a contact number available for emergencies. The signs and symptoms of potential delayed complications were discussed with the patient. Return to normal activities tomorrow. Written discharge instructions were provided to the patient. - High fiber diet. - Continue present medications. - Use Prilosec (omeprazole) 40 mg PO Daily - to be taken veterans adviser on empty stomach for 8 weeks. - Await pathology results. - Telephone GI clinic for pathology results in 2 weeks. - Return to GI clinic if persistent symptoms or new symptoms. - Return to primary care physician. Procedure Code(s): --- Professional --- 32027, Esophagogastroduodenoscopy, flexible, transoral; with biopsy, single or multiple Diagnosis Code(s): --- Professional --- K29.70, Gastritis, unspecified, without bleeding R10.13, Epigastric pain CPT copyright 2019 [employer]. All rights reserved. The codes documented in this report are preliminary and upon contract loader review may be revised to meet current compliance requirements. Chaka Castellon MD Chaka Castellon MD 12/13/2020 2:19:09 PM Electronically signed by Chaka Castellon MD Number of Addenda: 0 Note Initiated On: 12/13/2020 1:21 PM Estimated Blood Loss: Estimated blood loss was minimal.
--- NOTE | 2020-12-13 14:21 | ROOR ---
Patient Name: Diamante Peres Procedure Date: 12/13/2020 1:23 PM Date of : 2000 Age: 20 Room: [facility] Gender: Female Note Status: Finalized Procedure: Colonoscopy Indications: Chronic diarrhea Providers: Chaka Castellon MD Referring MD: MIKHAIL ELLSWORTH MD Requesting Provider: Medicines: Monitored Anesthesia Care Complications: No immediate complications. Procedure: Pre-Anesthesia Assessment: - Prior to the procedure, a History and Physical was performed, and patient medications and allergies were reviewed. The patient is competent. The risks and benefits of the procedure and the sedation options and risks were discussed with the patient. All questions were answered and informed consent was obtained. Patient identification and proposed procedure were verified by the physician, the nurse and the anesthesiologist in the procedure room. Mental Status Examination: alert and oriented. Airway Examination: normal oropharyngeal airway and neck mobility. Respiratory Examination: clear to auscultation. CV Examination: normal. Prophylactic Antibiotics: The patient does not require prophylactic antibiotics. Prior Anticoagulants: The patient has taken no previous anticoagulant or antiplatelet agents. ASA Grade Assessment: II - A patient with mild systemic disease. After reviewing the risks and benefits, the patient was deemed in satisfactory condition to undergo the procedure. The anesthesia plan was to use monitored anesthesia care (MAC). Immediately prior to administration of medications, the patient was re-assessed for adequacy to receive sedatives. The heart rate, respiratory rate, oxygen saturations, blood pressure, adequacy of pulmonary ventilation, and response to care were monitored throughout the procedure. The physical status of the patient was re-assessed after the procedure. The Colonoscope was introduced through the anus and advanced to the terminal ileum, with identification of the appendiceal orifice and IC valve. The colonoscopy was performed without difficulty. The patient tolerated the procedure well. The quality of the bowel preparation was good. The terminal ileum, ileocecal valve, appendiceal orifice, and rectum were photographed. Scope insertion time was 2 minutes. Scope withdrawal time was 9 minutes. The total duration of the procedure was 12 minutes. Findings: The perianal and digital rectal examinations were normal. The terminal ileum appeared normal. Normal mucosa was found in the entire colon. Biopsies for histology were taken with a cold forceps from the right colon, left colon and rectosigmoid colon for evaluation of microscopic colitis. Verification of patient identification for the specimen was done by the physician and nurse using the patient's name, date and medical record number. Estimated blood loss was minimal. Non-bleeding external and internal hemorrhoids were found during retroflexion. The hemorrhoids were medium-sized. Impression: - The examined portion of the ileum was normal. - Normal mucosa in the entire examined colon. Biopsied. - Non-bleeding external and internal hemorrhoids. Recommendation: - Patient has a contact number available for emergencies. The signs and symptoms of potential delayed complications were discussed with the patient. Return to normal activities tomorrow. Written discharge instructions were provided to the patient. - High fiber diet. - Continue present medications. - Await pathology results. - Repeat colonoscopy at age 50 for screening purposes. - Telephone GI clinic for pathology results in 2 weeks. - Return to GI clinic if persistent symptoms or new symptoms. - Return to primary care physician. Procedure Code(s): --- Professional --- 89482, Colonoscopy, flexible; with biopsy, single or multiple Diagnosis Code(s): --- Professional --- K64.8, Other hemorrhoids K52.9, Noninfective gastroenteritis and colitis, unspecified CPT copyright 2019 [employer]. All rights reserved. The codes documented in this report are preliminary and upon remote coders review may be revised to meet current compliance requirements. Chaka Castellon MD Chaka Castellon MD 12/13/2020 2:21:13 PM Electronically signed by Chaka Castellon MD Number of Addenda: 0 Note Initiated On: 12/13/2020 1:23 PM Estimated Blood Loss: Estimated blood loss: none.
[2020-12-13 14:30] VITALS: BP 94/57
== END 2020-12-13 14:45 | disposition home or self-care (01) ==
LOC: M OPP 11:20
PROVIDERS: ATTEND Internal Medicine Gastroenterology
DX: K52.9 Noninfective gastroenteritis and colitis, unspecified (principal); K64.8 Other hemorrhoids; K29.70 Gastritis, unspecified, without bleeding; R10.13 Epigastric pain; Z79.899 Other long term (current) drug therapy; Z91.018 Allergy to other foods

== ENCOUNTER → 2023-06-08 | Outpatient (CLI) | payer OTHER ==
[~2023-06-08] MED LIST changes: -LIDOCAINE 2% 100MG/5ML SDV (FOR ANES.) As Ordered ONE; +LORA1TAB23 PO; -LORA1TAB4 PO; -NS 1,000 ML IV ONE; +OMEP-173 PO; -OMEP-218 PO; +SENN-186 PO; -SENN-80 PO; -propofoL 200 MG/20 ML VIAL As Ordered ONE
== END ==
LOC: M WHC 12:48
PROVIDERS: ATTEND Student in an Organized Health Care Education/Training Program
DX: K90.0 Celiac disease (principal)